=== PATIENT | female | born 1955 | race Caucasian/White ===

== ENCOUNTER 2017-01-10 11:09 | Observation (INO) | payer OTHER ==
[2017-01-10 11:31] VITALS: BMI 33.3
--- NOTE | 2017-01-10 11:41 | PDOC ---
*Physical Exam - Vital Signs Last Vital Signs Temp Pulse Resp BP Pulse Ox 99.5 F 99 H 20 102/66 95 01/10/17 11:10 01/10/17 11:10 01/10/17 11:10 01/10/17 11:10 01/10/17 11:10 Heart Score/ECG Review #1 ECG reviewed & interpreted by me at: 11:41 General ECG Interpretation: Sinus Rhythm, Normal Rate, Normal Intervals, No acute ischemic changes ED Treatment Course - LABORATORY CBC & Chemistry Diagram: 01/11/17 05:35 01/11/17 05:35 Medical Decision Making - Medical Decision Making 01/12/17 13:36 61 yo F presented to the ER with a complaint of chest pain Labs nml EKG nml Pt placed on observation Agree with plan of car by CESARIO Lundberg *DC/Admit/Observation/Transfer Diagnosis at time of Disposition: Chest pain in adult - Discharge Dispostion Disposition: HOME Condition at time of disposition: Fair
--- NOTE | 2017-01-10 11:50 | PDOC ---
History of Present Illness - General Chief Complaint: Chest Pain Stated Complaint: CHEST PAIN Time Seen by Provider: 01/10/17 11:23 History Source: Patient Exam Limitations: No Limitations - History of Present Illness Initial Comments: 01/10/17 11:43 HPI: This 61-year-old female presents to the emergency room via EMS with the complaint of chest pressure. She states she had a headache overnight and had taken 2 Advil. She then had a cigarette and then developed some chest tightness where she needed to lie down because she felt she was going to pass out. This dizziness and near syncope lasted a few seconds. She now states that she feels extremely weak and called 911 for evaluation denies nausea, vomiting, fever, recent illness. She states the chest pain and chest tightness has now subsided. She has never had a cardiac evaluation and workup. Chief Compliant: Chest tightness Pain location: Midsternal chest tightness Duration: Just prior to arrival Modifying factors: None Quality: Throbbing and tightness Radiating: Nonradiating Severity: Moderate Time: one episodic event PMH: Hyperlipidemia and reflux FH: Pt has not recently traveled outside the country in the last 30 days. Pt has not been in contact with people who have traveled out of the country, in contact with people who have been ill with fever, n, v, d. SH: smoking use: Current one pack a day smoker illicit drug use: NONE alcohol use: NONE employment/educational status: sexual history: PSH: Appendectomy childhood Home med use noted on JAN Allergies: NKA PCP: Dr. Sawyer Past History - Past Medical History Allergies/Adverse Reactions: Allergies Allergy/AdvReac Type Severity Reaction Status Date / Time No Known Allergies Allergy Verified 01/10/17 11:31 Home Medications: Ambulatory Orders Esomeprazole Mag Trihydrate [Nexium] 40 mg PO PRN 01/13/12 Simvastatin [Zocor] 40 mg PO HS 01/13/12 GI Disorders: Yes (REFLUX) Hypercholesterolemia: Yes - Surgical History Appendectomy: Yes - Immunization History Td Vaccination: Yes Immunization Up to Date: Yes - Psycho/Social/Smoking Cessation Hx Anxiety: Yes Suicidal Ideation: No Smoking Status: No Smoking History: Current every day smoker Years of Tobacco Use: 40 Have you smoked in the past 12 months: Yes Number of Cigarettes Smoked Daily: 20 Information on smoking cessation initiated: No Hx Alcohol Use: No Drug/Substance Use Hx: No Substance Use Type: None Cardiac Specific PMH - Complaint Specific PMHX GERD: Yes (Dr Tellez did EDG and colonoscopy 2 years ago) Review of Systems - Review of Systems Able to Perform ROS?: Yes Comments:: 01/10/17 11:50 General statement: Developing chest tightness and pressure early this morning Hematology: neg history of bleeding/blood thinners Skin: Neg for lesions, rash, bruising. HEENT: Neg symptoms Respiratory: Neg SOB or difficulty in breathing Cardiac: +chest pain GI: Neg pain, n/v : Neg problems on voiding MS: Neg for joint pain/stiffness, no edema Neuro: Neg for LOC, weakness, Endocrine: Neg for excess thirst/hunger, cold/heat intolerance, excess sweating Allergies: Neg for allergies *Physical Exam - Vital Signs Last Vital Signs Temp Pulse Resp BP Pulse Ox 100.0 F H 99 H 20 102/66 97 01/10/17 13:20 01/10/17 11:10 01/10/17 11:10 01/10/17 11:10 01/10/17 12:00 - Physical Exam Comments: 01/10/17 11:50 General Appearance: This well appearing 61-year-old female V/S: hemodynamically stable, afebrile Skin: WNL of pt's skin color, no signs of pallor, mottling, cyanosis Head:symmetrical Eyes: EOM's intact, PERRLA Ears: denies pain Nose: patent Throat: lips, teeth, gums, tongue, buccal mucos pink and moist Lungs: Chest symmetry equal. Cap refill <3 seconds. Lung sounds clear Cardiac: PMI at R 4MCL space, pos S1 and S2, regular rate. No pain on palpation. No reproducible tenderness Abdomen: Soft, round, nontender : Not observed Muscularskeletal: Gait steady, no edema +PMS Neuro: AAOx3, cognitively intact, speech clear and appropriate. Heart Score/ECG Review - History History: Highly suspicious - Electrocardiogram EKG: Normal - Age Age: 45-65 - Risk Factors Risk Factors Heart Score: Yes Hx Hypercholesterolemia, Yes Smoking History Based on the list above the patient has:: 1-2 risk factors #1 ECG reviewed & interpreted by me at: 11:30 General ECG Interpretation: Sinus Rhythm, Normal Rate, Normal Intervals, No acute ischemic changes Eligibility Checklist For AMI - INCLUSION CRITERIA Prolonged (>30 minutes)ischemic pain: No 12 Lead ECG indicates AMI: No ST elevation >1 mm in at least 2 limb leads: No ST elevation>2 mm in at least 2 contiguous precordial leads: No LBBB with clinical symptoms consistent with an AMI: No ED Treatment Course - LABORATORY CBC & Chemistry Diagram: 01/10/17 12:02 01/10/17 12:02 - ADDITIONAL ORDERS Additional order review: Laboratory Results 01/10/17 01/10/17 01/10/17 12:27 12:27 12:02 INR Sodium 140 Potassium 4.3 Chloride 105 Carbon Dioxide 25 Anion Gap 10 BUN 13 D Creatinine 0.9 Creat Clearance w eGFR > 60 Random Glucose 118 H Lactic Acid 1.531 Calcium 8.9 Magnesium 2.2 Total Bilirubin 0.5 D AST 16 D ALT 26 Alkaline Phosphatase 69 Creatine Kinase 63 Troponin I < 0.02 Total Protein 6.9 Albumin 3.6 Urine Color Yellow Urine Appearance Clear Urine pH 6.0 Ur Specific [place] 1.014 Urine Protein Negative Urine Glucose (UA) Negative Urine Ketones Negative Urine Blood 3+ H Urine Nitrite Negative Urine Bilirubin Negative Urine Urobilinogen Negative Ur Leukocyte Esterase Negative 01/10/17 12:02 INR 1.12 Sodium Potassium Chloride Carbon Dioxide Anion Gap BUN Creatinine Creat Clearance w eGFR Random Glucose Lactic Acid Calcium Magnesium Total Bilirubin AST ALT Alkaline Phosphatase Creatine Kinase Troponin I Total Protein Albumin Urine Color Urine Appearance Urine pH Ur Specific [place] Urine Protein Urine Glucose (UA) Urine Ketones Urine Blood Urine Nitrite Urine Bilirubin Urine Urobilinogen Ur Leukocyte Esterase 01/10/17 12:02 RBC 4.74 MCV 89.5 MCHC 33.0 RDW 13.5 MPV 7.0 L Neutrophils % 93.1 H Lymphocytes % 2.9 L D Monocytes % 3.3 L Eosinophils % 0.4 Basophils % 0.3 - RADIOLOGY Radiology Studies Ordered: Category Date Time Status CHEST X-RAY PORTABLE* [RAD] Stat Radiology 01/10/17 11:54 Completed - Medications Given in the ED: ED Medications Discontinued Medications Generic Name Dose Route Start Last Admin Trade Name Freq PRN Reason Stop Dose Admin Aspirin 162 mg 01/10/17 11:54 01/10/17 12:08 Asa - PO 01/10/17 11:55 162 mg ONCE ONE Administration Medical Decision Making - Critical Care Time Total Critical Care Time (minutes): 30 Critical Care Statement: The care of this patient involved high complexity decision making to prevent further life threatening deterioration of the patient 's condition and/or to evalute & treat vital organ system(s) failure or risk of failure. - Medical Decision Making 01/10/17 11:53 A/P: 61-year-old female with complaints of chest tightness prior to arrival 1. EKG: Normal sinus rhythm no ST or T-wave abnormalities. 2 chest x-ray ordered. 3. Aspirin 162 given 4. Labs and troponins pending 5. Patient without chest pain here in the emergency room and evaluated on a monitor. 01/10/17 13:05 Pt labs noted to have a WBC with 18.0. oral temp 99.5, rectal ordered, blood culture obtained and ua ordered. 01/10/17 15:13 UA neg with + 3 blood but she is under the care of metal moulder for this and unknown findings. Pt remains CP free. CXR normal and no infiltrate Pt case d/w Dr. Andrea regarding findings and admission. She requested consult placement for Dr. Cruz. Pt in for telemetry bed. *DC/Admit/Observation/Transfer Diagnosis at time of Disposition: Chest pain in adult - Discharge Dispostion Condition at time of disposition: Stable Admit: Yes
[2017-01-10] MEDS ORDERED: ASPIRIN 81 MG CHEWABLE TABLETS PO ONE (11:54)
[2017-01-10] MEDS ORDERED: ASPIRIN 81 MG CHEWABLE TABLETS ONE (12:04)
[2017-01-10 12:20] LABS: BASOPHIL 0.3 % (0-2.0); EOSINOPHIL 0.4 % (0-4.5); MCH 29.5 pg (25.7-33.7); MEAN CELL VOLUME 89.5 fl (80-96); NEUTROPHILS 93.1 % (42.8-82.8); PLATELET COUNT 216 K/MM3 (134-434); RDW 13.5 % (11.6-15.6)
[2017-01-10 12:33] LABS: INR 1.12 (0.82-1.09); PROTHROMBIN TIME (PATIENT) 12.4 SEC (9.98-11.88)
[2017-01-10 12:45] LABS: ALBUMIN 3.6 g/dl (3.4-5.0); ANION GAP 10 (8-16); BILIRUBIN,TOTAL 0.5 mg/dL (0.2-1.0); CALCIUM 8.9 mg/dL (8.5-10.1); CO2 25 mmol/L (21-32); CREATININE 0.9 mg/dL (0.55-1.02); GLUCOSE,RANDOM 118 mg/dL (74-106); MAGNESIUM 2.2 mg/dL (1.8-2.4); SGOT/AST 16 U/L (15-37); SGPT/ALT 26 U/L (12-78); TOT PROT 6.9 g/dl (6.4-8.2)
[2017-01-10 12:48] LABS: ALK PHOS 69 U/L (45-117)
[2017-01-10] MEDS ORDERED: ONDANSETRON 4 MG/2 ML VIAL ONE (13:14)
--- NOTE | 2017-01-10 13:48 | EKG ---
Test Reason : Blood Pressure : / mmHG Vent. Rate : 099 BPM Atrial Rate : 099 BPM P-R Int : 160 ms QRS Dur : 078 ms QT Int : 352 ms P-R-T Axes : 027 000 046 degrees QTc Int : 451 ms NORMAL SINUS RHYTHM NORMAL ECG WHEN COMPARED WITH ECG OF 14-SEP-2013 16:56, NO SIGNIFICANT CHANGE WAS FOUND Confirmed by ANAYELI CHRISTINE MD ([id number]) on 01/10/2017 1:48:03 PM Referred By: Confirmed By:ANAYELI CHRISTINE MD
[2017-01-10 14:12] LABS: URINE APPEARANCE CLEAR; URINE BILIRUBIN NEGATIVE (NEGATIVE); URINE COLOR YELLOW; URINE GLUCOSE (UA) NEGATIVE (NEGATIVE); URINE KETONE NEGATIVE (NEGATIVE); URINE LEUK ESTERASE NEGATIVE (NEGATIVE); URINE NITRITE NEGATIVE (NEGATIVE); URINE PROTEIN NEGATIVE (NEGATIVE); URINE UROBILINOGEN NEGATIVE E.U./dl (0.2-1.0)
[2017-01-10 14:23] LABS: URINE BLOOD 3+ (NEGATIVE)
[2017-01-10 14:45] LABS: TROPONIN I < 0.02 ng/ml (0.00-0.05)
[2017-01-10 15:10] LABS: URINE BACTERIA RARE /hpf (NONE SEEN); URINE MUCUS RARE; URINE RBC 19 /hpf (0-3); URINE WBC 2 /hpf (3-5)
[2017-01-10] MEDS ORDERED: ONDANSETRON 4 MG/2 ML VIAL IVPUSH ONE (15:58)
[2017-01-10] MEDS ORDERED: ACETAMINOPHEN 325 MG TABLET (FP) PO ONE (16:08)
[2017-01-10] MEDS ORDERED: ACETAMINOPHEN 325 MG TABLET (FP) ONE (16:10)
--- NOTE | 2017-01-10 20:14 | HP ---
Admitting History and Physical - Primary Care Physician PCP: Miller Sawyer - Admission Chief Complaint: chest pain, dizzyness History of Present Illness: Had chills last night, developed dizziness, lightheadedness at home this am with restrosternal pressure so she called 911 and came in. By the time she was in er she was pain free. Has had normal stress echo in 2015, no work up since. In er temp 100 with low BP and leukocytosis. History Source: Patient Limitations to Obtaining History: No Limitations - Past Medical History Renal/: Yes: Hematuria (chronic, microscopic) - Past Surgical History Past Surgical History: Yes: Appendectomy - Smoking History Smoking history: Current every day smoker Have you smoked in the past 12 months: Yes Aproximately how many cigarettes per day: 20 - Alcohol/Substance Use Hx Alcohol Use: No - Social History Usual Living Arrangement: Yes: Alone ADL: Independent History of Recent Travel: No Home Medications - Allergies Allergies/Adverse Reactions: Allergies Allergy/AdvReac Type Severity Reaction Status Date / Time No Known Allergies Allergy Verified 01/10/17 11:31 - Home Medications Home Medications: Ambulatory Orders Esomeprazole Mag Trihydrate [Nexium] 40 mg PO PRN 01/13/12 Simvastatin [Zocor] 40 mg PO HS 01/13/12 Review of Systems - Review of Systems Constitutional: reports: Chills, Loss of Appetite, Weakness HENT: reports: Nasal Congestion Cardiovascular: reports: Chest Pain. denies: Palpitations, Shortness of Breath Respiratory: denies: Cough, Exercise Intolerance, SOB on Exertion Gastrointestinal: denies: Abdominal Pain Genitourinary: denies: Burning, Discharge, Dysuria Neurological: reports: Weakness Physical Examination Vital Signs: Vital Signs Temperature 97.5 F L 01/10/17 18:29 Pulse Rate 75 01/10/17 18:29 Respiratory Rate 16 01/10/17 18:29 Blood Pressure 105/75 01/10/17 18:29 O2 Sat by Pulse Oximetry (%) 96 01/10/17 15:00 Constitutional: Yes: Well Nourished, Calm Eyes: Yes: Conjunctiva Clear, EOM Intact HENT: Yes: Atraumatic, Normocephalic, Nasal Congestion. No: Thrush Neck: Yes: Supple, Trachea Midline Cardiovascular: Yes: Regular Rate and Rhythm Respiratory: Yes: CTA Bilaterally Gastrointestinal: Yes: Normal Bowel Sounds, Soft Musculoskeletal: Yes: WNL Edema: No Peripheral Pulses WNL: Yes Integumentary: Yes: WNL Neurological: Yes: WNL ...Motor Strength: WNL Psychiatric: Yes: WNL Labs: Laboratory Results - last 24 hr 01/10/17 01/10/17 01/10/17 12:02 12:02 12:02 WBC 18.0 H RBC 4.74 Hgb 14.0 Hct 42.4 MCV 89.5 MCHC 33.0 RDW 13.5 Plt Count 216 MPV 7.0 L Neutrophils % 93.1 H Lymphocytes % 2.9 L D Monocytes % 3.3 L Eosinophils % 0.4 Basophils % 0.3 INR 1.12 Sodium 140 Potassium 4.3 Chloride 105 Carbon Dioxide 25 Anion Gap 10 BUN 13 D Creatinine 0.9 Creat Clearance w eGFR > 60 Random Glucose 118 H Lactic Acid Calcium 8.9 Magnesium 2.2 Total Bilirubin 0.5 D AST 16 D ALT 26 Alkaline Phosphatase 69 Creatine Kinase 63 Troponin I < 0.02 Total Protein 6.9 Albumin 3.6 Urine Color Urine Appearance Urine pH Ur Specific [place] Urine Protein Urine Glucose (UA) Urine Ketones Urine Blood Urine Nitrite Urine Bilirubin Urine Urobilinogen Ur Leukocyte Esterase Urine RBC Urine WBC Ur Epithelial Cells Urine Bacteria Urine Mucus 01/10/17 01/10/17 12:27 12:27 WBC RBC Hgb Hct MCV MCHC RDW Plt Count MPV Neutrophils % Lymphocytes % Monocytes % Eosinophils % Basophils % INR Sodium Potassium Chloride Carbon Dioxide Anion Gap BUN Creatinine Creat Clearance w eGFR Random Glucose Lactic Acid 1.531 Calcium Magnesium Total Bilirubin AST ALT Alkaline Phosphatase Creatine Kinase Troponin I Total Protein Albumin Urine Color Yellow Urine Appearance Clear Urine pH 6.0 Ur Specific [place] 1.014 Urine Protein Negative Urine Glucose (UA) Negative Urine Ketones Negative Urine Blood 3+ H Urine Nitrite Negative Urine Bilirubin Negative Urine Urobilinogen Negative Ur Leukocyte Esterase Negative Urine RBC 19 Urine WBC 2 Ur Epithelial Cells Few Urine Bacteria Rare Urine Mucus Rare Imaging - Results Chest X-ray: Report Reviewed EKG: Report Reviewed Problem List - Problems (1) Chest pain in adult Code(s): R07.9 - CHEST PAIN, UNSPECIFIED (2) Fever Code(s): R50.9 - FEVER, UNSPECIFIED Qualifiers: Fever type: unspecified Qualified Code(s): R50.9 - Fever, unspecified Assessment/Plan ?URI with weakness and dizzyness Chest pain likely related to above and not cardiac Gentle hydration Flu swab Card f/up in am Echo cardiac enzymes blood and urine cultures were drawn
[2017-01-10 21:43] LABS: TROPONIN I < 0.02 ng/ml (0.00-0.05)
[2017-01-10] MEDS ORDERED: ATORVASTATIN CA 20 MG TABLET (FP) PO SCH (22:00)
[2017-01-10] MEDS: POTASSIUM CHLORIDE 10 MEQ in SODIUM CHLORIDE 0.45% 1,000 ML IVPB SCH (22:19)
[2017-01-11 07:17] LABS: BASOPHIL 0.3 % (0-2.0); EOSINOPHIL 4.2 % (0-4.5); MCH 30.2 pg (25.7-33.7); MCHC 33.7 g/dl (32.0-36.0); MEAN CELL VOLUME 89.6 fl (80-96); MEAN PLT VOLUME 6.9 fl (7.5-11.1); PLATELET COUNT 198 K/MM3 (134-434); RDW 13.6 % (11.6-15.6); WHITE BLOOD COUNT 7.6 K/mm3 (4.0-10.0)
[2017-01-11 07:52] LABS: ANION GAP 8 (8-16); CALCIUM 8.4 mg/dL (8.5-10.1); CO2 25 mmol/L (21-32); GLUCOSE,RANDOM 98 mg/dL (74-106)
[2017-01-11 08:07] LABS: ALK PHOS 65 U/L (45-117); BILIRUBIN,TOTAL 0.4 mg/dL (0.2-1.0); CREATININE 0.8 mg/dL (0.55-1.02); SGOT/AST 21 U/L (15-37); SGPT/ALT 32 U/L (12-78); TOT PROT 5.8 g/dl (6.4-8.2)
[2017-01-11] MEDS ORDERED: PT OWN MED DRAWER 7, Y5N ONE (08:39)
--- NOTE | 2017-01-11 09:07 | PN ---
Progress Note (short form) - Note Progress Note: Cardiology Consult Dicated IMP: Probable viral syndrome with pleurisy Unlikely cardiac etiology of chest pain REC: Agree with echo to assess EF and rule out pericardial effusion Outpatient ETT when recovers from acute illness for further CV risk strat ( smoker with HL) Thanks.
[2017-01-11] MEDS ORDERED: PANTOPRAZOLE 40 MG TABLET (FP) PO SCH (10:00)
--- NOTE | 2017-01-11 10:35 | PN ---
Progress Note (short form) - Note Progress Note: Feels well today, no complaints. CBC, BMP 01/11/17 05:35 01/11/17 05:35 Vital Signs Period Temp Pulse Resp BP Sys/Lowe Pulse Ox Last 24 Hr 97.2 F-100.0 F 63-99 16-20 90-119/48-75 95-97 S1S2 RRR Lungs cta Abd soft NT no edema Imp BP on lower side, but pt is asymptomatic if echo wnl would dc home with outpt f/up likely viral syndr. cont iv fluids while inpt Problem List - Problems (1) Chest pain in adult Code(s): R07.9 - CHEST PAIN, UNSPECIFIED (2) Fever Code(s): R50.9 - FEVER, UNSPECIFIED Qualifiers: Fever type: unspecified Qualified Code(s): R50.9 - Fever, unspecified
[2017-01-11 11:00] LABS: TROPONIN I < 0.02 ng/ml (0.00-0.05)
--- NOTE | 2017-01-11 11:16 | CONS ---
DATE OF CONSULTATION: 01/11/2017 CONSULTATION REQUESTED BY: Bhavna Andrea MD CHIEF COMPLAINT: Chest pain. HISTORY OF PRESENT ILLNESS: A 61-year-old female with past medical history of GERD, hyperlipidemia, and long time smoker, admitted with dry cough, fevers, chills, diffuse body aches, and an episode of substernal chest pain which occurred yesterday at the time that her cough surfaced. She denies shortness of breath beyond her usual baseline with exertion, which she attributes to chronic smoking. No palpitations, PND, orthopnea. No syncope. No heart failure symptoms. The patient describes 1-2 days of feeling fatigued with body aches, subjective chills. Here, she was found to be febrile with an elevated white blood cell count of 18 upon admission. She was also initially mildly hypotensive and has been receiving IV fluids overnight. Influenza swab is currently negative. Blood cultures and urine cultures are pending. PAST MEDICAL HISTORY: Significant for GERD and hyperlipidemia. ALLERGIES: She has no known drug allergies. HOME MEDICATIONS: Include Zocor 40 mg at bedtime and Nexium 40 mg p.r.n. PAST SURGICAL HISTORY: She denies any prior surgeries. FAMILY HISTORY: No early CAD or sudden cardiac . SOCIAL HISTORY: Smokes 1/2 pack to a pack per day for many years. 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 PHYSICAL EXAMINATION: Vital Signs: Initial temperature of 100.0, now 97.4. Pulse 65 and regular. Blood pressure ranging between 100 and 105 systolic over 60. O2 saturation 96 on room air. HEENT: Anicteric. Neck: No bruits. Heart: S1, S2 regular. No murmurs. Chest: Clear, with decreased breath sounds bilaterally consistent with previous smoking history. Abdomen: Soft, nontender. Extremities: No edema. EKG normal sinus at 99 beats per minute. No acute ST changes. Chest x-ray showed no acute findings. LABORATORY: White count is now down to 7.6. Hematocrit is 37, platelets 198, INR 1.12. Sodium 142, potassium 4.2, creatinine normal. LFTs normal. CK and troponin are negative x3 sets. Urinalysis showed 3+ blood with 2 white cells, otherwise negative. Patient states she has a long history of hematuria with a recent negative secondary workup. ASSESSMENT: A 61-year-old female admitted with 1-2 days of viral symptoms including subjective fevers, chills, dry cough with an episode of chest pain in that setting, with no acute EKG changes and 3 negative cardiac enzymes. This likely represents a viral syndrome with possible pleurisy. Doubt cardiac etiology of chest pain. PLAN: 1. Echocardiogram to rule out pericardial disease and assess LV function. 2. Treatment of underlying illness as per PMD. 3. When she recovers from the acute illness, recommend outpatient treadmill stress test for further cardiovascular risk stratification in light of her risk factors of hyperlipidemia and long-term smoking. Thank you for this consultation. SYD PERRY M.D. [id number]
[2017-01-11] MEDS: POTASSIUM CHLORIDE 10 MEQ in SODIUM CHLORIDE 0.45% 1,000 ML IVPB SCH (12:33)
--- NOTE | 2017-01-11 13:58 | DS ---
Physical Examination Vital Signs: Vital Signs Temperature 97.9 F 01/11/17 10:00 Pulse Rate 79 01/11/17 10:06 Respiratory Rate 18 01/11/17 10:06 Blood Pressure 98/66 01/11/17 10:06 O2 Sat by Pulse Oximetry (%) 97 01/11/17 10:00 Constitutional: Yes: No Distress, Calm Eyes: Yes: Conjunctiva Clear, EOM Intact HENT: Yes: Normocephalic Neck: Yes: Trachea Midline Cardiovascular: Yes: Regular Rate and Rhythm Respiratory: Yes: CTA Bilaterally Gastrointestinal: Yes: Normal Bowel Sounds, Soft Edema: No Integumentary: Yes: WNL Neurological: Yes: WNL Psychiatric: Yes: WNL Labs: CBC, BMP 01/11/17 05:35 01/11/17 05:35 Discharge Summary Reason For Visit: CHEST PAIN Current Active Problems Chest pain in adult (Acute) Hospital Course: admitted for observation overnight for chest pain, low grade fever and leukocytosis. Hydrated in hospital, feels better, no further chest pain, serial cardiac enzymes blood, urine cultures and flu swab negative, echo unremarkable. medically stable to dc home with oupt f/up Condition: Fair - Instructions Diet, Activity, Other Instructions: rest, plenty fluids in 1 week in 2-3 weeks Referrals: Miller Sawyer MD [Primary Care Provider] - Disposition: HOME - Home Medications Comprehensive Discharge Medication List: Ambulatory Orders Esomeprazole Mag Trihydrate [Nexium] 40 mg PO PRN 01/13/12 Simvastatin [Zocor] 40 mg PO HS 01/13/12
[2017-01-11 14:48] VITALS: BP 134/67; PULSE 70; TEMP 97.5
== END 2017-01-11 15:10 | disposition home or self-care (01) ==
LOC: JER 11:09 → JERBED 15:21 → UNDOADMOB 15:21 → INTOOBSV 15:21 → JERBED 15:55 → J4W 17:43
PROVIDERS: ADMIT Internal Medicine; ATTEND Internal Medicine
DX: J06.9 Acute upper respiratory infection, unspecified (principal); R07.9 Chest pain, unspecified; K21.9 Gastro-esophageal reflux disease without esophagitis; E78.00 Pure hypercholesterolemia, unspecified; F17.210 Nicotine dependence, cigarettes, uncomplicated; R31.9 Hematuria, unspecified; R50.9 Fever, unspecified
CPT/HCPCS: 36415; 71010-TC; 80053; 81003; 81015; 82550; 83605; 83735; 84484; 85025; 85610; 87040; 87086; 87254; 87804; 93005; 93010; 93306-TC; 99285-25; G0378

== ENCOUNTER → 2017-07-13 | Day surgery (SDC) | payer OTHER ==
--- NOTE | 2017-07-17 10:44 | PATH ---
Surgical Pathology Report Patient Name: EMILY FRIEND [facility]. Rec. #: [id number] /Age/Gender: 1955 (Age: 62) / F Account: [id number] Location: Taken: 07/13/2017 Received: 07/13/2017 Reported: 07/17/2017 Physicians: Paul Reynoso M.D. Specimen(s) Received RIGHT BREAST BIOPSY 3 O'CLOCK, 4CM FN Clinical History Ultrasound findings: Probably benign 0.4 cm hypoechoic mass Final Diagnosis BREAST, RIGHT, 3:00, 4 CM FN, CORE BIOPSY: BENIGN BREAST TISSUE SHOWING STROMAL FIBROSIS. Electronically Signed Gretchen Case M.D. Gross Description Received in formalin, labeled "right breast biopsy 3:00, 4 cmfn," are 6 hickman-yellow, cylindrical portions of fibroadipose tissue ranging from 0.4-1.4 cm. in length and averaging 0.2 cm. in diameter. The specimen is submitted in toto in one cassette. Time to formalin fixation: 2 minutes Total formalin fixation time: Approximately 7 hours. /07/13/201707/13/2017
== END | disposition home or self-care (01) ==
LOC: FRADUS-SUR 08:58
PROVIDERS: ATTEND Specialist
PROC: 0HBT3ZX Excision of Right Breast, Percutaneous Approach, Diagnostic (ICD-10-PCS; principal; 2017-07-13)
DX: N60.31 Fibrosclerosis of right breast (principal); N63 Unspecified lump in breast
CPT/HCPCS: 19083; 87899; 88305-TC; A4648; G0206-TC

== ENCOUNTER 2019-01-02 14:42 | Inpatient (IN) | payer OTHER ==
--- NOTE | 2019-01-02 16:05 | HP ---
Admitting History and Physical - Primary Care Physician PCP: Miller Sawyer - Admission Chief Complaint: nausea History of Present Illness: developed nausea for 7-10 days with poor appetite, known h/o gallstones, saw and was scheduled for gallbladder sugery. preop labs show biliary obstruction, hence [t was sent to er for further w/up and treatment. 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 ) Renal/: Yes: Hematuria (chronic, microscopic) Psych: Yes: Anxiety Musculoskeletal: Yes: Chronic low back pain - Past Surgical History Past Surgical History: Yes: Appendectomy Additional Past Surgical History: carpal tunnel surgery - Smoking History Smoking history: Unknown if ever smoked Have you smoked in the past 12 months: Yes Aproximately how many cigarettes per day: 6 - Alcohol/Substance Use Hx Alcohol Use: No - Social History ADL: Independent History of Recent Travel: No Home Medications - Allergies Allergies/Adverse Reactions: Allergies Allergy/AdvReac Type Severity Reaction Status Date / Time No Known Allergies Allergy Verified 01/02/19 14:43 - Home Medications Home Medications: Ambulatory Orders Esomeprazole Magnesium [Nexium 24Hr] 20 mg PO DAILY 01/02/19 Metoprolol Tartrate 12.5 mg PO DAILY 01/02/19 Simvastatin [Zocor -] 20 mg PO HS 01/02/19 Family Disease History - Family Disease History Family History: Unremarkable Review of Systems - Review of Systems Constitutional: reports: Loss of Appetite. denies: Chills, Fever, Malaise Eyes: reports: No Symptoms HENT: reports: No Symptoms Neck: reports: No Symptoms Cardiovascular: reports: No Symptoms Respiratory: reports: No Symptoms Gastrointestinal: reports: Nausea. denies: Abdominal Pain, Diarrhea, Vomiting Genitourinary: reports: No Symptoms Breasts: reports: No Symptoms Reported Musculoskeletal: reports: Back Pain Neurological: reports: No Symptoms Hematology/Lymphatic: reports: No Symptoms Psychiatric: reports: No Symptoms Physical Examination Vital Signs: Vital Signs Temperature 97.9 F 01/02/19 14:42 Pulse Rate 113 H 01/02/19 14:42 Respiratory Rate 20 01/02/19 14:42 Blood Pressure 114/68 01/02/19 14:42 O2 Sat by Pulse Oximetry (%) 96 01/02/19 14:42 Constitutional: Yes: Calm, Obese Eyes: Yes: Sclera Icterus HENT: Yes: Normocephalic Neck: Yes: Trachea Midline Cardiovascular: Yes: Regular Rate and Rhythm Respiratory: Yes: CTA Bilaterally Gastrointestinal: Yes: Normal Bowel Sounds, Soft, Abdomen, Obese. No: Distention, Tenderness, Rebound, Vomiting Renal/: Yes: WNL Musculoskeletal: Yes: WNL Extremities: Yes: WNL Edema: No Peripheral Pulses WNL: Yes Neurological: Yes: WNL Psychiatric: Yes: WNL Problem List - Problems (1) Abnormal liver enzymes Code(s): R74.8 - ABNORMAL LEVELS OF OTHER SERUM ENZYMES (2) Calculus of gallbladder Code(s): K80.20 - CALCULUS OF GALLBLADDER W/O CHOLECYSTITIS W/O OBSTRUCTION Qualifiers: Cholecystitis presence: without cholecystitis Biliary obstruction: with biliary obstruction Qualified Code(s): K80.21 - Calculus of gallbladder without cholecystitis with obstruction (3) Jaundice Code(s): R17 - UNSPECIFIED JAUNDICE Assessment/Plan MRCP GI eval, may need ercp NPO for now iv fluids consults appreciated
--- NOTE | 2019-01-02 16:11 | CON.CARD ---
Consult Consult Specialty:: Cardiology Referred by:: Dr. Khan Reason for Consultation:: Preoperative Cardiac Consult - History of Present Illness Chief Complaint: Abdominal pain and nausea History of Present Illness: 63 F with: Nonobstx CAD Mild carotid plaque Mild to mod AR Mild stable ascending aortic aneurysm 4.1 (was 4.0cm in 2013). Cholelithiasis Presents to ER now with nausea, RUQ pain and abnormal labs (elevated bili) and concern for choledocholithiasis. Denies chest pain, SOB, palpitations, edema, PND, orthopnea. Denies syncope. No PND, no orthopnea. - History Source History Provided By: Patient, Medical Record Limitations to Obtaining History: No Limitations - Past Medical History Cardio/Vascular: Yes: Aneurysm, Aortic Insufficiency, HTN, Hyperlipdemia Pulmonary: No: Asthma, Bronchitis, Cancer, COPD, O2 Dependent, Pneumonia, Previously Intubated, Pulmonary Embolus, Pulmonary Fibrosis, Sleep Apnea, Other Hepatobiliary: Yes: Cholelithiasis Renal/: Yes: Hematuria (chronic, microscopic) Heme/Onc: No: Anemia, B12 Deficiency, Bleeding Disorder, Cancer, Current Chemotherapy, Current Radiation Therapy, Hemochromatosis, Hypercoaguable State, Myeloproliferative Synd, Sickle Cell Disease, Sickle Cell Trait, Thrombocytopenia, Other Infectious Disease: No: AIDS, C-Diff, Herpes Zoster, HIV, MRSA, STD's, Tuberculosis, VREF, Other Psych: No: Addictions, Anxiety, Bipolar, Depression, Panic, Psychosis, Schizophrenia, Other Musculoskeletal: No: Bursitis, Chronic low back pain, Hemiparesis, Hemiplegia, Osteoarthritis, Paraplegia, Other Rheumatology: No: Fibromyalgia, Gout, Lupus, Rheumatoid Arthritis, Sarcoidosis, Vasculitis, Other ENT: No: Allergic Rhinitis, Sinusitis, Other Endocrine: No: Jacoby's Disease, Darleen's Disease, Diabetes Insipidus, Diabetes Mellitus, Hyperparathyroidism, Hyperthyroidism, Hypothyroidism, Osteopenia, SIADH, Other Dermatology: No: Basal Cell, Cellulitis, Eczema, Melanoma, Psoriasis, Squamous Cell, Other - Past Surgical History Past Surgical History: Yes: Appendectomy - Alcohol/Substance Use Hx Alcohol Use: No - Smoking History Smoking history: Unknown if ever smoked Have you smoked in the past 12 months: Yes Aproximately how many cigarettes per day: 6 - Social History ADL: Independent History of Recent Travel: No Home Medications - Allergies Allergies/Adverse Reactions: Allergies Allergy/AdvReac Type Severity Reaction Status Date / Time No Known Allergies Allergy Verified 01/02/19 14:43 - Home Medications Home Medications: Ambulatory Orders Esomeprazole Magnesium [Nexium 24Hr] 20 mg PO DAILY 01/02/19 Metoprolol Tartrate 12.5 mg PO DAILY 01/02/19 Simvastatin [Zocor -] 20 mg PO HS 01/02/19 Family Disease History - Family Disease History Family History: Unremarkable (no early CAD or SCD) Review of Systems Findings/Remarks: see HPI - Review of Systems Constitutional: reports: Loss of Appetite Eyes: denies: No Symptoms, Blind Spots, Blurred Vision, Double Vision, Eye Pain , Floaters, Photophobia, Recent Change in Vision, Other HENT: denies: No Symptoms, Difficult Swallowing, Ear Discharge, Ear Pain, Epistaxis, Gingival Bleeding, Hearing Loss, Mouth Swelling, Nasal Congestion, Ocular Prosthesis, Throat Pain, Toothache, Ringing in Ears, Other Neck: denies: No Symptoms, Decreased ROM, Lumps, Pain on Movement, Stiffness, Swollen Glands, Tenderness, Other Cardiovascular: denies: No Symptoms, Chest Pain, Edema, Palpitations, Shortness of Breath, Other Respiratory: denies: No Symptoms, Cough, Exercise Intolerance, Hemoptysis, Orthopnea, PND, Snoring, SOB, SOB on Exertion, Wheezing, Other Gastrointestinal: reports: Abdominal Pain, Nausea, Vomiting Genitourinary: denies: No Symptoms, Burning, Discharge, Dysuria, Flank Pain, Frequency, Hematuria, Incontinence, Lesions, Menses, Pain, Testicular Mass, Testicular Pain, Testicular Swelling, Urgency, Vaginal Bleeding, Other Breasts: denies: No Symptoms Reported, See HPI, Breast Implants, Discharge from Nipple, Lumps, Pain, Skin Changes, Other Musculoskeletal: denies: No Symptoms, Back Pain, Crepitus, Decreased ROM, Extremity Pain, Joint Pain, Joint Swelling, Muscle Pain, Muscle Cramps, Muscle Weakness, Other Integumentary: denies: No Symptoms, Blister, Bruising, Change in Color, Eczema, Erythema, Incision, Lesions, Lump, Pallor, Pruritis, Rash, Wound, Other Neurological: denies: No Symptoms, Change in LOC, Change in Speech, Confusion, Dizziness, Headache, Incoordination, Numbness, Parasthesia, Pre-Existing Deficit , Seizure, Syncope, Tremors, Unsteady Gait, Weakness, Other Endocrine: denies: No Symptoms, Excessive Sweating, Flushing, Increased Hunger, Increased Thirst, Intolerance to Cold, Intolerance to Heat, Unexplained Weight Gain, Unexplained Weight Loss, Other Hematology/Lymphatic: denies: No Symptoms, Easily Bruised, Excessive Bleeding, Swollen Glands, Other Psychiatric: denies: No Symptoms, Altered Sleep Pattern, Anxiety, Depression, Hallucinations, Panic, Paranoia, Suicidal, Other - Risk Factors Known Risk Factors: Yes: Hypercholesterolemia Vital Signs: Vital Signs Temperature 97.9 F 01/02/19 14:42 Pulse Rate 113 H 01/02/19 14:42 Respiratory Rate 20 01/02/19 14:42 Blood Pressure 114/68 01/02/19 14:42 O2 Sat by Pulse Oximetry (%) 96 01/02/19 14:42 Constitutional: Yes: No Distress, Calm Eyes: Yes: Sclera Icterus HENT: Yes: WNL Neck: Yes: WNL Respiratory: Yes: CTA Bilaterally (clear without wheezing or rales.) Gastrointestinal: Yes: Soft (Mild RUQ tenderness to palpation. No rebound or guarding.) Renal/: No: WNL, Anuria, Bladder Distention, CVA Tenderness - Left, CVA Tenderness - Right, Ha Present, Hematuria, Incontinence, Menses Present, Oliguria, Polyuria, , Scrotal Edema, Urethral Discharge, Vaginal Bleeding, Vaginal Discharge, Other Cardiovascular: Yes: Regular Rate and Rhythm JVD: No Carotid Bruit: No PMI: Non-Displaced Heart Sounds: Yes: S1, S2 (RRR, no M/R/G.) Musculoskeletal: No: WNL, Back Pain, Joint Stiffness, Joint Swelling, Muscle Pain, Muscle Weakness, Other Extremities: No: WNL, Amputation, Calf Tenderness, Cold, Cool, Cyanosis, Deformity, Delayed Capillary Refill, Erythema, External Rotation, Internal Rotation, Pallor, Shortened, Other Edema: No Peripheral Pulses WNL: Yes Neurological: Yes: Alert, Oriented ...Motor Strength: WNL Psychiatric: Yes: WNL - Other Data Pending. Echo: Report Reviewed Prior Cardiac Procedures: Cardiac Catheterization (within last two years: non- obstructive disease.) Ejection Fraction %: LVEF > or = 40 % Imaging - Results EKG: Pending Problem List - Problems (1) Abnormal liver enzymes Code(s): R74.8 - ABNORMAL LEVELS OF OTHER SERUM ENZYMES (2) Calculus of gallbladder Code(s): K80.20 - CALCULUS OF GALLBLADDER W/O CHOLECYSTITIS W/O OBSTRUCTION Qualifiers: Cholecystitis presence: without cholecystitis Biliary obstruction: with biliary obstruction Qualified Code(s): K80.21 - Calculus of gallbladder without cholecystitis with obstruction (3) Jaundice Code(s): R17 - UNSPECIFIED JAUNDICE (4) Ascending aortic aneurysm Code(s): I71.2 - THORACIC AORTIC ANEURYSM, WITHOUT RUPTURE (5) Aortic regurgitation Code(s): I35.1 - NONRHEUMATIC AORTIC (VALVE) INSUFFICIENCY Qualifiers: Cardiac valve disease etiology: nonrheumatic Qualified Code(s): I35.1 - Nonrheumatic aortic (valve) insufficiency (6) Nonobstructive atherosclerosis of coronary artery Code(s): I25.10 - ATHSCL HEART DISEASE OF THE [place] CORONARY ARTERY W/O ANG PCTRS Assessment/Plan IMP: Cholelithiasis, choledocholithiasis Nonobstx CAD Mild carotid plaque Mild to mod AR Mild stable ascending aortic aneurysm 4.1 (stable since 2012) REC: 1. Baseline ECG 2. No cardiac contraindications to ERCP or cholecystectomy. 3. Continue low dose Metoprolol to reduce aortic shear stress. 4. Further w/u of cholelithiasis, jaundice as per PMD and surgery. Thank you, will follow.
--- NOTE | 2019-01-02 16:20 | CONSULT ---
Consult Consult Specialty:: Surgery. Referred by:: Angela - History of Present Illness Chief Complaint: Yellow urine, for the past one week. - History Source History Provided By: Patient Limitations to Obtaining History: No Limitations - Past Medical History Renal/: Yes: Hematuria (chronic, microscopic) - Past Surgical History Past Surgical History: Yes: Appendectomy - Alcohol/Substance Use Hx Alcohol Use: No - Smoking History Smoking history: Unknown if ever smoked Have you smoked in the past 12 months: Yes Aproximately how many cigarettes per day: 6 - Social History ADL: Independent History of Recent Travel: No Home Medications - Allergies Allergies/Adverse Reactions: Allergies Allergy/AdvReac Type Severity Reaction Status Date / Time No Known Allergies Allergy Verified 01/02/19 14:43 - Home Medications Home Medications: Ambulatory Orders Esomeprazole Magnesium [Nexium 24Hr] 20 mg PO DAILY 01/02/19 Metoprolol Tartrate 12.5 mg PO DAILY 01/02/19 Simvastatin [Zocor -] 20 mg PO HS 01/02/19 Review of Systems - Review of Systems Gastrointestinal: reports: Other (Known to have gallstones, and found toe ve passing yellow urine, ? painless.) Physical Exam Vital Signs: Vital Signs Temperature 97.9 F 01/02/19 14:42 Pulse Rate 113 H 01/02/19 14:42 Respiratory Rate 20 01/02/19 14:42 Blood Pressure 114/68 01/02/19 14:42 O2 Sat by Pulse Oximetry (%) 96 01/02/19 14:42 Problem List - Problems (1) Calculus of gallbladder Code(s): K80.20 - CALCULUS OF GALLBLADDER W/O CHOLECYSTITIS W/O OBSTRUCTION Qualifiers: Cholecystitis presence: without cholecystitis Biliary obstruction: with biliary obstruction Qualified Code(s): K80.21 - Calculus of gallbladder without cholecystitis with obstruction (2) Jaundice Code(s): R17 - UNSPECIFIED JAUNDICE (3) Abnormal liver enzymes Code(s): R74.8 - ABNORMAL LEVELS OF OTHER SERUM ENZYMES Assessment/Plan : Work up for jaundice , in a patient with gallstones, Biliary obstruction, secondary to a)common bile duct calculus, and gallstones. b)R/O neoplasm / Plan : Abdominal ultrasound, HIDA scan, MRCP , patient says she cannot be in the machine, G.I. consult, possible ERCP, Dr. Gallardo. Will follow.
[2019-01-02 16:42] LABS: BASO % 0.6 % (0-2.0); EOS % 1.6 % (0-4.5); HEMATOCRIT 41.8 % (32.4-45.2); HEMOGLOBIN 14.4 GM/dL (10.7-15.3); LYMPH % 25.1 % (8-40); MCH 31.8 pg (25.7-33.7); MCHC 34.5 g/dl (32.0-36.0); MEAN CELL VOLUME 92.2 fl (80-96); MEAN PLT VOLUME 7.6 fl (7.5-11.1); MONO % 6.5 % (3.8-10.2); NEUT % 66.2 % (42.8-82.8); PLATELET COUNT 227 K/MM3 (134-434); RBC 4.54 M/mm3 (3.60-5.2); RDW 13.7 % (11.6-15.6); WHITE BLOOD COUNT 8.3 K/mm3 (4.0-10.0)
--- NOTE | 2019-01-02 16:53 | PDOC ---
Attending Attestation - Resident Resident Name: Low Ozuna - ED Attending Attestation I have performed the following: I have examined & evaluated the patient, The case was reviewed & discussed with the resident, I agree w/resident's findings & plan, Exceptions are as noted - HPI HPI: 01/02/19 17:47 The patient is a 63 year old female, with a significant PMH of HLD, DM, and HTN , who presents to the emergency department, sent by PCP and surgeon for elevated liver enzymes. The patient was seen by their PCP a week ago for RUQ tenderness, nausea and vomiting, where it was decided for the patient to get a cholecystectomy. Upon reading pre-op labs, the providers became concerned of elevated liver enzymes and a retained stone prompting them to send her in for admission. The patient denies chest pain, shortness of breath, headache and dizziness. Denies fever, chills, nausea, vomit, diarrhea and constipation. Denies dysuria, frequency, urgency and hematuria. Allergies: NKA Past surgical history: Appendectomy Social history: None reported PCP: Dr. Silverio Hollingsworth: Dr. Will - Physicial Exam PE: 01/02/19 17:48 agree with resident exam - Medical Decision Making 01/02/19 17:48 63yo F presents to the ED for admission for retained stone and elevated liver enzymes. Bili and alk phos elevated as well consistent with obstruction, will cover with zosyn in case of early ascending cholangitis although pt with no fevers, systemic signs of infection or white count. Management as per PMD/ surgeon. <Rashad Huntley - Last Filed: 01/02/19 17:55> Attestations - Attestations 01/02/19 17:25 Documentation prepared by Joy Zhao, acting as chief medical technologist for Rsahad Huntley MD. <Joy Zhao - Last Filed: 01/02/19 17:25>
[2019-01-02 17:05] LABS: INR 0.96 (0.83-1.09); PROTHROMBIN TIME (PATIENT) 11.3 SEC (9.7-13.0)
[2019-01-02 17:08] LABS: ACTIVATED PTT 32.4 SECONDS (25.2-36.5)
[2019-01-02 17:15] LABS: ALBUMIN 4.1 g/dl (3.4-5.0); ALK PHOS 356 U/L (45-117); ANION GAP 6 MMOL/L (8-16); BILIRUBIN,TOTAL 3.9 mg/dL (0.2-1); BLOOD UREA NITROGEN 16 mg/dL (7-18); CALCIUM 9.4 mg/dL (8.5-10.1); CHLORIDE 106 mmol/L (98-107); CO2 26 mmol/L (21-32); CREATININE 0.9 mg/dL (0.55-1.3); GLUCOSE,RANDOM 100 mg/dL (74-106); LIPASE 318 U/L (73-393); POTASSIUM 3.8 mmol/L (3.5-5.1); SGOT/AST 142 U/L (15-37); SGPT/ALT 305 U/L (13-61); SODIUM 138 mmol/L (136-145); TOT PROT 7.5 g/dl (6.4-8.2)
[2019-01-02] MEDS ORDERED: PIPERACILLIN/TAZOB 4.5 GM 4.5 GM in DEXTROSE 5%-WATER 100 ML IVPB ONE (17:28)
[2019-01-02] MEDS ORDERED: SODIUM CHLORIDE 1,000 ML IV STA (17:29)
[2019-01-02] MEDS ORDERED: ONDANSETRON 4 MG/2 ML VIAL ONE (17:41)
[2019-01-02] MEDS ORDERED: PIPERACILLIN/TAZOB 4.5 GM 4.5 GM/100 ML BAG IVPB ONE (17:41)
[2019-01-02] MEDS: ONDANSETRON 4 MG/2 ML VIAL IVPUSH PRN (17:43)
--- NOTE | 2019-01-02 17:46 | PDOC ---
History of Present Illness - General Chief Complaint: Pain, Acute Stated Complaint: SEND BY PCP Time Seen by Provider: 01/02/19 14:52 History Source: Patient Exam Limitations: No Limitations - History of Present Illness Initial Comments: 01/02/19 17:40 63 yo female pmh of known asymptomatic gall stone, HTN and HLD presents to the ED for 1 week of right upper quadrant abdominal pain and nausea. Pt states she saw her PCP last Sun, noted to be jaundice and referred to Dr. Will who found elevated LFTs, alk phos and total bili. Pt sent to ED for further workup and admission for MRCP. Pt admits to dark colored urine and loose stools. Denies F/C , confusion, ESPINAL, back pain, CP or SOB Past History - Past Medical History Allergies/Adverse Reactions: Allergies Allergy/AdvReac Type Severity Reaction Status Date / Time No Known Allergies Allergy Verified 01/02/19 14:43 Home Medications: Ambulatory Orders Esomeprazole Magnesium [Nexium 24Hr] 20 mg PO DAILY 01/02/19 Metoprolol Tartrate 12.5 mg PO DAILY 01/02/19 Simvastatin [Zocor -] 20 mg PO HS 01/02/19 Anemia: No Asthma: No Cancer: No Cardiac Disorders: Yes ("aneursym") CVA: No COPD: No CHF: No Dementia: No Diabetes: No GI Disorders: Yes (REFLUX) Disorders: No HTN: No Hypercholesterolemia: Yes Liver Disease: No Seizures: No Thyroid Disease: No - Surgical History Appendectomy: Yes - Immunization History Td Vaccination: Yes Immunization Up to Date: Yes - Suicide/Smoking/Psychosocial Hx Smoking Status: No Smoking History: Unknown if ever smoked Years of Tobacco Use: 40 Have you smoked in the past 12 months: Yes Number of Cigarettes Smoked Daily: 6 'Breaking Loose' booklet given: 01/03/19 Hx Alcohol Use: No Drug/Substance Use Hx: No Substance Use Type: None Hx Substance Use Treatment: No Review of Systems - Review of Systems Constitutional: No: Chills, Fever Respiratory: No: Shortness of Breath Cardiac (ROS): No: Chest Pain ABD/GI: Yes: Nausea, Other (RUQ abdominal pain). No: Constipated, Diarrhea, Vomiting : No: Burning, Dysuria, Frequency, Flank Pain Musculoskeletal: No: Back Pain Integumentary: Yes: Other (denies yellowing of skin) *Physical Exam - Vital Signs Last Vital Signs Temp Pulse Resp BP Pulse Ox 97.9 F 113 H 20 114/68 96 01/02/19 14:42 01/02/19 14:42 01/02/19 14:42 01/02/19 14:42 01/02/19 14:42 - Physical Exam General Appearance: Yes: Nourished, Appropriately Dressed. No: Apparent Distress HEENT: positive: EOMI, Other (no jaundice noted) Neck: positive: Supple Respiratory/Chest: positive: Lungs Clear. negative: Crackles, Rales, Stridor, Wheezing Cardiovascular: positive: Regular Rhythm, S1, S2, Tachycardia. negative: Edema , JVD, Murmur Vascular Pulses: Dorsalis-Pedis (R): 4+, Doralis-Pedis (L): 4+ Gastrointestinal/Abdominal: positive: Normal Bowel Sounds, Flat, Soft, Tenderness (RUQ). negative: Pulsatile Mass, Distended, Guarding, Rebound Extremity: positive: Normal Capillary Refill Integumentary: positive: Normal Color, Dry, Warm. negative: Jaundice Neurologic: positive: Fully Oriented, Alert, Normal Mood/Affect Moderate Sedation - Procedure Monitoring Vital Signs: Procedure Monitoring Vital Signs Temperature 97.9 F 01/02/19 14:42 Pulse Rate 113 H 01/02/19 14:42 Respiratory Rate 20 01/02/19 14:42 Blood Pressure 114/68 01/02/19 14:42 O2 Sat by Pulse Oximetry (%) 96 01/02/19 14:42 ED Treatment Course - LABORATORY CBC & Chemistry Diagram: 01/02/19 16:00 01/02/19 15:12 - ADDITIONAL ORDERS Additional order review: Laboratory Results 01/02/19 01/02/19 16:00 15:12 PT with INR 11.30 INR 0.96 PTT (Actin FS) 32.4 Sodium 138 Potassium 3.8 Chloride 106 Carbon Dioxide 26 Anion Gap 6 L BUN 16 Creatinine 0.9 Creat Clearance w eGFR > 60 Random Glucose 100 Calcium 9.4 Total Bilirubin 3.9 H AST 142 H ALT 305 H Alkaline Phosphatase 356 H Total Protein 7.5 Albumin 4.1 Lipase 318 01/02/19 16:00 RBC 4.54 MCV 92.2 MCHC 34.5 RDW 13.7 MPV 7.6 D Neutrophils % 66.2 Lymphocytes % 25.1 Monocytes % 6.5 Eosinophils % 1.6 Basophils % 0.6 - RADIOLOGY Radiology Studies Ordered: Category Date Time Status ABDOMEN MRI WITH CONTRAST/MRCP [MRI] Stat MRI 01/02/19 17:37 Ordered CHEST PA & LAT [RAD] Stat Radiology 01/02/19 15:12 Ordered ABDOMEN US -LIMITED [US] Stat Ultrasound 01/02/19 15:38 Ordered Medical Decision Making - Medical Decision Making Pt refused MRI as per Dr. Will due to claustrophobia. 01/02/19 17:[address] Tellez who agrees to have MRCP and ERCP in the AM. Pt agrees to have MRI if sedative used Blood work from 12/31/2018 vs 01/02/2019:: WBC 8 8.3 Alk Phos 277 356 ALT 226--------305 AST 137--------142 BIli 3----3.9 Lipase WNL today Starting Flagyl and Zosyn incase of ascending infection Admitting pt under Dr. Sawyer with GI consult and likely ERCP in the AM *DC/Admit/Observation/Transfer - Referrals - Patient Instructions - Post Discharge Activity
[2019-01-02] MEDS ORDERED: LORazepam 2 MG/ML SDV VIAL ONE ×2 (17:56→18:26)
--- NOTE | 2019-01-02 20:21 | CON.GI ---
Consult Consult Specialty:: Gastroenterology Referred by:: Dr Andrea Reason for Consultation:: Abdominal pain, Abnormal LFTs - History of Present Illness Chief Complaint: Biliary colic History of Present Illness: 63F has been having RUQ biliary colic since 12/25/18. Her LFTs on 12/31/18 revealed AST/ALT 226/137 with TB 3. Today's TB is 3.9. The pain remains colicky but without radiation, N/V. She has noted tea colored urine and hickman colored stools. She is s/p appendectomy. Sonogram, CT and MRCP are in the works. She has been seen by my former partner Dr. Horner who last did a colonoscopy on 01/17/16 when he removed ascending and descending colon adenomas. Diverticulosis was noted. EGD on 12/24/15 revealed a hiatal hernia. - History Source History Provided By: Patient, Caregiver - Past Medical History Cardio/Vascular: Yes: Other (4.1cm descending thoracic aortic aeurysm-stable as of ) Gastrointestinal: Yes: Diverticulosis, Hiatal Hernia, Other (colon adenomas) Hepatobiliary: Yes: Cholelithiasis Renal/: Yes: Hematuria (chronic, microscopic), Renal Calculi, Other (renal cyst) Reproductive: Yes: Other (ovarian cyst) Psych: Yes: Anxiety Musculoskeletal: Yes: Chronic low back pain - Past Surgical History Past Surgical History: Yes: Appendectomy, Breast Biopsy (benign), Colonoscopy, Upper Endoscopy - Alcohol/Substance Use Hx Alcohol Use: No History of Substance Use: reports: None - Smoking History Smoking history: Current every day smoker Have you smoked in the past 12 months: Yes Aproximately how many cigarettes per day: 6 - Social History Usual Living Arrangement: Alone ADL: Independent 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 Place of : [facility] History of Recent Travel: No Home Medications - Allergies Allergies/Adverse Reactions: Allergies Allergy/AdvReac Type Severity Reaction Status Date / Time No Known Allergies Allergy Verified 01/02/19 14:43 - Home Medications Home Medications: Ambulatory Orders Esomeprazole Magnesium [Nexium 24Hr] 20 mg PO DAILY 01/02/19 Metoprolol Tartrate 12.5 mg PO DAILY 01/02/19 Simvastatin [Zocor -] 20 mg PO HS 01/02/19 Family Disease History - Family Disease History Family Disease History: Diabetes: Mother ( 82 [place]), Other: Father ( after prostate surgery age 76), Mother, Brother (IVDA, of ruptured spleen) Review of Systems - Review of Systems Constitutional: reports: Chills Eyes: reports: No Symptoms HENT: reports: No Symptoms Neck: reports: No Symptoms Cardiovascular: reports: No Symptoms Respiratory: reports: No Symptoms Gastrointestinal: reports: Abdominal Pain Genitourinary: reports: No Symptoms Musculoskeletal: reports: No Symptoms Physical Exam-GI Vital Signs: Vital Signs Temperature 98.4 F 01/02/19 19:45 Pulse Rate 92 H 01/02/19 19:45 Respiratory Rate 17 01/02/19 19:45 Blood Pressure 108/77 01/02/19 19:45 O2 Sat by Pulse Oximetry (%) 97 01/02/19 19:45 CBC,CMP WBC 8.3 K/mm3 (4.0-10.0) 01/02/19 16:00 RBC 4.54 M/mm3 (3.60-5.2) 01/02/19 16:00 Hgb 14.4 GM/dL (10.7-15.3) 01/02/19 16:00 Hct 41.8 % (32.4-45.2) 01/02/19 16:00 MCV 92.2 fl (80-96) 01/02/19 16:00 MCH 31.8 pg (25.7-33.7) 01/02/19 16:00 MCHC 34.5 g/dl (32.0-36.0) 01/02/19 16:00 RDW 13.7 % (11.6-15.6) 01/02/19 16:00 Plt Count 227 K/MM3 (134-434) 01/02/19 16:00 MPV 7.6 fl (7.5-11.1) D 01/02/19 16:00 Absolute Neuts (auto) 5.5 K/mm3 (1.5-8.0) 01/02/19 16:00 Neutrophils % 66.2 % (42.8-82.8) 01/02/19 16:00 Lymphocytes % 25.1 % (8-40) 01/02/19 16:00 Monocytes % 6.5 % (3.8-10.2) 01/02/19 16:00 Eosinophils % 1.6 % (0-4.5) 01/02/19 16:00 Basophils % 0.6 % (0-2.0) 01/02/19 16:00 Nucleated RBC % 0 % (0-0) 01/02/19 16:00 Sodium 138 mmol/L (136-145) 01/02/19 15:12 Potassium 3.8 mmol/L (3.5-5.1) 01/02/19 15:12 Chloride 106 mmol/L (98-107) 01/02/19 15:12 Carbon Dioxide 26 mmol/L (21-32) 01/02/19 15:12 Anion Gap 6 MMOL/L (8-16) L 01/02/19 15:12 BUN 16 mg/dL (7-18) 01/02/19 15:12 Creatinine 0.9 mg/dL (0.55-1.3) 01/02/19 15:12 Creat Clearance w eGFR > 60 (>60) 01/02/19 15:12 Random Glucose 100 mg/dL (74-106) 01/02/19 15:12 Calcium 9.4 mg/dL (8.5-10.1) 01/02/19 15:12 Total Bilirubin 3.9 mg/dL (0.2-1) H 01/02/19 15:12 AST 142 U/L (15-37) H 01/02/19 15:12 ALT 305 U/L (13-61) H 01/02/19 15:12 Alkaline Phosphatase 356 U/L (45-117) H 01/02/19 15:12 Total Protein 7.5 g/dl (6.4-8.2) 01/02/19 15:12 Albumin 4.1 g/dl (3.4-5.0) 01/02/19 15:12 Lipase 318 U/L (73-393) 01/02/19 15:12 Current Medications Generic Name Dose Route Start Last Admin Trade Name Freq PRN Reason Stop Dose Admin Metronidazole 500 mg in 100 mls @ 100 mls/hr 01/03/19 02:00 Flagyl 500mg Premixed Ivpb - IVPB Q8H-IV MANI Piperacillin Sod/Tazobactam 100 mls @ 200 mls/hr 01/03/19 02:00 Sod 4.5 gm/ Dextrose IVPB Q8H-IV MANI Protocol Piperacillin Sod/Tazobactam 100 mls @ 200 mls/hr 01/03/19 02:00 Sod 4.5 gm/ Dextrose IVPB 01/03/19 18:29 Q8H-IV MANI Protocol Ondansetron HCl 4 mg 01/02/19 17:32 01/02/19 17:43 Zofran Injection IVPUSH 4 mg Q6H PRN Administration NAUSEA Constitutional: Yes: Anxious Eyes: Yes: Sclera Icterus HENT: Yes: Atraumatic Neck: Yes: Supple Cardiovascular: Yes: Regular Rate and Rhythm Respiratory: Yes: CTA Bilaterally Gastrointestinal Inspection: Yes: Scars (healed RLQ incision) ...Auscultate: Yes: Normoactive Bowel Sounds ...Palpate: Yes: Tenderness (RUQ) ...Rectal Exam: Yes: Deferred Labs: CBC, BMP 01/02/19 16:00 01/02/19 15:12 INR, PTT INR 0.96 (0.83-1.09) 01/02/19 16:00 Imaging - Results MRI: Image Reviewed (GB stone, no obvious CBD stones) Problem List - Problems (1) Biliary colic Assessment/Plan: Natalie's pain with changes in stool an during color are classic for gallstones passing into the common bile duct. I explained that margaret splaces her at risk fo cholangitis with sepsis, biliary pancreatitis and obstructive liver failure. Despite lack of MRCP findings ( await official reading) I have advised her to undergo an ERCP as the suspicionb for CBD stones or stones remains high. I have informed her and her sister of the potential for such complications as perforation, hemorrhage and ERCP induced pancreatitis leading to pulmonary and renal failure. She has signed an informed consent. I will make a decision in the morning based on symptoms, LFTs and a reading by Dr Hudson. Continue antibiotics Code(s): K80.50 - CALCULUS OF BILE DUCT W/O CHOLANGITIS OR CHOLECYST W/O OBST (2) Calculus of gallbladder Code(s): K80.20 - CALCULUS OF GALLBLADDER W/O CHOLECYSTITIS W/O OBSTRUCTION Qualifiers: Cholecystitis presence: without cholecystitis Biliary obstruction: with biliary obstruction Qualified Code(s): K80.21 - Calculus of gallbladder without cholecystitis with obstruction (3) Abnormal liver enzymes Code(s): R74.8 - ABNORMAL LEVELS OF OTHER SERUM ENZYMES (4) History of adenomatous polyp of colon Code(s): Z86.010 - PERSONAL HISTORY OF COLONIC POLYPS (5) Diverticulosis Code(s): K57.90 - DVRTCLOS OF INTEST, PART UNSP, W/O PERF OR ABSCESS W/O BLEED (6) Hiatal hernia Code(s): K44.9 - DIAPHRAGMATIC HERNIA WITHOUT OBSTRUCTION OR GANGRENE (7) Ascending aortic aneurysm Code(s): I71.2 - THORACIC AORTIC ANEURYSM, WITHOUT RUPTURE (8) Jaundice Code(s): R17 - UNSPECIFIED JAUNDICE Assessment/Plan Impression: Biliary colic with stone passage into the CBD Personal h/o colon adenomas and diverticulosis Plan: Antibiotics Get ERCP reading Calista Will make ERCP decision in the morning. Informed consent obtained
[2019-01-03 01:04] VITALS: BMI 33.5
[2019-01-03] MEDS ORDERED: PIPERACILLIN/TAZOBACTAM 4.5 GM VIAL IVPB ONE ×2 (01:24→10:05)
[2019-01-03] MEDS ORDERED: DEXTROSE 5%-WATER 100 ML IVPB ONE ×2 (01:24→10:05)
[2019-01-03] MEDS: PIPERACILLIN/TAZOB 4.5 GM 4.5 GM in DEXTROSE 5%-WATER 100 ML IVPB SCH ×3 (01:58→12:18)
[2019-01-03] MEDS: ONDANSETRON 4 MG/2 ML VIAL IVPUSH PRN (02:05)
[2019-01-03] MEDS ORDERED: DEXTROSE 5%-0.45% SALINE 1,000 ML IV SCH (07:00)
[2019-01-03 07:28] LABS: BASO % 1.1 % (0-2.0); EOS % 3.4 % (0-4.5); HEMATOCRIT 35.7 % (32.4-45.2); HEMOGLOBIN 12.2 GM/dL (10.7-15.3); LYMPH % 31.2 % (8-40); MCHC 34.1 g/dl (32.0-36.0); MEAN PLT VOLUME 7.4 fl (7.5-11.1); MONO % 8.7 % (3.8-10.2); NEUT % 55.6 % (42.8-82.8); PLATELET COUNT 186 K/MM3 (134-434); RBC 3.93 M/mm3 (3.60-5.2); RDW 13.9 % (11.6-15.6); WHITE BLOOD COUNT 5.2 K/mm3 (4.0-10.0)
[2019-01-03 08:10] LABS: ALK PHOS 286 U/L (45-117); AMYLASE 35 U/L (25-115); ANION GAP 7 MMOL/L (8-16); BILIRUBIN,DIRECT 3.1 mg/dL (0.0-0.2); BILIRUBIN,TOTAL 3.8 mg/dL (0.2-1); BLOOD UREA NITROGEN 16 mg/dL (7-18); CHLORIDE 111 mmol/L (98-107); CO2 22 mmol/L (21-32); CREATININE 0.9 mg/dL (0.55-1.3); GLUCOSE,RANDOM 128 mg/dL (74-106); LIPASE 335 U/L (73-393); POTASSIUM 3.8 mmol/L (3.5-5.1); SGOT/AST 127 U/L (15-37); SGPT/ALT 252 U/L (13-61); SODIUM 140 mmol/L (136-145); TOT PROT 5.9 g/dl (6.4-8.2)
--- NOTE | 2019-01-03 08:32 | PN ---
Progress Note (short form) - Note Progress Note: no new complaints CBC, BMP 01/03/19 06:00 01/03/19 06:00 Abnormal Lab Results 01/02/19 01/03/19 01/03/19 15:12 06:00 06:00 MPV 7.4 L Chloride 111 H Anion Gap 6 L 7 L Random Glucose 128 H Calcium 8.0 L Total Bilirubin 3.9 H 3.8 H Direct Bilirubin 3.1 H AST 142 H 127 H ALT 305 H 252 H Alkaline Phosphatase 356 H 286 H Total Protein 5.9 L Albumin 3.0 L Vital Signs Period Temp Pulse Resp BP Sys/Lowe Pulse Ox Last 24 Hr 9 F-98.4 F 74-113 17-20 101-128/59-77 96-97 s1s2 rrr lungs cta abd soft, +BS no edema biliary obstruction no sign of acute cholecystitis CT did not confirm CBD stone MRCP pending tentative ERCP depending on reading keep NPO iv fluids iv abx consults appreciated Problem List - Problems (1) Abnormal liver enzymes Code(s): R74.8 - ABNORMAL LEVELS OF OTHER SERUM ENZYMES (2) Calculus of gallbladder Code(s): K80.20 - CALCULUS OF GALLBLADDER W/O CHOLECYSTITIS W/O OBSTRUCTION Qualifiers: Cholecystitis presence: without cholecystitis Biliary obstruction: with biliary obstruction Qualified Code(s): K80.21 - Calculus of gallbladder without cholecystitis with obstruction (3) Jaundice Code(s): R17 - UNSPECIFIED JAUNDICE
--- NOTE | 2019-01-03 09:16 | PN ---
Progress Note, Physician Chief Complaint: Patient has no abdominal pain. Work up reviewed, has dilated CBD, suggestive of eother passage of gallstones or CBD stone. Agree with Dr. Tellez, ERCP to rule out any residual CBD stones, followed by laparoscopic cholecystectomy. Remains jaundiced with elevated liver functions. - Current Medication List Current Medications: Active Medications Metronidazole (Flagyl 500mg Premixed Ivpb -) 500 mg in 100 mls @ 100 mls/hr IVPB Q8H-IV MANI Last Admin: 01/03/19 02:57 Dose: 100 mls/hr Piperacillin Sod/Tazobactam (Sod 4.5 gm/ Dextrose) 100 mls @ 200 mls/hr IVPB Q8H-IV MANI; Protocol Piperacillin Sod/Tazobactam (Sod 4.5 gm/ Dextrose) 100 mls @ 200 mls/hr IVPB Q8H-IV MANI; Protocol Stop: 01/03/19 18:29 Last Admin: 01/03/19 01:58 Dose: 200 mls/hr Dextrose/Sodium Chloride (D5-1/2ns -) 1,000 mls @ 100 mls/hr IV ASDIR MANI Ondansetron HCl (Zofran Injection) 4 mg IVPUSH Q6H PRN PRN Reason: NAUSEA Last Admin: 01/03/19 02:05 Dose: 4 mg - Objective Vital Signs: Vital Signs Temperature 9 F L 01/03/19 07:06 Pulse Rate 74 01/03/19 07:04 Respiratory Rate 20 01/03/19 07:04 Blood Pressure 101/59 L 01/03/19 07:04 O2 Sat by Pulse Oximetry (%) 97 01/02/19 19:45 Labs: CBC, BMP 01/03/19 06:00 01/03/19 06:00 INR, PTT INR 0.96 (0.83-1.09) 01/02/19 16:00 Problem List - Problems (1) Calculus of gallbladder Code(s): K80.20 - CALCULUS OF GALLBLADDER W/O CHOLECYSTITIS W/O OBSTRUCTION Qualifiers: Cholecystitis presence: without cholecystitis Biliary obstruction: with biliary obstruction Qualified Code(s): K80.21 - Calculus of gallbladder without cholecystitis with obstruction (2) Jaundice Code(s): R17 - UNSPECIFIED JAUNDICE (3) Abnormal liver enzymes Code(s): R74.8 - ABNORMAL LEVELS OF OTHER SERUM ENZYMES (4) Common bile duct dilatation Code(s): K83.8 - OTHER SPECIFIED DISEASES OF BILIARY TRACT (5) Abnormal findings on imaging of biliary tract Code(s): R93.2 - ABNORMAL FINDINGS ON DX IMAGING OF LIVER AND BILIARY TRACT Assessment/Plan Agree with ERCP followed by laparoscopic cholecystectomy.
[2019-01-03] MEDS ORDERED: INDOMETHACIN 50 MG RECTAL SUPPOSITORY PR ONE (10:19)
--- NOTE | 2019-01-03 10:20 | PN ---
Progress Note (short form) - Note Progress Note: GI NOte: MRCP not yet read. TB still 3.8 so must proceed with ERCP, Indocin ordered. Problem List - Problems (1) Biliary colic Code(s): K80.50 - CALCULUS OF BILE DUCT W/O CHOLANGITIS OR CHOLECYST W/O OBST (2) Calculus of gallbladder Code(s): K80.20 - CALCULUS OF GALLBLADDER W/O CHOLECYSTITIS W/O OBSTRUCTION Qualifiers: Cholecystitis presence: without cholecystitis Biliary obstruction: with biliary obstruction Qualified Code(s): K80.21 - Calculus of gallbladder without cholecystitis with obstruction (3) Abnormal liver enzymes Code(s): R74.8 - ABNORMAL LEVELS OF OTHER SERUM ENZYMES (4) History of adenomatous polyp of colon Code(s): Z86.010 - PERSONAL HISTORY OF COLONIC POLYPS (5) Diverticulosis Code(s): K57.90 - DVRTCLOS OF INTEST, PART UNSP, W/O PERF OR ABSCESS W/O BLEED (6) Hiatal hernia Code(s): K44.9 - DIAPHRAGMATIC HERNIA WITHOUT OBSTRUCTION OR GANGRENE (7) Ascending aortic aneurysm Code(s): I71.2 - THORACIC AORTIC ANEURYSM, WITHOUT RUPTURE (8) Jaundice Code(s): R17 - UNSPECIFIED JAUNDICE
[2019-01-03] MEDS ORDERED: PT OWN MED DRAWER 7, Y5N ONE (11:00)
--- NOTE | 2019-01-03 11:34 | EKG ---
Test Reason : Blood Pressure : / mmHG Vent. Rate : 078 BPM Atrial Rate : 078 BPM P-R Int : 196 ms QRS Dur : 086 ms QT Int : 398 ms P-R-T Axes : 048 010 039 degrees QTc Int : 453 ms NORMAL SINUS RHYTHM WHEN COMPARED WITH ECG OF 10-JAN-2017 11:30, NO SIGNIFICANT CHANGE WAS FOUND Confirmed by SYD PERRY MD ([id number]) on 01/03/2019 11:33:48 AM Referred By: Confirmed By:SYD PERRY MD
--- NOTE | 2019-01-03 12:40 | CONS ---
DATE OF CONSULTATION: DATE OF DICTATION: 01/03/2019 HISTORY OF PRESENT ILLNESS: The patient is a 63-year-old female with history of abdominal aortic aneurysm who was evaluated for acute cholecystitis. The patient reports developing right upper quadrant abdominal pain approximately 1 week prior to admission associated with nausea and anorexia. She had seen her primary care physician and had blood work done as well as a sonogram. She was found to have elevated liver enzymes and sonographic evidence of cholelithiasis. She was scheduled to have an elective cholecystectomy. Patient states that she became alarmed when the color of her stool lightened and the color of her urine darkened. She was admitted to the hospital where a CT scan of the abdomen and pelvis was performed and showed gallbladder distension with no evidence of acute cholecystitis; however, biliary tract dilatation, as well as a gallstone at the gallbladder neck. The patient underwent an MRCP, the official report of which is pending. She is scheduled for an ERCP. At the present time, she has no complaints of abdominal pain. She is comfortable. She has no nausea. She denies vomiting. She has had no fever or chills. PAST MEDICAL HISTORY: Positive for cholelithiasis and aortic aneurysm. PAST SURGICAL HISTORY: Status post appendectomy. ALLERGIES: No known allergies. MEDICATIONS: Nexium, Zocor, metoprolol. SOCIAL HISTORY: She resides at home in the community. No recent hospitalizations. SYSTEMS REVIEW: Neurologic: No loss of consciousness, seizure activity, or focal weakness. Cardiac: Negative for chest pain or palpitations. Respiratory: Negative for cough or sputum production. Gastrointestinal: As per HPI. Genitourinary: Negative for urinary tract infection. LABORATORY DATA: White count 5.2, hematocrit 35.7, platelet count 186. Creatinine 0.9, total bilirubin 3.8, alkaline phosphatase 286, AST 127, ALT 252. Blood cultures have been ordered. PHYSICAL EXAMINATION: General: She is awake and alert. She is in no acute distress. Vital signs: Temperature 97.3, blood pressure 101/59, pulse 75 and regular, respirations 18 per minute. HEENT: Sclerae mildly icteric. Oropharynx negative. Neck: Supple. No palpable nodes. Heart: Heart sounds S1, S2. Lungs: Clear. Abdomen: Soft. There is mild tenderness to deep palpation right upper quadrant. No mass, rebound, or rigidity. Extremities: Negative for edema. IMPRESSION: 1. Cholelithiasis, rule out acute cholecystitis. 2. Rule out biliary sepsis. At the present time, patient appears comfortable and is not toxic- or septic-appearing. Will obtain blood cultures, empirically treat for biliary tract pathogens with Zosyn 3.375 g IV piggyback every 8 hours, Flagyl 500 mg IV piggyback every 8 hours, IV fluid hydration, analgesics. Will follow. Thank you for the kind referral. SYD PADGETT M.D. [id number]
[2019-01-03] MEDS ORDERED: MIDAZOLAM HCL 2 MG/2 ML SINGLE DOSE VIAL ONE (14:04)
[2019-01-03] MEDS ORDERED: ROCURONIUM BROMIDE 50 MG/5 ML VIAL ONE (14:05)
--- NOTE | 2019-01-03 14:08 | PN ---
Progress Note, Physician Chief Complaint: CT and MRCP reviewed Gallstone in GB neck Denies CP or SOB - Current Medication List Current Medications: Active Medications Metronidazole (Flagyl 500mg Premixed Ivpb -) 500 mg in 100 mls @ 100 mls/hr IVPB Q8H-IV MANI Last Admin: 01/03/19 10:08 Dose: 100 mls/hr Dextrose/Sodium Chloride (D5-1/2ns -) 1,000 mls @ 100 mls/hr IV ASDIR MANI Last Admin: 01/03/19 10:07 Dose: 100 mls/hr Piperacillin Sod/Tazobactam (Sod 3.375 gm/ Dextrose) 50 mls @ 100 mls/hr IVPB Q8H-IV MANI; Protocol Ondansetron HCl (Zofran Injection) 4 mg IVPUSH Q6H PRN PRN Reason: NAUSEA Last Admin: 01/03/19 02:05 Dose: 4 mg - Objective Vital Signs: Vital Signs Temperature 9 F L 01/03/19 07:06 Pulse Rate 74 01/03/19 07:04 Respiratory Rate 20 01/03/19 07:04 Blood Pressure 101/59 L 01/03/19 07:04 O2 Sat by Pulse Oximetry (%) 97 01/03/19 09:00 Constitutional: Yes: No Distress, Calm Cardiovascular: Yes: Regular Rate and Rhythm Respiratory: Yes: CTA Bilaterally Gastrointestinal: Yes: Soft (no rebounb or guarding) Edema: No Neurological: Yes: Alert, Oriented Labs: CBC, BMP 01/03/19 06:00 01/03/19 06:00 INR, PTT INR 0.96 (0.83-1.09) 01/02/19 16:00 Microbiology Laboratory Tests 01/02/19 01/03/19 01/03/19 16:00 06:00 06:00 WBC 5.2 Hgb 12.2 Plt Count 186 PT with INR 11.30 INR 0.96 PTT (Actin FS) 32.4 Sodium 140 Potassium 3.8 Total Bilirubin 3.8 H Direct Bilirubin 3.1 H AST 127 H ALT 252 H Alkaline Phosphatase 286 H Problem List - Problems (1) Abnormal liver enzymes Code(s): R74.8 - ABNORMAL LEVELS OF OTHER SERUM ENZYMES (2) Calculus of gallbladder Code(s): K80.20 - CALCULUS OF GALLBLADDER W/O CHOLECYSTITIS W/O OBSTRUCTION Qualifiers: Cholecystitis presence: without cholecystitis Biliary obstruction: with biliary obstruction Qualified Code(s): K80.21 - Calculus of gallbladder without cholecystitis with obstruction (3) Jaundice Code(s): R17 - UNSPECIFIED JAUNDICE (4) Ascending aortic aneurysm Code(s): I71.2 - THORACIC AORTIC ANEURYSM, WITHOUT RUPTURE (5) Aortic regurgitation Code(s): I35.1 - NONRHEUMATIC AORTIC (VALVE) INSUFFICIENCY Qualifiers: Cardiac valve disease etiology: nonrheumatic Qualified Code(s): I35.1 - Nonrheumatic aortic (valve) insufficiency (6) Nonobstructive atherosclerosis of coronary artery Code(s): I25.10 - ATHSCL HEART DISEASE OF [place] CORONARY ARTERY W/O ANG PCTRS Assessment/Plan IMP: Cholelithiasis, choledocholithiasis Nonobstx CAD Mild carotid plaque Mild to mod AR Mild stable ascending aortic aneurysm 4.1 (stable since 2012) REC: 1. No cardiac contraindications to ERCP or cholecystectomy. 2. Continue low dose Metoprolol to reduce aortic shear stress. 3. Abx as per PMD, GI. Will follow
[2019-01-03] MEDS ORDERED: GLUCAGON 1 MG KIT IVPUSH ONE ×2 (14:24→15:24)
[2019-01-03] MEDS ORDERED: GLUCAGON 1 MG KIT ONE (15:30)
--- NOTE | 2019-01-03 16:30 | PN ---
Progress Note (short form) - Note Progress Note: GI Procedure NOte: ERCP not successful despite precut sphincterotomy. Arranged transfer to Dr Lino Mas at [facility] but Natalie developed chest pain. Discussed with Dr. Cruz and Dr. Andrea. EKG ordered. Will transfer to telemetry. Chest pain has subsided partially after belching. Problem List - Problems (1) Biliary colic Code(s): K80.50 - CALCULUS OF BILE DUCT W/O CHOLANGITIS OR CHOLECYST W/O OBST (2) Calculus of gallbladder Code(s): K80.20 - CALCULUS OF GALLBLADDER W/O CHOLECYSTITIS W/O OBSTRUCTION Qualifiers: Cholecystitis presence: without cholecystitis Biliary obstruction: with biliary obstruction Qualified Code(s): K80.21 - Calculus of gallbladder without cholecystitis with obstruction (3) Abnormal liver enzymes Code(s): R74.8 - ABNORMAL LEVELS OF OTHER SERUM ENZYMES (4) History of adenomatous polyp of colon Code(s): Z86.010 - PERSONAL HISTORY OF COLONIC POLYPS (5) Diverticulosis Code(s): K57.90 - DVRTCLOS OF INTEST, PART UNSP, W/O PERF OR ABSCESS W/O BLEED (6) Hiatal hernia Code(s): K44.9 - DIAPHRAGMATIC HERNIA WITHOUT OBSTRUCTION OR GANGRENE (7) Ascending aortic aneurysm Code(s): I71.2 - THORACIC AORTIC ANEURYSM, WITHOUT RUPTURE (8) Jaundice Code(s): R17 - UNSPECIFIED JAUNDICE
[2019-01-03] MEDS ORDERED: LACTATED RINGERS SOLUTION 1,000 ML/1,000 ML INFUS.BAG IV SCH ×2 (17:00→23:00)
[2019-01-03] MEDS ORDERED: ONDANSETRON 4 MG/2 ML VIAL ONE (17:27)
--- NOTE | 2019-01-03 19:09 | PN ---
Progress Note (short form) - Note Progress Note: Vital Signs Period Temp Pulse Resp BP Sys/Lowe Pulse Ox Last 24 Hr 9 F-982 F 66-99 15-20 101-129/44-77 97-100 seen in endo suite after ERCP ERCP was unsuccessful, could not pass canula past sphincter developed transient chest pain/pressure after procedure vitals stable repeat EKG is normal jaundiced s1s2 rrr lungs cta ant abd mild epigastric tenderness, +bs no edema biliary obstruction post procedureal chest pain-likely gas pain will monitor in telemetry repeat cardiac enzymes await transfer to [facility] for definitive ercp Problem List - Problems (1) Abnormal liver enzymes Code(s): R74.8 - ABNORMAL LEVELS OF OTHER SERUM ENZYMES (2) Calculus of gallbladder Code(s): K80.20 - CALCULUS OF GALLBLADDER W/O CHOLECYSTITIS W/O OBSTRUCTION Qualifiers: Cholecystitis presence: without cholecystitis Biliary obstruction: with biliary obstruction Qualified Code(s): K80.21 - Calculus of gallbladder without cholecystitis with obstruction (3) Jaundice Code(s): R17 - UNSPECIFIED JAUNDICE
[2019-01-03] MEDS ORDERED: PIPERACILLIN/TAZOBACTAM 3.375 GM VIAL IVPB ONE (20:32)
[2019-01-03] MEDS ORDERED: DEXTROSE 5%-WATER - 50 ML IVPB ONE (20:32)
[2019-01-03] MEDS: PIPERACILLIN/TAZOB 3.375 GM 3.375 GM in DEXTROSE 5%-WATER - 50 ML IVPB SCH (20:43)
[2019-01-04] MEDS ORDERED: DEXTROSE 5%-WATER - 50 ML IVPB ONE (02:19)
[2019-01-04] MEDS ORDERED: PIPERACILLIN/TAZOBACTAM 3.375 GM VIAL IVPB ONE (02:19)
[2019-01-04] MEDS: PIPERACILLIN/TAZOB 3.375 GM 3.375 GM in DEXTROSE 5%-WATER - 50 ML IVPB SCH (02:29)
[2019-01-04] MEDS ORDERED: LACTATED RINGERS SOLUTION 1,000 ML/1,000 ML INFUS.BAG IV SCH ×2 (05:00→11:00)
[2019-01-04 07:03] LABS: BASO % 0.3 % (0-2.0); EOS % 0.3 % (0-4.5); HEMATOCRIT 33.7 % (32.4-45.2); HEMOGLOBIN 11.6 GM/dL (10.7-15.3); LYMPH % 17.1 % (8-40); MCH 31.6 pg (25.7-33.7); MCHC 34.5 g/dl (32.0-36.0); MEAN CELL VOLUME 91.6 fl (80-96); MEAN PLT VOLUME 7.6 fl (7.5-11.1); MONO % 6.4 % (3.8-10.2); NEUT % 75.9 % (42.8-82.8); PLATELET COUNT 189 K/MM3 (134-434); RBC 3.68 M/mm3 (3.60-5.2); WHITE BLOOD COUNT 6.8 K/mm3 (4.0-10.0)
[2019-01-04 07:21] LABS: ALK PHOS 246 U/L (45-117); AMYLASE 25 U/L (25-115); ANION GAP 5 MMOL/L (8-16); BILIRUBIN,DIRECT 1.8 mg/dL (0.0-0.2); BILIRUBIN,TOTAL 2.4 mg/dL (0.2-1); BLOOD UREA NITROGEN 12 mg/dL (7-18); CALCIUM 8.6 mg/dL (8.5-10.1); CHLORIDE 110 mmol/L (98-107); CO2 25 mmol/L (21-32); CREATININE 0.7 mg/dL (0.55-1.3); GLUCOSE,RANDOM 102 mg/dL (74-106); LIPASE 127 U/L (73-393); POTASSIUM 4.4 mmol/L (3.5-5.1); SGOT/AST 96 U/L (15-37); SGPT/ALT 233 U/L (13-61); SODIUM 140 mmol/L (136-145); TOT PROT 5.8 g/dl (6.4-8.2)
[2019-01-04] MEDS ORDERED: METOPROLOL TARTRATE 25 MG TABLET (FP) PO SCH (10:00)
[2019-01-04 12:41] VITALS: BP 113/42; PULSE 57; TEMP 97.5
[2019-01-04] MEDS ORDERED: ATORVASTATIN CA 20 MG TABLET (FP) PO SCH (22:00)
--- NOTE | 2019-01-04 22:05 | EKG ---
Test Reason : Blood Pressure : / mmHG Vent. Rate : 069 BPM Atrial Rate : 069 BPM P-R Int : 200 ms QRS Dur : 094 ms QT Int : 396 ms P-R-T Axes : 054 008 038 degrees QTc Int : 424 ms NORMAL SINUS RHYTHM NORMAL ECG WHEN COMPARED WITH ECG OF 02-JAN-2019 20:59, NO SIGNIFICANT CHANGE WAS FOUND Confirmed by SHABANA ZARAGOZA MD ([id number]) on 01/04/2019 10:05:02 PM Referred By: Confirmed By:SHABANA ZARAGOZA MD
== END 2019-01-04 09:32 | disposition short-term general hospital (02) ==
LOC: SUPCPDRO 14:42 → JER 14:42 → JERBED 17:55 → J5S 21:42 → J4W 01-03 18:21
PROVIDERS: ADMIT Internal Medicine; ATTEND Internal Medicine
PROC: BF10YZZ Fluoroscopy of Bile Ducts using Other Contrast (ICD-10-PCS; 2019-01-03)
PROC: 0FC98ZZ Extirpation of Matter from Common Bile Duct, Via Natural or Artificial Opening Endoscopic (ICD-10-PCS; principal; 2019-01-03 12:45)
DX: K80.71 Calculus of gallbladder and bile duct without cholecystitis with obstruction (principal); R74.8 Abnormal levels of other serum enzymes; R17 Unspecified jaundice; K44.9 Diaphragmatic hernia without obstruction or gangrene; I71.2 Thoracic aortic aneurysm, without rupture; E66.9 Obesity, unspecified; Z68.33 Body mass index [BMI] 33.0-33.9, adult; I35.1 Nonrheumatic aortic (valve) insufficiency; I25.10 Atherosclerotic heart disease of native coronary artery without angina pectoris; I65.29 Occlusion and stenosis of unspecified carotid artery
CPT/HCPCS: 36415; 71045-TC-FY; 74177-TC; 74182-TC; 76705-TC; 80048; 80053; 80076; 82150; 82248; 82550; 83690; 84484; 85025; 85610; 85730; 86140; 86850; 86900; 86901; 87040; 93005; 93010; 94760; 99282-25; J7030

== ENCOUNTER 2019-01-17 09:46 | Day surgery (SDC) | payer OTHER ==
[2019-01-02 09:57] VITALS: BMI 32.9
--- NOTE | 2019-01-17 09:27 | HP ---
History & Physical Update - History History: No Change - Physical Physical: No Change - Assessment Assessment: No Change - Plan Plan: No Change Currently as noted:: Laparoscopic cholecystectomy, possible open. Patient had ERCP , with stent.
[~2019-01-17 09:46] MED LIST: BUPIVACAINE HCL/PF (5 MG/ML) 30 ML VIAL IJ ONE
[2019-01-17] MEDS ORDERED: fentaNYL CITRATE 250 MCG/5 ML VIAL ONE (12:20)
[2019-01-17] MEDS ORDERED: PROPOFOL 20 ML ONE (12:21)
[2019-01-17] MEDS ORDERED: ceFAZolin SODIUM 1 GM VIAL IVPB ONE (12:25)
[2019-01-17] MEDS ORDERED: BUPIVACAINE HCL/PF 0.5% (5MG/ML) 10 ML VIAL ONE (12:39)
[2019-01-17] MEDS ORDERED: BUPIVACAINE HCL/PF (5 MG/ML) 30 ML VIAL IJ ONE (13:50)
[2019-01-17] MEDS ORDERED: NEOSTIGMINE METHYLSULFATE 0.5 MG/ML - 10 ML MDV ONE (13:54)
--- NOTE | 2019-01-17 14:04 | OP ---
Operative Note - Note: Operative Date: 01/17/19 Pre-Operative Diagnosis: Cholelithiaisis with cholecystitis, s/p ERCP and CBD stone extraction. Operation: Laparoscopic cholecystectomy , lysis of omental adhesions. Findings: Thick gallbladder, covered withn omental adhesions. Post-Operative Diagnosis: Same as Pre-op Surgeon: Brenda Will Production Helper: Maximilian King Anesthesia: General Specimens Removed: Gallbladder with calculus. Estimated Blood Loss (mls): 10 Operative Report Dictated: Yes
[2019-01-17] MEDS ORDERED: ONDANSETRON 4 MG/2 ML VIAL ONE (14:07)
[2019-01-17] MEDS ORDERED: oxyCODONE HCL 5 MG TABLET PO PRN (14:11)
[2019-01-17] MEDS ORDERED: ONDANSETRON 4 MG/2 ML VIAL IVPUSH PRN (14:11)
[2019-01-17] MEDS ORDERED: LACTATED RINGERS SOLUTION 1,000 ML IV SCH (14:15)
--- NOTE | 2019-01-17 14:31 | SURG ---
Surgery Inspector Optical Instrument Note Inspector Optical Instrument: Maximilian King PA-C Date of Service: 01/17/19 Diagnosis: Cholelithiasis with h/o cholecystitis Procedure: Laproscopic cholecystectomy I was present for the entirety of the operative procedure. For further detail, please refer to operative report.
[2019-01-17] MEDS ORDERED: traMADol HCL 50 MG TABLET PO ONE (15:02)
[2019-01-17] MEDS ORDERED: METOCLOPRAMIDE HCL INJECTION 10 MG/2 ML VIAL ONE (17:30)
[2019-01-17] MEDS ORDERED: METOCLOPRAMIDE HCL INJECTION 10 MG/2 ML VIAL IVPUSH ONE ×2 (17:37→18:00)
[2019-01-18 07:07] VITALS: TEMP 97.9
[2019-01-18 11:00] VITALS: BP 103/61; PULSE 80
--- NOTE | 2019-01-20 08:59 | OP ---
DATE OF OPERATION: 01/17/2019 PREOPERATIVE DIAGNOSES: Cholelithiasis with chronic cholecystitis status post endoscopic retrograde cholangiopancreatography and common bile duct stone extraction for obstructive jaundice and common bile duct stone. POSTOPERATIVE DIAGNOSES: Cholelithiasis with chronic cholecystitis and omental adhesions. OPERATIVE PROCEDURE: Laparoscopic cholecystectomy and lysis of omental adhesions. SURGEON: Hector Will MD MILIEU TECHNICIAN: KEITH Card ANESTHESIA: General anesthesia. OPERATIVE DESCRIPTION: This 63-year-old woman is known to have cholelithiasis. She recently had abdominal pain and was found to have obstructive jaundice. She had an ERCP and stenting and extraction of stone done at [facility] [place] [address] Lino Mas. After a failed ERCP at [facility], patient was brought in for cholecystectomy. Consent was obtained, and risks, benefits, and complications were discussed with the patient. Patient had previous appendectomy. Patient was brought to the operating room. General anesthesia was administered. The abdomen painted and draped. Timeout was called. Patient was given antibiotics. Supraumbilical incision was made in the superior crease of the umbilicus which was deepened through the skin, subcutaneous tissue, and the linea alba in midline. The peritoneum was incised, and a 10-12 mm laparoscopic trocar of the Hasan type was introduced into the abdominal cavity. The abdomen was inflated with carbon dioxide at 6 L per minute with maximum intraabdominal pressure at 15 mmHg. A 5-mm camera was introduced into the abdominal cavity. This was switched as needed to a 10-mm as well as a 30-degree camera. Under direct vision, two 5-mm trocars were inserted in the right upper quadrant of the abdomen, one along midclavicular line and another along the anterior axillary line. These were noted entering the abdominal cavity under direct vision with the camera. A third trocar 5-mm was introduced in the subxiphoid area in the midline. This was noted entering the abdominal cavity through the right of the falciform ligament. The gallbladder was barely visualized at the fundus. This was grasped with a 5-mm grasper through the lateral 5-mm port site and retracted cephalad and laterally. The gallbladder was covered with dense adhesions to the omentum. This was carefully from the gallbladder with gentle traction as well as electrocautery and the endoscissors all the way down to the infundibulum of the gallbladder. Infundibulum of the gallbladder was exposed. This was grasped with help of grasper through the medial 5-mm port and retracted laterally and inferiorly. There were a lot of fibrous adhesions around the cystic duct and cystic artery. This was carefully with blunt and sharp dissection. The cystic duct was isolated circumferentially, and so was the cystic artery. These were then divided between clips. The cystic duct was short and quite large. The peritoneal reflection on either side of the gallbladder was then incised and the gallbladder dissected out of the gallbladder bed all the way to the fundus of the gallbladder. The cystic duct clips and cystic artery were secure and intact throughout the procedure. The cholecystectomy was thus accomplished. EndoCatch was then introduced through the umbilical port. The camera being switched to the subxiphoid port. The gallbladder was placed into the EndoCatch and retrieved out of the abdominal cavity. A 4 x 4 was also placed within the abdominal cavity as there was no Endo Peanut. This was also removed out of the abdominal cavity through the EndoCatch. The gallbladder fossa was then thoroughly irrigated with normal saline. All fluid return was clear. There was no bleeding. All the clips were secure and intact. Estimated blood loss was less than 10 mL. Sponge count and instrument count were correct. The instruments were then withdrawn under direct vision. The linea alba in the midline was then approximated with interrupted and [id number] 2-0 Vicryl sutures. Marcaine 0.5% was injected into the wound. The skin was approximated with buried, interrupted 4-0 Biosyn sutures. Dermabond was applied across the skin edges. Patient tolerated the procedure well, was extubated, and returned to the recovery room in satisfactory and stable condition. Paul [id number] MTDD
--- NOTE | 2019-01-21 16:49 | PATH ---
Surgical Pathology Report Patient Name: EMILY FRIEND [facility]. Rec. #: [id number] /Age/Gender: 1955 (Age: 63) / F Account: [id number] Location: U SURGICAL Taken: 01/17/2019 Received: 01/20/2019 Reported: 01/21/2019 Physicians: Flower Will M.D. Specimen(s) Received GALLBLADDER Clinical History Calculus of gallbladder Final Diagnosis GALLBLADDER, CHOLECYSTECTOMY: ACUTE AND CHRONIC CHOLECYSTITIS. CHOLELITHIASIS. Electronically Signed Julianna Arora M.D. Gross Description Received in formalin, labeled "gallbladder," is a 7.6 x 2.7 x 1.7 cm. gallbladder with a 0.2 cm. in length portion of cystic duct attached. The outer surface is hickman fernandez and varies from smooth to shaggy. The lumen contains hickman, tenacious bile as well as a single 1.5 cm in greatest dimension black, ovoid cholelith. The mucosa is hickman with focal erosions. The wall of the gallbladder averages 0.2 cm. in thickness. Log Hooker sections are submitted in one cassette. /01/20/2019 saudi01/20/2019
== END 2019-01-18 12:55 | disposition home or self-care (01) ==
LOC: JASU-SURG 09:46 → J8W 01-18 00:21 → JASU-SURG 01-18 12:55
PROVIDERS: ATTEND Specialist
PROC: 0FT44ZZ Resection of Gallbladder, Percutaneous Endoscopic Approach (ICD-10-PCS; principal; 2019-01-17 11:30)
DX: K80.10 Calculus of gallbladder with chronic cholecystitis without obstruction (principal); K66.0 Peritoneal adhesions (postprocedural) (postinfection)
CPT/HCPCS: 88304-TC; 94760

== ENCOUNTER 2019-01-25 09:26 | Inpatient (IN) | payer OTHER ==
[2019-01-25] MEDS ORDERED: SODIUM CHLORIDE 1,000 ML IV STA (10:22)
[2019-01-25] MEDS ORDERED: morphine CARPU-JECT 4 MG/1 ML DISP.SYRIN IVPUSH ONE (10:22)
--- NOTE | 2019-01-25 10:27 | PDOC ---
History of Present Illness - General Chief Complaint: Wound Stated Complaint: PAIN Time Seen by Provider: 01/25/19 10:00 History Source: Patient - History of Present Illness Timing/Duration: reports: constant Past History - Past Medical History Allergies/Adverse Reactions: Allergies Allergy/AdvReac Type Severity Reaction Status Date / Time No Known Drug Allergies Allergy Verified 01/25/19 09:35 DUST Allergy Uncoded 01/25/19 09:35 Home Medications: Ambulatory Orders Esomeprazole Magnesium [Nexium 24Hr] 40 mg PO DAILY 01/02/19 Metoprolol Tartrate 12.5 mg PO DAILY 01/02/19 Simvastatin [Zocor -] 40 mg PO HS 01/02/19 Docusate Sodium [Colace] 100 mg PO DAILY #10 capsule MDD 1 01/17/19 Ibuprofen [Motrin -] 400 mg PO TID #21 tablet 01/17/19 Oxycodone HCl/Acetaminophen [Percocet 5-325 mg Tablet] 1 tab PO Q6H #20 tablet MDD 3 01/17/19 Anemia: No Asthma: No Cancer: No Cardiac Disorders: Yes ("aneursym") CVA: No COPD: No CHF: No Dementia: No Diabetes: No GI Disorders: Yes (REFLUX) Disorders: No HTN: No Hypercholesterolemia: Yes Liver Disease: No Seizures: No Thyroid Disease: No - Surgical History Appendectomy: Yes Cholecystectomy: Yes (01/17/2019) - Immunization History Td Vaccination: Yes Immunization Up to Date: Yes - Suicide/Smoking/Psychosocial Hx Smoking Status: No Smoking History: Current some day smoker Years of Tobacco Use: 40 Have you smoked in the past 12 months: Yes Number of Cigarettes Smoked Daily: 2 Information on smoking cessation initiated: Yes 'Breaking Loose' booklet given: 01/03/19 Hx Alcohol Use: No Drug/Substance Use Hx: No Substance Use Type: None Hx Substance Use Treatment: No Abd/GI Specific PMHX - Complaint Specific PMHX GERD: Yes (Dr Tellez did EDG and colonoscopy 2 years ago) Review of Systems - Review of Systems Constitutional: No: Chills, Fever ABD/GI: No: Constipated, Diarrhea, Nausea, Vomiting : No: Dysuria *Physical Exam - Vital Signs Last Vital Signs Temp Pulse Resp BP Pulse Ox 98.9 F 96 H 18 99/47 L 96 01/25/19 09:26 01/25/19 09:26 01/25/19 09:26 01/25/19 09:26 01/25/19 09:26 - Physical Exam General Appearance: Yes: Appropriately Dressed, Mild Distress HEENT: positive: Normal Voice Neck: positive: Supple Respiratory/Chest: negative: Respiratory Distress Gastrointestinal/Abdominal: positive: Tender (umbilicus w/ copious amount of foul smelling purulent discharge w/ surrounding erythema extending toward suprapubic area, induration limited to site), Soft Integumentary: positive: Dry, Warm Neurologic: positive: Fully Oriented, Normal Mood/Affect Moderate Sedation - Procedure Monitoring Vital Signs: Procedure Monitoring Vital Signs Temperature 98.9 F 01/25/19 09:26 Pulse Rate 96 H 01/25/19 09:26 Respiratory Rate 18 01/25/19 09:26 Blood Pressure 99/47 L 01/25/19 09:26 O2 Sat by Pulse Oximetry (%) 96 01/25/19 09:26 ED Treatment Course - LABORATORY CBC & Chemistry Diagram: 01/25/19 10:32 01/25/19 10:32 - RADIOLOGY Radiology Studies Ordered: Category Date Time Status ABDOMEN & PELVIS CT WITH CONTR [CT] Stat CT Scan 01/25/19 10:08 Ordered Medical Decision Making - Medical Decision Making 01/25/19 10:22 63 yo F, s/p lap camille last week by Dr Will and now coming in w/ foul smelling purulent discharge to umbilicus since this am. Also reports low grade fever last night. Continues to have discomfort to umbilicus w/ no change since surgery. No change in BM, n/v. See exam R/o intra-ab abscess s/p recent lap camille last week, also has stent placed in biliary duct 12/31 at [facility] Hypotensive but afebrile w/ copious amount of foul smelling discharge to umbilicus -pain control -IVF -labs -CT -surg c/s -admit 01/25/19 11:37 Case d/w with patient's PMD, Dr. Andrea who is requesting ID c/s w/ Dr Reyes. aware that patient is pending CT and that we are waiting to discuss case with Dr. Will of surgery. 01/25/19 15:21 Dr Will paged multiple times w/ no call back at this time 01/25/19 15:51 Possible 2cm abscess to GB fossa and 2nd collection seen to anterior abd pain suspicious for abscess. Pt transferred upstairs at time of this report *DC/Admit/Observation/Transfer Diagnosis at time of Disposition: Cellulitis, abdominal wall - Discharge Dispostion Condition at time of disposition: Fair Decision to Admit order: Yes - Referrals - Patient Instructions - Post Discharge Activity
[2019-01-25 10:55] LABS: BASO % 0.7 % (0-2.0); EOS % 1.1 % (0-4.5); LYMPH % 9.4 % (8-40); MCH 31.5 pg (25.7-33.7); MEAN CELL VOLUME 89.9 fl (80-96); MEAN PLT VOLUME 6.8 fl (7.5-11.1); MONO % 7.3 % (3.8-10.2); NEUT % 81.5 % (42.8-82.8); PLATELET COUNT 418 K/MM3 (134-434); RBC 4.12 M/mm3 (3.60-5.2); RDW 13.5 % (11.6-15.6); WHITE BLOOD COUNT 14.7 K/mm3 (4.0-10.0)
[2019-01-25] MEDS ORDERED: morphine SULFATE 4 MG/ML VIAL ONE (11:04)
--- NOTE | 2019-01-25 11:25 | PDOC ---
*Physical Exam - Vital Signs Last Vital Signs Temp Pulse Resp BP Pulse Ox 98.9 F 96 H 18 99/47 L 96 01/25/19 09:26 01/25/19 09:26 01/25/19 09:26 01/25/19 09:26 01/25/19 09:26 ED Treatment Course - LABORATORY CBC & Chemistry Diagram: 01/26/19 07:30 01/26/19 07:30 - ADDITIONAL ORDERS Additional order review: 01/25/19 10:32 RBC 4.12 MCV 89.9 MCHC 35.0 RDW 13.5 MPV 6.8 L D Neutrophils % 81.5 Lymphocytes % 9.4 D Monocytes % 7.3 Eosinophils % 1.1 D Basophils % 0.7 - Medications Given in the ED: ED Medications Discontinued Medications Generic Name Dose Route Start Last Admin Trade Name Freq PRN Reason Stop Dose Admin Sodium Chloride 1,000 mls @ 1,000 mls/hr 01/25/19 10:22 01/25/19 11:00 Normal Saline - IV 01/25/19 11:21 1,000 mls/hr ASDIR STA Administration Morphine Sulfate 4 mg 01/25/19 10:22 01/25/19 11:18 Morphine Injection - IVPUSH 01/25/19 10:23 Not Given ONCE ONE Medical Decision Making - Medical Decision Making 01/25/19 11:25 The patient was seen and evaluated in conjunction with KEITH Loyd under my direct supervision, ancillary studies were reviewed. I independently interviewed and evaluated the patient and I agree with the plan as outlined by KEITH Loyd . 63y F history of recent laparoscopic cholecystecomty by Dr. Will, has been recuperating well, had an outpatient follow-up visit on wo incident, patient awoke today noting purulent drainage to her periumbilical wound. Patient noted some low-grade fever at home with MAXIMUM TEMPERATURE of 100. Denies any nausea, vomiting, abdominal pain. exam noted for mild redness/warmth/ttp to mid epgiastric laparoscopy wound with foul smelling purulent dicharge. no rebound/guarding. no fever/tachcyardia noted. no signs of periotnitis. suspect localized infection/abscess. plan for labs/ct/abx will dw surgery *DC/Admit/Observation/Transfer Diagnosis at time of Disposition: Cellulitis, abdominal wall - Discharge Dispostion Condition at time of disposition: Fair - Referrals - Patient Instructions - Post Discharge Activity
[2019-01-25 11:26] LABS: URINE APPEARANCE SLCLOUDY; URINE BILIRUBIN NEGATIVE (<2.0 mg/dL); URINE COLOR YELLOW; URINE GLUCOSE (UA) NEGATIVE (NEGATIVE); URINE KETONE NEGATIVE (NEGATIVE); URINE LEUK ESTERASE NEGATIVE (NEGATIVE); URINE NITRITE NEGATIVE (NEGATIVE); URINE PROTEIN NEGATIVE (NEGATIVE); URINE UROBILINOGEN NEGATIVE mg/dL (0.2-1.0)
[2019-01-25 11:33] LABS: ALBUMIN 3.2 g/dl (3.4-5.0); ALK PHOS 316 U/L (45-117); ANION GAP 8 MMOL/L (8-16); BILIRUBIN,TOTAL 0.7 mg/dL (0.2-1); BLOOD UREA NITROGEN 13 mg/dL (7-18); CHLORIDE 103 mmol/L (98-107); CO2 25 mmol/L (21-32); CREATININE 0.8 mg/dL (0.55-1.3); GLUCOSE,RANDOM 112 mg/dL (74-106); POTASSIUM 4.9 mmol/L (3.5-5.1); SGOT/AST 40 U/L (15-37); SGPT/ALT 52 U/L (13-61); SODIUM 135 mmol/L (136-145); TOT PROT 7.8 g/dl (6.4-8.2)
[2019-01-25] MEDS ORDERED: PIPERACILLIN/TAZOB 3.375 GM 3.375 GM in DEXTROSE 5%-WATER - 50 ML IVPB ONE (11:36)
[2019-01-25] MEDS ORDERED: ONDANSETRON 4 MG/2 ML VIAL IVPUSH ONE (11:38)
[2019-01-25 11:50] LABS: EPI CELLS FEW /HPF (FEW); URINE MUCUS RARE
[2019-01-25] MEDS ORDERED: PIPERACILLIN/TAZOB 3.375 GM 3.375 GM/50 ML BAG IVPB ONE (12:24)
--- NOTE | 2019-01-25 16:14 | CONSULT ---
Consult Consult Specialty:: Surgery Reason for Consultation:: Purulent drainage from abdominal wound. - History of Present Illness Chief Complaint: S/P laparoscopic cholecystectomy about 8 days ago, came to the ER today with pain at the umbilical port site with purulent drainage. - History Source History Provided By: Patient Limitations to Obtaining History: No Limitations - Past Medical History Cardio/Vascular: Yes: Other Gastrointestinal: Yes: Diverticulosis, Hiatal Hernia, Other Hepatobiliary: Yes: Cholelithiasis, Other (s/p Placement of common bile duct, biliary stent.) Renal/: Yes: Hematuria, Renal Calculi, Other Psych: Yes: Anxiety Musculoskeletal: Yes: Chronic low back pain - Past Surgical History Past Surgical History: Yes: Appendectomy, Breast Biopsy, Colonoscopy, Upper Endoscopy - Alcohol/Substance Use Hx Alcohol Use: No History of Substance Use: reports: None - Smoking History Smoking history: Current some day smoker Have you smoked in the past 12 months: Yes Aproximately how many cigarettes per day: 2 - Social History Usual Living Arrangement: Alone ADL: Independent 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 History of Recent Travel: No Home Medications - Allergies Allergies/Adverse Reactions: Allergies Allergy/AdvReac Type Severity Reaction Status Date / Time No Known Drug Allergies Allergy Verified 01/25/19 09:35 DUST Allergy Uncoded 01/25/19 09:35 - Home Medications Home Medications: Ambulatory Orders Esomeprazole Magnesium [Nexium 24Hr] 40 mg PO DAILY 01/02/19 Metoprolol Tartrate 12.5 mg PO DAILY 01/02/19 Simvastatin [Zocor -] 40 mg PO HS 01/02/19 Docusate Sodium [Colace] 100 mg PO DAILY #10 capsule MDD 1 01/17/19 Ibuprofen [Motrin -] 400 mg PO TID #21 tablet 01/17/19 Oxycodone HCl/Acetaminophen [Percocet 5-325 mg Tablet] 1 tab PO Q6H #20 tablet MDD 3 01/17/19 Family Disease History - Family Disease History Family Disease History: Diabetes: Mother, Other: Father, Mother, Brother Physical Exam Vital Signs: Vital Signs Temperature 98.1 F 01/25/19 14:10 Pulse Rate 78 01/25/19 15:38 Respiratory Rate 18 01/25/19 15:38 Blood Pressure 100/55 L 01/25/19 15:38 O2 Sat by Pulse Oximetry (%) 97 01/25/19 15:38 Gastrointestinal: Yes: Soft, Other (Abdominal wound and skin around the umbilicus , is red and tender. There is purulent drainage from the incision site.) Labs: CBC, BMP 01/25/19 10:32 01/25/19 10:32 Imaging - Results Cat Scan: Image Reviewed (Noted . ? abscess at the umbilical port site, with darinage.) Problem List - Problems (1) Wound infection after surgery Code(s): T81.49XA - INFECTION FOLLOWING A PROCEDURE, OTHER SURGICAL SITE, INIT (2) Obesity Code(s): E66.9 - OBESITY, UNSPECIFIED (3) Leukocytosis Code(s): D72.829 - ELEVATED WHITE BLOOD CELL COUNT, UNSPECIFIED Assessment/Plan s/p Lapraoscopic cholecystectomy , following ERCP stenting of the bile duct , for obstructive jaundice. Returns with abdominal wound infection. Procedure : Wound opened , pus evacuated , swab sent for culture and antibiotic sensitivity. Wound irrigated and packed. Continue antibiotics. May shower. patient is explained .
--- NOTE | 2019-01-25 16:41 | HP ---
Admitting History and Physical - Primary Care Physician PCP: Miller Sawyer - Admission Chief Complaint: wound discharge and smell History of Present Illness: admitted for biliary obstruction on 01.02.19,. transferred to [facility] for difficult ERCP, where she received two biliary stents-they are supposed to be removed on 02.06.19 she underwent lap.cholecystectomy on 01.17.19. she felt well until two days ago, when she started feeling febrile and this am started draining purulent material from bellybutton. - Past Medical History Cardiovascular: Yes: Other Gastrointestinal: Yes: Diverticulosis, Hiatal Hernia, Other Hepatobiliary: Yes: Cholelithiasis, Other (s/p Placement of common bile duct, biliary stent.) Renal/: Yes: Hematuria, Renal Calculi, Other Psych: Yes: Anxiety Musculoskeletal: Yes: Chronic low back pain - Past Surgical History Past Surgical History: Yes: Appendectomy, Breast Biopsy, Cholecystectomy, Colonoscopy, Upper Endoscopy Additional Past Surgical History: biliary stent after ERCP on ~01.04.19 - Smoking History Smoking history: Current some day smoker Have you smoked in the past 12 months: Yes Aproximately how many cigarettes per day: 5 - Alcohol/Substance Use Hx Alcohol Use: No History of Substance Use: reports: None - Social History ADL: Independent 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 History of Recent Travel: No Home Medications - Allergies Allergies/Adverse Reactions: Allergies Allergy/AdvReac Type Severity Reaction Status Date / Time No Known Drug Allergies Allergy Verified 01/25/19 09:35 DUST Allergy Uncoded 01/25/19 09:35 - Home Medications Home Medications: Ambulatory Orders Esomeprazole Magnesium [Nexium 24Hr] 40 mg PO DAILY 01/02/19 Metoprolol Tartrate 12.5 mg PO DAILY 01/02/19 Simvastatin [Zocor -] 40 mg PO HS 01/02/19 Docusate Sodium [Colace] 100 mg PO DAILY #10 capsule MDD 1 01/17/19 Ibuprofen [Motrin -] 400 mg PO TID #21 tablet 01/17/19 Oxycodone HCl/Acetaminophen [Percocet 5-325 mg Tablet] 1 tab PO Q6H #20 tablet MDD 3 01/17/19 Family Disease History - Family Disease History Family Disease History: Diabetes: Mother, Other: Father, Mother, Brother Review of Systems - Review of Systems Constitutional: reports: Fever. denies: Lethargy, Loss of Appetite HENT: reports: No Symptoms Neck: reports: No Symptoms Cardiovascular: reports: No Symptoms Respiratory: reports: No Symptoms Gastrointestinal: denies: Abdominal Pain, Constipation, Diarrhea, Dysphagia, Nausea, Vomiting Blood Genitourinary: reports: No Symptoms Integumentary: reports: Other (wound discharge) Neurological: reports: No Symptoms Endocrine: reports: No Symptoms Hematology/Lymphatic: reports: No Symptoms Psychiatric: reports: No Symptoms Physical Examination Vital Signs: Vital Signs Temperature 98.1 F 01/25/19 14:10 Pulse Rate 78 01/25/19 15:38 Respiratory Rate 18 01/25/19 15:38 Blood Pressure 100/55 L 01/25/19 15:38 O2 Sat by Pulse Oximetry (%) 97 01/25/19 15:38 Constitutional: Yes: Well Nourished, No Distress, Calm Eyes: Yes: Conjunctiva Clear, EOM Intact HENT: Yes: Atraumatic, Normocephalic Neck: Yes: Supple Cardiovascular: Yes: Regular Rate and Rhythm Respiratory: Yes: Regular, CTA Bilaterally Gastrointestinal: Yes: Normal Bowel Sounds, Soft, Abdomen, Obese Musculoskeletal: Yes: WNL Extremities: Yes: WNL Edema: No Wound/Incision: Yes: Draining, Reddened, Other (umbilicus draining with copious amount of foul smelling hickman purulent fluid, with surrounding erythema and redness.) Labs: CBC, BMP 01/25/19 10:32 01/25/19 10:32 Imaging - Results Cat Scan: Report Reviewed Problem List - Problems (1) Cellulitis, abdominal wall Code(s): L03.311 - CELLULITIS OF ABDOMINAL WALL (2) Obesity Code(s): E66.9 - OBESITY, UNSPECIFIED Qualifiers: Obesity classification: adult class 1 (BMI 30 - 34.9) (3) Wound infection after surgery Code(s): T81.49XA - INFECTION FOLLOWING A PROCEDURE, OTHER SURGICAL SITE, INIT Assessment/Plan blood cultures, wound cultures were drawn cont iv zosyn consults greatly appreciated
--- NOTE | 2019-01-25 16:48 | PN ---
Progress Note (short form) - Note Progress Note: ID consult dictated imp/reccd wound infection, abscess GB fossa s/p lap choly 01/17 history choledocholithiasis, 2 biliary stents placed in December wound culture pending received zosyn in ED wound opened by surgeon had spontaneously started draining this am foul smelling continue zosyn- f/u cultures Problem List - Problems (1) Wound infection after surgery Code(s): T81.49XA - INFECTION FOLLOWING A PROCEDURE, OTHER SURGICAL SITE, INIT (2) S/P laparoscopic cholecystectomy Code(s): Z90.49 - ACQUIRED ABSENCE OF OTHER SPECIFIED PARTS OF DIGESTIVE TRACT (3) History of biliary stent insertion Code(s): Z98.890 - OTHER SPECIFIED POSTPROCEDURAL STATES
[2019-01-25] MEDS ORDERED: DEXTROSE 5%-WATER 100 ML IVPB ONE (17:37)
[2019-01-25] MEDS ORDERED: PIPERACILLIN/TAZOBACTAM 4.5 GM VIAL IVPB ONE (17:37)
[2019-01-25] MEDS: PIPERACILLIN/TAZOB 4.5 GM 4.5 GM in DEXTROSE 5%-WATER 100 ML IVPB SCH (18:18)
[2019-01-25 19:25] VITALS: BMI 32.3
[2019-01-25] MEDS: VANCOMYCIN HCL 1,250 MG in DEXTROSE 5%-WATER - 250 ML IVPB SCH (20:24)
[2019-01-25] MEDS: ATORVASTATIN CA 20 MG TABLET (FP) PO SCH (21:20)
[2019-01-26] MEDS ORDERED: DEXTROSE 5%-WATER 100 ML IVPB ONE ×3 (00:28→16:43)
[2019-01-26] MEDS ORDERED: PIPERACILLIN/TAZOBACTAM 4.5 GM VIAL IVPB ONE ×3 (00:28→16:43)
[2019-01-26] MEDS ORDERED: PT OWN MED DRAWER 7, Y5N ONE (00:28)
[2019-01-26] MEDS: PIPERACILLIN/TAZOB 4.5 GM 4.5 GM in DEXTROSE 5%-WATER 100 ML IVPB SCH ×3 (02:21→17:12)
[2019-01-26 08:25] LABS: BASO % 0.5 % (0-2.0); EOS % 3.3 % (0-4.5); HEMATOCRIT 32.3 % (32.4-45.2); HEMOGLOBIN 11.6 GM/dL (10.7-15.3); LYMPH % 18.6 % (8-40); MCH 31.8 pg (25.7-33.7); MEAN CELL VOLUME 88.5 fl (80-96); MEAN PLT VOLUME 6.8 fl (7.5-11.1); MONO % 8.3 % (3.8-10.2); NEUT % 69.3 % (42.8-82.8); PLATELET COUNT 378 K/MM3 (134-434); RBC 3.65 M/mm3 (3.60-5.2); RDW 13.2 % (11.6-15.6); WHITE BLOOD COUNT 9.7 K/mm3 (4.0-10.0)
[2019-01-26 08:50] LABS: ALBUMIN 2.6 g/dl (3.4-5.0); ALK PHOS 240 U/L (45-117); ANION GAP 7 MMOL/L (8-16); BILIRUBIN,TOTAL 0.5 mg/dL (0.2-1); BLOOD UREA NITROGEN 12 mg/dL (7-18); CALCIUM 8.8 mg/dL (8.5-10.1); CHLORIDE 105 mmol/L (98-107); CO2 25 mmol/L (21-32); CREATININE 0.7 mg/dL (0.55-1.3); GLUCOSE,RANDOM 101 mg/dL (74-106); POTASSIUM 4.2 mmol/L (3.5-5.1); SGOT/AST 18 U/L (15-37); SGPT/ALT 43 U/L (13-61); SODIUM 137 mmol/L (136-145); TOT PROT 6.3 g/dl (6.4-8.2)
--- NOTE | 2019-01-26 09:32 | PN ---
Progress Note (short form) - Note Progress Note: much less drainage in 12 hours-2x2 soaked but nothing beyond that mild erythema around site better wound culture lactose and non lactose fermenting gram neg. bacilli blood cultures are negative so far CBC, BMP 01/26/19 07:30 01/26/19 07:30 Vital Signs Period Temp Pulse Resp BP Sys/Lowe Pulse Ox Last 24 Hr 98.0 F-98.2 F 73-88 18-20 100-137/55-73 97-100 S1S2 rrr lungs cta abd soft non tender wound as above no edema wound infection/abscess #9 days postop lap.cholecystectomy gall bladder fossa with small collection?abscess cont iv abx until sens. comes back repeat CT later this week? Problem List - Problems (1) Cellulitis, abdominal wall Code(s): L03.311 - CELLULITIS OF ABDOMINAL WALL (2) Obesity Code(s): E66.9 - OBESITY, UNSPECIFIED Qualifiers: Obesity classification: adult class 1 (BMI 30 - 34.9) (3) Wound infection after surgery Code(s): T81.49XA - INFECTION FOLLOWING A PROCEDURE, OTHER SURGICAL SITE, INIT
[2019-01-26] MEDS: METOPROLOL TARTRATE 25 MG TABLET (FP) PO SCH (09:49)
[2019-01-26] MEDS ORDERED: METOPROLOL TARTRATE 25 MG TABLET (FP) PO SCH (10:00)
[2019-01-26] MEDS: VANCOMYCIN HCL 1,250 MG in DEXTROSE 5%-WATER - 250 ML IVPB SCH (18:30)
[2019-01-26] MEDS: ACETAMINOPHEN 325 MG TABLET (FP) PO PRN (18:39)
[2019-01-26] MEDS: ATORVASTATIN CA 20 MG TABLET (FP) PO SCH (21:09)
[2019-01-27] MEDS ORDERED: PIPERACILLIN/TAZOBACTAM 4.5 GM VIAL IVPB ONE ×4 (00:08→17:39)
[2019-01-27] MEDS ORDERED: DEXTROSE 5%-WATER 100 ML IVPB ONE ×4 (00:09→17:40)
[2019-01-27] MEDS: PIPERACILLIN/TAZOB 4.5 GM 4.5 GM in DEXTROSE 5%-WATER 100 ML IVPB SCH ×3 (01:26→17:57)
--- NOTE | 2019-01-27 09:15 | PN ---
Progress Note (short form) - Note Progress Note: same amount of drainage in 12 hours-2x2 soaked but nothing beyond that wound culture lactose and non lactose fermenting gram neg. bacilli blood cultures are negative so far CBC, BMP 01/26/19 07:30 01/26/19 07:30 Vital Signs Period Temp Pulse Resp BP Sys/Lowe Pulse Ox Last 24 Hr 97.8 F-98.1 F 67-82 17-20 100-133/57-74 95 S1S2 rrr lungs cta abd soft non tender wound erythema lessened, still with hickman purulent discharge expressible from wound no edema wound infection/abscess #10 days postop lap.cholecystectomy gall bladder fossa with small collection?abscess cont iv abx until sens. comes back repeat CT later this week? continue metoprolol, statin Problem List - Problems (1) Cellulitis, abdominal wall Code(s): L03.311 - CELLULITIS OF ABDOMINAL WALL (2) Obesity Code(s): E66.9 - OBESITY, UNSPECIFIED Qualifiers: Obesity classification: adult class 1 (BMI 30 - 34.9) (3) Wound infection after surgery Code(s): T81.49XA - INFECTION FOLLOWING A PROCEDURE, OTHER SURGICAL SITE, INIT
--- NOTE | 2019-01-27 09:59 | CONS ---
DATE OF CONSULTATION: 01/25/2019 CONSULTATION REQUESTED BY: Bhavna Andrea MD HISTORY OF PRESENT ILLNESS: The patient is a 63-year-old woman who originally presented on January 02, 2018 to [facility]. At that time, she had had right upper quadrant pain for one week. She was found to have choledocholithiasis. She underwent an MRCP and was ultimately transferred to [facility], where she had two biliary stents placed. She then returned this month and had a laparoscopic cholecystectomy on January 17. She was discharged home on January 18. Two days ago, on , she felt like she had a low-grade fever and some chills at home. This morning, she woke up and noted that she had some erythema and purulent material draining from her umbilical area incision. She came to the emergency room, where she was noted to have the drainage. She had no fever this morning. Blood and urine cultures were sent. She had a CT scan of her abdomen and pelvis that showed a possible 2-cm abscess in the gallbladder fossa and a second collection around the belly button. She was given a dose of Zosyn in the emergency room after her cultures were done. She was transferred upstairs by Dr. Will, who opened the belly button area and drained this collection further. PAST MEDICAL HISTORY: Notable for a descending thoracic aortic aneurysm, hematuria, anxiety, chronic low back pain. PAST SURGICAL HISTORY: She is status post appendectomy and carpal tunnel surgery. SOCIAL HISTORY: She smokes several cigarettes daily. There is no history of alcohol use. She is currently not working. ALLERGIES: No known drug allergies. HOME MEDICATIONS: Zocor, Percocet, metoprolol, Motrin, Nexium and Colace. REVIEW OF SYSTEMS: She denies nausea, vomiting, diarrhea, dysuria. She has been eating regularly and has no complaints other than the wound discharge. PHYSICAL EXAMINATION: General: She is awake and alert. Vital Signs: She has had no fever. Temperature is 98.1, blood pressure 100/55, respiratory rate 18, pulse 87, saturation 97% on room air. HEENT: Normocephalic. Her eyes are anicteric. Neck: Supple. Lungs: Clear to auscultation. Heart: Regular rate and rhythm. Abdomen: Soft. In the belly button area, she has an incision from which a foul-smelling fluid collection is draining. Extremities: Without edema. LABORATORY DATA: Notable for a white count of 14.7, hemoglobin is 13, platelets 418. Her BUN and creatinine are 13 and 0.8. AST is 40, alkaline phosphatase is 316. A urinalysis is notable for 3 white cells. Only a wound culture was sent. CT findings are as previously stated. In summary, this is a 63-year-old woman with a wound infection, possible abscess in the gallbladder fossa, status post laparoscopic cholecystectomy, history of choledocholithiasis with two biliary stents placed in December. A wound culture is pending. Unfortunately, she was already started on Zosyn so at this point, I do not think cultures would make a difference as she has no fever. The wound was opened by the surgeon this morning and started spontaneously draining foul-smelling fluid. We will continue Zosyn for a mixed infection including gram-negatives as well as anaerobes and follow up cultures. We added a gram stain as the fluid just came back and had many gram-positive cocci in clusters, so we will add vancomycin pending further culture results. The case was discussed with Dr. Andrea. Paul [id number]
[2019-01-27] MEDS: METOPROLOL TARTRATE 25 MG TABLET (FP) PO SCH (10:26)
--- NOTE | 2019-01-27 15:51 | PN ---
Progress Note, Physician History of Present Illness: S/P Abscess of abdominal wall, wound infection , umbilical pot site. Patient has no pain. - Current Medication List Current Medications: Active Medications Acetaminophen (Tylenol -) 650 mg PO Q4H PRN PRN Reason: PAIN OR FEVER Last Admin: 01/26/19 18:39 Dose: 650 mg Atorvastatin Calcium (Lipitor -) 20 mg PO HS MANI Last Admin: 01/26/19 21:09 Dose: 20 mg Piperacillin Sod/Tazobactam (Sod 4.5 gm/ Dextrose) 100 mls @ 200 mls/hr IVPB Q8H-IV MANI; Protocol Last Admin: 01/27/19 10:26 Dose: 200 mls/hr Metoprolol Tartrate (Lopressor -) 12.5 mg PO DAILY MANI Last Admin: 01/27/19 10:26 Dose: Not Given - Objective Vital Signs: Vital Signs Temperature 97.9 F 01/27/19 13:24 Pulse Rate 85 01/27/19 13:24 Respiratory Rate 18 01/27/19 13:24 Blood Pressure 130/68 01/27/19 13:24 O2 Sat by Pulse Oximetry (%) 95 01/27/19 09:00 Labs: CBC, BMP 01/26/19 07:30 01/26/19 07:30 Problem List - Problems (1) Wound infection after surgery Code(s): T81.49XA - INFECTION FOLLOWING A PROCEDURE, OTHER SURGICAL SITE, INIT (2) Obesity Code(s): E66.9 - OBESITY, UNSPECIFIED Qualifiers: Obesity classification: adult class 1 (BMI 30 - 34.9) (3) Leukocytosis Code(s): D72.829 - ELEVATED WHITE BLOOD CELL COUNT, UNSPECIFIED Assessment/Plan Umbilical wound: , open , minimal purulent drainage, Less erythema and edema of the skin edges and surrounding. Dressing changed . Some purulent fluid expressed. Cultures : positive for enterococcus, Group D Streptococcus, Enterobacter Cloacae. Patient is on Piperacillin Tazobactam, Zosyn.. can be discharged home tomorrow. Stent removal scheduled for next week. WBC is normal. Afebrile.
[2019-01-27] MEDS: ATORVASTATIN CA 20 MG TABLET (FP) PO SCH (21:04)
[2019-01-28] MEDS ORDERED: PIPERACILLIN/TAZOBACTAM 4.5 GM VIAL IVPB ONE ×3 (00:04→18:49)
[2019-01-28] MEDS ORDERED: DEXTROSE 5%-WATER 100 ML IVPB ONE ×3 (00:04→18:49)
[2019-01-28] MEDS: PIPERACILLIN/TAZOB 4.5 GM 4.5 GM in DEXTROSE 5%-WATER 100 ML IVPB SCH ×3 (01:18→19:00)
--- NOTE | 2019-01-28 09:32 | PN ---
Progress Note (short form) - Note Progress Note: Vital Signs Period Temp Pulse Resp BP Sys/Lowe Pulse Ox Last 24 Hr 97.8 F-97.9 F 82-87 18-18 98-130/55-68 95 Microbiology 01/25/19 10:32 Abscess Gram Stain - Final 01/25/19 10:32 Abscess Wound Culture - Preliminary Raoultella (K) Ornithinolytica Enterobacter Cloacae Group D Strep Or Entero Coccus Pending Organism Pending Organism#2 01/25/19 22:30 Abdomen Gram Stain - Final 01/25/19 22:30 Abdomen Body Fluid Culture - Preliminary Lactose Fermenting Neg Bacilli Lactose Fermenting Neg Bacilli#2 Alpha Hemolytic Streptococcus S1S2 rrr lungs cta abd soft non tender wound erythema almost gone, much decreased hickman purulent discharge expressible from wound no edema wound infection/abscess #11 days postop lap.cholecystectomy gall bladder fossa with small collection?abscess cont iv abx will d/w id continue metoprolol, statin Problem List - Problems (1) Cellulitis, abdominal wall Code(s): L03.311 - CELLULITIS OF ABDOMINAL WALL (2) Obesity Code(s): E66.9 - OBESITY, UNSPECIFIED Qualifiers: Obesity classification: adult class 1 (BMI 30 - 34.9) (3) Wound infection after surgery Code(s): T81.49XA - INFECTION FOLLOWING A PROCEDURE, OTHER SURGICAL SITE, INIT
[2019-01-28] MEDS: METOPROLOL TARTRATE 25 MG TABLET (FP) PO SCH (10:05)
--- NOTE | 2019-01-28 10:38 | PN ---
Progress Note, Physician - Current Medication List Current Medications: Active Medications Acetaminophen (Tylenol -) 650 mg PO Q4H PRN PRN Reason: PAIN OR FEVER Last Admin: 01/26/19 18:39 Dose: 650 mg Atorvastatin Calcium (Lipitor -) 20 mg PO HS MANI Last Admin: 01/27/19 21:04 Dose: 20 mg Piperacillin Sod/Tazobactam (Sod 4.5 gm/ Dextrose) 100 mls @ 200 mls/hr IVPB Q8H-IV MANI; Protocol Last Admin: 01/28/19 10:03 Dose: 200 mls/hr Metoprolol Tartrate (Lopressor -) 12.5 mg PO DAILY MANI Last Admin: 01/28/19 10:05 Dose: 12.5 mg - Objective Vital Signs: Vital Signs Temperature 97.8 F 01/28/19 09:04 Pulse Rate 87 01/28/19 09:04 Respiratory Rate 18 01/28/19 09:04 Blood Pressure 117/57 L 01/28/19 09:04 O2 Sat by Pulse Oximetry (%) 95 01/27/19 21:00 Labs: CBC, BMP 01/26/19 07:30 01/26/19 07:30 Problem List - Problems (1) Wound infection after surgery Code(s): T81.49XA - INFECTION FOLLOWING A PROCEDURE, OTHER SURGICAL SITE, INIT (2) Obesity Code(s): E66.9 - OBESITY, UNSPECIFIED Qualifiers: Obesity classification: adult class 1 (BMI 30 - 34.9) (3) Leukocytosis Code(s): D72.829 - ELEVATED WHITE BLOOD CELL COUNT, UNSPECIFIED Assessment/Plan Dressing changed , very minimal drainage. Wound less red . responding well to antibiotics. Planning on discharge tomorrow. will follow in the office on Sunday , upon discharge.
--- NOTE | 2019-01-28 18:20 | PN ---
Progress Note (short form) - Note Progress Note: no complaints wants to go home Vital Signs Period Temp Pulse Resp BP Sys/Lowe Pulse Ox Last 24 Hr 97.8 F-97.9 F 79-87 18-20 98-121/55-68 95-95 cor-rrr lungs clear abd minimal drainage, no erythema ext no edema CBC, BMP 01/26/19 07:30 01/26/19 07:30 Microbiology 01/25/19 22:30 Abdomen Gram Stain - Final 01/25/19 22:30 Abdomen Body Fluid Culture - Preliminary Escherichia Coli Enterobacter Cloacae Streptococcus Constellatus Pending Organism 01/25/19 22:30 Abdomen Anaerobic Culture - Final NO ANAEROBES WERE ISOLATED 01/25/19 10:32 Abscess Gram Stain - Final 01/25/19 10:32 Abscess Wound Culture - Preliminary Raoultella (K) Ornithinolytica Enterobacter Cloacae Enterococcus Faecium Beta Hemolytic Strep Not A/B Pending Organism#2 imp/reccd wound infection s/p lap choly 01/17 history choledocholithiasis, 2 biliary stents placed in December #3 zosyn d/w PMD for switch to po levaquin and flagyl in am for another one week f/u with surgeon Problem List - Problems (1) Wound infection after surgery Code(s): T81.49XA - INFECTION FOLLOWING A PROCEDURE, OTHER SURGICAL SITE, INIT (2) S/P laparoscopic cholecystectomy Code(s): Z90.49 - ACQUIRED ABSENCE OF OTHER SPECIFIED PARTS OF DIGESTIVE TRACT (3) History of biliary stent insertion Code(s): Z98.890 - OTHER SPECIFIED POSTPROCEDURAL STATES
[2019-01-28] MEDS: ATORVASTATIN CA 20 MG TABLET (FP) PO SCH (21:25)
[2019-01-28] MEDS: ACETAMINOPHEN 325 MG TABLET (FP) PO PRN (21:26)
[2019-01-29] MEDS ORDERED: PIPERACILLIN/TAZOBACTAM 4.5 GM VIAL IVPB ONE ×2 (00:03→09:17)
[2019-01-29] MEDS ORDERED: DEXTROSE 5%-WATER 100 ML IVPB ONE ×2 (00:03→09:18)
[2019-01-29] MEDS: PIPERACILLIN/TAZOB 4.5 GM 4.5 GM in DEXTROSE 5%-WATER 100 ML IVPB SCH ×2 (02:53→09:20)
[2019-01-29 07:05] LABS: BASO % 0.4 % (0-2.0); EOS % 2.4 % (0-4.5); HEMATOCRIT 34.6 % (32.4-45.2); HEMOGLOBIN 11.8 GM/dL (10.7-15.3); LYMPH % 15.5 % (8-40); MCH 30.2 pg (25.7-33.7); MCHC 34.2 g/dl (32.0-36.0); MEAN CELL VOLUME 88.4 fl (80-96); MEAN PLT VOLUME 6.5 fl (7.5-11.1); MONO % 7.6 % (3.8-10.2); NEUT % 74.1 % (42.8-82.8); PLATELET COUNT 411 K/MM3 (134-434); RBC 3.92 M/mm3 (3.60-5.2); RDW 12.9 % (11.6-15.6); WHITE BLOOD COUNT 11.4 K/mm3 (4.0-10.0)
[2019-01-29 07:49] LABS: ALBUMIN 2.9 g/dl (3.4-5.0); ALK PHOS 207 U/L (45-117); ANION GAP 7 MMOL/L (8-16); BILIRUBIN,TOTAL 0.4 mg/dL (0.2-1); BLOOD UREA NITROGEN 13 mg/dL (7-18); CALCIUM 8.9 mg/dL (8.5-10.1); CHLORIDE 106 mmol/L (98-107); CO2 24 mmol/L (21-32); CREATININE 0.8 mg/dL (0.55-1.3); GLUCOSE,RANDOM 101 mg/dL (74-106); POTASSIUM 4.3 mmol/L (3.5-5.1); SGOT/AST 14 U/L (15-37); SGPT/ALT 32 U/L (13-61); SODIUM 137 mmol/L (136-145); TOT PROT 6.9 g/dl (6.4-8.2)
[2019-01-29] MEDS: METOPROLOL TARTRATE 25 MG TABLET (FP) PO SCH (09:20)
--- NOTE | 2019-01-29 12:15 | DS ---
Physical Examination Vital Signs: Vital Signs Temperature 97.8 F 01/29/19 06:44 Pulse Rate 72 01/29/19 06:44 Respiratory Rate 20 01/29/19 06:44 Blood Pressure 111/59 L 01/29/19 06:44 O2 Sat by Pulse Oximetry (%) 97 01/28/19 21:00 Labs: CBC, BMP 01/29/19 06:10 01/29/19 06:10 Discharge Summary Reason For Visit: CELLULITIS OF ABD PAIN Current Active Problems Cellulitis, abdominal wall (Acute) History of biliary stent insertion (Acute) Leukocytosis (Acute) Obesity (Acute) S/P laparoscopic cholecystectomy (Acute) Wound infection after surgery (Acute) Hospital Course: ADMITTED from 01.25.19 to 01.29.19 for postop wound infection/abscess following lap.cholecystectomy gall bladder fossa with small collection?abscess Microbiology 01/25/19 22:30 Abdomen Gram Stain - Final 01/25/19 22:30 Abdomen Body Fluid Culture - Preliminary Escherichia Coli Enterobacter Cloacae Streptococcus Constellatus Beta Hemolytic Strep Not A/B 01/25/19 22:30 Abdomen Anaerobic Culture - Final NO ANAEROBES WERE ISOLATED 01/25/19 10:32 Abscess Gram Stain - Final 01/25/19 10:32 Abscess Wound Culture - Final Raoultella (K) Ornithinolytica Enterobacter Cloacae Enterococcus Faecium Beta Hemolytic Strep Not A/B Prevotella Buccae much improved on iv zosyn, blood cultures remained negative was dcd home on levquib and flagyl x 7 days, however after dc was noted to have aortic aneurysmal dilation so pt was contacted and switched to augmentin and bactrim for 7 days. she will f/up in the office in 2 days-time Condition: Fair - Instructions Diet, Activity, Other Instructions: Follow up in 's office on Sunday02/03/2019. 3. am Disposition: HOME - Home Medications Comprehensive Discharge Medication List: Ambulatory Orders Esomeprazole Magnesium [Nexium 24Hr] 40 mg PO DAILY 01/02/19 Metoprolol Tartrate 12.5 mg PO DAILY 01/02/19 Simvastatin [Zocor -] 40 mg PO HS 01/02/19 Docusate Sodium [Colace] 100 mg PO DAILY #10 capsule MDD 1 01/17/19 Levofloxacin [Levaquin] 500 mg PO DAILY #7 tablet 01/29/19 Metronidazole 500 mg PO TID #21 tablet 01/29/19
[2019-01-29 12:41] VITALS: BP 118/90; PULSE 87; TEMP 98.3
== END 2019-01-29 13:06 | disposition home or self-care (01) | DRG 721 ==
LOC: JER 09:26 → JERBED 11:35 → J5S 15:43
PROVIDERS: ADMIT Internal Medicine; ATTEND Internal Medicine
DX: T81.49XA Infection following a procedure, other surgical site, initial encounter (principal); L03.311 Cellulitis of abdominal wall; D72.829 Elevated white blood cell count, unspecified; E66.9 Obesity, unspecified; Z68.32 Body mass index [BMI] 32.0-32.9, adult; K46.9 Unspecified abdominal hernia without obstruction or gangrene; K57.90 Diverticulosis of intestine, part unspecified, without perforation or abscess without bleeding; F41.9 Anxiety disorder, unspecified; M54.5 Low back pain; F17.210 Nicotine dependence, cigarettes, uncomplicated; B95.2 Enterococcus as the cause of diseases classified elsewhere; B96.89 Other specified bacterial agents as the cause of diseases classified elsewhere; Y83.8 Other surgical procedures as the cause of abnormal reaction of the patient, or of later complication, without mention of misadventure at the time of the procedure; Z90.49 Acquired absence of other specified parts of digestive tract; Z87.442 Personal history of urinary calculi
CPT/HCPCS: 36415; 74177-TC; 80053; 81003; 81015; 85025; 87070; 87075; 87077; 87186; 87205; 99282-25; J7030

== ENCOUNTER 2019-02-23 22:30 | Inpatient (IN) | payer OTHER ==
--- NOTE | 2019-02-23 23:14 | PDOC ---
History of Present Illness <Herminia Alcantara - Last Filed: 02/24/19 04:51> - General History Source: Patient Exam Limitations: No Limitations - History of Present Illness Initial Comments: 02/23/19 23:09 Di is a 64 year old female with h/o cholecystectomy, acid reflux c/o feeling weak x 3 days. Took temp 7:30PM took temp was 100, which she repeated was 101 and then at 8:00 pm was 101.6. She took Tylenol but since she has a surgery on postoperative period, she decided to come in for evaluation. She denies cough, dysuria, abdominal pain, chest pain. PMD: Dr. De La Fuente PMHX: as above PSOCHX: (+) cig 6/day, neg etoh, neg drug ALL: NKDA GENERAL/CONSTITUTIONAL: No fever or chills. No weakness. No weight change. HEAD, EYES, EARS, NOSE AND THROAT: No change in vision. No ear pain or discharge. No sore throat. CARDIOVASCULAR: No chest pain or shortness of breath. RESPIRATORY: No cough, wheezing, or hemoptysis. GASTROINTESTINAL: No nausea, vomiting, diarrhea or constipation. No rectal bleeding. GENITOURINARY: No dysuria, frequency, or change in urination. MUSCULOSKELETAL: No joint or muscle swelling or pain. No neck or back pain. SKIN AND BREASTS: No rash or easy bruising. NEUROLOGIC: No headache, vertigo, loss of consciousness, or loss of sensation. PSYCHIATRIC: No depression or anxiety. ENDOCRINE: No increased thirst. No abnormal weight change. HEMATOLOGIC/LYMPHATIC: No anemia, easy bleeding, or history of blood clots. ALLERGIC/IMMUNOLOGIC: No hives or skin allergy. No latex allergy. GENERAL: The patient is awake, alert, and fully oriented, in no acute distress. HEAD: Normal with no signs of trauma. EYES: Pupils equal, round and reactive to light, extraocular movements intact, sclera icteric, conjunctiva clear. ENT: Ears normal, nares patent, oropharynx clear without exudates. Moist mucous membranes. NECK: Normal range of motion, supple without lymphadenopathy, JVD, or masses. LUNGS: Breath sounds equal, clear to auscultation bilaterally. No wheezes, and no crackles. HEART: Regular rate and rhythm, normal S1 and S2 without murmur, rub. ABDOMEN: Soft, nontender, normoactive bowel sounds. No guarding, no rebound. No masses. EXTREMITIES: Normal range of motion, no edema. No clubbing or cyanosis. No cords, erythema, or tenderness. NEUROLOGICAL: Cranial nerves II through XII grossly intact. Normal speech, normal gait. PSYCH: Normal mood, normal affect. SKIN: Warm, Dry, normal turgor, no rashes or lesions noted. <Williams Gonzalez - Last Filed: 02/24/19 05:43> - General Chief Complaint: Cold Symptoms Stated Complaint: FEVER Past History <Herminia Alcantara - Last Filed: 02/24/19 04:51> - Past Medical History Anemia: No Asthma: No Cancer: No Cardiac Disorders: Yes ("aneursym") CVA: No COPD: No CHF: No Dementia: No Diabetes: No GI Disorders: Yes (REFLUX) Disorders: No HTN: No Hypercholesterolemia: Yes Liver Disease: No Seizures: No Thyroid Disease: No - Surgical History Appendectomy: Yes Cholecystectomy: Yes (01/17/2019) - Immunization History Td Vaccination: Yes Immunization Up to Date: Yes - Suicide/Smoking/Psychosocial Hx Smoking Status: No Smoking History: Unknown if ever smoked Years of Tobacco Use: 40 Have you smoked in the past 12 months: No Number of Cigarettes Smoked Daily: 5 Information on smoking cessation initiated: No 'Breaking Loose' booklet given: 01/25/19 Hx Alcohol Use: No Drug/Substance Use Hx: No Substance Use Type: None Hx Substance Use Treatment: No <Williams Gonzalez - Last Filed: 02/24/19 05:43> - Past Medical History Allergies/Adverse Reactions: Allergies Allergy/AdvReac Type Severity Reaction Status Date / Time No Known Drug Allergies Allergy Verified 02/23/19 22:36 DUST Allergy Uncoded 02/23/19 22:36 Home Medications: Ambulatory Orders Metoprolol Tartrate 12.5 mg PO DAILY 01/02/19 Simvastatin [Zocor -] 40 mg PO HS 01/02/19 *Physical Exam - Vital Signs Last Vital Signs Temp Pulse Resp BP Pulse Ox 98.4 F 79 16 83/52 L 98 02/24/19 03:35 02/24/19 03:35 02/23/19 22:34 02/24/19 03:35 02/24/19 03:35 <Herminia Alcantara - Last Filed: 02/24/19 04:51> - Vital Signs Last Vital Signs Temp Pulse Resp BP Pulse Ox 99.2 F 87 16 103/57 L 100 02/23/19 22:34 02/23/19 22:34 02/23/19 22:34 02/23/19 22:34 02/23/19 22:34 <Williams Gonzalez - Last Filed: 02/24/19 05:43> ED Treatment Course - LABORATORY CBC & Chemistry Diagram: 02/24/19 00:58 02/24/19 00:58 - ADDITIONAL ORDERS Additional order review: Laboratory Results 02/24/19 02/24/19 02/23/19 00:58 00:54 23:00 Sodium 135 L Potassium 3.9 Chloride 105 Carbon Dioxide 22 Anion Gap 8 BUN 14 Creatinine 0.6 Creat Clearance w eGFR 101.30 Random Glucose 153 H Lactic Acid 1.6 Calcium 9.4 Total Bilirubin 1.6 H AST 259 H ALT 509 H Alkaline Phosphatase 973 H Total Protein 7.7 Albumin 3.5 Total Amylase 220 H Lipase 3862 H Urine Color Dk yellow Urine Appearance Cloudy Urine pH 5.5 Ur Specific [place] 1.017 Urine Protein Trace Urine Glucose (UA) Negative Urine Ketones Negative Urine Blood 3+ H Urine Nitrite Positive H Urine Bilirubin 2+ H Urine Urobilinogen 1.0 Ur Leukocyte Esterase 2+ H Urine WBC (Auto) 53 Urine RBC (Auto) 75.1 Urine Casts (Auto) 21 U Epithel Cells (Auto) 1.1 Urine Bacteria (Auto) 1738.6 02/24/19 00:58 RBC 3.98 MCV 89.3 MCHC 34.3 RDW 14.9 D MPV 7.4 L D Neutrophils % 78.3 Lymphocytes % 11.0 D Monocytes % 9.1 Eosinophils % 1.0 Basophils % 0.6 - RADIOLOGY Radiology Studies Ordered: Category Date Time Status ABDOMEN US [US] Stat Ultrasound 02/24/19 02:42 Ordered - Medications Given in the ED: ED Medications Discontinued Medications Generic Name Dose Route Start Last Admin Trade Name Freq PRN Reason Stop Dose Admin Sodium Chloride 1,000 ml 02/24/19 03:41 02/24/19 03:43 Normal Saline - IV 02/24/19 03:42 1,000 ml ONCE ONE Administration <Herminia Alcantara - Last Filed: 02/24/19 04:51> - LABORATORY CBC & Chemistry Diagram: 02/24/19 00:58 02/24/19 00:58 <Williams Gonzalez - Last Filed: 02/24/19 05:43> Medical Decision Making - Medical Decision Making 02/24/19 04:07 Pt is well appearing. She has no abd pain, no rebound and no guarding. She states that she ate shrimp and rice at a friend's home. She felt dyspepsia and then felt hot and came to the ER to get checked out. States that 2 weeks ago she had a stent removed from her CBD. She states that all the trapped stones came out. Pt also had a cholecystectomy On January 14. Pt has had no complications. Pt will be admitted for GI eval, as she has worsening LFTs and lipase and she has UA. 02/24/19 04:46 Patient Name: EMILY FRIEND THIS IS A PRELIMINARY REPORT FROM [facility] DATE OF SERVICE: 2019-02-24 03:26:00 IMAGES: [id number] EXAM: ABDOMEN \\T\\ PELVIS CT WITH CONTR HISTORY: Fever and elevated liver and pancreatic enzymes COMPARISON: None. FINDINGS: Lung bases are clear other than minimal linear atelectasis. The visualized cardiac chambers are normal size and configuration. Status post cholecystectomy with mild to moderate biliary duct dilation. No CBD stones identified. There is minimal peripancreatic inflammation suggesting mild pancreatitis. No obvious secondary complications of pancreatitis. There is a tiny left adrenal nodule. Normal spleen, right adrenal gland and kidneys. The stomach and abdominal small and large bowel are normal. There is no aortic aneurysm. There is no significant retroperitoneal lymphadenopathy. The pelvic small and large bowel are notable only for mild sigmoid diverticulosis. There is no evidence of appendicitis, although the appendix is not clearly visualized. The uterus and adnexal structures are notable only for a 2.8 cm left ovarian cyst. Urinary bladder is unremarkable. There is no pelvic free fluid. No discrete pelvic lymphadenopathy is identified. IMPRESSION: Very mild pancreatitis without secondary complications. Tiny left adrenal nodule is small to characterize. <Herminia Alcantara - Last Filed: 02/24/19 04:51> - Medical Decision Making 02/23/19 23:09 Di is a 64 year old female with h/o cholecystectomy, acid reflux c/o feeling weak x 3 days. Took temp 7:30PM took temp was 100, which she repeated was 101 and then at 8:00 pm was 101.6. She took Tylenol but since she has a surgery on postoperative period, she decided to come in for evaluation. She denies cough, dysuria, abdominal pain, chest pain. will do sepsis work up labs reassess labs reviewed noted to have elevated liver enzymes, lipase and amylase will admit for further work up UA with wbc will given antibx Discussed with CESARIO Gonzalez for admission. She is requesting imaging be done. We'll send patient for CT of the abdomen. 02/24/19 04:46 Patient Full Name: RONNA DIAZ Patient Accession No: [id number] Patient : [id number] Reason for Exam: FEVER AND ELEVATED LIVER AND PANCREAT Referring Physician: Patient Name: EMILY FRIEND THIS IS A PRELIMINARY REPORT FROM [facility] DATE OF SERVICE: 2019-02-24 03:26:00 IMAGES: [id number] EXAM: ABDOMEN \\T\\ PELVIS CT WITH CONTR HISTORY: Fever and elevated liver and pancreatic enzymes COMPARISON: None. FINDINGS: Lung bases are clear other than minimal linear atelectasis. The visualized cardiac chambers are normal size and configuration. Status post cholecystectomy with mild to moderate biliary duct dilation. No CBD stones identified. There is minimal peripancreatic inflammation suggesting mild pancreatitis. No obvious secondary complications of pancreatitis. There is a tiny left adrenal nodule. Normal spleen, right adrenal gland and kidneys. The stomach and abdominal small and large bowel are normal. There is no aortic aneurysm. There is no significant retroperitoneal lymphadenopathy. The pelvic small and large bowel are notable only for mild sigmoid diverticulosis. There is no evidence of appendicitis, although the appendix is not clearly visualized. The uterus and adnexal structures are notable only for a 2.8 cm left ovarian cyst. Urinary bladder is unremarkable. There is no pelvic free fluid. No discrete pelvic lymphadenopathy is identified. IMPRESSION: Very mild pancreatitis without secondary complications. Tiny left adrenal nodule is small to characterize. One or more of the following dose reduction techniques were used: automated exposure control, adjustment of the mA and/or kV according to patient size, use of iterative reconstructive technique. THIS DOCUMENT HAS BEEN ELECTRONICALLY SIGNED Andrea Goldman MD 02/24/2019 04:41 YARA Miller Please call Imaging [facility] [phone] ([phone]) with questions. INTERPRETING RADIOLOGIST: Henry Goldman MD Electronically Signed: Feb 24, 2019 04:43AM EDT <Williams Gonzalez - Last Filed: 02/24/19 05:43> *DC/Admit/Observation/Transfer - Discharge Dispostion Decision to Admit order: Yes <Herminia Alcantara - Last Filed: 02/24/19 04:51> <Williams Gonzalez - Last Filed: 02/24/19 05:43> Diagnosis at time of Disposition: Abnormal liver enzymes, Jaundice, Common bile duct dilatation Fever Qualifiers: Fever type: unspecified Qualified Code(s): R50.9 - Fever, unspecified UTI (urinary tract infection) Qualifiers: Urinary tract infection type: site unspecified Hematuria presence: without hematuria Qualified Code(s): N39.0 - Urinary tract infection, site not specified Pancreatitis Qualifiers: Chronicity: acute Pancreatitis type: unspecified pancreatitis type Acute pancreatitis complication: unspecified Qualified Code(s): K85.90 - Acute pancreatitis without necrosis or infection, unspecified - Discharge Dispostion Condition at time of disposition: Guarded
[2019-02-23 23:40] LABS: EPI CELLS 1.1 /HPF (0-5/HPF); PH,URINE 5.5 (5.0-8.0); URINE APPEARANCE CLOUDY; URINE BACTERIA 1738.6 /hpf (NEGATIVE); URINE BILIRUBIN 2+ (NEGATIVE); URINE COLOR DK YELLOW; URINE GLUCOSE (UA) NEGATIVE (NEGATIVE); URINE KETONE NEGATIVE (NEGATIVE); URINE LEUK ESTERASE 2+ (NEGATIVE); URINE NITRITE POSITIVE (NEGATIVE); URINE PROTEIN TRACE (NEGATIVE); URINE WBC 53 /hpf (0-5)
[2019-02-23 23:54] LABS: URINE RBC 75.1 /hpf (0-4)
[2019-02-23 23:57] LABS: URINE CASTS 21 /hpf (0-8)
[2019-02-24 01:22] LABS: BASO % 0.6 % (0-2.0); HEMATOCRIT 35.5 % (32.4-45.2); HEMOGLOBIN 12.2 GM/dL (10.7-15.3); MCH 30.6 pg (25.7-33.7); MCHC 34.3 g/dl (32.0-36.0); MEAN CELL VOLUME 89.3 fl (80-96); MEAN PLT VOLUME 7.4 fl (7.5-11.1); MONO % 9.1 % (3.8-10.2); NEUT % 78.3 % (42.8-82.8); PLATELET COUNT 304 K/MM3 (134-434); RBC 3.98 M/mm3 (3.60-5.2); RDW 14.9 % (11.6-15.6); WHITE BLOOD COUNT 10.5 K/mm3 (4.0-10.0)
[2019-02-24 02:00] LABS: ALBUMIN 3.5 g/dl (3.4-5.0); ALK PHOS 973 U/L (45-117); AMYLASE 220 U/L (25-115); ANION GAP 8 MMOL/L (8-16); BILIRUBIN,TOTAL 1.6 mg/dL (0.2-1); BLOOD UREA NITROGEN 14 mg/dL (7-18); CALCIUM 9.4 mg/dL (8.5-10.1); CHLORIDE 105 mmol/L (98-107); CO2 22 mmol/L (21-32); CREATININE 0.6 mg/dL (0.55-1.3); GLUCOSE,RANDOM 153 mg/dL (74-106); LIPASE 3862 U/L (73-393); POTASSIUM 3.9 mmol/L (3.5-5.1); SGOT/AST 259 U/L (15-37); SGPT/ALT 509 U/L (13-61); SODIUM 135 mmol/L (136-145); TOT PROT 7.7 g/dl (6.4-8.2)
[2019-02-24] MEDS ORDERED: SODIUM CHLORIDE 0.9% 500 ML INFUS.BAG IV ONE (03:41)
[2019-02-24] MEDS ORDERED: PIPERACILLIN/TAZOB 3.375 GM 3.375 GM in DEXTROSE 5%-WATER - 50 ML IVPB ONE (03:42)
[2019-02-24] MEDS ORDERED: PIPERACILLIN/TAZOB 3.375 GM 3.375 GM/50 ML BAG IVPB ONE (04:01)
--- NOTE | 2019-02-24 05:51 | HP ---
Admitting History and Physical - Primary Care Physician PCP: Miller Sawyer - Admission Chief Complaint: Fever, Weakness History of Present Illness: This is a 64 y/o woman with a PMHx of: s/p Cholecystectomy (01/17/19), HLD, GERD, Cardiac- Thoracic Aortic Aneurysm (stable, 08/31/18).Diverticulosis, Hiatal Hernia, Hematuria, Renal Calculi, Renal Cyst, Ovarian Cyst, Anxiety, Chronic Lumbar Pain. Who presents to the ED with subjective fever and generalized weakness x 3 days. Patient reports taking Tylenol for fever at home 100.6. Patient denies chills, cough, SOB, CP, palpitations, AP, N/V/D, constipation. History Source: Patient Limitations to Obtaining History: No Limitations - Past Medical History Cardiovascular: Yes: HTN, Hyperlipdemia, Other (Thoracic Aortic Aneurysm) Gastrointestinal: Yes: Diverticulosis, Hiatal Hernia, Other Hepatobiliary: Yes: Cholelithiasis, Other (s/p Placement of common bile duct, biliary stent.) Renal/: Yes: Hematuria, Renal Calculi, Other Psych: Yes: Anxiety Musculoskeletal: Yes: Chronic low back pain - Past Surgical History Past Surgical History: Yes: Appendectomy, Breast Biopsy, Cholecystectomy, Colonoscopy, Upper Endoscopy - Smoking History Smoking history: Unknown if ever smoked Have you smoked in the past 12 months: No Aproximately how many cigarettes per day: 5 - Alcohol/Substance Use Hx Alcohol Use: No History of Substance Use: reports: None - Social History ADL: Independent 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 History of Recent Travel: No Home Medications - Allergies Allergies/Adverse Reactions: Allergies Allergy/AdvReac Type Severity Reaction Status Date / Time No Known Drug Allergies Allergy Verified 02/23/19 22:36 DUST Allergy Uncoded 02/23/19 22:36 - Home Medications Home Medications: Ambulatory Orders Metoprolol Tartrate 12.5 mg PO DAILY 01/02/19 Simvastatin [Zocor -] 40 mg PO HS 01/02/19 Family Disease History - Family Disease History Family Disease History: Diabetes: Mother, Other: Father, Mother, Brother Review of Systems - Review of Systems Constitutional: reports: Fever, Weakness Eyes: reports: Other (jaundice) HENT: reports: No Symptoms Neck: reports: No Symptoms Cardiovascular: reports: No Symptoms Respiratory: reports: No Symptoms Gastrointestinal: reports: Vomiting Genitourinary: reports: No Symptoms Breasts: reports: No Symptoms Reported Integumentary: reports: Change in Color Neurological: reports: No Symptoms Endocrine: reports: No Symptoms Hematology/Lymphatic: reports: No Symptoms Psychiatric: reports: No Symptoms Physical Examination Vital Signs: Vital Signs Temperature 98.4 F 02/24/19 03:35 Pulse Rate 80 02/24/19 04:19 Respiratory Rate 16 02/24/19 04:19 Blood Pressure 106/58 L 02/24/19 04:19 O2 Sat by Pulse Oximetry (%) 99 02/24/19 04:19 Constitutional: Yes: Anxious, Mild Distress, Obese Eyes: Yes: Conjunctiva Clear, EOM Intact, PERRL, Sclera Icterus HENT: Yes: WNL, Atraumatic, Normocephalic Neck: Yes: WNL, Supple, Trachea Midline Cardiovascular: Yes: Regular Rate and Rhythm, S1, S2 Respiratory: Yes: WNL, Regular, CTA Bilaterally Gastrointestinal: Yes: Normal Bowel Sounds, Soft, Abdomen, Obese, Vomiting. No : Hematemesis, Tenderness, Tenderness, Epigastrium Breast(s): Yes: WNL Musculoskeletal: Yes: WNL Extremities: Yes: WNL Edema: No Peripheral Pulses WNL: Yes Integumentary: Yes: WNL Neurological: Yes: WNL, Alert, Oriented, Cran Nerves II-XII Intact ...Motor Strength: WNL Psychiatric: Yes: WNL, Alert, Oriented Labs: CBC, BMP 02/24/19 00:58 02/24/19 00:58 Laboratory Results - last 24 hr 02/23/19 02/24/19 02/24/19 23:00 00:54 00:58 WBC 10.5 H RBC 3.98 Hgb 12.2 Hct 35.5 MCV 89.3 MCH 30.6 MCHC 34.3 RDW 14.9 D Plt Count 304 D MPV 7.4 L D Absolute Neuts (auto) 8.2 H Neutrophils % 78.3 Lymphocytes % 11.0 D Monocytes % 9.1 Eosinophils % 1.0 Basophils % 0.6 Nucleated RBC % 0 Sodium Potassium Chloride Carbon Dioxide Anion Gap BUN Creatinine Creat Clearance w eGFR Random Glucose Lactic Acid 1.6 Calcium Total Bilirubin AST ALT Alkaline Phosphatase Total Protein Albumin Total Amylase Lipase Urine Color Dk yellow Urine Appearance Cloudy Urine pH 5.5 Ur Specific [place] 1.017 Urine Protein Trace Urine Glucose (UA) Negative Urine Ketones Negative Urine Blood 3+ H Urine Nitrite Positive H Urine Bilirubin 2+ H Urine Urobilinogen 1.0 Ur Leukocyte Esterase 2+ H Urine WBC (Auto) 53 Urine RBC (Auto) 75.1 Urine Casts (Auto) 21 U Epithel Cells (Auto) 1.1 Urine Bacteria (Auto) 1738.6 02/24/19 00:58 WBC RBC Hgb Hct MCV MCH MCHC RDW Plt Count MPV Absolute Neuts (auto) Neutrophils % Lymphocytes % Monocytes % Eosinophils % Basophils % Nucleated RBC % Sodium 135 L Potassium 3.9 Chloride 105 Carbon Dioxide 22 Anion Gap 8 BUN 14 Creatinine 0.6 Creat Clearance w eGFR 101.30 Random Glucose 153 H Lactic Acid Calcium 9.4 Total Bilirubin 1.6 H AST 259 H ALT 509 H Alkaline Phosphatase 973 H Total Protein 7.7 Albumin 3.5 Total Amylase 220 H Lipase 3862 H Urine Color Urine Appearance Urine pH Ur Specific [place] Urine Protein Urine Glucose (UA) Urine Ketones Urine Blood Urine Nitrite Urine Bilirubin Urine Urobilinogen Ur Leukocyte Esterase Urine WBC (Auto) Urine RBC (Auto) Urine Casts (Auto) U Epithel Cells (Auto) Urine Bacteria (Auto) Intake & Output 02/21/19 02/22/19 02/23/19 02/24/19 23:59 23:59 23:59 23:59 Weight 78.471 kg Imaging - Results Cat Scan: Report Reviewed, Image Reviewed Problem List - Problems (1) Pancreatitis Assessment/Plan: CTAP- mild pancreatitis, mild to moderate biliary duct dilitation Lipase 3862 Amylase 220 WBC 10.5 Appreciate GI consult Continue IVF Monitor CBC, BMP Monitor vitals NPO Will need ERCP Code(s): K85.90 - ACUTE PANCREATITIS WITHOUT NECROSIS OR INFECTION, UNSP Qualifiers: Chronicity: acute Pancreatitis type: unspecified pancreatitis type Acute pancreatitis complication: unspecified Qualified Code(s): K85.90 - Acute pancreatitis without necrosis or infection, unspecified (2) Abnormal findings on imaging of biliary tract Assessment/Plan: See above Code(s): R93.2 - ABNORMAL FINDINGS ON DX IMAGING OF LIVER AND BILIARY TRACT (3) Abnormal liver enzymes Assessment/Plan: Will trend Hold Statin, Tylenol Code(s): R74.8 - ABNORMAL LEVELS OF OTHER SERUM ENZYMES (4) Jaundice Code(s): R17 - UNSPECIFIED JAUNDICE (5) UTI (urinary tract infection) Assessment/Plan: Urine culture-pending Zosyn given in ED, will continue Monitor CBC Monitor vitals Code(s): N39.0 - URINARY TRACT INFECTION, SITE NOT SPECIFIED Qualifiers: Urinary tract infection type: site unspecified Hematuria presence: without hematuria Qualified Code(s): N39.0 - Urinary tract infection, site not specified (6) HLD (hyperlipidemia) Assessment/Plan: Hold Stain secondary to transaminitis Code(s): E78.5 - HYPERLIPIDEMIA, UNSPECIFIED (7) Hiatal hernia Code(s): K44.9 - DIAPHRAGMATIC HERNIA WITHOUT OBSTRUCTION OR GANGRENE (8) History of adenomatous polyp of colon Code(s): Z86.010 - PERSONAL HISTORY OF COLONIC POLYPS (9) History of biliary stent insertion Code(s): Z98.890 - OTHER SPECIFIED POSTPROCEDURAL STATES (10) S/P laparoscopic cholecystectomy Code(s): Z90.49 - ACQUIRED ABSENCE OF OTHER SPECIFIED PARTS OF DIGESTIVE TRACT (11) Wound infection after surgery Code(s): T81.49XA - INFECTION FOLLOWING A PROCEDURE, OTHER SURGICAL SITE, INIT Assessment/Plan This is a 64 y/o woman admitted for Pancreatitis, Transaminitis, Jaundice, UTI for further evaluation of their emergent condition. Plan: See Problem List FEN LR@100ml/hr Replete lytes prn NPO DVT ppx OOB SCDs Heparin SQ Dispo: Requires Inpatient Care Visit type - Emergency Visit Emergency Visit: Yes ED Registration Date: 02/23/19 Care time: The patient presented to the Emergency Department on the above date and was hospitalized for further evaluation of their emergent condition. - New Patient This patient is new to me today: Yes Date on this admission: 02/24/19 - Critical Care Critical Care patient: No
[2019-02-24] MEDS ORDERED: LACTATED RINGERS SOLUTION 1,000 ML/1,000 ML INFUS.BAG IV SCH ×4 (06:00→19:15)
[2019-02-24] MEDS ORDERED: ONDANSETRON 4 MG/2 ML VIAL IVPUSH PRN (06:26)
[2019-02-24] MEDS ORDERED: FAMOTIDINE 20 MG/50 ML IVPB 20 MG/50 ML MG IVPB ONE (06:45)
--- NOTE | 2019-02-24 08:39 | CON.GI ---
Consult Consult Specialty:: Gastroenterology Referred by:: Dr Andrea Reason for Consultation:: Abnormal LFTs and dilated bile ducts - History of Present Illness Chief Complaint: Nausea History of Present Illness: 64F presents with nausea and have labs suggesting biliary pancreatitis. She also had fever to 101 yesterday. She is known to me from an attempted ERCP in for Jaundice. After I was unable to cannulate her CBD she was transferred to Dr Lino Mas at [facility] who placed a stent and recently extracted the stent ( 02/07)and her stones. She also had a recent lap choly. She had a colonoscopy on 01/17/[address] Horner when ascending and descending colon adenomas were removed. - History Source History Provided By: Patient Limitations to Obtaining History: No Limitations - Past Medical History Cardio/Vascular: Yes: Aneurysm (thoracic aaneurysm), HTN, Hyperlipdemia, Other ( Thoracic Aortic Aneurysm) Gastrointestinal: Yes: Diverticulosis, Hiatal Hernia, Other (ascending and descending colon adenomas removed by Dr Horner) Hepatobiliary: Yes: Cholelithiasis, Choledocholithiasis (s/p ERCP with sphincterotomy, stenting , stone and stent removal at [facility]), Other (s/p Placement of common bile duct, biliary stent.) Renal/: Yes: Hematuria, Renal Calculi, Other Psych: Yes: Anxiety Musculoskeletal: Yes: Chronic low back pain - Past Surgical History Past Surgical History: Yes: Appendectomy, Breast Biopsy, Cholecystectomy, Colonoscopy, Upper Endoscopy - Alcohol/Substance Use Hx Alcohol Use: No History of Substance Use: reports: None - Smoking History Smoking history: Current every day smoker Have you smoked in the past 12 months: No Aproximately how many cigarettes per day: 5 - Social History Usual Living Arrangement: Alone ADL: Independent 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 Place of : [facility] History of Recent Travel: No Home Medications - Allergies Allergies/Adverse Reactions: Allergies Allergy/AdvReac Type Severity Reaction Status Date / Time No Known Drug Allergies Allergy Verified 02/23/19 22:36 DUST Allergy Uncoded 02/23/19 22:36 - Home Medications Home Medications: Ambulatory Orders Metoprolol Tartrate 12.5 mg PO DAILY 01/02/19 Simvastatin [Zocor -] 40 mg PO HS 01/02/19 Family Disease History - Family Disease History Family Disease History: Diabetes: Mother, Other: Father, Mother, Brother Review of Systems - Review of Systems Constitutional: reports: Chills Gastrointestinal: reports: Nausea Physical Exam-GI Vital Signs: Vital Signs Temperature 99.5 F 02/24/19 06:11 Pulse Rate 86 02/24/19 06:11 Respiratory Rate 18 02/24/19 06:11 Blood Pressure 128/76 02/24/19 06:11 O2 Sat by Pulse Oximetry (%) 100 02/24/19 06:11 CBC,CMP WBC 10.5 K/mm3 (4.0-10.0) H 02/24/19 00:58 RBC 3.98 M/mm3 (3.60-5.2) 02/24/19 00:58 Hgb 12.2 GM/dL (10.7-15.3) 02/24/19 00:58 Hct 35.5 % (32.4-45.2) 02/24/19 00:58 MCV 89.3 fl (80-96) 02/24/19 00:58 MCH 30.6 pg (25.7-33.7) 02/24/19 00:58 MCHC 34.3 g/dl (32.0-36.0) 02/24/19 00:58 RDW 14.9 % (11.6-15.6) D 02/24/19 00:58 Plt Count 304 K/MM3 (134-434) D 02/24/19 00:58 MPV 7.4 fl (7.5-11.1) L D 02/24/19 00:58 Absolute Neuts (auto) 8.2 K/mm3 (1.5-8.0) H 02/24/19 00:58 Neutrophils % 78.3 % (42.8-82.8) 02/24/19 00:58 Lymphocytes % 11.0 % (8-40) D 02/24/19 00:58 Monocytes % 9.1 % (3.8-10.2) 02/24/19 00:58 Eosinophils % 1.0 % (0-4.5) 02/24/19 00:58 Basophils % 0.6 % (0-2.0) 02/24/19 00:58 Nucleated RBC % 0 % (0-0) 02/24/19 00:58 Sodium 135 mmol/L (136-145) L 02/24/19 00:58 Potassium 3.9 mmol/L (3.5-5.1) 02/24/19 00:58 Chloride 105 mmol/L (98-107) 02/24/19 00:58 Carbon Dioxide 22 mmol/L (21-32) 02/24/19 00:58 Anion Gap 8 MMOL/L (8-16) 02/24/19 00:58 BUN 14 mg/dL (7-18) 02/24/19 00:58 Creatinine 0.6 mg/dL (0.55-1.3) 02/24/19 00:58 Creat Clearance w eGFR 101.30 (>60) 02/24/19 00:58 Random Glucose 153 mg/dL (74-106) H 02/24/19 00:58 Lactic Acid 1.1 mmol/L (0.4-2.0) 02/24/19 07:33 Calcium 9.4 mg/dL (8.5-10.1) 02/24/19 00:58 Total Bilirubin 1.6 mg/dL (0.2-1) H 02/24/19 00:58 AST 259 U/L (15-37) H 02/24/19 00:58 ALT 509 U/L (13-61) H 02/24/19 00:58 Alkaline Phosphatase 973 U/L (45-117) H 02/24/19 00:58 Total Protein 7.7 g/dl (6.4-8.2) 02/24/19 00:58 Albumin 3.5 g/dl (3.4-5.0) 02/24/19 00:58 Total Amylase 220 U/L (25-115) H 02/24/19 00:58 Lipase 3862 U/L (73-393) H 02/24/19 00:58 Current Medications Generic Name Dose Route Start Last Admin Trade Name Freq PRN Reason Stop Dose Admin Lactated Ringer's 1,000 ml in 1,000 mls @ 150 mls/hr 02/24/19 06:33 02/24/19 06:38 Lactated Ringers Solution IV 150 mls/hr ASDIR MANI Administration Piperacillin Sod/Tazobactam 50 mls @ 100 mls/hr 02/24/19 12:00 Sod 3.375 gm/ Dextrose IVPB Q8H-IV MANI Protocol Piperacillin Sod/Tazobactam 50 mls @ 100 mls/hr 02/24/19 10:00 Sod 3.375 gm/ Dextrose IVPB 02/25/19 02:29 Q8H-IV MANI Protocol Ondansetron HCl 4 mg 02/24/19 06:26 02/24/19 06:39 Zofran Injection IVPUSH 4 mg Q6H PRN Administration NAUSEA AND/OR VOMITING Constitutional: Yes: Anxious Eyes: Yes: Conjunctiva Clear HENT: Yes: Normocephalic Neck: Yes: Trachea Midline Cardiovascular: Yes: Regular Rate and Rhythm Respiratory: Yes: CTA Bilaterally Gastrointestinal Inspection: Yes: Scars (healed lap choly incisions) ...Auscultate: Yes: Hypoactive Bowel Sounds ...Palpate: Yes: Soft, Other (nontender) ...Rectal Exam: Yes: Deferred Labs: CBC, BMP 02/24/19 00:58 02/24/19 00:58 Imaging - Results Cat Scan: Report Reviewed (Sherri Iyer Name: NATALIE FRIEND DEPARTMENT OF RADIOLOGY Phys: Williams Gonzalez : 1955 Age: 64 Sex: F [facility] Acct: [id number] Loc: [address] Exam Date: 02/24/19 Status: [place] [address] Unit Number: [id number] EXAM#: TYPE/EXAM: RESULT: [id number] CT/ABDOMEN PELVIS CT WITH CONTR HISTORY PROVIDED: Fever. Sequential axial images were obtained from the domes of the diaphragms through the symphysis pubis following the administration of intravenous contrast material. The lung bases are clear. The gallbladder is been removed. There is dilatation of the intra and extrahepatic blue tree without obvious obstruction. The CBD measures 1.6 cm. The main pancreatic duct is also slightly dilated and MRCP follow-up may be warranted. The pancreas is normal in size and texture with no pancreatic masses identified. There are minimal inflammatory changes seen about the body and tail of the pancreas. This suggests a mild degree of acute pancreatitis. No peripancreatic fluid collections are identified. The liver, spleen, right adrenal gland and kidneys demonstrate no significant abnormalities. There is slight prominence of left adrenal suggesting benign hyperplasia/adenoma. There is no evidence of intra-abdominal or retroperitoneal lymphadenopathy or fluid collections. There is no evidence of pneumoperitoneum, bowel obstruction or intra-abdominal abscess. There is no CT evidence of acute appendicitis with there is diverticulosis of the sigmoid colon with no evidence of acute diverticulitis. Examination of the pelvis demonstrates no evidence of pelvic masses, fluid collections or lymphadenopathy. The uterus is retroverted. There is a 3.1 cm left ovarian cyst. There is no evidence of acute bony pathology. IMPRESSION: 1. S/P cholecystectomy with dilatation of the intrahepatic biliary tree, as well as the main pancreatic duct. No obvious obstruction is identified an MRCP follow-up is now recommended. 2. Mild inflammatory changes about the body and tail of the pancreas. Acute, uncomplicated pancreatitis suggested. Clinical correlation and follow-up recommended. Please see above discussion. Reported By: Kel Angeles MD 02/24/19900 Technologist: Og Mason Transcribed Date/Time: 02/24/19900 Excellence Consultant : Kel Angeles Printed Date/Time: By: Signed by: Kel Angeles Signed on: 24-Feb-2019 09:03) Problem List - Problems (1) Abnormal findings on imaging of biliary tract Code(s): R93.2 - ABNORMAL FINDINGS ON DX IMAGING OF LIVER AND BILIARY TRACT (2) Abnormal liver enzymes Code(s): R74.8 - ABNORMAL LEVELS OF OTHER SERUM ENZYMES (3) Common bile duct dilatation Code(s): K83.8 - OTHER SPECIFIED DISEASES OF BILIARY TRACT (4) Fever Code(s): R50.9 - FEVER, UNSPECIFIED Qualifiers: Fever type: unspecified Qualified Code(s): R50.9 - Fever, unspecified (5) Ascending aortic aneurysm Code(s): I71.2 - THORACIC AORTIC ANEURYSM, WITHOUT RUPTURE (6) Choledocholithiasis Code(s): K80.50 - CALCULUS OF BILE DUCT W/O CHOLANGITIS OR CHOLECYST W/O OBST (7) History of adenomatous polyp of colon Code(s): Z86.010 - PERSONAL HISTORY OF COLONIC POLYPS (8) History of biliary stent insertion Code(s): Z98.890 - OTHER SPECIFIED POSTPROCEDURAL STATES (9) S/P laparoscopic cholecystectomy Code(s): Z90.49 - ACQUIRED ABSENCE OF OTHER SPECIFIED PARTS OF DIGESTIVE TRACT Assessment/Plan Impression: Given the fever, dilated ducts and marked LFT abnormalities a repeated CBD passage with cholangitis is suspected S/P ERCP x 3 to remove stones S/P lap choly Personal h/p colon adenomas Plan: ERCP was discussed in detail including again informing Natalie of the potential for such risks as perforation, hemorrhage and ERCP induced pancreatitis that can lead to multiorgan failure including renal failure and ARDs. She has granted an informed consent. The procedure will be done ANNAMARIE Already on antibiotics. Followup in office to arrange colonoscopy Case discussed with Dr Bhavna Andrea
--- NOTE | 2019-02-24 09:31 | PN ---
Progress Note (short form) - Note Progress Note: nausea, vomiting 3 days ago, again had shrimp and rice yesterday, vomited developed fever, so she came back to er now mildly nauseated, no emesis since yesterday no abdominal pain, no diarrhea CBC, BMP 02/24/19 00:58 02/24/19 00:58 Abnormal Lab Results 02/23/19 02/24/19 02/24/19 23:00 00:58 00:58 WBC 10.5 H MPV 7.4 L D Absolute Neuts (auto) 8.2 H Sodium 135 L Random Glucose 153 H Total Bilirubin 1.6 H AST 259 H ALT 509 H Alkaline Phosphatase 973 H Total Amylase 220 H Lipase 3862 H Urine Blood 3+ H Urine Nitrite Positive H Urine Bilirubin 2+ H Ur Leukocyte Esterase 2+ H Vital Signs Period Temp Pulse Resp BP Sys/Lowe Pulse Ox Last 24 Hr 98.4 F-99.5 F 79-87 16-18 83-128/52-76 98-100 S1S2 RRR Lungs cta abd soft NT +BS abdominal wounds well healed imp acute pancreatitis UTI transaminitis recent ERCPx3 (2 stents were placed, then removed) lap. cholecystectomy postop wound infection NPO iv abx iv hydration no medical contraindication to ERCP if needed
[2019-02-24] MEDS ORDERED: HEPARIN NA (PORCINE) 5,000 UNITS/ML 1ML VIAL SQ SCH (10:00)
[2019-02-24] MEDS ORDERED: PIPERACILLIN/TAZOB 3.375 GM 3.375 GM in DEXTROSE 5%-WATER - 50 ML IVPB SCH ×2 (10:00→12:00)
--- NOTE | 2019-02-24 10:25 | EKG ---
Test Reason : Blood Pressure : / mmHG Vent. Rate : 081 BPM Atrial Rate : 081 BPM P-R Int : 176 ms QRS Dur : 078 ms QT Int : 374 ms P-R-T Axes : 055 028 044 degrees QTc Int : 434 ms NORMAL SINUS RHYTHM NORMAL ECG WHEN COMPARED WITH ECG OF 03-JAN-2019 16:59, NO SIGNIFICANT CHANGE WAS FOUND Confirmed by KAYLEE NAVAS MD ([id number]) on 02/24/2019 10:25:14 AM Referred By: Confirmed By:KAYLEE NAVAS MD
[2019-02-24] MEDS ORDERED: INDOMETHACIN 50 MG RECTAL SUPPOSITORY PR ONE ×2 (11:57→12:12)
[2019-02-24] MEDS ORDERED: IOHEXOL 300 MG/ML INFUS..BTL IV ONE (12:30)
--- NOTE | 2019-02-24 13:01 | PN ---
Progress Note (short form) - Note Progress Note: GI Procedure Note: Please see ERCP report. S stone fragment was stuck at the sphincterotomy which may be partially strictured. The fragment was removed but a stent was placed after the CBD failed to drain adequately. Will need repeat ERCP in 3 months. Await blood cultures. The fluid drained did appear murky suggesting cholangitis Problem List - Problems (1) Abnormal findings on imaging of biliary tract Code(s): R93.2 - ABNORMAL FINDINGS ON DX IMAGING OF LIVER AND BILIARY TRACT (2) Abnormal liver enzymes Code(s): R74.8 - ABNORMAL LEVELS OF OTHER SERUM ENZYMES (3) Common bile duct dilatation Code(s): K83.8 - OTHER SPECIFIED DISEASES OF BILIARY TRACT (4) Fever Code(s): R50.9 - FEVER, UNSPECIFIED Qualifiers: Fever type: unspecified Qualified Code(s): R50.9 - Fever, unspecified (5) Ascending aortic aneurysm Code(s): I71.2 - THORACIC AORTIC ANEURYSM, WITHOUT RUPTURE (6) Choledocholithiasis Code(s): K80.50 - CALCULUS OF BILE DUCT W/O CHOLANGITIS OR CHOLECYST W/O OBST (7) History of adenomatous polyp of colon Code(s): Z86.010 - PERSONAL HISTORY OF COLONIC POLYPS (8) History of biliary stent insertion Code(s): Z98.890 - OTHER SPECIFIED POSTPROCEDURAL STATES (9) S/P laparoscopic cholecystectomy Code(s): Z90.49 - ACQUIRED ABSENCE OF OTHER SPECIFIED PARTS OF DIGESTIVE TRACT
--- NOTE | 2019-02-24 14:16 | PN ---
Progress Note (short form) - Note Progress Note: ID CONSULT DICTATED S/P ERCP/ STONE EXTRACTION R/O CHOLANGITIS/ BILIARY SEPSIS R/O GALLSTONE PANCREATITIS AWAIT C/S EMPIRIC ZOSYN
--- NOTE | 2019-02-24 16:44 | CON.CARD ---
Consult Consult Specialty:: Cardiology Referred by:: Medicine Reason for Consultation:: chest pain - History of Present Illness Chief Complaint: chest pain History of Present Illness: 64F h/o cholecystectomy 01/2019, HLD, GERD, thoracic aorta aneurysm, hiatal hernia p/w nausea, vomiting. Went for ERCP today for evaluation for cholangitis , while in endoscopy suite complained of chest pain. Sees Dr. Cruz for cardio, has had stress test and echo in the last year which were unremarkable per patient. No prior episodes of chest pain except at last ERCP, was anxious and had chest pain. Lasted a few minutes, now chest pain free. no dyspnea, edema, orthopnea. - Past Medical History Cardio/Vascular: Yes: Aneurysm (thoracic aaneurysm), HTN, Hyperlipdemia, Other ( Thoracic Aortic Aneurysm) Gastrointestinal: Yes: Diverticulosis, Hiatal Hernia, Other (ascending and descending colon adenomas removed by Dr Horner) Hepatobiliary: Yes: Cholelithiasis, Choledocholithiasis (s/p ERCP with sphincterotomy, stenting , stone and stent removal at [facility]), Other (s/p Placement of common bile duct, biliary stent.) Renal/: Yes: Hematuria, Renal Calculi, Other Psych: Yes: Anxiety Musculoskeletal: Yes: Chronic low back pain - Past Surgical History Past Surgical History: Yes: Appendectomy, Breast Biopsy, Cholecystectomy, Colonoscopy, Upper Endoscopy - Alcohol/Substance Use Hx Alcohol Use: No History of Substance Use: reports: None - Smoking History Smoking history: Current every day smoker Have you smoked in the past 12 months: No Aproximately how many cigarettes per day: 5 - Social History Usual Living Arrangement: Alone ADL: Independent 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 History of Recent Travel: No Home Medications - Allergies Allergies/Adverse Reactions: Allergies Allergy/AdvReac Type Severity Reaction Status Date / Time No Known Drug Allergies Allergy Verified 02/23/19 22:36 DUST Allergy Uncoded 02/23/19 22:36 - Home Medications Home Medications: Ambulatory Orders Metoprolol Tartrate 12.5 mg PO DAILY 01/02/19 Simvastatin [Zocor -] 40 mg PO HS 01/02/19 Family Disease History - Family Disease History Family Disease History: Diabetes: Mother, Other: Father, Mother, Brother Review of Systems - Review of Systems Constitutional: reports: No Symptoms Eyes: reports: No Symptoms HENT: reports: No Symptoms Neck: reports: No Symptoms Cardiovascular: reports: No Symptoms Respiratory: reports: No Symptoms Gastrointestinal: reports: Abdominal Pain, Nausea Genitourinary: reports: No Symptoms Musculoskeletal: reports: No Symptoms Integumentary: reports: No Symptoms Neurological: reports: No Symptoms Endocrine: reports: No Symptoms Hematology/Lymphatic: reports: No Symptoms Psychiatric: reports: No Symptoms Vital Signs: Vital Signs Temperature 100.2 F H 02/24/19 12:57 Pulse Rate 67 02/24/19 15:55 Respiratory Rate 18 02/24/19 15:55 Blood Pressure 120/63 02/24/19 15:55 O2 Sat by Pulse Oximetry (%) 99 02/24/19 15:55 Constitutional: Yes: Well Nourished, No Distress, Calm Eyes: Yes: Conjunctiva Clear, EOM Intact HENT: Yes: Atraumatic, Normocephalic Neck: Yes: Supple, Trachea Midline Respiratory: Yes: Regular, CTA Bilaterally Gastrointestinal: Yes: Normal Bowel Sounds, Soft Cardiovascular: Yes: Regular Rate and Rhythm JVD: No Carotid Bruit: No PMI: Non-Displaced Heart Sounds: Yes: S1, S2 Musculoskeletal: No: Back Pain Extremities: No: Cold Edema: No Peripheral Pulses WNL: Yes Peripheral Pulses: 2+ Left Doralis Pedis, 2+ Right Dorsalis Pedis Integumentary: Yes: Jaundice Neurological: Yes: Alert, Oriented Psychiatric: No: Agitated - Other Data Labs, Other Data: CBC, BMP 02/24/19 00:58 02/24/19 00:58 Assessment/Plan EKG: sinus, nl intervals, no ischemic changes. stable today Chest pain - reportedly negative stress test in the last year - had similar presentation in endoscopy suite at last ERCP, likely 2/2 anxiety - history less consistent with ACS - stable EKG - trop ordered abd pain, cholangitis - s/p ERCP - manage per GI, ID HLD - holding statin 2/2 transaminitis thoracic aorta aneurysm - reportedly stable 08/2018 - cont metoprolol - outpatient follow up
--- NOTE | 2019-02-24 17:26 | CONS ---
DATE OF CONSULTATION: DATE OF DICTATION: 02/24/2019 INFECTIOUS DISEASE CONSULTATION The patient is a 64-year-old female who was evaluated for possible biliary sepsis. She has a complicated GI history. The patient was hospitalized in December of this year with cholecystitis. An ERCP and stent placement was attempted, however, unsuccessful. She was transferred to [facility] where an ERCP, stone extraction, and stent placement was performed. She ultimately underwent a laparoscopic cholecystectomy. Her postoperative course was complicated by wound infection for which she was re-hospitalized. She was treated with IV antibiotics and discharged on p.o. Augmentin. Patient is now readmitted with possible biliary sepsis. She reports feeling well until approximately 24 hours prior to admission she began to develop subjective fever, chills, profound weakness, and nausea. She presented to the emergency room where CAT scan of the abdomen and pelvis showed a dilated intrahepatic tree, inflammation of the body and tail of the pancreas. An ERCP was performed today. A stone fragment was discovered at the sphincterotomy site. The fragment was removed, and a stent was placed. She was empirically treated with Zosyn. Blood cultures are pending. At the present time, she is awake and alert. She denies any abdominal pain. No recurrent nausea. She has a low-grade fever of 100.2 and a white cell count of 10.5. PAST MEDICAL HISTORY: Positive as above. Also for hypertension, hyperlipidemia, diverticulosis, hiatal hernia. PAST SURGICAL HISTORY: Status post appendectomy, cholecystectomy. ALLERGIES: No known allergies. MEDICATIONS: Include ibuprofen, Pepcid, Zosyn. SOCIAL HISTORY: She resides in the community. Positive history of tobacco use. SYSTEM REVIEW: Neurologic: No loss of consciousness, seizure activity, focal weakness. Cardiac: Negative chest pain or palpitations. Respiratory: Negative cough or sputum production. Gastrointestinal: As per HPI. Genitourinary: Negative for urinary tract infection. LABORATORY DATA: White count 10.5, hematocrit 35.5, platelet count 304. Urinalysis 53 white cells. Blood and urine cultures are pending. Lipase 3862. Amylase 220. BUN 14, creatinine 0.6. Total bilirubin 1.6, alkaline phosphatase 973, AST 253, ALT 509. PHYSICAL EXAMINATION: General: She is awake and alert. She is in no acute distress. Vital Signs: T-max 100.2, blood pressure 128/76, pulse 86 regular, respirations 18 per minute. Eyes: Sclerae anicteric. Heart: Sounds S1, S2. Lungs: Clear. Abdomen: Soft. No tenderness elicited. No mass, rebound, or rigidity. Healed surgical wounds. Extremities: Negative for edema. IMPRESSION: 1. Status post endoscopic retrograde cholangiopancreatography extraction of bile duct stone. 2. Rule out cholangitis. 3. Possible gallstone pancreatitis. 4. Possible sepsis secondary to biliary tract source. PLAN: Await culture results. Empiric antibiotic coverage with Zosyn 3.375 g IV piggyback every 8 hours. Will follow. Thank you for the kind referral. SYD PADGETT M.D. CEZAR/[id number]
[2019-02-24] MEDS ORDERED: PIPERACILLIN/TAZOBACTAM 3.375 GM VIAL IVPB ONE (17:57)
[2019-02-24] MEDS ORDERED: DEXTROSE 5%-WATER - 50 ML IVPB ONE (17:57)
[2019-02-24] MEDS: PIPERACILLIN/TAZOB 3.375 GM 3.375 GM in DEXTROSE 5%-WATER - 50 ML IVPB SCH (18:05)
[2019-02-25] MEDS ORDERED: DEXTROSE 5%-WATER - 50 ML IVPB ONE ×3 (00:51→17:44)
[2019-02-25] MEDS ORDERED: PIPERACILLIN/TAZOBACTAM 3.375 GM VIAL IVPB ONE ×3 (00:51→17:44)
[2019-02-25] MEDS ORDERED: LACTATED RINGERS SOLUTION 1,000 ML/1,000 ML INFUS.BAG IV SCH ×2 (01:15→08:15)
[2019-02-25] MEDS: PIPERACILLIN/TAZOB 3.375 GM 3.375 GM in DEXTROSE 5%-WATER - 50 ML IVPB SCH ×3 (02:18→17:42)
[2019-02-25 07:17] LABS: BASO % 0.4 % (0-2.0); EOS % 0.5 % (0-4.5); HEMATOCRIT 32.3 % (32.4-45.2); HEMOGLOBIN 10.9 GM/dL (10.7-15.3); LYMPH % 16.5 % (8-40); MCH 29.9 pg (25.7-33.7); MCHC 33.7 g/dl (32.0-36.0); MEAN CELL VOLUME 88.8 fl (80-96); MEAN PLT VOLUME 7.1 fl (7.5-11.1); MONO % 9.8 % (3.8-10.2); NEUT % 72.8 % (42.8-82.8); PLATELET COUNT 266 K/MM3 (134-434); RBC 3.63 M/mm3 (3.60-5.2); RDW 14.9 % (11.6-15.6); WHITE BLOOD COUNT 9.4 K/mm3 (4.0-10.0)
[2019-02-25 07:50] LABS: ALBUMIN 2.7 g/dl (3.4-5.0); ALK PHOS 737 U/L (45-117); ANION GAP 7 MMOL/L (8-16); BILIRUBIN,TOTAL 0.7 mg/dL (0.2-1); BLOOD UREA NITROGEN 8 mg/dL (7-18); CALCIUM 8.4 mg/dL (8.5-10.1); CHLORIDE 104 mmol/L (98-107); CO2 27 mmol/L (21-32); CREATININE 0.8 mg/dL (0.55-1.3); GLUCOSE,RANDOM 106 mg/dL (74-106); POTASSIUM 4.1 mmol/L (3.5-5.1); SGOT/AST 79 U/L (15-37); SGPT/ALT 251 U/L (13-61); SODIUM 138 mmol/L (136-145)
[2019-02-25 07:51] LABS: BILIRUBIN,DIRECT 0.4 mg/dL (0.0-0.2)
[2019-02-25] MEDS ORDERED: ACETAMINOPHEN 325 MG TABLET (FP) PO ONE (08:15)
--- NOTE | 2019-02-25 08:38 | PN ---
Progress Note (short form) - Note Progress Note: CBC, BMP 02/25/19 06:00 02/25/19 06:00 Abnormal Lab Results 02/25/19 02/25/19 02/25/19 06:00 06:00 06:00 Hct 32.3 L MPV 7.1 L Anion Gap 7 L Calcium 8.4 L Direct Bilirubin 0.4 H AST 79 H ALT 251 H Alkaline Phosphatase 737 H C-Reactive Protein 7.7 H Total Protein 6.0 L Albumin 2.7 L Total Amylase 170 H Lipase 2545 H Vital Signs Period Temp Pulse Resp BP Sys/Lowe Pulse Ox Last 24 Hr 97.7 F-100.2 F 64-81 16-20 102-122/54-67 95-100 S1S2 RRR Lungs cta abd soft NT +BS abdominal wounds well healed imp acute pancreatitis biliary obstruction UTI transaminitis gram negative bacteremia s/p ERCP 4.15. stone fragment removed and stent placed, will remain in place for ~2-3 months postop chest pain/gas-ekg, serial enzymes normal recent ERCPx3 (2 stents were placed, then removed) lap. cholecystectomy 3 postop wound infection cont iv zosyn f/up blood culture diet as per surgery consults appreciated
--- NOTE | 2019-02-25 11:02 | EKG ---
Test Reason : Blood Pressure : / mmHG Vent. Rate : 065 BPM Atrial Rate : 065 BPM P-R Int : 190 ms QRS Dur : 084 ms QT Int : 420 ms P-R-T Axes : 044 016 044 degrees QTc Int : 436 ms NORMAL SINUS RHYTHM NORMAL ECG WHEN COMPARED WITH ECG OF 24-FEB-2019 08:35, NO SIGNIFICANT CHANGE WAS FOUND Confirmed by MD Fernandez Edward ([id number]) on 02/25/2019 11:02:31 AM Referred By: Confirmed By:Jerod eFrnandez MD
--- NOTE | 2019-02-25 12:27 | PN ---
Progress Note (short form) - Note Progress Note: s: no chest pain, palps, dyspnea, abd pain Current Medications Acetaminophen (Tylenol -) 650 mg PO Q4H PRN PRN Reason: FEVER Lactated Ringer's (Lactated Ringers Solution) 1,000 ml in 1,000 mls @ 125 mls/ hr IV ASDIR MANI Last Admin: 02/25/19 12:19 Dose: 125 mls/hr Piperacillin Sod/Tazobactam (Sod 3.375 gm/ Dextrose) 50 mls @ 100 mls/hr IVPB Q8H-IV MANI; Protocol Last Admin: 02/25/19 09:10 Dose: 100 mls/hr Ondansetron HCl (Zofran Injection) 4 mg IVPUSH Q6H PRN PRN Reason: NAUSEA AND/OR VOMITING Last Admin: 02/24/19 06:39 Dose: 4 mg Vital Signs Period Temp Pulse Resp BP Sys/Lowe Pulse Ox Last 24 Hr 97.7 F-101.8 F 64-81 16-20 102-122/51-67 95-100 Constitutional: Yes: Well Nourished, No Distress, Calm Eyes: Yes: Conjunctiva Clear, EOM Intact HENT: Yes: Atraumatic, Normocephalic Neck: Yes: Supple, Trachea Midline Respiratory: Yes: Regular, CTA Bilaterally Gastrointestinal: Yes: Normal Bowel Sounds, Soft Cardiovascular: Yes: Regular Rate and Rhythm JVD: No Carotid Bruit: No PMI: Non-Displaced Heart Sounds: Yes: S1, S2 Musculoskeletal: No: Back Pain Extremities: No: Cold Edema: No Peripheral Pulses WNL: Yes Peripheral Pulses: 2+ Left Doralis Pedis, 2+ Right Dorsalis Pedis Integumentary: Yes: Jaundice Neurological: Yes: Alert, Oriented Psychiatric: No: Agitated Assessment/Plan EKG: sinus, nl intervals, no ischemic changes Chest pain - reportedly negative stress test in the last year - had similar presentation in endoscopy suite at last ERCP, likely 2/2 anxiety - history less consistent with ACS - stable EKG, trop neg x 2 - no further cardiac workup at this point abd pain, cholangitis - s/p ERCP - manage per GI, ID HLD - holding statin 2/2 transaminitis thoracic aorta aneurysm - reportedly stable 08/2018 - cont metoprolol - outpatient follow up
--- NOTE | 2019-02-25 16:09 | PN.GI ---
GI Progress Note Subjective: GI NOte: Had fever to 101 but denies pain. Natalie is hungry. BC has same bug as urine - Objective Vital Signs: Vital Signs Temperature 98.0 F 02/25/19 14:44 Pulse Rate 62 02/25/19 14:44 Respiratory Rate 20 02/25/19 14:44 Blood Pressure 107/54 L 02/25/19 14:44 O2 Sat by Pulse Oximetry (%) 93 L 02/25/19 10:00 Microbiology 02/24/19 00:56 Blood - Peripheral Venous Blood Culture - Preliminary Non Lactose Fermenting Gnb 02/24/19 00:56 Blood - Peripheral Venous Blood Culture - Preliminary NO GROWTH OBTAINED AFTER 24 HOURS, INCUBATION TO CONTINUE FOR 4 DAYS. 02/23/19 23:00 Urine - Urine Clean Catch Urine Culture - Preliminary Non Lactose Fermenting Gnb Laboratory Tests 02/24/19 02/25/19 02/25/19 00:58 06:00 06:00 Total Bilirubin 1.6 H 0.7 Direct Bilirubin 0.4 H AST 259 H 79 H ALT 509 H 251 H Alkaline Phosphatase 973 H 737 H C-Reactive Protein 7.7 H Total Amylase 220 H 170 H Lipase 3862 H 2545 H Constitutional: No Distress Cardiovascular: Yes: Regular Rate and Rhythm Respiratory: Yes: Regular, CTA Bilaterally ...Auscultate: Yes: Normoactive Bowel Sounds ...Palpate: Yes: Soft, Other (nontender) Labs: CBC, BMP 02/25/19 06:00 02/25/19 06:00 Assessment/Plan Impression: Cholangitis due to CBD stones now s/p day 1 ERCP,stone extraction and stent insertion S/P ERCP x 4 S/P lap choly Personal h/p colon adenomas Plan: The need for a repeat ERCP was discussed in detail with Natalie. Given th possibility that she has a distal CBD short stricture we mutually agree that she should have the next ERCP with DR Lino Mas who can place an expandable metallic stent if necessary Continue antibiotics. Advance to full liquids Followup in office to arrange colonoscopy Problem List - Problems (1) Abnormal findings on imaging of biliary tract Code(s): R93.2 - ABNORMAL FINDINGS ON DX IMAGING OF LIVER AND BILIARY TRACT (2) Abnormal liver enzymes Code(s): R74.8 - ABNORMAL LEVELS OF OTHER SERUM ENZYMES (3) Common bile duct dilatation Code(s): K83.8 - OTHER SPECIFIED DISEASES OF BILIARY TRACT (4) Fever Code(s): R50.9 - FEVER, UNSPECIFIED Qualifiers: Fever type: unspecified Qualified Code(s): R50.9 - Fever, unspecified (5) Ascending aortic aneurysm Code(s): I71.2 - THORACIC AORTIC ANEURYSM, WITHOUT RUPTURE (6) Choledocholithiasis Code(s): K80.50 - CALCULUS OF BILE DUCT W/O CHOLANGITIS OR CHOLECYST W/O OBST (7) History of adenomatous polyp of colon Code(s): Z86.010 - PERSONAL HISTORY OF COLONIC POLYPS (8) History of biliary stent insertion Code(s): Z98.890 - OTHER SPECIFIED POSTPROCEDURAL STATES (9) S/P laparoscopic cholecystectomy Code(s): Z90.49 - ACQUIRED ABSENCE OF OTHER SPECIFIED PARTS OF DIGESTIVE TRACT
--- NOTE | 2019-02-25 17:29 | PN ---
Progress Note, Physician History of Present Illness: FEBRILE THIS AM NO C/O ABDOMINAL PAIN BC , URINE C/S GNR WBC IMPROVED - Current Medication List Current Medications: Active Medications Acetaminophen (Tylenol -) 650 mg PO Q4H PRN PRN Reason: FEVER Piperacillin Sod/Tazobactam (Sod 3.375 gm/ Dextrose) 50 mls @ 100 mls/hr IVPB Q8H-IV MANI; Protocol Last Admin: 02/25/19 09:10 Dose: 100 mls/hr Lactated Ringer's (Lactated Ringers Solution) 1,000 ml in 1,000 mls @ 100 mls/ hr IV ASDIR MANI Ondansetron HCl (Zofran Injection) 4 mg IVPUSH Q6H PRN PRN Reason: NAUSEA AND/OR VOMITING Last Admin: 02/24/19 06:39 Dose: 4 mg - Objective Vital Signs: Vital Signs Temperature 98.0 F 02/25/19 14:44 Pulse Rate 62 02/25/19 14:44 Respiratory Rate 20 02/25/19 14:44 Blood Pressure 107/54 L 02/25/19 14:44 O2 Sat by Pulse Oximetry (%) 93 L 02/25/19 10:00 Constitutional: Yes: No Distress Cardiovascular: Yes: Regular Rate and Rhythm, S1, S2 Respiratory: Yes: CTA Bilaterally Gastrointestinal: Yes: Normal Bowel Sounds, Soft. No: Tenderness Edema: No Labs: CBC, BMP 02/25/19 06:00 02/25/19 06:00 Assessment/Plan GRAM NEGATIVE SEPSIS, LIKELY BILIARY SOURCE R/O CHOLANGITIS S/P ERCP/ STONE EXTRACTION AWAIT C/S CONTINUE ZOSYN
[2019-02-25] MEDS: ACETAMINOPHEN 325 MG TABLET (FP) PO PRN (17:41)
[2019-02-25] MEDS: LACTATED RINGERS SOLUTION 1,000 ML/1,000 ML INFUS.BAG IV SCH ×2 (17:43→21:16)
[2019-02-26] MEDS ORDERED: PIPERACILLIN/TAZOBACTAM 3.375 GM VIAL IVPB ONE ×2 (01:19→10:10)
[2019-02-26] MEDS ORDERED: DEXTROSE 5%-WATER - 50 ML IVPB ONE ×2 (01:19→10:10)
[2019-02-26] MEDS: PIPERACILLIN/TAZOB 3.375 GM 3.375 GM in DEXTROSE 5%-WATER - 50 ML IVPB SCH ×2 (01:51→10:15)
[2019-02-26] MEDS: ACETAMINOPHEN 325 MG TABLET (FP) PO PRN (05:15)
[2019-02-26 06:50] LABS: BASO % 0.4 % (0-2.0); EOS % 1.7 % (0-4.5); HEMATOCRIT 29.8 % (32.4-45.2); HEMOGLOBIN 10.1 GM/dL (10.7-15.3); LYMPH % 17.2 % (8-40); MCH 29.9 pg (25.7-33.7); MEAN PLT VOLUME 7.1 fl (7.5-11.1); MONO % 9.7 % (3.8-10.2); PLATELET COUNT 234 K/MM3 (134-434); RBC 3.39 M/mm3 (3.60-5.2); RDW 14.7 % (11.6-15.6); WHITE BLOOD COUNT 7.6 K/mm3 (4.0-10.0)
[2019-02-26 07:32] LABS: ALBUMIN 2.4 g/dl (3.4-5.0); ALK PHOS 545 U/L (45-117); ANION GAP 6 MMOL/L (8-16); BILIRUBIN,DIRECT 0.3 mg/dL (0.0-0.2); BILIRUBIN,TOTAL 0.6 mg/dL (0.2-1); BLOOD UREA NITROGEN 8 mg/dL (7-18); CALCIUM 8.7 mg/dL (8.5-10.1); CHLORIDE 107 mmol/L (98-107); CO2 26 mmol/L (21-32); CREATININE 0.6 mg/dL (0.55-1.3); GLUCOSE,RANDOM 108 mg/dL (74-106); POTASSIUM 3.8 mmol/L (3.5-5.1); SGOT/AST 35 U/L (15-37); SGPT/ALT 163 U/L (13-61); SODIUM 138 mmol/L (136-145); TOT PROT 5.8 g/dl (6.4-8.2)
[2019-02-26 16:08] VITALS: BMI 31.4
--- NOTE | 2019-02-26 16:17 | PN ---
Progress Note, Physician History of Present Illness: TEMPS DOWN AFEBRILE TOLERATED SOLID DIET NO N/V NO C/O ABDOMINAL PAIN BC , URINE C/S E COLI WBC, LFTS IMPROVED - Current Medication List Current Medications: Active Medications Acetaminophen (Tylenol -) 650 mg PO Q4H PRN PRN Reason: FEVER Last Admin: 02/26/19 05:15 Dose: 650 mg Piperacillin Sod/Tazobactam (Sod 3.375 gm/ Dextrose) 50 mls @ 100 mls/hr IVPB Q8H-IV MANI; Protocol Last Admin: 02/26/19 10:15 Dose: 100 mls/hr Lactated Ringer's (Lactated Ringers Solution) 1,000 ml in 1,000 mls @ 100 mls/ hr IV ASDIR MANI Last Admin: 02/25/19 21:16 Dose: 100 mls/hr Ondansetron HCl (Zofran Injection) 4 mg IVPUSH Q6H PRN PRN Reason: NAUSEA AND/OR VOMITING Last Admin: 02/24/19 06:39 Dose: 4 mg - Objective Vital Signs: Vital Signs Temperature 97.8 F 02/26/19 14:34 Pulse Rate 59 L 02/26/19 14:34 Respiratory Rate 18 02/26/19 14:34 Blood Pressure 121/71 02/26/19 14:34 O2 Sat by Pulse Oximetry (%) 93 L 02/25/19 10:00 Constitutional: Yes: No Distress Eyes: Yes: Conjunctiva Clear Cardiovascular: Yes: Regular Rate and Rhythm, S1, S2 Respiratory: Yes: CTA Bilaterally Gastrointestinal: Yes: Normal Bowel Sounds, Soft. No: Tenderness Edema: No Labs: CBC, BMP 02/26/19 06:00 02/26/19 06:00 Assessment/Plan GRAM NEGATIVE SEPSIS, LIKELY BILIARY SOURCE R/O CHOLANGITIS S/P ERCP/ STONE EXTRACTION SUBSTITUTE CEFAZOLIN
--- NOTE | 2019-02-26 17:01 | PN ---
Progress Note (short form) - Note Progress Note: Abnormal Lab Results 02/26/19 02/26/19 02/26/19 06:00 06:00 06:00 RBC 3.39 L Hgb 10.1 L Hct 29.8 L MPV 7.1 L Anion Gap 6 L Random Glucose 108 H Direct Bilirubin 0.3 H ALT 163 H Alkaline Phosphatase 545 H C-Reactive Protein 11.2 H Total Protein 5.8 L Albumin 2.4 L Total Amylase 196 H Lipase 3080 H Microbiology 02/24/19 00:56 Blood Culture - Final Blood - Peripheral Venous Escherichia Coli 02/23/19 23:00 Urine Culture - Final Urine - Urine Clean Catch Escherichia Coli 02/24/19 00:56 Blood Culture - Preliminary Blood - Peripheral Venous NO GROWTH OBTAINED AFTER 48 HOURS, INCUBATION TO CONTINUE FOR 3 DAYS. Vital Signs Period Temp Pulse Resp BP Sys/Lowe Pulse Ox Last 24 Hr 97.8 F-98.4 F 56-65 18-20 106-134/47-71 S1S2 RRR Lungs cta abd soft NT +BS abdominal wounds well healed imp acute pancreatitis biliary obstruction UTI gram negative bacteremia s/p ERCP 02.24.19 stone fragment removed and stent placed, will remain in place for ~2-3 months postop chest pain/gas-ekg, serial enzymes normal recent ERCPx3 (2 stents were placed, then removed) lap. cholecystectomy postop wound infection iv cefazolin id f/up regarding abx managements consults appreciated
[2019-02-26] MEDS: LACTATED RINGERS SOLUTION 1,000 ML/1,000 ML INFUS.BAG IV SCH ×2 (17:20→21:35)
[2019-02-26] MEDS: CEFAZOLIN 1 GM/D5W 1 GM/50 ML BAG IVPB SCH (17:20)
[2019-02-26] MEDS: RANITIDINE HCL 150 MG TABLET (FP) PO SCH (21:35)
[2019-02-27] MEDS: CEFAZOLIN 1 GM/D5W 1 GM/50 ML BAG IVPB SCH ×3 (01:15→17:29)
[2019-02-27 06:45] LABS: BASO % 0.7 % (0-2.0); EOS % 3.7 % (0-4.5); HEMATOCRIT 29.4 % (32.4-45.2); LYMPH % 29.9 % (8-40); MCH 29.9 pg (25.7-33.7); MEAN CELL VOLUME 88.1 fl (80-96); MEAN PLT VOLUME 7.4 fl (7.5-11.1); MONO % 9.3 % (3.8-10.2); NEUT % 56.4 % (42.8-82.8); PLATELET COUNT 236 K/MM3 (134-434); RBC 3.34 M/mm3 (3.60-5.2); RDW 14.6 % (11.6-15.6); WHITE BLOOD COUNT 6.2 K/mm3 (4.0-10.0)
[2019-02-27 07:30] LABS: ALBUMIN 2.5 g/dl (3.4-5.0); ALK PHOS 488 U/L (45-117); AMYLASE 205 U/L (25-115); ANION GAP 6 MMOL/L (8-16); BILIRUBIN,DIRECT 0.2 mg/dL (0.0-0.2); BILIRUBIN,TOTAL 0.3 mg/dL (0.2-1); BLOOD UREA NITROGEN 9 mg/dL (7-18); CALCIUM 8.6 mg/dL (8.5-10.1); CHLORIDE 109 mmol/L (98-107); CO2 27 mmol/L (21-32); CREATININE 0.6 mg/dL (0.55-1.3); GLUCOSE,RANDOM 110 mg/dL (74-106); LIPASE 4163 U/L (73-393); POTASSIUM 4.1 mmol/L (3.5-5.1); SGOT/AST 26 U/L (15-37); SGPT/ALT 118 U/L (13-61); SODIUM 142 mmol/L (136-145); TOT PROT 5.8 g/dl (6.4-8.2)
--- NOTE | 2019-02-27 08:15 | PN ---
Progress Note (short form) - Note Progress Note: CBC, BMP 02/27/19 06:00 02/27/19 06:00 Abnormal Lab Results 02/27/19 02/27/19 06:00 06:00 RBC 3.34 L Hgb 10.0 L Hct 29.4 L MPV 7.4 L Chloride 109 H Anion Gap 6 L Random Glucose 110 H ALT 118 H Alkaline Phosphatase 488 H C-Reactive Protein 5.7 H Total Protein 5.8 L Albumin 2.5 L Total Amylase 205 H Lipase 4163 H S1S2 RRR Lungs cta abd soft NT +BS abdominal wounds well healed imp acute pancreatitis lipase still increasing, amylase better biliary obstruction UTI gram negative bacteremia s/p ERCP 4 stone fragment removed and stent placed, will remain in place for ~2-3 months postop chest pain/gas-ekg, serial enzymes normal iv cefazolin id f/up regarding abx managements consults appreciated
[2019-02-27] MEDS: LACTATED RINGERS SOLUTION 1,000 ML/1,000 ML INFUS.BAG IV SCH ×3 (09:28→20:25)
[2019-02-27] MEDS: RANITIDINE HCL 150 MG TABLET (FP) PO SCH ×2 (09:28→22:12)
--- NOTE | 2019-02-27 16:36 | PN ---
Progress Note (short form) - Note Progress Note: s: no chest pain, palps, dyspnea, abd pain Current Medications Acetaminophen (Tylenol -) 650 mg PO Q4H PRN PRN Reason: FEVER Last Admin: 02/26/19 05:15 Dose: 650 mg Lactated Ringer's (Lactated Ringers Solution) 1,000 ml in 1,000 mls @ 100 mls/ hr IV ASDIR MANI Last Admin: 02/27/19 09:28 Dose: 100 mls/hr Cefazolin Sodium (Ancef 1 Gm Premixed Ivpb -) 1 gm in 50 mls @ 100 mls/hr IVPB Q8H-IV MANI Last Admin: 02/27/19 09:29 Dose: 100 mls/hr Ondansetron HCl (Zofran Injection) 4 mg IVPUSH Q6H PRN PRN Reason: NAUSEA AND/OR VOMITING Last Admin: 02/24/19 06:39 Dose: 4 mg Ranitidine HCl (Zantac -) 150 mg PO BID MANI Last Admin: 02/27/19 09:28 Dose: 150 mg Vital Signs Period Temp Pulse Resp BP Sys/Lowe Pulse Ox Last 24 Hr 97.7 F-98.1 F 64-67 17-18 124-140/60-77 Constitutional: Yes: Well Nourished, No Distress, Calm Eyes: Yes: Conjunctiva Clear, EOM Intact HENT: Yes: Atraumatic, Normocephalic Neck: Yes: Supple, Trachea Midline Respiratory: Yes: Regular, CTA Bilaterally Gastrointestinal: Yes: Normal Bowel Sounds, Soft Cardiovascular: Yes: Regular Rate and Rhythm JVD: No Carotid Bruit: No PMI: Non-Displaced Heart Sounds: Yes: S1, S2 Musculoskeletal: No: Back Pain Extremities: No: Cold Edema: No Peripheral Pulses WNL: Yes Peripheral Pulses: 2+ Left Doralis Pedis, 2+ Right Dorsalis Pedis Integumentary: Yes: Jaundice Neurological: Yes: Alert, Oriented Psychiatric: No: Agitated Assessment/Plan EKG: sinus, nl intervals, no ischemic changes Chest pain - reportedly negative stress test in the last year - had similar presentation in endoscopy suite at last ERCP, likely 2/2 anxiety - history less consistent with ACS - stable EKG, trop neg x 2 - no further cardiac workup at this point abd pain, cholangitis - s/p ERCP - manage per GI, ID HLD - holding statin 2/2 transaminitis thoracic aorta aneurysm - reportedly stable 08/2018 - cont metoprolol - outpatient follow up
--- NOTE | 2019-02-27 19:12 | PN ---
Progress Note, Physician History of Present Illness: TEMPS DOWN AFEBRILE TOLERATED DIET NO N/V NO C/O ABDOMINAL PAIN BC , URINE C/S E COLI WBC, LFTS IMPROVED - Current Medication List Current Medications: Active Medications Acetaminophen (Tylenol -) 650 mg PO Q4H PRN PRN Reason: FEVER Last Admin: 02/26/19 05:15 Dose: 650 mg Lactated Ringer's (Lactated Ringers Solution) 1,000 ml in 1,000 mls @ 100 mls/ hr IV ASDIR MANI Last Admin: 02/27/19 17:24 Dose: Not Given Cefazolin Sodium (Ancef 1 Gm Premixed Ivpb -) 1 gm in 50 mls @ 100 mls/hr IVPB Q8H-IV MANI Last Admin: 02/27/19 17:29 Dose: 100 mls/hr Ondansetron HCl (Zofran Injection) 4 mg IVPUSH Q6H PRN PRN Reason: NAUSEA AND/OR VOMITING Last Admin: 02/24/19 06:39 Dose: 4 mg Ranitidine HCl (Zantac -) 150 mg PO BID MANI Last Admin: 02/27/19 09:28 Dose: 150 mg - Objective Vital Signs: Vital Signs Temperature 98.0 F 02/27/19 18:16 Pulse Rate 60 02/27/19 18:16 Respiratory Rate 18 02/27/19 18:16 Blood Pressure 114/64 02/27/19 18:16 O2 Sat by Pulse Oximetry (%) 96 02/27/19 10:00 Constitutional: Yes: No Distress Cardiovascular: Yes: Regular Rate and Rhythm, S1, S2 Respiratory: Yes: CTA Bilaterally Gastrointestinal: Yes: Normal Bowel Sounds, Soft. No: Tenderness Labs: CBC, BMP 02/27/19 06:00 02/27/19 06:00 Assessment/Plan E COLI SEPSIS, LIKELY BILIARY SOURCE R/O CHOLANGITIS S/P ERCP/ STONE EXTRACTION CONTINUE CEFAZOLIN
[2019-02-28] MEDS: CEFAZOLIN 1 GM/D5W 1 GM/50 ML BAG IVPB SCH ×3 (01:36→18:02)
[2019-02-28 07:10] LABS: BASO % 0.8 % (0-2.0); EOS % 3.9 % (0-4.5); HEMATOCRIT 29.6 % (32.4-45.2); LYMPH % 26.6 % (8-40); MCH 30.1 pg (25.7-33.7); MCHC 33.9 g/dl (32.0-36.0); MEAN CELL VOLUME 88.7 fl (80-96); MEAN PLT VOLUME 7.8 fl (7.5-11.1); MONO % 8.6 % (3.8-10.2); NEUT % 60.1 % (42.8-82.8); PLATELET COUNT 262 K/MM3 (134-434); RBC 3.33 M/mm3 (3.60-5.2); RDW 14.2 % (11.6-15.6); WHITE BLOOD COUNT 6.9 K/mm3 (4.0-10.0)
[2019-02-28 08:15] LABS: ALBUMIN 2.5 g/dl (3.4-5.0); ALK PHOS 416 U/L (45-117); AMYLASE 196 U/L (25-115); ANION GAP 6 MMOL/L (8-16); BILIRUBIN,DIRECT 0.2 mg/dL (0.0-0.2); BILIRUBIN,TOTAL 0.5 mg/dL (0.2-1); BLOOD UREA NITROGEN 9 mg/dL (7-18); CALCIUM 8.9 mg/dL (8.5-10.1); CHLORIDE 108 mmol/L (98-107); CO2 24 mmol/L (21-32); CREATININE 0.5 mg/dL (0.55-1.3); GLUCOSE,RANDOM 110 mg/dL (74-106); LIPASE 3980 U/L (73-393); POTASSIUM 4.4 mmol/L (3.5-5.1); SGOT/AST 25 U/L (15-37); SGPT/ALT 88 U/L (13-61); SODIUM 138 mmol/L (136-145); TOT PROT 5.9 g/dl (6.4-8.2)
--- NOTE | 2019-02-28 08:28 | PN ---
Progress Note (short form) - Note Progress Note: CBC, BMP 02/28/19 06:00 02/28/19 06:00 Abnormal Lab Results 02/28/19 02/28/19 06:00 06:00 RBC 3.33 L Hgb 10.0 L Hct 29.6 L Chloride 108 H Anion Gap 6 L Creatinine 0.5 L Random Glucose 110 H ALT 88 H Alkaline Phosphatase 416 H Total Protein 5.9 L Albumin 2.5 L Total Amylase 196 H Lipase 3980 H Vital Signs Period Temp Pulse Resp BP Sys/Lowe Pulse Ox Last 24 Hr 97.5 F-98.1 F 60-67 17-18 114-137/60-68 96-96 S1S2 RRR Lungs cta abd soft NT +BS no complaints imp acute pancreatitis lipase still increasing, amylase better biliary obstruction UTI gram negative bacteremia s/p ERCP 4.15.19 stone fragment removed and stent placed, will remain in place for ~2-3 months postop chest pain/gas-ekg, serial enzymes normal iv cefazolin dc iv fluids will discuss dc planning with and
[2019-02-28] MEDS: RANITIDINE HCL 150 MG TABLET (FP) PO SCH ×2 (10:03→21:22)
--- NOTE | 2019-02-28 13:59 | PN ---
Progress Note (short form) - Note Progress Note: s: no chest pain, palps, dyspnea, abd pain Current Medications Generic Name Dose Route Start Last Admin Trade Name Julián PRN Reason Stop Dose Admin Acetaminophen 650 mg 02/25/19 09:04 02/26/19 05:15 Tylenol - PO 650 mg Q4H PRN Administration FEVER Cefazolin Sodium 1 gm in 50 mls @ 100 mls/hr 02/26/19 18:00 02/28/19 09:56 Ancef 1 Gm Premixed Ivpb - IVPB 100 mls/hr Q8H-IV MANI Administration Ondansetron HCl 4 mg 02/24/19 06:26 02/24/19 06:39 Zofran Injection IVPUSH 4 mg Q6H PRN Administration NAUSEA AND/OR VOMITING Ranitidine HCl 150 mg 02/26/19 22:00 02/28/19 10:03 Zantac - PO 150 mg BID MANI Administration Vital Signs Period Temp Pulse Resp BP Sys/Lowe Pulse Ox Last 24 Hr 97.5 F-98.0 F 60-71 - 114-137/63-80 96-96 Constitutional: Yes: Well Nourished, No Distress, Calm Eyes: Yes: Conjunctiva Clear, Neck: Yes: Supple, Trachea Midline Respiratory: Yes: Regular, CTA Bilaterally Gastrointestinal: Yes: Normal Bowel Sounds, Soft Cardiovascular: Yes: Regular Rate and Rhythm JVD: No Heart Sounds: Yes: S1, S2 Extremities: No: Cold Edema: No Peripheral Pulses: 2+ Left Doralis Pedis, 2+ Right Dorsalis Pedis Integumentary: Yes: Jaundice Neurological: Yes: Alert, Oriented Psychiatric: No: Agitated CBC, BMP 02/28/19 06:00 02/28/19 06:00 Assessment/Plan EKG: sinus, nl intervals, no ischemic changes Chest pain - reportedly negative stress test in the last year - had similar presentation in endoscopy suite at last ERCP, likely 2/2 anxiety - history less consistent with ACS - stable EKG, trop neg x 2, cp resolved - no further cardiac workup at this point abd pain, cholangitis - s/p ERCP - manage per GI, ID HLD - holding statin 2/2 transaminitis thoracic aorta aneurysm - reportedly stable 08/2018 - cont metoprolol - outpatient follow up
--- NOTE | 2019-02-28 18:00 | PN.GI ---
GI Progress Note Subjective: GI NOte: Lipase is finally coming down. Natalie denies any pain or vomiting. She is afebrile. - Objective Vital Signs: Vital Signs Temperature 97.6 F 02/28/19 10:00 Pulse Rate 64 02/28/19 13:49 Respiratory Rate 17 02/28/19 13:49 Blood Pressure 123/72 02/28/19 13:49 O2 Sat by Pulse Oximetry (%) 96 02/28/19 09:00 Laboratory Tests 02/24/19 02/25/19 02/26/19 00:58 06:00 06:00 WBC 10.5 H Direct Bilirubin 0.3 H AST 35 ALT 163 H Alkaline Phosphatase 545 H Total Amylase 170 H Lipase 2545 H 02/27/19 02/28/19 02/28/19 06:00 06:00 06:00 WBC 6.9 Direct Bilirubin 0.2 AST 25 ALT 88 H Alkaline Phosphatase 416 H Total Amylase 196 H Lipase 4163 H 3980 H Constitutional: Anxious ...Auscultate: Yes: Normoactive Bowel Sounds ...Palpate: Yes: Soft, Other (nontender) Labs: CBC, BMP 02/28/19 06:00 02/28/19 06:00 Assessment/Plan Impression: Cholangitis due to CBD stones now resolved after stone extractionand stent insertion Elevated lipase may reflect a pseudocyst developing S/P ERCP x 4 S/P lap choly Personal h/o colon adenomas Plan: Pancreatic sonogram The need for a repeat ERCP was discussed in detail with Natalie. Given the possibility that she has a distal CBD short stricture we mutually agree that she should have the next ERCP with DR Lino Mas who can place an expandable metallic stent if necessary Continue oral antibiotics for another 5 days After her ERCP and stent removal Natalie will followup in office to arrange colonoscopy Problem List - Problems (1) Choledocholithiasis Assessment/Plan: Natalie will followup with Dr Almodovar to remove the stent and to deal with any stricure that may exist. I gave he his number. I have eprescribed Actigal to her pharmacy to take until the ERCP is done. Code(s): K80.50 - CALCULUS OF BILE DUCT W/O CHOLANGITIS OR CHOLECYST W/O OBST (2) Elevated lipase Assessment/Plan: NO clinical residual pancreatitis but may be developing a pseudocyst. Will get sonogram. If tolerating diet and remains afebrile however, Natalie can be discharged after having the sonogram tomorrow. Code(s): R74.8 - ABNORMAL LEVELS OF OTHER SERUM ENZYMES (3) Abnormal findings on imaging of biliary tract Code(s): R93.2 - ABNORMAL FINDINGS ON DX IMAGING OF LIVER AND BILIARY TRACT (4) Abnormal liver enzymes Code(s): R74.8 - ABNORMAL LEVELS OF OTHER SERUM ENZYMES (5) Common bile duct dilatation Code(s): K83.8 - OTHER SPECIFIED DISEASES OF BILIARY TRACT (6) Fever Code(s): R50.9 - FEVER, UNSPECIFIED Qualifiers: Fever type: unspecified Qualified Code(s): R50.9 - Fever, unspecified (7) Ascending aortic aneurysm Code(s): I71.2 - THORACIC AORTIC ANEURYSM, WITHOUT RUPTURE (8) History of adenomatous polyp of colon Code(s): Z86.010 - PERSONAL HISTORY OF COLONIC POLYPS (9) History of biliary stent insertion Code(s): Z98.890 - OTHER SPECIFIED POSTPROCEDURAL STATES (10) S/P laparoscopic cholecystectomy Code(s): Z90.49 - ACQUIRED ABSENCE OF OTHER SPECIFIED PARTS OF DIGESTIVE TRACT
[2019-03-01] MEDS: CEFAZOLIN 1 GM/D5W 1 GM/50 ML BAG IVPB SCH ×2 (01:22→09:47)
[2019-03-01 07:17] LABS: BASO % 0.6 % (0-2.0); HEMATOCRIT 32.4 % (32.4-45.2); HEMOGLOBIN 10.9 GM/dL (10.7-15.3); LYMPH % 22.1 % (8-40); MCH 29.7 pg (25.7-33.7); MCHC 33.6 g/dl (32.0-36.0); MEAN CELL VOLUME 88.2 fl (80-96); MEAN PLT VOLUME 7.3 fl (7.5-11.1); MONO % 7.1 % (3.8-10.2); NEUT % 66.2 % (42.8-82.8); PLATELET COUNT 306 K/MM3 (134-434); RBC 3.68 M/mm3 (3.60-5.2); RDW 14.2 % (11.6-15.6); WHITE BLOOD COUNT 8.2 K/mm3 (4.0-10.0)
[2019-03-01 08:07] LABS: ALBUMIN 2.7 g/dl (3.4-5.0); ALK PHOS 416 U/L (45-117); AMYLASE 203 U/L (25-115); ANION GAP 7 MMOL/L (8-16); BILIRUBIN,TOTAL 0.3 mg/dL (0.2-1); BLOOD UREA NITROGEN 10 mg/dL (7-18); CALCIUM 9.3 mg/dL (8.5-10.1); CHLORIDE 108 mmol/L (98-107); CO2 25 mmol/L (21-32); CREATININE 0.6 mg/dL (0.55-1.3); GLUCOSE,RANDOM 108 mg/dL (74-106); LIPASE 3705 U/L (73-393); POTASSIUM 4.4 mmol/L (3.5-5.1); SGOT/AST 22 U/L (15-37); SGPT/ALT 72 U/L (13-61); SODIUM 140 mmol/L (136-145); TOT PROT 6.3 g/dl (6.4-8.2)
[2019-03-01 09:39] VITALS: BP 123/81; PULSE 75; TEMP 98.2
[2019-03-01] MEDS: RANITIDINE HCL 150 MG TABLET (FP) PO SCH (09:47)
--- NOTE | 2019-03-01 11:18 | PN.GI ---
GI Progress Note Subjective: GI NOte: Pain free. CBD decompressed on sonogram. NO pseudocyst but her pancreatic duct is dilated at 7mm s I have advised an EUS to exclude an IMPN. Discussed case with Dr Fuentes who has no objections to discharge on Kefzol for a week. - Objective Vital Signs: Vital Signs Temperature 98.2 F 03/01/19 09:39 Pulse Rate 75 03/01/19 09:39 Respiratory Rate 18 03/01/19 09:39 Blood Pressure 123/81 03/01/19 09:39 O2 Sat by Pulse Oximetry (%) 96 03/01/19 09:44 Laboratory Tests 02/26/19 02/27/19 03/01/19 06:00 06:00 06:30 Total Bilirubin 0.3 AST 26 22 ALT 118 H 72 H Alkaline Phosphatase 545 H 416 H Total Amylase 203 H Lipase 4163 H 3705 H Constitutional: No Distress ...Auscultate: Yes: Normoactive Bowel Sounds ...Palpate: Yes: Soft, Other (nontender) Labs: CBC, BMP 03/01/19 06:30 03/01/19 06:30 Assessment/Plan IMpression Resolved cholangitis and biliary pancreatitis due to recurrent stone and possible stricturing of the distal CBD now resolved with a stent Dilated pancreatic duct. Probably due to repeated CBD stone obstructions Personal h/o colon adenomas Plan Discharge on Kefzol 500mg q6h x 1 week Actigall 300mg BID already ordered Natalie will arrange followup wth Dr Lino Mas to remove her stent and do an EUS to exclude an IPMN Problem List - Problems (1) Dilated pancreatic duct Assessment/Plan: I suspect that this reflects the obstruction caused by her stone. Code(s): K86.89 - OTHER SPECIFIED DISEASES OF PANCREAS (2) Choledocholithiasis Code(s): K80.50 - CALCULUS OF BILE DUCT W/O CHOLANGITIS OR CHOLECYST W/O OBST (3) Elevated lipase Code(s): R74.8 - ABNORMAL LEVELS OF OTHER SERUM ENZYMES (4) Abnormal findings on imaging of biliary tract Code(s): R93.2 - ABNORMAL FINDINGS ON DX IMAGING OF LIVER AND BILIARY TRACT (5) Abnormal liver enzymes Code(s): R74.8 - ABNORMAL LEVELS OF OTHER SERUM ENZYMES (6) Common bile duct dilatation Code(s): K83.8 - OTHER SPECIFIED DISEASES OF BILIARY TRACT (7) Fever Code(s): R50.9 - FEVER, UNSPECIFIED Qualifiers: Fever type: unspecified Qualified Code(s): R50.9 - Fever, unspecified (8) Ascending aortic aneurysm Code(s): I71.2 - THORACIC AORTIC ANEURYSM, WITHOUT RUPTURE (9) History of adenomatous polyp of colon Code(s): Z86.010 - PERSONAL HISTORY OF COLONIC POLYPS (10) History of biliary stent insertion Code(s): Z98.890 - OTHER SPECIFIED POSTPROCEDURAL STATES (11) S/P laparoscopic cholecystectomy Code(s): Z90.49 - ACQUIRED ABSENCE OF OTHER SPECIFIED PARTS OF DIGESTIVE TRACT
--- NOTE | 2019-03-01 11:33 | PN ---
Progress Note, Physician History of Present Illness: TEMPS DOWN AFEBRILE TOLERATING DIET NO N/V NO C/O ABDOMINAL PAIN BC , URINE C/S E COLI - Current Medication List Current Medications: Active Medications Acetaminophen (Tylenol -) 650 mg PO Q4H PRN PRN Reason: FEVER Last Admin: 02/26/19 05:15 Dose: 650 mg Cefazolin Sodium (Ancef 1 Gm Premixed Ivpb -) 1 gm in 50 mls @ 100 mls/hr IVPB Q8H-IV MANI Last Admin: 03/01/19 09:47 Dose: 100 mls/hr Ondansetron HCl (Zofran Injection) 4 mg IVPUSH Q6H PRN PRN Reason: NAUSEA AND/OR VOMITING Last Admin: 02/24/19 06:39 Dose: 4 mg Ranitidine HCl (Zantac -) 150 mg PO BID MANI Last Admin: 03/01/19 09:47 Dose: 150 mg - Objective Vital Signs: Vital Signs Temperature 98.2 F 03/01/19 09:39 Pulse Rate 75 03/01/19 09:39 Respiratory Rate 18 03/01/19 09:39 Blood Pressure 123/81 03/01/19 09:39 O2 Sat by Pulse Oximetry (%) 96 03/01/19 09:44 Constitutional: Yes: No Distress Eyes: Yes: Conjunctiva Clear Cardiovascular: Yes: Regular Rate and Rhythm, S1, S2 Respiratory: Yes: CTA Bilaterally Gastrointestinal: Yes: Normal Bowel Sounds, Soft, Abdomen, Obese. No: Tenderness Edema: No Labs: CBC, BMP 03/01/19 06:30 03/01/19 06:30 Assessment/Plan E COLI SEPSIS, LIKELY BILIARY SOURCE S/P ERCP/ STONE EXTRACTION DISCONTINUE CEFAZOLIN KEFLEX 500MG PO Q6H X 7D
[2019-03-01] MEDS ORDERED: CEPHALEXIN MONOHYDRATE 500 MG CAPSULE (UD) PO SCH (12:00)
--- NOTE | 2019-03-03 06:56 | DS ---
Physical Examination Vital Signs: Vital Signs Temperature 98.2 F 03/01/19 09:39 Pulse Rate 75 03/01/19 09:39 Respiratory Rate 18 03/01/19 09:39 Blood Pressure 123/81 03/01/19 09:39 O2 Sat by Pulse Oximetry (%) 96 03/01/19 09:44 Labs: CBC, BMP 03/01/19 06:30 03/01/19 06:30 Discharge Summary Reason For Visit: URINARY TRACT INFECTION,DIVERTICULOSIS OF Hospital Course: Acute pancreatitis,biliary obstruction with cholangitis, UTI, e.coli bacteremia s/p ERCP 02.24.19 stone fragment removed and stent placed, will remain in place for ~2-3 months postop chest pain/gas-ekg, serial enzymes normal condition improved after ERCP and iv abx Discharge on Kefzol 500mg q6h x 1 week Actigall 300mg BID follow up wt Dr Lino Mas to remove her stent and do an EUS to exclude an IPMN Condition: Fair - Instructions Diet, Activity, Other Instructions: f/up with dr. ruff next week, dr. Chace Smithariel Disposition: HOME - Home Medications Comprehensive Discharge Medication List: Ambulatory Orders Metoprolol Tartrate 12.5 mg PO DAILY 01/02/19 Ursodiol [Actigall] 300 mg PO BID #180 capsule 02/28/19 Cephalexin [Keflex] 500 mg PO QID #28 capsule 03/01/19 Ranitidine [Zantac -] 150 mg PO BID tablet 03/01/19
== END 2019-03-01 12:14 | disposition home or self-care (01) | DRG 282 ==
LOC: JER 22:30 → JERBED 02-24 04:52 → OBSVTOIN 02-24 14:07 → J5S 02-24 16:17
PROVIDERS: ADMIT Internal Medicine; ATTEND Internal Medicine
PROC: 0F798DZ Dilation of Common Bile Duct with Intraluminal Device, Via Natural or Artificial Opening Endoscopic (ICD-10-PCS; 2019-02-24)
PROC: 0FC98ZZ Extirpation of Matter from Common Bile Duct, Via Natural or Artificial Opening Endoscopic (ICD-10-PCS; principal; 2019-02-24 10:00)
DX: K85.90 Acute pancreatitis without necrosis or infection, unspecified (principal); N39.0 Urinary tract infection, site not specified; K57.90 Diverticulosis of intestine, part unspecified, without perforation or abscess without bleeding; R17 Unspecified jaundice; E66.9 Obesity, unspecified; K44.9 Diaphragmatic hernia without obstruction or gangrene; R93.2 Abnormal findings on diagnostic imaging of liver and biliary tract; K83.09 Other cholangitis; K83.1 Obstruction of bile duct; R78.81 Bacteremia; R07.9 Chest pain, unspecified; E78.5 Hyperlipidemia, unspecified; K21.9 Gastro-esophageal reflux disease without esophagitis; F17.210 Nicotine dependence, cigarettes, uncomplicated; Z68.31 Body mass index [BMI] 31.0-31.9, adult
CPT/HCPCS: 36415; 71045-TC-FY; 74177-TC; 76705-TC; 80048; 80053; 80076; 81003; 82150; 82248; 82550; 83605; 83690; 84484; 85025; 86140; 87040; 87086; 87186; 93005; 93010; 99283-25; G0378

== ENCOUNTER 2019-05-15 12:45 | Emergency (ER) | payer OTHER ==
[2019-05-15 12:52] VITALS: BMI 27.8
--- NOTE | 2019-05-15 13:18 | PDOC ---
History of Present Illness - General Chief Complaint: Abnormal Lab Results (Outside) Stated Complaint: ABNORMAL BLOOD WORK Time Seen by Provider: 05/15/19 13:17 - History of Present Illness Initial Comments: 05/15/19 14:11 Natalie Lawton is a 64yF with hx of hyperthyroidism, acute pancreatitis, recurrent biliary obstruction with cholangitis, UTI, e.coli bacteremia s/p ERCP 02/24/19 with stent placed presenting with abnormal lab values. Yesterday after starting methimazole, she complained of nausea and RUQ abdominal discomfort. She went to the doctor to get labwork, which showed elevated AST, ALT, and ALK. Currently complaining of RUQ discomfort worse with movement, better with rest.Pain /10, denied pain meds. Denied fever, nausea, vomiting, chest pain, SOB, urinary or bowel changes. She was instructed by Dr Andrea to go to the ED to get an abdomen US and labwork and call [facility] if the labs are worsening. Past History - Past Medical History Allergies/Adverse Reactions: Allergies Allergy/AdvReac Type Severity Reaction Status Date / Time No Known Drug Allergies Allergy Verified 05/15/19 12:47 DUST Allergy Uncoded 05/15/19 12:47 Home Medications: Ambulatory Orders Metoprolol Tartrate 12.5 mg PO DAILY 01/02/19 Methimazole [Tapazole -] 10 mg PO Q12H 05/15/19 Anemia: No Asthma: No Cancer: No Cardiac Disorders: Yes ("aneursym") CVA: No COPD: No CHF: No Dementia: No Diabetes: No GI Disorders: Yes (REFLUX) Disorders: No HTN: No Hypercholesterolemia: Yes Liver Disease: No Seizures: No Thyroid Disease: No - Surgical History Abdominal Surgery: No Appendectomy: Yes Cardiac Surgery: No Cholecystectomy: Yes (01/17/2019, stent to CBD) Lung Surgery: No Neurologic Surgery: No Orthopedic Surgery: No - Immunization History Td Vaccination: Yes Immunization Up to Date: Yes - Suicide/Smoking/Psychosocial Hx Smoking Status: No Smoking History: Current every day smoker Years of Tobacco Use: 40 Have you smoked in the past 12 months: No Number of Cigarettes Smoked Daily: 5 Information on smoking cessation initiated: Yes 'Breaking Loose' booklet given: 01/25/19 Hx Alcohol Use: No Drug/Substance Use Hx: No Substance Use Type: None Hx Substance Use Treatment: No Review of Systems - Review of Systems Constitutional: No: Chills, Fever, Malaise HEENTM: No: Eye Pain, Nose Pain, Throat Pain Respiratory: No: Cough, Shortness of Breath, Wheezing Cardiac (ROS): No: Chest Pain, Edema, Palpitations ABD/GI: No: Abdominal Distended, Constipated, Diarrhea, Nausea, Vomiting : No: Burning, Dysuria, Discharge, Hematuria Musculoskeletal: No: Back Pain, Joint Pain, Joint Swelling, Joint Stiffness Integumentary: No: Bruising, Dryness, Erythema, Flushing Neurological: No: Headache, Numbness, Paresthesia, Tremors, Weakness Endocrine: No: Flushing, Intolerance to Cold, Intolerance to Heat, Increased Hunger, Increased Urine *Physical Exam - Vital Signs Last Vital Signs Temp Pulse Resp BP Pulse Ox 98.3 F 103 H 18 124/66 99 05/15/19 12:47 05/15/19 12:47 05/15/19 12:47 05/15/19 12:47 05/15/19 12:47 - Physical Exam General Appearance: Yes: Nourished. No: Apparent Distress HEENT: positive: HALEY, Normal Voice. negative: Scleral Icterus (R), Scleral Icterus (L) Respiratory/Chest: positive: Lungs Clear, Normal Breath Sounds. negative: Respiratory Distress Cardiovascular: positive: Regular Rhythm, Regular Rate, S1, S2. negative: Edema , Murmur Gastrointestinal/Abdominal: positive: Normal Bowel Sounds, Flat, Soft. negative : Tender, Organomegaly, Distended, Guarding, Rebound Neurologic: positive: Fully Oriented, Alert, Responsive. negative: Confused, Disoriented, Depressed Affect ED Treatment Course - LABORATORY CBC & Chemistry Diagram: 05/15/19 14:11 05/15/19 14:15 Medical Decision Making - Medical Decision Making 05/15/19 14:26 Ordered RUQ US, CBC, chem, lipase, lactate UA w cx per MD orders Denied pain meds for mild discomfort AST 130, ALT 370, ALK 530, lipase 450, 2+ urine blood Ultrasound did not appreciate any change with biliary and pancreatic duct dilation with biliary stent in place. Natalie Lawton is a 64yF with hx of hyperthyroidism, acute pancreatitis, recurrent biliary obstruction with cholangitis, UTI, e.coli bacteremia s/p ERCP 02/24/19 with stent placed presenting with abnormal lab values. Labs showed elevated AST, ALT, ALK, lipase, 2+ urine blood. Ultrasound did not appreciate any change with biliary and pancreatic duct dilation with biliary stent in place. Called Dr Sawyer, who advised to discharge home and follow up with her outpatient tomorrow morning. *DC/Admit/Observation/Transfer Diagnosis at time of Disposition: Abnormal liver enzymes - Discharge Dispostion Disposition: HOME Condition at time of disposition: Stable Decision to Admit order: No - Referrals Referrals: Miller Sawyer MD [Primary Care Provider] - - Patient Instructions Additional Instructions: You were seen in the hospital to recheck your lab enzymes and imaging of your abdomen. Please see Dr. Sawyer tomorrow morning to follow up for your ED visit Please come back to the hospital if you have worsening abdominal pain, vomiting , or fever. - Post Discharge Activity
[2019-05-15 14:25] LABS: BASO % 0.6 % (0-2.0); HEMATOCRIT 37.2 % (32.4-45.2); HEMOGLOBIN 12.6 GM/dL (10.7-15.3); LYMPH % 28.3 % (8-40); MCH 29.3 pg (25.7-33.7); MEAN PLT VOLUME 7.6 fl (7.5-11.1); MONO % 8.4 % (3.8-10.2); NEUT % 60.7 % (42.8-82.8); RBC 4.32 M/mm3 (3.60-5.2); RDW 13.6 % (11.6-15.6); WHITE BLOOD COUNT 5.9 K/mm3 (4.0-10.0)
[2019-05-15 14:38] LABS: PH,URINE 5.5 (5.0-8.0); URINE APPEARANCE CLEAR; URINE BILIRUBIN NEGATIVE (NEGATIVE); URINE COLOR YELLOW; URINE GLUCOSE (UA) NEGATIVE (NEGATIVE); URINE KETONE NEGATIVE (NEGATIVE); URINE LEUK ESTERASE NEGATIVE (NEGATIVE); URINE NITRITE NEGATIVE (NEGATIVE); URINE PROTEIN NEGATIVE (NEGATIVE); URINE UROBILINOGEN 0.2 mg/dL (0.2-1.0)
[2019-05-15 14:45] LABS: PLATELET COUNT 223 K/MM3 (134-434)
--- NOTE | 2019-05-15 14:47 | PDOC ---
Documentation entered by Juliet Koo SCRIBE, acting as scribe for Shari Bullard MD. Shari Bullard MD: This documentation has been prepared by the lindaibe, Juliet Koo SCRIBE, under my direction and personally reviewed by me in its entirety. I confirm that the documentation accurately reflects all work, treatment, procedures, and medical decision making performed by me. Attending Attestation - Resident Resident Name: Shan Bagley - ED Attending Attestation I have performed the following: I have examined & evaluated the patient, The case was reviewed & discussed with the resident, I agree w/resident's findings & plan, Exceptions are as noted - HPI HPI: 05/15/19 14:57 The patient is a 64 year old female with a significant past medical history of acid reflux, cholecystectomy, hypercholesterolemia,recurrent biliary obstruction with cholangitis, UTI, e.coli bacteremia s/p ERCP 02/24/19 with stent placed ,acute pancreatitis and hypothyroidism who presents to the emergency department with abnormal labs since yesterday. The patient states that she was at home yesterday after starting her new prescription of methimazole when she subsequently began to experience some nausea and upper right quadrant discomfort. The patient reports that she went to see her doctor secondary to concern for bilirubin abnormality. The patient states that she was called about her result this morning. The patient is noted to have elevated AST , ALT, and ALK. She states that her right upper quadrant discomfort is worsened with movement and better with rest. She denies any fever, chills, nausea, vomiting, diarrhea, constipation or urinary symptoms. She denies any chest pain , shortness of breath, headache or dizziness. The patient denies any other complaints. - Physicial Exam PE: GENERAL: Awake, alert, and fully oriented, in no acute distress HEAD: No signs of trauma EYES: PERRLA, EOMI, sclera anicteric, conjunctiva clear ENT: Auricles normal inspection, hearing grossly normal, nares patent, oropharynx clear without exudates. Moist mucosa NECK: Normal ROM, supple, no lymphadenopathy, JVD, or masses LUNGS: Breath sounds equal, clear to auscultation bilaterally. No wheezes, and no crackles HEART: Regular rate and rhythm, normal S1 and S2, no murmurs, rubs or gallops ABDOMEN: Soft, nontender, normoactive bowel sounds. No guarding, no rebound. No masses EXTREMITIES: Normal range of motion, no edema. No clubbing or cyanosis. No cords, erythema, or tenderness NEUROLOGICAL: Cranial nerves II through XII grossly intact. Normal speech, normal gait. Motor and sensation intact SKIN: Warm, dry, normal turgor, no rashes or lesions noted. - Medical Decision Making Pt with elevated LFTs, but ultrasound shows biliary stent in place, no significant change from prior imaging. Case d/w Dr. Sawyer, stable for [facility].
[2019-05-15] MEDS ORDERED: SODIUM CHLORIDE 0.9% 500 ML INFUS.BAG IV ONE (14:49)
[2019-05-15 14:52] LABS: ALBUMIN 3.4 g/dl (3.4-5.0); BILIRUBIN,TOTAL 0.6 mg/dL (0.2-1); BLOOD UREA NITROGEN 13.2 mg/dL (7-18); CALCIUM 9.6 mg/dL (8.5-10.1); CREATININE 0.6 mg/dL (0.55-1.3); POTASSIUM 3.7 mmol/L (3.5-5.1); TOT PROT 6.8 g/dl (6.4-8.2)
[2019-05-15 15:56] LABS: HYALINE CASTS 4.12 /lpf (0-8); URINE BACTERIA 2.4 /hpf (NEGATIVE); URINE RBC 4.5 /hpf (0-4); URINE WBC 0.9 /hpf (0-5)
[2019-05-15 16:21] VITALS: BP 120/81; PULSE 84; TEMP 97.6
== END 2019-05-15 16:15 | disposition home or self-care (01) ==
LOC: JER 12:45
PROC: 3E0337Z Introduction of Electrolytic and Water Balance Substance into Peripheral Vein, Percutaneous Approach (ICD-10-PCS; principal; 2019-05-15)
DX: R94.5 Abnormal results of liver function studies (principal)
CPT/HCPCS: 36415; 76705-TC; 80053; 81003; 83605; 83690; 84436; 84443; 85025; 87077; 87086; 99283-25

== ENCOUNTER 2019-05-17 22:00 | Inpatient (IN) | payer OTHER ==
[2019-05-17 22:10] VITALS: BMI 26.5
[2019-05-17] MEDS ORDERED: ACETAMINOPHEN 1000 MG/100 ML VIAL (NON FORMULARY) IVPB ONE (23:07)
[2019-05-17] MEDS ORDERED: ONDANSETRON 4 MG/2 ML VIAL IVPUSH ONE (23:15)
--- NOTE | 2019-05-17 23:25 | PDOC ---
History of Present Illness - General Chief Complaint: Nausea/Vomiting Stated Complaint: VOMITTTING/FEVER/CHEST DISCOMFORT Time Seen by Provider: 05/17/19 22:21 History Source: Patient, Family - History of Present Illness Initial Comments: 05/17/19 23:21 64y/o F with hx of hyperthyroidism, billiary obstruction, cholecystectomy (2018), E.coli bacteremia s/p ERCP with stent placement 02/24/2019 presents to the ED with complaints of fever and RUQ pain. Pain is 7/10 radiating form RUQ to right flank.Was in the ED on 05/15 at the behest of her PCP for elevated LFT' s. She was discharged home after negative ultrasound. Has returned due to fever at home, nausea and vomiting. Has had 1 episode of non-bloody emesis today. Denies any dysuria,bloody stools,diarrhea or headaches. 05/18/19 00:43 Past History - Past Medical History Allergies/Adverse Reactions: Allergies Allergy/AdvReac Type Severity Reaction Status Date / Time No Known Drug Allergies Allergy Verified 05/17/19 22:11 DUST Allergy Uncoded 05/17/19 22:11 Home Medications: Ambulatory Orders Metoprolol Tartrate 12.5 mg PO DAILY 01/02/19 Methimazole [Tapazole -] 20 mg PO Q12H 05/15/19 Anemia: No Asthma: No Cancer: No Cardiac Disorders: Yes ("aneursym") CVA: No COPD: No CHF: No Dementia: No Diabetes: No GI Disorders: Yes (REFLUX) Disorders: No HTN: No Hypercholesterolemia: Yes Liver Disease: No Seizures: No Thyroid Disease: No - Surgical History Abdominal Surgery: No Appendectomy: Yes Cardiac Surgery: No Cholecystectomy: Yes (01/17/2019, stent to CBD) Lung Surgery: No Neurologic Surgery: No Orthopedic Surgery: No - Immunization History Td Vaccination: Yes Immunization Up to Date: Yes - Suicide/Smoking/Psychosocial Hx Smoking Status: No Smoking History: Never smoked Years of Tobacco Use: 40 Have you smoked in the past 12 months: No Number of Cigarettes Smoked Daily: 5 'Breaking Loose' booklet given: 01/25/19 Hx Alcohol Use: No Drug/Substance Use Hx: No Substance Use Type: None Hx Substance Use Treatment: No Abd/GI Specific PMHX - Complaint Specific PMHX GERD: Yes (Dr Tellez did EDG and colonoscopy 2 years ago) Review of Systems - Review of Systems All Other Systems: Reviewed and Negative *Physical Exam - Vital Signs Last Vital Signs Temp Pulse Resp BP Pulse Ox 98.3 F 101 H 18 104/57 L 97 05/17/19 22:08 05/17/19 22:08 05/17/19 22:08 05/17/19 22:08 05/17/19 22:08 - Physical Exam General Appearance: Yes: Appropriately Dressed, Mild Distress HEENT: positive: EOMI, Normal Voice Respiratory/Chest: positive: Lungs Clear, Normal Breath Sounds. negative: Respiratory Distress, Accessory Muscle Use, Labored Respiration, Rales, Wheezing Cardiovascular: positive: Regular Rhythm, Regular Rate, S1, S2, JVD, Systolic Murmur Gastrointestinal/Abdominal: positive: Normal Bowel Sounds, Tender (guarding and tenderness in RUQ and RLQ( pt has had and appendectomy)no cva tenderness) Musculoskeletal: negative: CVA Tenderness, CVA Tenderness (R) ED Treatment Course - LABORATORY CBC & Chemistry Diagram: 05/18/19 01:24 05/18/19 01:24 Medical Decision Making - Medical Decision Making 64 y/o F wih hx of cholecystectomy, ERCP, cholangitis and E.coli septicemia s/p ERCP presenting with RUQ abdominal pain . Previous u/s on 05/[address]. Ordering labs and imaging to compare to 05/15 values. Labs/Imaging CBC CMP,Lipase,TSH, UA RUQ u/s Meds: Aceaminophen for pain. Zofran for nausea Signed out to Dr. Arian Carcamo at 12:00 a.m 05/18/19 01:04 *DC/Admit/Observation/Transfer Diagnosis at time of Disposition: Acute cholangitis, Biliary obstruction - Discharge Dispostion Condition at time of disposition: Stable - Referrals - Patient Instructions - Post Discharge Activity
[2019-05-17] MEDS ORDERED: ACETAMINOPHEN INJECTION 100 ML IVPB ONE (23:54)
[2019-05-17] MEDS ORDERED: ONDANSETRON 4 MG/2 ML VIAL ONE (23:56)
[2019-05-17] MEDS ORDERED: SODIUM CHLORIDE 500 ML IV STA (23:58)
--- NOTE | 2019-05-18 00:19 | PDOC ---
*Physical Exam - Vital Signs Last Vital Signs Temp Pulse Resp BP Pulse Ox 98.3 F 101 H 18 104/57 L 97 05/17/19 22:08 05/17/19 22:08 05/17/19 22:08 05/17/19 22:08 05/17/19 22:08 - Physical Exam General Appearance: Yes: Nourished, Appropriately Dressed. No: Apparent Distress HEENT: positive: Normal Voice, Symmetrical, Pharynx Normal Neck: positive: Normal Thyroid, Supple Respiratory/Chest: positive: Lungs Clear, Normal Breath Sounds. negative: Chest Tender, Respiratory Distress Cardiovascular: positive: Regular Rhythm, Regular Rate. negative: Murmur, Gallop/S3, Gallop/S4 Gastrointestinal/Abdominal: positive: Normal Bowel Sounds, Flat, Soft. negative : Organomegaly ED Treatment Course - LABORATORY CBC & Chemistry Diagram: 05/18/19 01:24 05/18/19 01:24 Medical Decision Making - Medical Decision Making 05/18/19 00:[address] Hinkle. 64y/o F with hx of hyperthyroidism, billiary obstruction, cholecystectomy (2018), E.coli bacteremia s/p ERCP with stent placement 02/24/2019 presents to the ED with complaints of fever and RUQ pain. Here 05/15/19 for increased LFTs, d/c home. Back for abd pain, nausea, and fever. Pending: CMP, CBC, thyroid, lipase, Abd US. Will re-assess. 05/18/19 03:00 Abd US shows mild to moderate intrahepatic biliary duct dilation, CBD 15mm, stent without obstruction, and pancreatic duct dilation to 10mm. Concern for further obstruction of biliary tree. Patient subjective fever with pain and nausea, as well as elevated bilirubin in urine, concerning for acute cholangitis, although does not meet full criteria of [place] at this time. Will consult with Dr. Tellez for admission for repeat ERCP for obstruction and possibly IV Abx vs. transfer to OSH for further evaluation. 05/18/19 04:50 Dr. Tellez recommended admission to inpatient service, will consult in the AM. Spoke with Drs. Barr and Agustín on the hospitalist service regarding admission to Dr. Boyce *DC/Admit/Observation/Transfer Diagnosis at time of Disposition: Acute cholangitis, Biliary obstruction - Discharge Dispostion Condition at time of disposition: Fair Decision to Admit order: Yes - Referrals Referrals: Miller Sawyer MD [Primary Care Provider] - - Patient Instructions - Post Discharge Activity
[2019-05-18 00:47] LABS: INR 0.97 (0.83-1.09); PROTHROMBIN TIME (PATIENT) 11.4 SEC (9.7-13.0)
[2019-05-18 00:50] LABS: ACTIVATED PTT 33.6 SECONDS (25.2-36.5)
[2019-05-18 01:02] LABS: EPI CELLS 3.9 /HPF (0-5/HPF); HYALINE CASTS 18 /lpf (0-8); URINE APPEARANCE CLEAR; URINE BACTERIA 13.5 /hpf (NEGATIVE); URINE BILIRUBIN 2+ (NEGATIVE); URINE COLOR DK YELLOW; URINE GLUCOSE (UA) NEGATIVE (NEGATIVE); URINE KETONE 3+ (NEGATIVE); URINE LEUK ESTERASE TRACE (NEGATIVE); URINE NITRITE NEGATIVE (NEGATIVE); URINE PROTEIN NEGATIVE (NEGATIVE); URINE RBC 6 /hpf (0-4); URINE WBC 2 /hpf (0-5)
[2019-05-18] MEDS ORDERED: PIPERACILLIN/TAZOB 4.5 GM 4.5 GM/100 ML BAG IVPB ONE ×2 (01:19→01:45)
--- NOTE | 2019-05-18 01:19 | PDOC ---
Attending Attestation - Resident Resident Name: Lissette Hinkle - ED Attending Attestation I have performed the following: I have examined & evaluated the patient, The case was reviewed & discussed with the resident, I agree w/resident's findings & plan, Exceptions are as noted - HPI HPI: 05/18/19 01:16 64 F with h/o hyperthyroid, cholecystectomy (01/2019), biliary obstruction s/p biliary stent 02/24/19, presenting to ED with fevers and RUQ abdominal pain. Pt was seen here 2 days ago and found to have elevated LFTs. Pt had US that was unremarkable and pt was DC'ed home. However, pt states pain has worsened, and she now has nausea and vomiting, as well as a fever at home. - Physicial Exam PE: 05/18/19 01:18 "GENERAL: Awake, alert, and fully oriented, in no acute distress. HEAD: No signs of trauma EYES: PERRLA, EOMI, sclera anicteric, conjunctiva clear ENT: Auricles normal inspection, hearing grossly normal, nares patent, oropharynx clear without exudates. Moist mucosa NECK: Nontender, no stepoffs, Normal ROM, supple, no lymphadenopathy, JVD, or masses LUNGS: Breath sounds equal, clear to auscultation bilaterally. No wheezes, and no crackles HEART: Regular rate and rhythm, normal S1 and S2, no murmurs, rubs or gallops ABDOMEN: + RUQ TTP, normoactive bowel sounds. No guarding, no rebound. No masses EXTREMITIES: Normal range of motion, no edema. No clubbing or cyanosis. No cords, erythema, or tenderness NEUROLOGICAL: Cranial nerves II through XII intact. 5/5 strength and sensation in all extremities, Normal speech, normal gait, normal cerebellar function SKIN: Warm, Dry, normal turgor, no rashes or lesions noted. - Critical Care Time Total Critical Care Time: 120 Critical Care Statement: The care of this patient involved high complexity decision making to prevent further life threatening deterioration of the patient 's condition and/or to evaluate & treat vital organ system(s) failure or risk of failure. - Medical Decision Making 05/18/19 01:18 64 F with h/o biliary obstruction s/p stent placement 3 months ago, now with fevers, abdominal pain, and vomiting. Pt had elevated LFTs 2 days ago. Concerning for acute cholangitis. - Labs - Repeat RUQ US - Abx - GI consult - Admit 05/18/19 04:07 Labs with elevated LFTs, bili RUQ sono shows CBD dilated to 15mm Will start abx for tx of cholangitis Dr. Tellez consulted, will evaluate her in morning for possible ERCP Discussed with inpt team regarding whether or not to admit to ICU. Given pt's well appearance and stable vitals, pt deemed appropriate for med/surg.
[2019-05-18 01:38] LABS: MCH 28.6 pg (25.7-33.7); MEAN CELL VOLUME 86.6 fl (80-96); RDW 13.8 % (11.6-15.6)
[2019-05-18 01:46] LABS: URINE CRYSTALS 4 CA OXALATE /hpf
[2019-05-18 01:47] LABS: BASO % 0.3 % (0-2.0); EOS % 1.5 % (0-4.5); HEMATOCRIT 33.9 % (32.4-45.2); HEMOGLOBIN 11.2 GM/dL (10.7-15.3); LYMPH % 19.9 % (8-40); MONO % 10.2 % (3.8-10.2); NEUT % 68.1 % (42.8-82.8); PLATELET COUNT 190 K/MM3 (134-434); RBC 3.91 M/mm3 (3.60-5.2); WHITE BLOOD COUNT 6.5 K/mm3 (4.0-10.0)
[2019-05-18 02:17] LABS: ALBUMIN 2.9 g/dl (3.4-5.0); BILIRUBIN,TOTAL 3.4 mg/dL (0.2-1); BLOOD UREA NITROGEN 9.6 mg/dL (7-18); CALCIUM 8.9 mg/dL (8.5-10.1); CREATININE 0.5 mg/dL (0.55-1.3); POTASSIUM 3.5 mmol/L (3.5-5.1); TOT PROT 5.7 g/dl (6.4-8.2)
[2019-05-18] MEDS ORDERED: SODIUM CHLORIDE 1,000 ML IV SCH (06:15)
[2019-05-18] MEDS ORDERED: KETOROLAC TROMETHAMINE 30 MG/1 ML VIAL IM PRN (06:22)
--- NOTE | 2019-05-18 06:22 | PN ---
Teaching Attending Note Name of Resident: Karyna Barr ATTENDING PHYSICIAN STATEMENT I saw and evaluated the patient. Chart, imaging reviewed. I reviewed the resident's note and discussed the case with the resident. I agree with the resident's findings and plan as documented. SUBJECTIVE: 64 F with h/o hyperthyroid, cholecystectomy (01/2019), biliary obstruction s/p biliary stent 02/24/19, presenting to ED with fevers and RUQ abdominal pain, NBNB vomiting. Pt was seen here 05/15 and found to have elevated LFTs. Pt had U/S that was unremarkable and pt was DC'ed home. However, pt states pain has worsened, and she now has nausea and vomiting, as well as a fever at home - 100F. Received pip/tazo in ER. OBJECTIVE: Last Vital Signs Temp Pulse Resp BP Pulse Ox 98.3 F 83 20 117/83 98 05/17/19 22:08 05/18/19 05:50 05/18/19 05:50 05/18/19 05:50 05/18/19 05:50 general -nad, aaox3 heent -moist mucous membranes, nonicteric sclera neck supple abdomen -ruq tenderness, no rebound tenderness, +monzon sign ext - no pedal edema Abnormal Lab Results 05/18/19 05/18/19 00:35 01:24 Creatinine 0.5 L Random Glucose 136 H Total Bilirubin 3.4 H D AST 172 H ALT 288 H Alkaline Phosphatase 605 H Total Protein 5.7 L Albumin 2.9 L TSH 0.01 L Urine Ketones 3+ H Urine Blood 3+ H Urine Bilirubin 2+ H Urine Urobilinogen 2.0 H imaging reviewed ASSESSMENT AND PLAN: #CBD, pancreatic ductal dilation, intrahepatic duct dilation, suggestive of biliary obstruction probably by stone. Cholestatic pattern of liver injury appreciated. Measured fever at home however here afebrile, might be early sign of cholangitis. +Monzon sign on abd exam. -admit to med/surg -toradol IV prn for pain control -npo -IV fluid hydration -gi consult -Dr. Cornell -tonyfrshelby prn for nausea -c/w pip/tazo preemptively #Hyperthyroidism -tsh, 0.01, follows w/ Dr. Artis -on methimazole 20mg po bid -sent t4 total, free, t3 -thyroid u/s #dvt ppx -scds
--- NOTE | 2019-05-18 07:02 | HP ---
CHIEF COMPLAINT: Right abdominal pain and fevers PCP: Dr. Bhavna Bass HISTORY OF PRESENT ILLNESS: Pt is a 64 yo F with PMH of cholecystecomy (01/2019), Biliary obstruction s/p stents ( 12/31, 02/28), pancreatitis (02/28) , hyperthyroidism (newly diagnosed ) , and infrarenal aneurysm. Pt presents to ED with subjective fevers and right abdominal pain. pt also states she felt nauseous and vomiting. Pt states these symptoms began on Sunday. Pt came to [facility] ED on 05/15 with similar symptoms but was discharged with instructions to follow up outpatient. Pt states symptoms worsened throughout the week. ER course was notable for: (1)Abdominal u/s - biliary tract dilation (2)Initiated Zosyn Recent Travel: PAST MEDICAL HISTORY: denies PAST SURGICAL HISTORY: Social History: Smoking: Alcohol: Drugs: Family History: Allergies No Known Drug Allergies Allergy (Verified 05/17/19 22:11) DUST Allergy (Uncoded 05/17/19 22:11) HOME MEDICATIONS: Home Medications Medication Instructions Recorded Metoprolol Tartrate 12.5 mg PO DAILY 01/02/19 Methimazole [Tapazole -] 20 mg PO Q12H 05/15/19 REVIEW OF SYSTEMS CONSTITUTIONAL: Present: Fever, unintentional 35 lb weight loss since 12/31 Absent: chills, diaphoresis, generalized weakness, malaise, loss of appetite CARDIOVASCULAR: Absent: chest pain, syncope, palpitations, irregular heart rate, lightheadedness , peripheral edema RESPIRATORY: Absent: cough, shortness of breath, dyspnea with exertion, orthopnea, wheezing, stridor, hemoptysis GASTROINTESTINAL: Positive: nausea, vomiting Absent: abdominal pain, abdominal distension, diarrhea, constipation, melena, hematochezia MUSCULOSKELETAL: Absent: myalgia, arthralgia, joint swelling, back pain, neck pain SKIN: Absent: rash, itching, pallor ENDOCRINE: Present: 35 lb weight loss NEUROLOGIC: Absent: headache, dizziness, mental status changes, PHYSICAL EXAMINATION Vital Signs - 24 hr 05/17/19 05/18/19 22:08 05:50 Temperature 98.3 F Pulse Rate 101 H Pulse Rate [ 83 Apical] Respiratory 18 20 Rate Blood Pressure 104/57 L Blood Pressure 117/83 [Left Arm] O2 Sat by Pulse 97 98 Oximetry (%) GENERAL: Awake, alert, and fully oriented, in no acute distress. HEAD: Normal with no signs of trauma. EYES: Pupils equal, round and reactive to light, extraocular movements intact, sclera anicteric, conjunctiva clear. No lid lag. LUNGS: Breath sounds equal, clear to auscultation bilaterally. No wheezes, and no crackles. No accessory muscle use. HEART: Regular rate and rhythm, normal S1 and S2 without murmur, rub or gallop. ABDOMEN: Soft, tender in RUQ, + [place] sign, not distended, normoactive bowel sounds, MUSCULOSKELETAL: Normal range of motion at all joints. No bony deformities or tenderness. EXTREMITIES: 2+ pulses, warm, well-perfused. no edema NEUROLOGICAL: Cranial nerves II-XII intact. Normal speech. PSYCHIATRIC: Cooperative. Good eye contact. Appropriate mood and affect. SKIN: Warm, dry, normal turgor, no rashes or lesions noted, normal capillary refill. Laboratory Last Values WBC 6.5 K/mm3 (4.0-10.0) 05/18/19 01:24 RBC 3.91 M/mm3 (3.60-5.2) 05/18/19 01:24 Hgb 11.2 GM/dL (10.7-15.3) 05/18/19 01:24 Hct 33.9 % (32.4-45.2) 05/18/19 01:24 MCV 86.6 fl (80-96) 05/18/19 01:24 MCH 28.6 pg (25.7-33.7) 05/18/19 01:24 MCHC 33.0 g/dl (32.0-36.0) 05/18/19 01:24 RDW 13.8 % (11.6-15.6) 05/18/19 01:24 Plt Count 190 K/MM3 (134-434) 05/18/19 01:24 MPV 8.0 fl (7.5-11.1) 05/18/19 01:24 Absolute Neuts (auto) 4.4 K/mm3 (1.5-8.0) 05/18/19 01:24 Neutrophils % 68.1 % (42.8-82.8) 05/18/19 01:24 Lymphocytes % 19.9 % (8-40) D 05/18/19 01:24 Monocytes % 10.2 % (3.8-10.2) 05/18/19 01:24 Eosinophils % 1.5 % (0-4.5) 05/18/19 01:24 Basophils % 0.3 % (0-2.0) 05/18/19 01:24 Nucleated RBC % 0 % (0-0) 05/18/19 01:24 PT with INR 11.40 SEC (9.7-13.0) 05/18/19 00:15 INR 0.97 (0.83-1.09) 05/18/19 00:15 PTT (Actin FS) 33.6 SECONDS (25.2-36.5) 05/18/19 00:15 Sodium 138 mmol/L (136-145) 05/18/19 01:24 Potassium 3.5 mmol/L (3.5-5.1) 05/18/19 01:24 Chloride 105 mmol/L (98-107) 05/18/19 01:24 Carbon Dioxide 23 mmol/L (21-32) 05/18/19 01:24 Anion Gap 9 MMOL/L (8-16) 05/18/19 01:24 BUN 9.6 mg/dL (7-18) 05/18/19 01:24 Creatinine 0.5 mg/dL (0.55-1.3) L 05/18/19 01:24 Est GFR (CKD-EPI)AfAm 120.22 05/18/19 01:24 Est GFR (CKD-EPI)NonAf 103.73 05/18/19 01:24 Random Glucose 136 mg/dL (74-106) H 05/18/19 01:24 Calcium 8.9 mg/dL (8.5-10.1) 05/18/19 01:24 Total Bilirubin 3.4 mg/dL (0.2-1) H D 05/18/19 01:24 AST 172 U/L (15-37) H 05/18/19 01:24 ALT 288 U/L (13-61) H 05/18/19 01:24 Alkaline Phosphatase 605 U/L (45-117) H 05/18/19 01:24 Total Protein 5.7 g/dl (6.4-8.2) L 05/18/19 01:24 Albumin 2.9 g/dl (3.4-5.0) L 05/18/19 01:24 Lipase 256 U/L (73-393) 05/18/19 01:24 TSH 0.01 uIU/ml (0.358-3.74) L 05/18/19 01:24 Urine Color Dk yellow 05/18/19 00:35 Urine Appearance Clear 05/18/19 00:35 Urine pH 6.0 (5.0-8.0) 05/18/19 00:35 Ur Specific [place] 1.015 (1.010-1.035) 05/18/19 00:35 Urine Protein Negative (NEGATIVE) 05/18/19 00:35 Urine Glucose (UA) Negative (NEGATIVE) 05/18/19 00:35 Urine Ketones 3+ (NEGATIVE) H 05/18/19 00:35 Urine Blood 3+ (NEGATIVE) H 05/18/19 00:35 Urine Nitrite Negative (NEGATIVE) 05/18/19 00:35 Urine Bilirubin 2+ (NEGATIVE) H 05/18/19 00:35 Urine Urobilinogen 2.0 mg/dL (0.2-1.0) H 05/18/19 00:35 Ur Leukocyte Esterase Trace (NEGATIVE) 05/18/19 00:35 Urine WBC (Auto) 2 /hpf (0-5) 05/18/19 00:35 Urine RBC (Auto) 6 /hpf (0-4) 05/18/19 00:35 Urine Casts (Auto) 18 /lpf (0-8) 05/18/19 00:35 U Pathogenic Cast Auto None seen /lpf (NEGATIVE) 05/18/19 00:35 U Epithel Cells (Auto) 3.9 /HPF (0-5/HPF) 05/18/19 00:35 Urine Crystals (Auto) 4 ca oxalate /hpf 05/18/19 00:35 Urine Bacteria (Auto) 13.5 /hpf (NEGATIVE) 05/18/19 00:35 Blood Type A NEGATIVE 05/18/19 01:24 Antibody Screen Negative 05/18/19 01:24 ASSESSMENT/PLAN: pt 64 yo F with PMH of cholecystecomy (01/2019), Biliary obstruction s/p stents ( 12/31, 02/28), pancreatitis (02/28) , hyperthyroidism (newly diagnosed ) , and infrarenal aneurysm. Pt presents to ED with subjective fevers and right abdominal pain. pt also states she felt nauseous and vomiting. Acute cholecystitis -pt afebrile, no leukocytosis -GI consulted Dr. Cornell -NPO/ IVF -rpt LFTs -c/w Zosyn -Toradol for pain -Blood Cx Hyperthyroidism -pt recently diagnosed and recently prescribed Methimazole 20 mg BID -pending T3, free T4, total T4 -consider thyroid u/s -follows w/ Dr. Artis for Endo as outpt DVT ppx SCDs Visit type - Emergency Visit Emergency Visit: No - New Patient This patient is new to me today: No - Critical Care Critical Care patient: No
[2019-05-18 08:49] LABS: BILIRUBIN,TOTAL 4.1 mg/dL (0.2-1)
[2019-05-18] MEDS ORDERED: PIPERACILLIN/TAZOBACTAM 3.375 GM VIAL IVPB ONE (09:09)
[2019-05-18] MEDS ORDERED: DEXTROSE 5%-WATER - 50 ML IVPB ONE (09:09)
[2019-05-18] MEDS ORDERED: PT OWN MED DRAWER 7, Y5N ONE ×2 (09:09→18:29)
[2019-05-18] MEDS: PIPERACILLIN/TAZOB 3.375 GM 3.375 GM in DEXTROSE 5%-WATER - 50 ML IVPB SCH ×2 (09:15→17:29)
[2019-05-18] MEDS ORDERED: metoPROLOL SUCCINATE 25 MG TAB.SR.24H (FP) PO SCH ×2 (10:00→22:00)
--- NOTE | 2019-05-18 10:52 | CON.GI ---
Consult Consult Specialty:: Gastroenterology Referred by:: Dr. Andrea Reason for Consultation:: Jaundice and pain - History of Present Illness Chief Complaint: Vomiting an fever of 100 History of Present Illness: 64F with h/o choledocholithiasis and a CBD stricture was found to have elevated transaminases earlier this week. Yesterday she developed fever of 100 , dark urine, RUQ pain and began to vomit. She denies chills. A sonogram on 05/15 revealed no interval change since 02/28 when a 7mm pancreatic duct was noted and when I had to place a stent for ascending cholangitis and biliary pancreatitis and a suspected distal CBD stricture and papillary stenosis. Yesterday's sonogram reveals significant bile duct dilation. I first met Natalie in 12/31 when she presented with jaundice and attempted an ERCP. I referred her to Dr Lino Mas at [facility] who removed CBD stones and inserted a stent which he subsequently removed. She presented here again in 02/28 with fever of 101 with the biliary pancreatitis and ascending cholangitis. I again referred her to Dr Mas for an EUS of her pancreas to exclude an IPMN and also for possible insertion of a metallic stent. She is scheduled for these on 05/30/19. Since 02/28 she lost about 35 lbs due to hyperthyroidism which is being treated by Methimazole by Dr Graham. Plans for a surveillance colonoscopy to exclude recurrent adenomas was deferred until her thyroid function normalizes. She has experienced hyperdefecation and emotional lability due to this condition. Her T4 is 2.89 - History Source History Provided By: Patient Limitations to Obtaining History: No Limitations - Past Medical History Cardio/Vascular: Yes: Aneurysm (thoracic aneurysm), HTN, Hyperlipdemia, Other ( Thoracic Aortic Aneurysm) Gastrointestinal: Yes: Diverticulosis, Hiatal Hernia, Pancreatitis (biliary pancreatitis and ascending cholangitis 02/28 requiring CBD stent), Other ( ascending and descending colon adenomas removed by Dr Horner 2015) Hepatobiliary: Yes: Cholelithiasis (s/p lap choly), Choledocholithiasis (s/p ERCP with sphincterotomy, stenting, stone and stent removal at [facility], restenting by me 02/28 for cholangitis), Other (s/p Placement of common bile duct, biliary stent. 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 Place of : [employer] History of Recent Travel: No Home Medications - Allergies Allergies/Adverse Reactions: Allergies Allergy/AdvReac Type Severity Reaction Status Date / Time No Known Drug Allergies Allergy Verified 05/17/19 22:11 DUST Allergy Uncoded 05/17/19 22:11 - Home Medications Home Medications: Ambulatory Orders Metoprolol Tartrate 12.5 mg PO DAILY 01/02/19 Methimazole [Tapazole -] 20 mg PO Q12H 05/15/19 Family Disease History - Family Disease History Family Disease History: Diabetes: Mother, Other: Father, Mother, Brother ( ruptured spleen) Physical Exam-GI Vital Signs: Vital Signs Temperature 98 F 05/18/19 09:56 Pulse Rate 86 05/18/19 09:56 Respiratory Rate 18 05/18/19 09:56 Blood Pressure 128/68 05/18/19 09:56 O2 Sat by Pulse Oximetry (%) 98 05/18/19 06:38 CBC,CMP WBC 6.5 K/mm3 (4.0-10.0) 05/18/19 01:24 RBC 3.91 M/mm3 (3.60-5.2) 05/18/19 01:24 Hgb 11.2 GM/dL (10.7-15.3) 05/18/19 01:24 Hct 33.9 % (32.4-45.2) 05/18/19 01:24 MCV 86.6 fl (80-96) 05/18/19 01:24 MCH 28.6 pg (25.7-33.7) 05/18/19 01:24 MCHC 33.0 g/dl (32.0-36.0) 05/18/19 01:24 RDW 13.8 % (11.6-15.6) 05/18/19 01:24 Plt Count 190 K/MM3 (134-434) 05/18/19 01:24 MPV 8.0 fl (7.5-11.1) 05/18/19 01:24 Absolute Neuts (auto) 4.4 K/mm3 (1.5-8.0) 05/18/19 01:24 Neutrophils % 68.1 % (42.8-82.8) 05/18/19 01:24 Lymphocytes % 19.9 % (8-40) D 05/18/19 01:24 Monocytes % 10.2 % (3.8-10.2) 05/18/19 01:24 Eosinophils % 1.5 % (0-4.5) 05/18/19 01:24 Basophils % 0.3 % (0-2.0) 05/18/19 01:24 Nucleated RBC % 0 % (0-0) 05/18/19 01:24 Sodium 138 mmol/L (136-145) 05/18/19 01:24 Potassium 3.5 mmol/L (3.5-5.1) 05/18/19 01:24 Chloride 105 mmol/L (98-107) 05/18/19 01:24 Carbon Dioxide 23 mmol/L (21-32) 05/18/19 01:24 Anion Gap 9 MMOL/L (8-16) 05/18/19 01:24 BUN 9.6 mg/dL (7-18) 05/18/19 01:24 Creatinine 0.5 mg/dL (0.55-1.3) L 05/18/19 01:24 Est GFR (CKD-EPI)AfAm 120.22 05/18/19 01:24 Est GFR (CKD-EPI)NonAf 103.73 05/18/19 01:24 Random Glucose 136 mg/dL (74-106) H 05/18/19 01:24 Calcium 8.9 mg/dL (8.5-10.1) 05/18/19 01:24 Total Bilirubin 4.1 mg/dL (0.2-1) H 05/18/19 08:05 AST 156 U/L (15-37) H 05/18/19 08:05 ALT 282 U/L (13-61) H 05/18/19 08:05 Alkaline Phosphatase 613 U/L (45-117) H 05/18/19 08:05 Total Protein 5.7 g/dl (6.4-8.2) L 05/18/19 01:24 Albumin 2.9 g/dl (3.4-5.0) L 05/18/19 01:24 Lipase 256 U/L (73-393) 05/18/19 01:24 TSH 0.01 uIU/ml (0.358-3.74) L 05/18/19 01:24 Free T4 2.89 ng/dl (0.76-1.46) H 05/18/19 08:05 Current Medications Generic Name Dose Route Start Last Admin Trade Name Freq PRN Reason Stop Dose Admin Sodium Chloride 1,000 mls @ 75 mls/hr 05/18/19 06:15 05/18/19 06:53 Normal Saline - IV 75 mls/hr ASDIR MANI Administration Piperacillin Sod/Tazobactam 50 mls @ 100 mls/hr 05/19/19 10:00 Sod 3.375 gm/ Dextrose IVPB Q8H-IV MANI Protocol Piperacillin Sod/Tazobactam 50 mls @ 100 mls/hr 05/18/19 10:00 05/18/19 09:15 Sod 3.375 gm/ Dextrose IVPB 05/19/19 02:29 100 mls/hr Q8H-IV MANI Administration Ketorolac Tromethamine 30 mg 05/18/19 06:22 Toradol Injection - IM 05/23/19 06:21 ONCE PRN PAIN LEVEL 7 - 10 Methimazole 20 mg 05/18/19 10:00 Tapazole - PO BID MANI Metoprolol Succinate 25 mg 05/18/19 10:00 05/18/19 09:12 Toprol Xl - PO 25 mg DAILY MANI Administration Constitutional: Yes: Anxious Eyes: Yes: Sclera Icterus HENT: Yes: Atraumatic Neck: Yes: Supple Cardiovascular: Yes: Regular Rate and Rhythm Respiratory: Yes: CTA Bilaterally Gastrointestinal Inspection: Yes: Scars (healed vertical right suprpubic and laparoscopic inicisions) ...Auscultate: Yes: Normoactive Bowel Sounds ...Palpate: Yes: Soft, Tenderness (RUQ, no peritoneal signs) ...Rectal Exam: Yes: Deferred Edema: No Peripheral Pulses WNL: Yes Neurological: Yes: Alert, Oriented Labs: CBC, BMP 05/18/19 01:24 05/18/19 01:24 INR, PTT INR 0.97 (0.83-1.09) 05/18/19 00:15 Laboratory Tests 01/11/17 01/02/19 01/29/19 05:35 15:12 06:10 Total Bilirubin AST ALT Alkaline Phosphatase 65 356 H 207 H 02/25/19 03/01/19 05/15/19 06:00 06:30 14:15 Total Bilirubin 0.6 AST 22 145 H ALT 72 H 374 H Alkaline Phosphatase 737 H 416 H 533 H 05/18/19 05/18/19 01:24 08:05 Total Bilirubin 3.4 H D 4.1 H AST 172 H 156 H ALT 288 H 282 H Alkaline Phosphatase 605 H 613 H Imaging - Results Ultrasound: Report Reviewed ( Final Report US ABDOMEN US Show Printer- Friendly Version Patient Name: Natalie Lawton : 1955 ID: [id number] Study Date: 17-May-2019 23:27 [facility] Name: NATAL[facility] DEPARTMENT OF RADIOLOGY Phys: Reji Acosta RESIDENT : 1954 Age: 64 Sex: F [facility] Acct: [id number] Loc: [address] Exam Date: 05/17/19 Status: [place] [address] Unit Number: [id number] EXAM#: TYPE/EXAM: RESULT: [id number] US/ABDOMEN US Right side pain. Cholangitis versus nephrolithiasis Upper abdomen ultrasound. Compared to prior upper abdomen ultrasound dated 05/15/[address] scan of the abdomen pelvis dated 02/24/2019. The liver is within normal limits in size measuring 15.3 cm in sagittal length with a slightly dense echotexture and [id number] dilatation of the central intrahepatic bile ducts. Status post cholecystectomy. Significantly dilated common bile duct measuring 1.5 cm in AP dimension with a partially visualized stent in its lumen. The right and left kidney measured 10.5 and 9.5 cm , respectively. Both kidneys appear unremarkable. The spleen measures 10 cm in sagittal length with homogeneous echotexture except for a small hypoechoic lesion measuring 9 mm.. Limited visualization of the pancreas without gross enlargement. Significant dilatation of the pancreatic duct measuring 1 cm. Visualized portion of the proximal abdominal aorta and inferior vena cava appear unremarkable. Normal flow in the main portal vein. IMPRESSION: Status post cholecystectomy. Mild fatty infiltration of the liver versus hepatocellular disease with mild to moderate dilatation of the central intrahepatic bile ducts. Significant dilatation of the common bile duct measuring 1.5 cm with partially visualized stent in its distal portion. Limited visualization of the pancreas with significant dilatation of the pancreatic duct measuring 1 cm in AP dimension. A preliminary report was forwarded by the [employer] service, IMAGING CARDIOLOGY COORDINATOR. Reported By: Rosa Aldana MD 05/18/19935 Technologist: Ana Lilia Bright Transcribed Date/Time: 05/18/19935 Acute Dialysis Nurse: Rosa Aldana Printed Date/Time: By: Signed by: Rosa Aldana Signed on: 18-May-2019 09:37) Problem List - Problems (1) Acute cholangitis Assessment/Plan: Recurrent jaundice due to CBD obstruction indicates the biliary stent is occluded and needs to be replaced. This may need a metallic stent given this propensity to occlude and given the suspicion of a biliary duct stricture. Such stents are available to Dr Mas at [facility] who I have left a message for in hopes that he will accept her n transfer. Natalie is agreeable to this. I will consult Dr Graham to determine what measures need to be undertaken given her hyperthyroid state before she undergoes anesthesia. Code(s): K83.09 - OTHER CHOLANGITIS (2) Biliary obstruction Code(s): K83.1 - OBSTRUCTION OF BILE DUCT (3) Hyperthyroidism Code(s): E05.90 - THYROTOXICOSIS, UNSP WITHOUT THYROTOXIC CRISIS OR STORM (4) Abnormal findings on imaging of biliary tract Code(s): R93.2 - ABNORMAL FINDINGS ON DX IMAGING OF LIVER AND BILIARY TRACT (5) Abnormal liver enzymes Code(s): R74.8 - ABNORMAL LEVELS OF OTHER SERUM ENZYMES (6) Biliary colic Code(s): K80.50 - CALCULUS OF BILE DUCT W/O CHOLANGITIS OR CHOLECYST W/O OBST (7) Choledocholithiasis Code(s): K80.50 - CALCULUS OF BILE DUCT W/O CHOLANGITIS OR CHOLECYST W/O OBST (8) Common bile duct dilatation Code(s): K83.8 - OTHER SPECIFIED DISEASES OF BILIARY TRACT (9) Dilated pancreatic duct Code(s): K86.89 - OTHER SPECIFIED DISEASES OF PANCREAS (10) History of adenomatous polyp of colon Code(s): Z86.010 - PERSONAL HISTORY OF COLONIC POLYPS (11) History of biliary stent insertion Code(s): Z98.890 - OTHER SPECIFIED POSTPROCEDURAL STATES (12) Jaundice Code(s): R17 - UNSPECIFIED JAUNDICE (13) S/P laparoscopic cholecystectomy Code(s): Z90.49 - ACQUIRED ABSENCE OF OTHER SPECIFIED PARTS OF DIGESTIVE TRACT Assessment/Plan Impression: - Obstructive jaundice due to stent occlusion with suspected ascending cholangitis, suspect recurrent choledocholithiasis - Hyperthyroid state, this can also contribute to some of the transaminase elevation. 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 If not possible then I may need to undertake ERCP and at least change to a new stent - Consult Dr. Graham on thyroid management given the need for a procedure under anesthesia. If the risk of general anesthesia is too high then she may need a PTC to drain the biliary tract temporarily
[2019-05-18] MEDS: METHIMAZOLE 10 MG TABLET (FP) PO SCH ×2 (11:08→21:30)
[2019-05-18] MEDS ORDERED: LACTATED RINGERS SOLUTION 1,000 ML/1,000 ML INFUS.BAG IV SCH (11:30)
--- NOTE | 2019-05-18 12:36 | PN ---
Progress Note (short form) - Note Progress Note: GI NOte: I spoke with Dr Mas at [facility] who has agreed to have Natalie transferred to his service. Arrangements are being made. I communicated this to Dr Andrea and will notify the resident Dr Karyna Barr. Problem List - Problems (1) Acute cholangitis Code(s): K83.09 - OTHER CHOLANGITIS (2) Biliary obstruction Code(s): K83.1 - OBSTRUCTION OF BILE DUCT (3) Hyperthyroidism Code(s): E05.90 - THYROTOXICOSIS, UNSP WITHOUT THYROTOXIC CRISIS OR STORM (4) Abnormal findings on imaging of biliary tract Code(s): R93.2 - ABNORMAL FINDINGS ON DX IMAGING OF LIVER AND BILIARY TRACT (5) Abnormal liver enzymes Code(s): R74.8 - ABNORMAL LEVELS OF OTHER SERUM ENZYMES (6) Biliary colic Code(s): K80.50 - CALCULUS OF BILE DUCT W/O CHOLANGITIS OR CHOLECYST W/O OBST (7) Choledocholithiasis Code(s): K80.50 - CALCULUS OF BILE DUCT W/O CHOLANGITIS OR CHOLECYST W/O OBST (8) Common bile duct dilatation Code(s): K83.8 - OTHER SPECIFIED DISEASES OF BILIARY TRACT (9) Dilated pancreatic duct Code(s): K86.89 - OTHER SPECIFIED DISEASES OF PANCREAS (10) History of adenomatous polyp of colon Code(s): Z86.010 - PERSONAL HISTORY OF COLONIC POLYPS (11) History of biliary stent insertion Code(s): Z98.890 - OTHER SPECIFIED POSTPROCEDURAL STATES (12) Jaundice Code(s): R17 - UNSPECIFIED JAUNDICE (13) S/P laparoscopic cholecystectomy Code(s): Z90.49 - ACQUIRED ABSENCE OF OTHER SPECIFIED PARTS OF DIGESTIVE TRACT
[2019-05-18] MEDS: ONDANSETRON 4 MG/2 ML VIAL IVPUSH PRN ×2 (14:42→20:08)
--- NOTE | 2019-05-18 15:23 | CONSULT ---
Consult Consult Specialty:: Endocrinology Referred by:: Dr Tellez Reason for Consultation:: HYpethyroidism - History of Present Illness Chief Complaint: Abd pain History of Present Illness: This is a 64 y/o F with h/o choledocholithiasis and a CBD stricture, hyperthyroidism was found to have elevated transaminases earlier this week. Yesterday she developed fever of 100 , dark urine, RUQ pain and began to vomit. She denies chills. A sonogram on 05/15 revealed no interval change since 02/28 when a 7mm pancreatic duct was noted and when a stent was placed for ascending cholangitis and biliary pancreatitis and a suspected distal CBD stricture and papillary stenosis. Yesterday's sonogram reveals significant bile duct dilation. She is scheduled for stent removal on 05/30/19. Pt was referred for evaluation of abnormal TFT on 05.07.19. TFT done that day showed TSH of <0.005, FT4 of 3.01, FT3 of 10.2 and TSI of 15. Pt was diagnosed with Grave's Disease and treated with Methimazole with improvement of TSH to 0.10, FT4 of 2.89. FT3 is pending. Pt now admitted with elevated LFTs including bilirubin. - History Source History Provided By: Patient, Medical Record - Past Medical History Cardio/Vascular: Yes: Aneurysm (thoracic aneurysm), HTN, Hyperlipdemia, Other ( Thoracic Aortic Aneurysm) Gastrointestinal: Yes: Diverticulosis, Hiatal Hernia, Pancreatitis (biliary pancreatitis and ascending cholangitis 02/28 requiring CBD stent), Other ( ascending and descending colon adenomas removed by Dr Horner 2015) Hepatobiliary: Yes: Cholelithiasis (s/p lap choly), Choledocholithiasis (s/p ERCP with sphincterotomy, stenting, stone and stent removal at [facility], restenting by [facility] 02/28 for cholangitis), Other (s/p Placement of common bile duct, biliary stent. 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 History of Recent Travel: No Home Medications - Allergies Allergies/Adverse Reactions: Allergies Allergy/AdvReac Type Severity Reaction Status Date / Time No Known Drug Allergies Allergy Verified 05/17/19 22:11 DUST Allergy Uncoded 05/17/19 22:11 - Home Medications Home Medications: Ambulatory Orders Metoprolol Tartrate 12.5 mg PO DAILY 01/02/19 Methimazole [Tapazole -] 20 mg PO Q12H 05/15/19 Family Disease History - Family Disease History Family Disease History: Diabetes: Mother, Other: Father, Mother, Brother ( ruptured spleen) Review of Systems - Review of Systems Constitutional: reports: Malaise Eyes: reports: No Symptoms HENT: reports: No Symptoms Neck: reports: No Symptoms Cardiovascular: reports: No Symptoms Respiratory: reports: No Symptoms Gastrointestinal: reports: Abdominal Pain Genitourinary: reports: No Symptoms Musculoskeletal: reports: No Symptoms Neurological: reports: No Symptoms Endocrine: reports: No Symptoms Hematology/Lymphatic: reports: No Symptoms Physical Exam Vital Signs: Vital Signs Temperature 98 F 05/18/19 09:56 Pulse Rate 86 05/18/19 09:56 Respiratory Rate 18 05/18/19 09:56 Blood Pressure 128/68 05/18/19 09:56 O2 Sat by Pulse Oximetry (%) 98 05/18/19 06:38 Constitutional: Yes: No Distress, Calm Eyes: Yes: Conjunctiva Clear, EOM Intact HENT: Yes: Atraumatic, Normocephalic Neck: Yes: Supple, Trachea Midline Cardiovascular: Yes: Regular Rate and Rhythm Respiratory: Yes: Regular, CTA Bilaterally Gastrointestinal: Yes: Normal Bowel Sounds, Soft Musculoskeletal: Yes: WNL Extremities: Yes: WNL Edema: No Neurological: Yes: Alert, Oriented Labs: CBC, BMP 05/18/19 01:24 05/18/19 01:24 Assessment/Plan AP: Biliary Obstruction Hyperthyroidism Case discussed with Dr Tellez, Elevated LFTs with cholestasis secondary to stent occlusion this is unlikely to be from thionamides. Pt is being transferred to [facility] for possible ERCP/PTC. Methimazole 20mg BID Increase Metoprolol 25mg BID SSKI 0.2 TID Discussed with patient risks of surgery/anesthesia while she is still hyperthyroid including hyperthyroid storm and its consequences which rarely can lead to . Pt verbalizes understanding. IV Beta blockers perioperatively as necessary to maintain blood pressure <80.
--- NOTE | 2019-05-18 19:32 | DS ---
Physical Examination Vital Signs: Vital Signs Temperature 98.2 F 05/18/19 15:01 Pulse Rate 89 05/18/19 15:01 Respiratory Rate 20 05/18/19 15:01 Blood Pressure 127/68 05/18/19 15:01 O2 Sat by Pulse Oximetry (%) 98 05/18/19 06:38 Constitutional: Yes: No Distress Neck: Yes: Supple Cardiovascular: Yes: Regular Rate and Rhythm, S1, S2 Respiratory: Yes: CTA Bilaterally Gastrointestinal: Yes: Normal Bowel Sounds, Soft, Tenderness (RUQ). No: Tenderness, Rebound Neurological: Yes: Alert, Oriented. No: Loss of Sensation ...Motor Strength: WNL Labs: CBC, BMP 05/18/19 01:24 05/18/19 01:24 Discharge Summary Reason For Visit: ACUTE CHOLANGITIS Current Active Problems Acute cholangitis (Acute) Biliary obstruction (Acute) Hyperthyroidism (Acute) Condition: Fair - Instructions Disposition: TRANSFER ACUTE CARE/OTHER HOSP - Home Medications Comprehensive Discharge Medication List: Ambulatory Orders Metoprolol Tartrate 12.5 mg PO DAILY 01/02/19 Methimazole [Tapazole -] 20 mg PO Q12H 05/15/19
[2019-05-18] MEDS ORDERED: KETOROLAC TROMETHAMINE 30 MG/1 ML VIAL IM ONE (20:15)
[2019-05-18] MEDS ORDERED: URSODIOL 300 MG CAPSULE PO SCH (22:00)
[2019-05-18] MEDS ORDERED: POTASSIUM IODIDE 1G/ML SSKI 30 ML DROPSBTL PO SCH (22:00)
--- NOTE | 2019-05-18 23:53 | PN ---
Progress Note (short form) - Note Progress Note: ID CONSULT DICTATED R/O ASC CHOLANGITIS/ BILIARY SEPSIS CONTINUE EMPIRIC ZOSYN
[2019-05-19 00:42] VITALS: BP 145/74; PULSE 62; TEMP 98.1
[2019-05-19] MEDS ORDERED: PIPERACILLIN/TAZOB 3.375 GM 3.375 GM in DEXTROSE 5%-WATER - 50 ML IVPB SCH ×2 (02:00→10:00)
--- NOTE | 2019-05-19 11:26 | EKG ---
Test Reason : Blood Pressure : / mmHG Vent. Rate : 091 BPM Atrial Rate : 091 BPM P-R Int : 160 ms QRS Dur : 082 ms QT Int : 356 ms P-R-T Axes : 065 038 050 degrees QTc Int : 437 ms NORMAL SINUS RHYTHM POSSIBLE LEFT ATRIAL ENLARGEMENT BORDERLINE ECG WHEN COMPARED WITH ECG OF 24-FEB-2019 14:50, NO SIGNIFICANT CHANGE WAS FOUND Confirmed by MG DAVIS MD ([id number]) on 05/19/2019 11:26:35 AM Referred By: Confirmed By:GM DAVIS MD
== END 2019-05-19 01:06 | disposition short-term general hospital (02) | DRG 813 ==
LOC: JER 22:00 → JERBED 05-18 05:07 → J7W 05-18 07:26
PROVIDERS: ADMIT Internal Medicine; ATTEND Internal Medicine
DX: T85.510A Breakdown (mechanical) of bile duct prosthesis, initial encounter (principal); K83.09 Other cholangitis; E05.90 Thyrotoxicosis, unspecified without thyrotoxic crisis or storm; K21.9 Gastro-esophageal reflux disease without esophagitis; E78.00 Pure hypercholesterolemia, unspecified; I10 Essential (primary) hypertension; A41.9 Sepsis, unspecified organism; E78.5 Hyperlipidemia, unspecified; K76.0 Fatty (change of) liver, not elsewhere classified; K57.90 Diverticulosis of intestine, part unspecified, without perforation or abscess without bleeding; K80.51 Calculus of bile duct without cholangitis or cholecystitis with obstruction; K44.9 Diaphragmatic hernia without obstruction or gangrene; F41.9 Anxiety disorder, unspecified; M54.5 Low back pain; R50.9 Fever, unspecified; K86.89 Other specified diseases of pancreas; K83.8 Other specified diseases of biliary tract; I71.2 Thoracic aortic aneurysm, without rupture; R74.8 Abnormal levels of other serum enzymes; R17 Unspecified jaundice; K80.50 Calculus of bile duct without cholangitis or cholecystitis without obstruction; R93.2 Abnormal findings on diagnostic imaging of liver and biliary tract; Z86.010 Personal history of colon polyps; Z98.890 Other specified postprocedural states; Z85.038 Personal history of other malignant neoplasm of large intestine
CPT/HCPCS: 36415; 76700-TC; 80053; 81003; 82247; 83690; 84075; 84436; 84439; 84443; 84450; 84460; 84481; 85025; 85610; 85730; 86850; 86900; 86901; 87077; 87086; 93005; 93010; 99283-25; J0131; J7030

== ENCOUNTER 2019-09-17 07:51 | Day surgery (SDC) | payer OTHER ==
[2019-09-16 16:25] VITALS: BMI 25.6
[2019-09-17 10:10] VITALS: TEMP 97.9
[2019-09-17 14:28] VITALS: BP 135/70; PULSE 80
== END 2019-09-17 14:25 | disposition home or self-care (01) ==
LOC: JASU-ENDO 07:51
PROVIDERS: ATTEND Internal Medicine Gastroenterology
PROC: 0DJD8ZZ Inspection of Lower Intestinal Tract, Via Natural or Artificial Opening Endoscopic (ICD-10-PCS; principal; 2019-09-17 09:00)
DX: Z12.11 Encounter for screening for malignant neoplasm of colon (principal); Z86.010 Personal history of colon polyps; K64.8 Other hemorrhoids; K57.30 Diverticulosis of large intestine without perforation or abscess without bleeding

== ENCOUNTER 2020-01-17 13:28 | Inpatient (IN) | payer OTHER ==
[2020-01-17] MEDS ORDERED: SODIUM CHLORIDE 1,524 ML IV ONE (14:02)
--- NOTE | 2020-01-17 14:33 | PDOC ---
Attending Attestation - Resident Resident Name: Blaine Gamboael - ED Attending Attestation I have performed the following: I have examined & evaluated the patient, The case was reviewed & discussed with the resident, I agree w/resident's findings & plan, Exceptions are as noted - HPI HPI: 01/17/20 14:59 64yo female with hyperthyroid and pancreatic ca s/p whipple in October at [facility] with a fever and rigors today. Pt states rhinorrhea and a small cough. Pt denies cp/sob. No n/v. States chronic diarrhea from her chemo. Last chemo was last week, scheduled for chemo sunday. No dysuria. No rash. No other complaints. 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 Kamara 01/17/20 15:11 01/17/20 15:24 cxr clear 01/17/20 16:10 flu neg wbc normal chem pending ua neg 01/17/20 18:[address] imaging will give zosyn given rigors, fever, active chemo 01/17/20 18:53 pt will be signed out to the oncoming ED physician pending ct imaging and further eval Heart Score/ECG Review - ECG Intrepretation Comment:: 01/17/20 15:21 sinus at 64, nl axis, nl interval, no acute st/t wave findings
--- NOTE | 2020-01-17 14:37 | PDOC ---
History of Present Illness - General Chief Complaint: SIRS, Suspected/Possible Stated Complaint: FEVER Time Seen by Provider: 01/17/20 13:51 - History of Present Illness Initial Comments: 01/17/20 14:54 The patient is a 64 year old female with a history of HLD, Pancreatic CA s/p whipple who presents for evaluation of fever. The patient reports that she recently had a whipple procedure performed in October of 2019 and is currently undergoing chemotherapy. She states that she had her last round of chemotherapy 2 weeks ago. She reports that she awoke this morning with a fever of 102 and associated chills and rigors. She called her surgeon Dr. Kamara who referred to the patient to the ED for further evaluation. The patient states that she took tylenol prior to arrival in the ED. She reports some associated right sided lower chest pain, but otherwise denies headache, cough, nasal congestion, SOB, nausea, vomiting, abdominal pain, or changes with urination or bowel movements. Past History - Past Medical History Allergies/Adverse Reactions: Allergies Allergy/AdvReac Type Severity Reaction Status Date / Time No Known Drug Allergies Allergy Verified 01/17/20 13:33 DUST Allergy Uncoded 01/17/20 13:33 Home Medications: Ambulatory Orders Metoprolol Tartrate 12.5 mg PO DAILY 01/02/19 Methimazole [Tapazole -] 10 mg PO DAILY 05/15/19 Anemia: No Asthma: No Cancer: Yes (Pancreatic) Cardiac Disorders: Yes ("aneursym") CVA: No COPD: No CHF: No Dementia: No Diabetes: No GI Disorders: Yes (REFLUX, colon adenomas, diverticulosis, choledocholitiasis) Disorders: Yes (Ovarian cyst, renal cyst) HTN: No Hypercholesterolemia: Yes Liver Disease: No Seizures: No Thyroid Disease: Yes (Hyper) - Surgical History Abdominal Surgery: No Appendectomy: Yes Cardiac Surgery: No Cholecystectomy: Yes (01/17/2019, stent to CBD) Lung Surgery: No Neurologic Surgery: No Orthopedic Surgery: No - Immunization History Td Vaccination: Yes Immunization Up to Date: Yes - Psycho Social/Smoking Cessation Hx Smoking Status: No Smoking History: Current every day smoker Years of Tobacco Use: 40 Have you smoked in the past 12 months: Yes Number of Cigarettes Smoked Daily: 5 Information on smoking cessation initiated: Yes 'Breaking Loose' booklet given: 01/25/19 Hx Alcohol Use: No Drug/Substance Use Hx: No Substance Use Type: Alcohol Hx Substance Use Treatment: No Review of Systems - Review of Systems Comments:: 01/17/20 14:58 Constitutional: Fever, Chills, No fatigue, malaise HEENT: No Rhinorrhea, nasal congestion, visual changes Cardiovascular: Chest pain. No syncope, palpitations, lightheadedness Respiratory: No Cough, SOB, Hemoptysis, Gastrointestinal: No Abdominal pain, Nausea, Vomiting, Constipation, Diarrhea, Melena Genitourinary: No Dysuria, Frequency, Urgency, Hesitancy, Hematuria, Flank pain Musculoskeletal: No Myalgia, arthralgia Skin: No rashes, itching, bruising, pallor Neurologic: No Headache, Dizziness, Numbness, Weakness, or Tingling Psychiatric: No Hallucinations. No SI or HI *Physical Exam - Vital Signs Last Vital Signs Temp Pulse Resp BP Pulse Ox 99 F 81 16 103/57 L 100 01/17/20 13:34 01/17/20 13:34 01/17/20 13:34 01/17/20 13:34 01/17/20 13:34 - Physical Exam 01/17/20 15:00 General Appearance: Nourished. No Apparent Distress HEENT: EOMI, HALEY. No Pharyngeal Erythema, Tonsillar Exudate, Tonsillar Erythema Neck: No Cervical Lymphadenopathy Respiratory/Chest: Lungs Clear, Normal Breath Sounds. No Crackles, Rales, Rhonchi, Wheezing Cardiovascular: Regular Rhythm, Regular Rate. No Murmur, Gallops, Rubs Gastrointestinal/Abdominal: Normal Bowel Sounds, Soft. No Guarding, Rebound, Tenderness Musculoskeletal: No CVA Tenderness Extremity: Normal Capillary Refill Integumentary: Normal Color, Dry, Warm Neurologic: Fully Oriented, Alert, Normal Mood/Affect, Normal Response, Heart Score/ECG Review #1 ECG reviewed & interpreted by me at: 15:22 01/17/20 15:22 HR 64 SC 184 QRS 84 QTc 422 Normal Sinus Rhythm No Acute ST Changes ED Treatment Course - LABORATORY CBC & Chemistry Diagram: 01/17/20 14:55 01/17/20 14:50 Medical Decision Making - Medical Decision Making 01/17/20 15:00 The patient is a 64 year old female with a history of HLD, Pancreatic CA s/p whipple who presents for evaluation of fever. Given the patient's history and physical exam, we will obtain a cbc, cmp, troponin, tsh, chest plain film, CT abdomen/pelvis, blood cultures, UA, urine culture, ekg to evaluate further. We will treat with iv fluids and continue to monitor and reassess while here in the ED. 01/17/20 19:50 CBC, cmp, troponin, tsh, UA were unremarkable. Chest plain film did not demonstrate any acute process. We have treated the patient with zosyn for emperic coverage due to her fever while on chemotherapy. The patient was signed out to Dr. Merchant pending CT abdomen/pelvis and likely admission for further monitoring. Discharge - Discharge Information Problems reviewed: Yes Clinical Impression/Diagnosis: Sepsis Qualifiers: Sepsis type: sepsis due to unspecified organism Sepsis acute organ dysfunction status: unspecified Qualified Code(s): A41.9 - Sepsis, unspecified organism Condition: Guarded - Follow up/Referral Referrals: Miller Sawyer MD [Primary Care Provider] - - Patient Discharge Instructions - Post Discharge Activity
[2020-01-17 15:34] LABS: BASO % 0.4 % (0-2.0); EOS % 0.9 % (0-4.5); HEMOGLOBIN 11.2 GM/dL (10.7-15.3); LYMPH % 6.7 % (8-40); MCH 31.8 pg (25.7-33.7); MCHC 34.1 g/dl (32.0-36.0); MEAN CELL VOLUME 93.4 fl (80-96); MEAN PLT VOLUME 6.9 fl (7.5-11.1); MONO % 8.2 % (3.8-10.2); NEUT % 83.8 % (42.8-82.8); PLATELET COUNT 211 K/MM3 (134-434); RBC 3.53 M/mm3 (3.60-5.2); RDW 18.6 % (11.6-15.6); VENOUS PC02 44.1 mmHg (38-52); VENOUS PH 7.38 (7.31-7.41); WHITE BLOOD COUNT 7.4 K/mm3 (4.0-10.0)
[2020-01-17 15:34] LABS: INR 1.04 (0.83-1.09); PROTHROMBIN TIME (PATIENT) 12.3 SEC (9.7-13.0)
[2020-01-17 15:35] LABS: VENOUS PO2 < 49 mmHg (28-48)
[2020-01-17 15:36] LABS: EPI CELLS 0.8 /HPF (0-5/HPF); HYALINE CASTS 1 /lpf (0-8); PH,URINE 5.5 (5.0-8.0); URINE APPEARANCE CLEAR; URINE BACTERIA 12.2 /hpf (NEGATIVE); URINE BILIRUBIN NEGATIVE (NEGATIVE); URINE COLOR YELLOW; URINE GLUCOSE (UA) NEGATIVE (NEGATIVE); URINE KETONE NEGATIVE (NEGATIVE); URINE LEUK ESTERASE NEGATIVE (NEGATIVE); URINE NITRITE NEGATIVE (NEGATIVE); URINE PROTEIN NEGATIVE (NEGATIVE); URINE RBC 3 /hpf (0-4); URINE UROBILINOGEN 0.2 mg/dL (0.2-1.0); URINE WBC 1 /hpf (0-5)
[2020-01-17 15:38] LABS: ACTIVATED PTT 31.6 SECONDS (25.2-36.5)
[2020-01-17 16:18] LABS: ALBUMIN 3.4 g/dl (3.4-5.0); ALK PHOS 103 U/L (45-117); ANION GAP 6 MMOL/L (8-16); BILIRUBIN,TOTAL 0.4 mg/dL (0.2-1); BLOOD UREA NITROGEN 15.3 mg/dL (7-18); CALCIUM 8.6 mg/dL (8.5-10.1); CHLORIDE 107 mmol/L (98-107); CO2 25 mmol/L (21-32); CREATININE 0.7 mg/dL (0.55-1.3); GLUCOSE,RANDOM 111 mg/dL (74-106); POTASSIUM 3.9 mmol/L (3.5-5.1); SGOT/AST 38 U/L (15-37); SGPT/ALT 39 U/L (13-61); SODIUM 138 mmol/L (136-145); TOT PROT 6.6 g/dl (6.4-8.2)
[2020-01-17] MEDS ORDERED: PIPERACILLIN/TAZOB 3.375 GM 3.375 GM in DEXTROSE 5%-WATER - 50 ML IVPB ONE (19:00)
--- NOTE | 2020-01-17 19:20 | PDOC ---
*Physical Exam - Vital Signs Last Vital Signs Temp Pulse Resp BP Pulse Ox 99 F 81 16 103/57 L 100 01/17/20 13:34 01/17/20 13:34 01/17/20 13:34 01/17/20 13:34 01/17/20 13:34 ED Treatment Course - LABORATORY CBC & Chemistry Diagram: 01/17/20 14:55 01/17/20 14:50 - ADDITIONAL ORDERS Additional order review: Laboratory Results 01/17/20 01/17/20 01/17/20 14:55 14:55 14:55 PT with INR INR PTT (Actin FS) VBG pH 7.38 POC VBG pCO2 44.1 POC VBG pO2 < 49 H VBG HCO3 25.7 VBG O2 Sat (Cresencio) 39.9 L VBG Base Excess 0.8 Sodium Potassium Chloride Carbon Dioxide Anion Gap BUN Creatinine Est GFR (CKD-EPI)AfAm Est GFR (CKD-EPI)NonAf Random Glucose Lactic Acid 1.5 Calcium Total Bilirubin AST ALT Alkaline Phosphatase Troponin I Total Protein Albumin TSH Urine Color Yellow Urine Appearance Clear Urine pH 5.5 Ur Specific [place] 1.011 Urine Protein Negative Urine Glucose (UA) Negative Urine Ketones Negative Urine Blood 2+ H Urine Nitrite Negative Urine Bilirubin Negative Urine Urobilinogen 0.2 Ur Leukocyte Esterase Negative Urine WBC (Auto) 1 Urine RBC (Auto) 3 Urine Casts (Auto) 1 U Epithel Cells (Auto) 0.8 Urine Bacteria (Auto) 12.2 01/17/20 01/17/20 14:50 14:50 PT with INR 12.30 INR 1.04 PTT (Actin FS) 31.6 VBG pH POC VBG pCO2 POC VBG pO2 VBG HCO3 VBG O2 Sat (Cresencio) VBG Base Excess Sodium 138 Potassium 3.9 Chloride 107 Carbon Dioxide 25 Anion Gap 6 L BUN 15.3 Creatinine 0.7 Est GFR (CKD-EPI)AfAm 107.62 Est GFR (CKD-EPI)NonAf 92.86 Random Glucose 111 H Lactic Acid Calcium 8.6 Total Bilirubin 0.4 AST 38 H ALT 39 Alkaline Phosphatase 103 Troponin I < 0.02 Total Protein 6.6 Albumin 3.4 TSH 1.76 Urine Color Urine Appearance Urine pH Ur Specific [place] Urine Protein Urine Glucose (UA) Urine Ketones Urine Blood Urine Nitrite Urine Bilirubin Urine Urobilinogen Ur Leukocyte Esterase Urine WBC (Auto) Urine RBC (Auto) Urine Casts (Auto) U Epithel Cells (Auto) Urine Bacteria (Auto) 01/17/20 14:55 RBC 3.53 L MCV 93.4 MCHC 34.1 RDW 18.6 H MPV 6.9 L D Neutrophils % 83.8 H D Lymphocytes % 6.7 L D Monocytes % 8.2 Eosinophils % 0.9 Basophils % 0.4 - Medications Given in the ED: ED Medications Discontinued Medications Generic Name Dose Route Start Last Admin Trade Name Freq PRN Reason Stop Dose Admin Sodium Chloride 1,524 mls @ 762 mls/hr 01/17/20 14:02 01/17/20 15:14 Normal Saline - 30 ml/kg infuse over 2 hr (1524 ml) 01/17/20 16:01 762 mls/hr IV Administration ONCE ONE Medical Decision Making - Medical Decision Making 01/17/20 19:16 Pt signed out to me by Dr. Gamboa, [facility] team. 64F with a PMH of pancreatic ca, currently undergoing treatment, who presents with a fever. CTAP negative, CXR, and urine negative. Will admit for fever for concern of bacteremia in an immunocompromised patient. 01/17/20 19:49 Pt endorsed to [facility] for admission. Discharge - Discharge Information Problems reviewed: Yes Clinical Impression/Diagnosis: Sepsis Qualifiers: Sepsis type: sepsis due to unspecified organism Sepsis acute organ dysfunction status: unspecified Qualified Code(s): A41.9 - Sepsis, unspecified organism Condition: Guarded - Admission Yes - Follow up/Referral Referrals: Miller Sawyer MD [Primary Care Provider] - - Patient Discharge Instructions - Post Discharge Activity
[2020-01-17] MEDS ORDERED: PIPERACILLIN/TAZOB 3.375 GM 3.375 GM/50 ML BAG IVPB ONE (19:44)
[2020-01-17] MEDS ORDERED: ACETAMINOPHEN 325 MG TABLET (FP) PO PRN (20:20)
--- NOTE | 2020-01-17 20:20 | HP ---
Admitting History and Physical - Primary Care Physician PCP: Miller Sawyer - Admission Chief Complaint: Fever, Chills, Chest Pain, Loose Stool, Headache History of Present Illness: This is a 64 y/o female with a PMHx of Pancreatic Ca -Active Chemo (2 weeks ago), s/p Whipple (10/2019, at [facility]), HLD, GERD, Diverticulosis, Hyperthyroid. Who presents to the ED for subjective fever 102.0, rigors, right sided chest pain, headache, loose stools. Patient reports taking Tylenol for the fever without improvement. She describes the chest pain as sharp non-radiating. Patient reports recent grocery shopping in a crowded supermarket. Patient rep orts that she is scheduled for chemo this Sunday. Patient denies dizziness, palpitations, AP, N/V, constipation, dysuria. History Source: Patient Limitations to Obtaining History: No Limitations - Past Medical History Cardiovascular: Yes: Aneurysm (thoracic aneurysm), HTN, Hyperlipdemia, Other (Thoracic Aortic Aneurysm) Gastrointestinal: Yes: Diverticulosis, Hiatal Hernia, Pancreatitis, Other Hepatobiliary: Yes: Cholelithiasis (s/p lap choly), Choledocholithiasis (s/p ERCP with sphincterotomy, stenting, stone and stent removal at [facility], restenting by nm 02/28 for cholangitis), Other (s/p Placement of common bile duct, biliary stent. Fatty liver) Renal/: Yes: Hematuria, Renal Calculi, Other Psych: Yes: Anxiety Musculoskeletal: Yes: Chronic low back pain Endocrine: Yes: Hyperthyroidism - Past Surgical History Past Surgical History: Yes: Appendectomy, Breast Biopsy, Cholecystectomy, Colonoscopy, Upper Endoscopy Additional Past Surgical History: Whipple (10/2019) - Smoking History Smoking history: Current every day smoker Have you smoked in the past 12 months: Yes Aproximately how many cigarettes per day: 5 - Alcohol/Substance Use Hx Alcohol Use: No History of Substance Use: reports: None - Social History Usual Living Arrangement: Yes: With Spouse Do you think of yourself as: Straight/Heterosexual ADL: Independent 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 History of Recent Travel: No Home Medications - Allergies Allergies/Adverse Reactions: Allergies Allergy/AdvReac Type Severity Reaction Status Date / Time No Known Drug Allergies Allergy Verified 01/17/20 13:33 DUST Allergy Uncoded 01/17/20 13:33 - Home Medications Home Medications: Ambulatory Orders Metoprolol Tartrate 12.5 mg PO DAILY 01/02/19 Methimazole [Tapazole -] 10 mg PO DAILY 05/15/19 Family Medical History Family History: Unable to Obtain Review of Systems - Review of Systems Constitutional: reports: Chills, Fever, Malaise Eyes: reports: No Symptoms HENT: reports: No Symptoms Neck: reports: No Symptoms Cardiovascular: reports: Chest Pain Respiratory: reports: Cough Gastrointestinal: reports: Diarrhea Genitourinary: reports: No Symptoms Breasts: reports: No Symptoms Reported Musculoskeletal: reports: No Symptoms Integumentary: reports: No Symptoms Neurological: reports: Headache Endocrine: reports: No Symptoms Hematology/Lymphatic: reports: No Symptoms Psychiatric: reports: No Symptoms Pain Intensity: 6 Physical Examination Vital Signs: Vital Signs Temperature 99.5 F 01/17/20 19:50 Pulse Rate 66 01/17/20 19:50 Respiratory Rate 18 01/17/20 19:50 Blood Pressure 112/52 L 01/17/20 19:50 O2 Sat by Pulse Oximetry (%) 100 01/17/20 19:50 Constitutional: Yes: Pallor, Thin Eyes: Yes: WNL, Conjunctiva Clear, EOM Intact, PERRL HENT: Yes: WNL, Atraumatic, Normocephalic Neck: Yes: WNL, Supple, Trachea Midline Cardiovascular: Yes: Regular Rate and Rhythm, S1, S2 Respiratory: Yes: WNL, Regular, CTA Bilaterally Gastrointestinal: Yes: Normal Bowel Sounds, Soft ...Rectal Exam: Yes: Deferred Renal/: Yes: WNL Breast(s): Yes: WNL Musculoskeletal: Yes: WNL Extremities: Yes: WNL Edema: No Peripheral Pulses WNL: Yes Neurological: Yes: WNL, Alert, Oriented, Cran Nerves II-XII Intact ...Motor Strength: WNL Psychiatric: Yes: WNL, Alert, Oriented Labs: CBC, BMP 01/17/20 14:55 01/17/20 14:50 Laboratory Results - last 24 hr 01/17/20 01/17/20 01/17/20 14:50 14:50 14:50 WBC RBC Hgb Hct MCV MCH MCHC RDW Plt Count MPV Absolute Neuts (auto) Neutrophils % Lymphocytes % Monocytes % Eosinophils % Basophils % Nucleated RBC % PT with INR 12.30 INR 1.04 PTT (Actin FS) 31.6 VBG pH POC VBG pCO2 POC VBG pO2 VBG HCO3 VBG O2 Sat (Cresencio) VBG Base Excess Sodium 138 Potassium 3.9 Chloride 107 Carbon Dioxide 25 Anion Gap 6 L BUN 15.3 Creatinine 0.7 Est GFR (CKD-EPI)AfAm 107.62 Est GFR (CKD-EPI)NonAf 92.86 Random Glucose 111 H Lactic Acid Calcium 8.6 Phosphorus Magnesium Total Bilirubin 0.4 AST 38 H ALT 39 Alkaline Phosphatase 103 Troponin I < 0.02 Total Protein 6.6 Albumin 3.4 Triglycerides Cholesterol Total LDL Cholesterol HDL Cholesterol TSH 1.76 Urine Color Urine Appearance Urine pH Ur Specific [place] Urine Protein Urine Glucose (UA) Urine Ketones Urine Blood Urine Nitrite Urine Bilirubin Urine Urobilinogen Ur Leukocyte Esterase Urine WBC (Auto) Urine RBC (Auto) Urine Casts (Auto) U Epithel Cells (Auto) Urine Bacteria (Auto) Influenza A (Rapid) Negative Influenza B (Rapid) Negative 01/17/20 01/17/20 01/17/20 14:55 14:55 14:55 WBC 7.4 RBC 3.53 L Hgb 11.2 Hct 33.0 MCV 93.4 MCH 31.8 D MCHC 34.1 RDW 18.6 H Plt Count 211 MPV 6.9 L D Absolute Neuts (auto) 6.2 Neutrophils % 83.8 H D Lymphocytes % 6.7 L D Monocytes % 8.2 Eosinophils % 0.9 Basophils % 0.4 Nucleated RBC % 0 PT with INR INR PTT (Actin FS) VBG pH 7.38 POC VBG pCO2 44.1 POC VBG pO2 < 49 H VBG HCO3 25.7 VBG O2 Sat (Cresencio) 39.9 L VBG Base Excess 0.8 Sodium Potassium Chloride Carbon Dioxide Anion Gap BUN Creatinine Est GFR (CKD-EPI)AfAm Est GFR (CKD-EPI)NonAf Random Glucose Lactic Acid Calcium Phosphorus Magnesium Total Bilirubin AST ALT Alkaline Phosphatase Troponin I Total Protein Albumin Triglycerides Cholesterol Total LDL Cholesterol HDL Cholesterol TSH Urine Color Yellow Urine Appearance Clear Urine pH 5.5 Ur Specific [place] 1.011 Urine Protein Negative Urine Glucose (UA) Negative Urine Ketones Negative Urine Blood 2+ H Urine Nitrite Negative Urine Bilirubin Negative Urine Urobilinogen 0.2 Ur Leukocyte Esterase Negative Urine WBC (Auto) 1 Urine RBC (Auto) 3 Urine Casts (Auto) 1 U Epithel Cells (Auto) 0.8 Urine Bacteria (Auto) 12.2 Influenza A (Rapid) Influenza B (Rapid) 01/17/20 01/17/20 14:55 23:00 WBC RBC Hgb Hct MCV MCH MCHC RDW Plt Count MPV Absolute Neuts (auto) Neutrophils % Lymphocytes % Monocytes % Eosinophils % Basophils % Nucleated RBC % PT with INR INR PTT (Actin FS) VBG pH POC VBG pCO2 POC VBG pO2 VBG HCO3 VBG O2 Sat (Cresencio) VBG Base Excess Sodium Potassium Chloride Carbon Dioxide Anion Gap BUN Creatinine Est GFR (CKD-EPI)AfAm Est GFR (CKD-EPI)NonAf Random Glucose Lactic Acid 1.5 Calcium Phosphorus Magnesium Total Bilirubin AST ALT Alkaline Phosphatase Troponin I < 0.02 Total Protein Albumin Triglycerides Cholesterol Total LDL Cholesterol HDL Cholesterol TSH Urine Color Urine Appearance Urine pH Ur Specific [place] Urine Protein Urine Glucose (UA) Urine Ketones Urine Blood Urine Nitrite Urine Bilirubin Urine Urobilinogen Ur Leukocyte Esterase Urine WBC (Auto) Urine RBC (Auto) Urine Casts (Auto) U Epithel Cells (Auto) Urine Bacteria (Auto) Influenza A (Rapid) Influenza B (Rapid) Intake & Output 01/15/20 01/16/20 01/17/20 01/19/20 23:59 23:59 23:59 00:59 Weight 53.07 kg Imaging - Results Chest X-ray: Report Reviewed, Image Reviewed Cat Scan: Report Reviewed, Image Reviewed EKG: Image Reviewed Problem List - Problems (1) Chest pain Assessment/Plan: r/o ACS HEART Score 3 Continue cardiac monitoring Serial Enzymes negx1, will trend Appreciate Cardiology consult Echo Continue Asa Code(s): R07.9 - CHEST PAIN, UNSPECIFIED (2) Sepsis Assessment/Plan: ?etiology qSOFA 1 Sepsis Criteria MET: T Max 99.5, R 20, Neutrophils 88 Rapid Flu neg A+B Blood Cultures-pending Urine Culture-pending Zosyn given in ED, will continue Consider 2nd Agent for Broader based coverage Appreciate ID consult Monitor CBC, BMP Maintain MAP> 65 Gentle IVF Code(s): A41.9 - SEPSIS, UNSPECIFIED ORGANISM Qualifiers: Sepsis type: sepsis due to unspecified organism Sepsis acute organ dysfunction status: unspecified Qualified Code(s): A41.9 - Sepsis, unspecified organism (3) Fever of unknown origin Assessment/Plan: Concerning for Bacteremia Patient is on active Chemo Agent, immunocompromised Blood Cultures-pending Urine Culture-pending Chest Xray image, report- reviewed- no infiltrate, no effusion CT Abd/Pel image, report reviewed- no abscess formation or complication. 3.7cm L- Ovarian cyst. stool filled rectum and colon Zosyn given in ED, will continue Appreciate ID consult Monitor CBC, BMP Monitor vitals Tylenol prn Gentle IVF Code(s): R50.9 - FEVER, UNSPECIFIED (4) Pancreatic cancer Assessment/Plan: s/p Chemo Therapy 2 weeks ago Appreciate Oncology consult Monitor CBC, BMP Monitor vitals Code(s): C25.9 - MALIGNANT NEOPLASM OF PANCREAS, UNSPECIFIED (5) Hyperthyroidism Assessment/Plan: stable Continue home med Code(s): E05.90 - THYROTOXICOSIS, UNSP WITHOUT THYROTOXIC CRISIS OR STORM Assessment/Plan This is a 64 y/o female with a PMHx of Pancreatic Ca -Active Chemo (2 weeks ago), s/p Whipple (10/2019, at [facility]), HLD, GERD, Diverticulosis, Hyperthyroid. Admitted to Telemetry for Chest Pain r/o ACS, Sepsis, Fever of Unk nown Origin for further evaluation of their emergent condition. Plan: See Problem List FEN PO fluids as tolerated Replete lytes prn Low Cholesterol Diet DVT ppx OOB SCDs Heparin SQ Dispo: Requires Inpatient Care Visit type - Emergency Visit Emergency Visit: Yes ED Registration Date: 01/17/20 Care time: The patient presented to the Emergency Department on the above date and was hospitalized for further evaluation of their emergent condition. - New Patient This patient is new to me today: Yes Date on this admission: 01/17/20 - Critical Care Critical Care patient: No
[2020-01-18 01:13] VITALS: BMI 21.4
[2020-01-18] MEDS ORDERED: SODIUM CHLORIDE 1,000 ML IV STA (01:20)
[2020-01-18] MEDS ORDERED: PIPERACILLIN/TAZOBACTAM 3.375 GM VIAL IVPB ONE ×3 (01:52→17:54)
[2020-01-18] MEDS ORDERED: DEXTROSE 5%-WATER - 50 ML IVPB ONE ×3 (01:52→17:54)
[2020-01-18] MEDS ORDERED: PIPERACILLIN/TAZOB 3.375 GM 3.375 GM in DEXTROSE 5%-WATER - 50 ML IVPB ONE (02:00)
[2020-01-18 07:58] LABS: BASO % 0.6 % (0-2.0); EOS % 4.9 % (0-4.5); HEMATOCRIT 28.4 % (32.4-45.2); HEMOGLOBIN 9.6 GM/dL (10.7-15.3); MCH 31.3 pg (25.7-33.7); MCHC 33.9 g/dl (32.0-36.0); MEAN CELL VOLUME 92.4 fl (80-96); MEAN PLT VOLUME 6.8 fl (7.5-11.1); MONO % 17.5 % (3.8-10.2); PLATELET COUNT 169 K/MM3 (134-434); RBC 3.07 M/mm3 (3.60-5.2); RDW 18.9 % (11.6-15.6); WHITE BLOOD COUNT 3.4 K/mm3 (4.0-10.0)
[2020-01-18 08:29] LABS: ANION GAP 7 MMOL/L (8-16); BLOOD UREA NITROGEN 9.3 mg/dL (7-18); CALCIUM 7.5 mg/dL (8.5-10.1); CHLORIDE 112 mmol/L (98-107); CHOLESTEROL 126 mg/dL (50-200); CO2 23 mmol/L (21-32); CREATININE 0.6 mg/dL (0.55-1.3); GLUCOSE,RANDOM 85 mg/dL (74-106); HDL CHOLESTEROL 42 mg/dL (40-60); LDL CHOLESTEROL (ONLY SJRH) 64 mg/dL (5-100); MAGNESIUM 2.1 mg/dL (1.8-2.4); PHOSPHOROUS 3.3 mg/dL (2.5-4.9); POTASSIUM 3.4 mmol/L (3.5-5.1); SODIUM 143 mmol/L (136-145); TRIGLYCERIDES 94 mg/dL (0-150)
[2020-01-18] MEDS: METHIMAZOLE 10 MG TABLET (FP) PO SCH (09:02)
--- NOTE | 2020-01-18 09:51 | EKG ---
Test Reason : Blood Pressure : / mmHG Vent. Rate : 064 BPM Atrial Rate : 064 BPM P-R Int : 184 ms QRS Dur : 084 ms QT Int : 410 ms P-R-T Axes : 054 050 061 degrees QTc Int : 422 ms NORMAL SINUS RHYTHM NORMAL ECG WHEN COMPARED WITH ECG OF 17-MAY-2019 21:57, NO SIGNIFICANT CHANGE WAS FOUND Confirmed by Reece Kramer MD ([id number]) on 01/18/2020 9:50:51 AM Referred By: Confirmed By:Reece Kramer MD
[2020-01-18] MEDS ORDERED: VANCOMYCIN 1 GRAM (PRE-DOCKED) 1,000 MG/250 ML BAG IVPB ONE (09:52)
[2020-01-18] MEDS ORDERED: POTASSIUM CHLORIDE TABS 20 MEQ TABLET.ER (FP) PO ONE (10:05)
[2020-01-18] MEDS: SODIUM CHLORIDE 1,000 ML IV SCH (10:47)
[2020-01-18] MEDS ORDERED: VANCOMYCIN 1,000 MG in SODIUM CHLORIDE 250 ML IVPB ONE (11:00)
--- NOTE | 2020-01-18 11:12 | PN ---
Progress Note, Physician Chief Complaint: Chest pain with fever History of Present Illness: 64 y/o female with a H/O Ca Pancrease s/p Whipple surgery on 10/30/2019 at [facility] after Neoadjuvant chemotherapy, currently on chemotherapy gemcitabine and capecitabine (1 week on, 1 week off) on 12/08/19. Was supposed to start c4 tomorrow so has been off capecitabine for about a week. Last gemcitabine about 2 weeks ago, yesterday present with 1 day H/O sharp chest pain, nausea and fever with chills 102.5 came to Ed for evaluation, CT chest -ve for PE or infiltrayes, UA normal, today feels improved on IV Zosyn , evaluated by cardiology, Oncology and ID consult, normal serial CE no acute ST t changes in EKG. - Current Medication List Current Medications: Active Medications Acetaminophen (Tylenol -) 650 mg PO Q6H PRN PRN Reason: FEVER Last Admin: 01/17/20 23:13 Dose: 650 mg Documented by: Piperacillin Sod/Tazobactam (Sod 3.375 gm/ Dextrose) 50 mls @ 100 mls/hr IVPB Q8H-IV MANI; Protocol Sodium Chloride (Normal Saline -) 1,000 mls @ 42 mls/hr IV ASDIR MANI Last Admin: 01/18/20 10:47 Dose: 42 mls/hr Documented by: Vancomycin HCl 1,000 mg/ (Sodium Chloride) 250 mls @ 166.667 mls/hr IVPB ONCE ONE; Protocol Stop: 01/18/20 12:29 Methimazole (Tapazole -) 10 mg PO DAILY MANI Last Admin: 01/18/20 09:02 Dose: 10 mg Documented by: - Objective Vital Signs: Vital Signs Temperature 98.2 F 01/18/20 07:58 Pulse Rate 70 01/18/20 07:58 Respiratory Rate 20 01/18/20 07:58 Blood Pressure 92/53 L 01/18/20 07:58 O2 Sat by Pulse Oximetry (%) 100 01/18/20 07:56 Middle aged F comfortable not in distress HEENT: Mm moist, anderson anemia, PERRLA EOMI NECK: No JVd No Bruit CHEST: Mild tenderness ant chest wall, CTA B/L CVS: sS2 R no m/g/r ABD: S/p surgery haeled scar Bs + EXT: No edema feet, no calf tenderness, Pulses + DATA CENTER CONSULTANT: AOX3 non focal Labs: CBC, BMP 01/18/20 06:55 01/18/20 06:55 INR, PTT INR 1.04 (0.83-1.09) 01/17/20 14:50 Problem List - Problems (1) Chest pain Assessment/Plan: Atypical normal CE and non dynamic EKG evaluted by cardiology F/U ECHO, tele monitor Problems reviewed: Yes Code(s): R07.9 - CHEST PAIN, UNSPECIFIED (2) Fever of unknown origin Assessment/Plan: Cont Zosyn as per ID F/U cultures Problems reviewed: Yes Code(s): R50.9 - FEVER, UNSPECIFIED (3) Pancreatic cancer Assessment/Plan: S/P resection on Chemo F/U at [facility] for chemotherapy Problems reviewed: Yes Code(s): C25.9 - MALIGNANT NEOPLASM OF PANCREAS, UNSPECIFIED (4) Hyperthyroidism Assessment/Plan: Well controlled resume home meds Problems reviewed: Yes Code(s): E05.90 - THYROTOXICOSIS, UNSP WITHOUT THYROTOXIC CRISIS OR STORM (5) Nonobstructive atherosclerosis of coronary artery Assessment/Plan: Stbale atypical shields CE are -ve Problems reviewed: Yes Code(s): I25.10 - ATHSCL HEART DISEASE OF [place] CORONARY ARTERY W/O ANG PCTRS
--- NOTE | 2020-01-18 11:59 | CON.CARD ---
Cardiology Consult (text) - Consultation Consultation Note: Chief Complaint: chest pain History of Present Illness: 64F h/o cholecystectomy 01/2019, HLD, GERD, thoracic aorta aneurysm, hiatal hernia, pancreatic cancer s/p whipple and chemotherapy p/w fever. Also had c hest pain on night prior to admission. Sees Dr. Cruz for cardio, per pt had echo in September which was unremarkable and a stress test within the last year whichwas normal. She also says she had a cath at [facility] about two years ago that was normal. No dyspnea, orthopnea, PND, dizziness. Chest pain was right sided, happened two nights ago and felt this along with fevers, chills, headache. R sided, nonradiating. - Past Medical History Cardio/Vascular: Yes: Aneurysm (thoracic aaneurysm), HTN, Hyperlipdemia, Other (Thoracic Aortic Aneurysm) Gastrointestinal: Yes: Diverticulosis, Hiatal Hernia, Other (ascending and descending colon adenomas removed by Dr Horner) Hepatobiliary: Yes: Cholelithiasis, Choledocholithiasis (s/p ERCP with sphincterotomy, stenting , stone and stent removal at [facility]), Other (s/p Placement of common bile duct, biliary stent.) Renal/: Yes: Hematuria, Renal Calculi, Other Psych: Yes: Anxiety Musculoskeletal: Yes: Chronic low back pain - Past Surgical History Past Surgical History: Yes: Appendectomy, Breast Biopsy, Cholecystectomy, Colonoscopy, Upper Endoscopy - Alcohol/Substance Use Hx Alcohol Use: No History of Substance Use: reports: None - Smoking History Smoking history: Current every day smoker Have you smoked in the past 12 months: No Aproximately how many cigarettes per day: 5 - Social History Usual Living Arrangement: Alone ADL: Independent 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 History of Recent Travel: No Home Medications - Allergies Allergies/Adverse Reactions: Allergies Allergy/AdvReac Type Severity Reaction Status Date / Time No Known Drug Allergies Allergy Verified 01/17/20 13:33 DUST Allergy Uncoded 01/17/20 13:33 - Home Medications Home Medications: Ambulatory Orders Metoprolol Tartrate 12.5 mg PO DAILY 01/02/19 Simvastatin [Zocor -] 40 mg PO HS 01/02/19 Family Disease History - Family Disease History Family Disease History: Diabetes: Mother, Other: Father, Mother, Brother Review of Systems - Review of Systems Constitutional: reports: No Symptoms Eyes: reports: No Symptoms HENT: reports: No Symptoms Neck: reports: No Symptoms Cardiovascular: reports: No Symptoms Respiratory: reports: No Symptoms Gastrointestinal: reports: Abdominal Pain, Nausea Genitourinary: reports: No Symptoms Musculoskeletal: reports: No Symptoms Integumentary: reports: No Symptoms Neurological: reports: No Symptoms Endocrine: reports: No Symptoms Hematology/Lymphatic: reports: No Symptoms Psychiatric: reports: No Symptoms Vital Signs: Vital Signs Period Temp Pulse Resp BP Sys/Lowe Pulse Ox Last 24 Hr 97.3 F-99.5 F 55-81 16-20 86-113/41-57 100-100 Constitutional: Yes: Well Nourished, No Distress, Calm Eyes: Yes: Conjunctiva Clear, EOM Intact HENT: Yes: Atraumatic, Normocephalic Neck: Yes: Supple, Trachea Midline Respiratory: Yes: Regular, CTA Bilaterally Gastrointestinal: Yes: Normal Bowel Sounds, Soft Cardiovascular: Yes: Regular Rate and Rhythm JVD: No Carotid Bruit: No PMI: Non-Displaced Heart Sounds: Yes: S1, S2 Musculoskeletal: No: Back Pain Extremities: No: Cold Edema: No Peripheral Pulses WNL: Yes Peripheral Pulses: 2+ Left Doralis Pedis, 2+ Right Dorsalis Pedis Integumentary: Yes: Jaundice Neurological: Yes: Alert, Oriented Psychiatric: No: Agitated Laboratory Last Values WBC 3.4 K/mm3 (4.0-10.0) L 01/18/20 06:55 RBC 3.07 M/mm3 (3.60-5.2) L 01/18/20 06:55 Hgb 9.6 GM/dL (10.7-15.3) L 01/18/20 06:55 Hct 28.4 % (32.4-45.2) L 01/18/20 06:55 MCV 92.4 fl (80-96) 01/18/20 06:55 MCH 31.3 pg (25.7-33.7) 01/18/20 06:55 MCHC 33.9 g/dl (32.0-36.0) 01/18/20 06:55 RDW 18.9 % (11.6-15.6) H 01/18/20 06:55 Plt Count 169 K/MM3 (134-434) 01/18/20 06:55 MPV 6.8 fl (7.5-11.1) L 01/18/20 06:55 Absolute Neuts (auto) 1.9 K/mm3 (1.5-8.0) 01/18/20 06:55 Neutrophils % 57.0 % (42.8-82.8) D 01/18/20 06:55 Lymphocytes % 20.0 % (8-40) D 01/18/20 06:55 Monocytes % 17.5 % (3.8-10.2) H D 01/18/20 06:55 Eosinophils % 4.9 % (0-4.5) H D 01/18/20 06:55 Basophils % 0.6 % (0-2.0) 01/18/20 06:55 Nucleated RBC % 0 % (0-0) 01/18/20 06:55 PT with INR 12.30 SEC (9.7-13.0) 01/17/20 14:50 INR 1.04 (0.83-1.09) 01/17/20 14:50 PTT (Actin FS) 31.6 SECONDS (25.2-36.5) 01/17/20 14:50 VBG pH 7.38 (7.31-7.41) 01/17/20 14:55 POC VBG pCO2 44.1 mmHg (38-52) 01/17/20 14:55 POC VBG pO2 < 49 mmHg (28-48) H 01/17/20 14:55 VBG HCO3 25.7 mmol/L (23-29) 01/17/20 14:55 VBG O2 Sat (Cresencio) 39.9 % (70-80) L 01/17/20 14:55 VBG Base Excess 0.8 meq/l (-2-2) 01/17/20 14:55 Sodium 143 mmol/L (136-145) 01/18/20 06:55 Potassium 3.4 mmol/L (3.5-5.1) L 01/18/20 06:55 Chloride 112 mmol/L (98-107) H 01/18/20 06:55 Carbon Dioxide 23 mmol/L (21-32) 01/18/20 06:55 Anion Gap 7 MMOL/L (8-16) L 01/18/20 06:55 BUN 9.3 mg/dL (7-18) 01/18/20 06:55 Creatinine 0.6 mg/dL (0.55-1.3) 01/18/20 06:55 Est GFR (CKD-EPI)AfAm 113.22 01/18/20 06:55 Est GFR (CKD-EPI)NonAf 97.69 01/18/20 06:55 Random Glucose 85 mg/dL (74-106) 01/18/20 06:55 Lactic Acid 1.0 mmol/L (0.4-2.0) 01/18/20 06:55 Calcium 7.5 mg/dL (8.5-10.1) L 01/18/20 06:55 Phosphorus 3.3 mg/dL (2.5-4.9) 01/18/20 06:55 Magnesium 2.1 mg/dL (1.8-2.4) 01/18/20 06:55 Total Bilirubin 0.4 mg/dL (0.2-1) 01/17/20 14:50 AST 38 U/L (15-37) H 01/17/20 14:50 ALT 39 U/L (13-61) 01/17/20 14:50 Alkaline Phosphatase 103 U/L (45-117) 01/17/20 14:50 Troponin I < 0.02 ng/ml (0.00-0.05) 01/18/20 06:55 Total Protein 6.6 g/dl (6.4-8.2) 01/17/20 14:50 Albumin 3.4 g/dl (3.4-5.0) 01/17/20 14:50 Triglycerides 94 mg/dL (0-150) 01/18/20 06:55 Cholesterol 126 mg/dL (50-200) 01/18/20 06:55 Total LDL Cholesterol 64 mg/dL (5-100) 01/18/20 06:55 HDL Cholesterol 42 mg/dL (40-60) 01/18/20 06:55 TSH 1.76 uIU/ml (0.358-3.74) 01/17/20 14:50 Urine Color Yellow 01/17/20 14:55 Urine Appearance Clear 01/17/20 14:55 Urine pH 5.5 (5.0-8.0) 01/17/20 14:55 Ur Specific [place] 1.011 (1.010-1.035) 01/17/20 14:55 Urine Protein Negative (NEGATIVE) 01/17/20 14:55 Urine Glucose (UA) Negative (NEGATIVE) 01/17/20 14:55 Urine Ketones Negative (NEGATIVE) 01/17/20 14:55 Urine Blood 2+ (NEGATIVE) H 01/17/20 14:55 Urine Nitrite Negative (NEGATIVE) 01/17/20 14:55 Urine Bilirubin Negative (NEGATIVE) 01/17/20 14:55 Urine Urobilinogen 0.2 mg/dL (0.2-1.0) 01/17/20 14:55 Ur Leukocyte Esterase Negative (NEGATIVE) 01/17/20 14:55 Urine WBC (Auto) 1 /hpf (0-5) 01/17/20 14:55 Urine RBC (Auto) 3 /hpf (0-4) 01/17/20 14:55 Urine Casts (Auto) 1 /lpf (0-8) 01/17/20 14:55 U Epithel Cells (Auto) 0.8 /HPF (0-5/HPF) 01/17/20 14:55 Urine Bacteria (Auto) 12.2 /hpf (NEGATIVE) 01/17/20 14:55 Influenza A (Rapid) Negative (Negative) 01/17/20 14:50 Influenza B (Rapid) Negative (Negative) 01/17/20 14:50 Assessment/Plan EKG: sinus, nl intervals, no ischemic changes. Chest pain - reportedly negative stress test and cardiac cath in the last 2 years - will review outside records - history less consistent with ACS - stable EKG, trop neg x 3 - echo pending fever - workup per primary pancreatic cancer - chemo recently, s/p whipple - manage per onc HTN - cont current meds thoracic aorta aneurysm - reportedly stable 08/2018 - cont metoprolol - outpatient follow up
--- NOTE | 2020-01-18 12:54 | PN ---
Progress Note (short form) - Note Progress Note: ID consult dictated 64 yo female sp/ [id number] 10/30 now on chemo- last 01/04 admitted with fever and chills- temp at home 102.5 no furhter fevers here smoker denies cough ct scan noted csray clear port site no erythema or tenderness fevers leukopenia s/p chemo pancreatic cancer got vanco/zosyn continue zosyn f/u cultures
[2020-01-18] MEDS: PIPERACILLIN/TAZOB 3.375 GM 3.375 GM in DEXTROSE 5%-WATER - 50 ML IVPB SCH ×2 (13:51→17:58)
[2020-01-18] MEDS ORDERED: POTASSIUM CHLORIDE ORAL LIQUID 20 MEQ/15 ML PO ONE (14:30)
--- NOTE | 2020-01-18 15:44 | CONS ---
INFECTIOUS DISEASE CONSULTATION. DATE OF CONSULTATION: DATE OF DICTATION: 01/18/2020 HISTORY OF PRESENT ILLNESS: This is a 64-year-old woman with a history of pancreatic cancer, status post Whipple procedure October 30, 2019. Prior to the Whipple she had chemotherapy and radiation followed by the surgery. She has resumed chemotherapy which she does every 2 weeks; the last one was 2 weeks ago. She lives alone. On she went shopping, Sunday she had some chills, yesterday again she had chills and then fever to 102.5. She called her surgeon and was advised admission to the hospital. She has no cough. She has no nausea, vomiting or diarrhea and she is actually feeling quite well. The night before she came to the hospital she apparently had some chest pain on the night of admission which has self -resolved. PAST MEDICAL HISTORY: Is notable for thoracic aortic aneurysm, hypertension, hyperlipidemia, diverticulosis, hiatal hernia, pancreatic cancer, cholelithiasis, choledocholithiasis, she has had multiple stentings, hematuria, renal calculi, anxiety, and chronic low back pain. She is status post appendectomy, cholecystectomy, and most recently the Whipple procedure in October 2019. DRUG ALLERGIES: She has no known drug allergies. SOCIAL HISTORY: She is a chronic smoker; she smokes 4 to 5 cigarettes a day. She lives alone. She has not traveled and she has not had any visitors. She is currently not working. MEDICATIONS: Include: 1. Metoprolol. 2. Methimazole. FAMILY HISTORY: Unremarkable. REVIEW OF SYSTEMS: She reports her chills and fevers have resolved. She has no cough or shortness of breath and feels well. PHYSICAL EXAMINATION: Vital Signs: She has a temperature of 98.2, T-Max was at home of 102.5, blood pressure is 92/53, pulse of 70, respiratory rate is 20, she is saturating 100% on room air. HEENT: She is normocephalic. Eyes anicteric. Neck: Supple. Her port site is without any erythema or tenderness. Lungs: Clear to auscultation. Heart: Regular rate and rhythm. Abdomen: Soft, nontender. Extremities: Without edema. Skin: She has a well-healed midline scar and a well-healed appendectomy scar. DIAGNOSTIC TESTING: Her white count is 3.4 with an ANC of 1.9, her hemoglobin is 9.6, and platelets are 169. BUN and creatinine are at 9 and 0.6. LFTs; AST is 38 and otherwise normal. Urinalysis is negative. Influenza screen was negative. She had a CAT of her abdomen and pelvis done in the ER that shows status post Whipple with no evidence of any abscess formation. She had a chest x-ray done that was normal as well. In summary, this is a 64-year-old woman with pancreatic cancer who is status post chemotherapy admitted with fever at home; she reports 102.6. She has had no high grade fevers here. Cultures have been sent. Would continue her on Zosyn at this time. She was given a dose of vancomycin as well this morning. Would hold the vancomycin at this time. Further recommendations to follow. This is a leukopenic patient, status post chemotherapy 2 weeks ago with an ANC of 1.9. Would continue Piperacilin tazobactam given the history of fevers. She has no clear source. She has on cough to suggest a respiratory illness. Will continue antibiotics. Follow up cultures and make further recommendations. MELY OVALLE M.D. [id number]
--- NOTE | 2020-01-18 16:37 | CONSULT ---
Consult Consult Specialty:: Onc Referred by:: Dr. Ya Reason for Consultation:: Pancreatic cancer - History of Present Illness Chief Complaint: Fever History of Present Illness: 64F with pancreas cancer admitted with fever. Pt is followed at [facility] by Dr. Kamara (surgery) and Dr. Tripathi (oncology). She is s/p neoadjuvant FOLFIRINOX (06/26/1808/2019), SBRT on 09/22/19, and resection on 10/30/19: (TxN1 (11/24), marginpositive at CBD.) Resumed chemotherapy with gemcitabine and capecitabine (1 week on, 1 week off) on 12/08/19. Was supposed to start c4 tomorrow so has been off capecitabine for about a week. Last gemcitabine about 2 weeks ago. [place] well until she developed chills and fever of 102.5 yesterday. No respiratory or urinary sx. Has loose stools but this is not new since starting chemo. No abdominal pain. No sick contacts. Had right sided chest pain that resolved. No PAC sx. On empiric Abx. CXR normal. CTAP with no acute pathology. 3.7 ovarian cyst was noted. - History Source History Provided By: Patient, Medical Record Limitations to Obtaining History: No Limitations - Past Medical History Cardio/Vascular: Yes: Aneurysm (thoracic aneurysm), HTN, Hyperlipdemia, Other ( Thoracic Aortic Aneurysm) Gastrointestinal: Yes: Diverticulosis, Hiatal Hernia, Pancreatitis, Other Hepatobiliary: Yes: Cholelithiasis (s/p lap choly), Choledocholithiasis (s/p ERCP with sphincterotomy, stenting, stone and stent removal at [facility], restenting by or 02/28 for cholangitis), Other (s/p Placement of common bile duct, biliary stent. 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 denies: Lethargy Cardiovascular: reports: Chest Pain (resolved) Respiratory: denies: Cough, SOB Gastrointestinal: reports: Other. denies: Abdominal Pain, Constipation (loose stool), Vomiting Physical Exam Vital Signs: Vital Signs Temperature 98.1 F 01/18/20 15:27 Pulse Rate 69 01/18/20 15:27 Respiratory Rate 20 01/18/20 15:27 Blood Pressure 98/47 L 01/18/20 15:27 O2 Sat by Pulse Oximetry (%) 100 01/18/20 07:56 Constitutional: Yes: No Distress Eyes: Yes: Conjunctiva Clear Neck: Yes: Supple. No: Lymphadenopathy Cardiovascular: Yes: Regular Rate and Rhythm Respiratory: Yes: Regular, CTA Bilaterally Gastrointestinal: Yes: Soft, Other (well healed surgical scar). No: Distention, Tenderness Edema: No Labs: CBC, BMP 01/18/20 06:55 01/18/20 06:55 Assessment/Plan 64F with pancreatic cancer s/p neoadjuvant FOLFIRINOX (06/26/1808/2019), SBRT on 09/22/19, and resecteion on 10/30/19: (TxN1 (11/24), marginpositive at CBD), on gemcitabine and capecitabine (1 week on, 1 week off) since 12/08/19 admitted with fever. No localizing sx. Bcx/Ucx NG so far. CXR normal. CTAP without acute pathology. Afebrile while in the hospital. ANC 1900. On empiric Abx while cultures pending ID following. Hold capecitabine Will follow
[2020-01-19] MEDS ORDERED: PIPERACILLIN/TAZOBACTAM 3.375 GM VIAL IVPB ONE ×2 (02:15→11:01)
[2020-01-19] MEDS ORDERED: DEXTROSE 5%-WATER - 50 ML IVPB ONE ×2 (02:15→11:02)
[2020-01-19] MEDS: PIPERACILLIN/TAZOB 3.375 GM 3.375 GM in DEXTROSE 5%-WATER - 50 ML IVPB SCH ×2 (03:00→11:09)
[2020-01-19 07:00] LABS: BASO % 0.8 % (0-2.0); EOS % 4.4 % (0-4.5); HEMATOCRIT 29.2 % (32.4-45.2); HEMOGLOBIN 9.9 GM/dL (10.7-15.3); LYMPH % 17.9 % (8-40); MCH 31.5 pg (25.7-33.7); MCHC 33.8 g/dl (32.0-36.0); MONO % 18.2 % (3.8-10.2); NEUT % 58.7 % (42.8-82.8); PLATELET COUNT 173 K/MM3 (134-434); RBC 3.14 M/mm3 (3.60-5.2); RDW 19.4 % (11.6-15.6); WHITE BLOOD COUNT 3.9 K/mm3 (4.0-10.0)
[2020-01-19 07:30] LABS: BLOOD UREA NITROGEN 9.1 mg/dL (7-18); CALCIUM 8.7 mg/dL (8.5-10.1); CREATININE 0.7 mg/dL (0.55-1.3); MAGNESIUM 2.2 mg/dL (1.8-2.4); POTASSIUM 4.6 mmol/L (3.5-5.1)
--- NOTE | 2020-01-19 08:47 | PN ---
Progress Note, Physician Chief Complaint: no CP or SOB Having diarrhea History of Present Illness: 64F h/o cholecystectomy 01/2019, HLD, GERD, thoracic aorta aneurysm, hiatal hernia, pancreatic cancer s/p whipple and chemotherapy p/w fever. Also had chest pain on night prior to admission. Sees Dr. Cruz for cardio, per pt had echo in September which was unremarkable and a stress test within the last year whichwas normal. She also says she had a cath at [facility] about two years ago that was normal. No dyspnea, orthopnea, PND, dizziness. Chest pain was right sided, happened two nights ago and felt this along with fevers, chills, headache. R sided, nonradiating. - Current Medication List Current Medications: Active Medications Acetaminophen (Tylenol -) 650 mg PO Q6H PRN PRN Reason: FEVER Last Admin: 01/17/20 23:13 Dose: 650 mg Documented by: Piperacillin Sod/Tazobactam (Sod 3.375 gm/ Dextrose) 50 mls @ 100 mls/hr IVPB Q8H-IV MANI; Protocol Last Admin: 01/19/20 03:00 Dose: 100 mls/hr Documented by: Sodium Chloride (Normal Saline -) 1,000 mls @ 42 mls/hr IV ASDIR MANI Last Admin: 01/18/20 10:47 Dose: 42 mls/hr Documented by: Methimazole (Tapazole -) 10 mg PO DAILY MANI Last Admin: 01/18/20 09:02 Dose: 10 mg Documented by: - Objective Vital Signs: Vital Signs Temperature 98.0 F 01/19/20 05:00 Pulse Rate 55 L 01/19/20 05:00 Respiratory Rate 20 01/19/20 05:00 Blood Pressure 96/53 L 01/19/20 05:00 O2 Sat by Pulse Oximetry (%) 100 01/18/20 21:00 Constitutional: Yes: No Distress, Calm Cardiovascular: Yes: Regular Rate and Rhythm Respiratory: Yes: CTA Bilaterally Gastrointestinal: Yes: Soft (NT) Edema: No Neurological: Yes: Alert, Oriented Labs: CBC, BMP 01/19/20 05:40 01/19/20 05:40 INR, PTT INR 1.04 (0.83-1.09) 01/17/20 14:50 Microbiology 01/17/20 14:55 Blood - Peripheral Venous Blood Culture - Preliminary NO GROWTH OBTAINED AFTER 24 HOURS, INCUBATION TO CONTINUE FOR 4 DAYS. 01/17/20 14:55 Blood - Peripheral Venous Blood Culture - Preliminary NO GROWTH OBTAINED AFTER 24 HOURS, INCUBATION TO CONTINUE FOR 4 DAYS. - ....Imaging EKG: Image Reviewed Assessment/Plan Chest pain: - negative stress test and cardiac cath in the last 2 years - will review outside records - history less consistent with ACS - stable EKG, trop neg x 3 - echo pending fever: - workup per primary pancreatic cancer: - chemo recently, s/p whipple - manage per onc HTN: - cont current meds thoracic aorta aneurysm: - stable imaging 08/2018 - cont metoprolol - outpatient follow up
--- NOTE | 2020-01-19 09:25 | PN ---
Progress Note (short form) - Note Progress Note: feeling well but c/o loose watery yellow stool since last night 5x CBC, BMP 01/19/20 05:40 01/19/20 05:40 Vital Signs Period Temp Pulse Resp BP Sys/Lowe Pulse Ox Last 24 Hr 97.9 F-98.2 F 53-69 20-20 96-117/47-62 100 s1s2 rrr lungs cta abd soft non tender +BS no edema cachectic but in good spirits, energetic 64 yo lady s/p whipple for pancreatic ca still on chemo became febrile over the weekend ct abd pelvis unremarkable ucx, bcx negative so far stool cx and c.diff pending influenza negative diarrhea abx related? pt is anxious to go home will discuss with id
--- NOTE | 2020-01-19 10:55 | ECHO ---
Name: RONNA EMILY Exam:Adult Echocardiogram Study Date: 01/19/2020 10:01 AM Age: 64 yrs Reason For Study: Chest pain Height: 62 in Weight: 112 lb BSA: 1.5 m2 MMode/2D Measurements & Calculations IVSd: 0.85 cm Ao root diam: 2.9 cm LVIDd: 3.7 cm LA dimension: 3.1 cm LVIDs: 2.9 cm LVPWd: 1.0 cm LVPWs: 1.1 cm EDV(Teich): 57.6 ml ESV(Teich): 32.5 ml LVOT diam: 1.6 cm LAV (MOD-bp): 52.0 ml TAPSE: 2.3 cm RV S Deep: 17.7 cm/sec Doppler Measurements & Calculations MV E max deep: 79.9 cm/sec Ao V2 max: 167.5 cm/sec MV A max deep: 57.0 cm/sec Ao max P.3 mmHg MV E/A: 1.4 AI P1/2t: 654.7 msec MV dec time: 0.19 sec AI max deep: 414.0 cm/sec MR max deep: 588.6 cm/sec AI max P.3 mmHg MR max P.6 mmHg AI dec slope: 185.2 cm/sec2 TR max deep: 236.2 cm/sec PA V2 max: 114.0 cm/sec TR max P.4 mmHg PA max P.2 mmHg Med Peak E' Deep: 8.0 cm/sec Med E/e': 10.0 Lat Peak E' Deep: 8.6 cm/sec Lat E/e': 9.3 Left Ventricle The left ventricle is normal in size. There is borderline concentric left ventricular hypertrophy. Th e left ventricular ejection fraction is normal. Ejection Fraction = 60-65%. Right Ventricle The right ventricle is normal in size and function. Atria The left atrium is mildly dilated. Right atrial size is normal. Mitral Valve There is mild mitral valve thickening. There is mild mitral regurgitation. Tricuspid Valve The tricuspid valve is not well visualized, but is grossly normal. There is mild tricuspid regurgitat ion. Right ventricular systolic pressure is normal. Aortic Valve There is mild aortic sclerosis.;. No hemodynamically significant valvular aortic stenosis. Moderate a ortic regurgitation. Pulmonic Valve The pulmonic valve is not well seen, but is grossly normal. Great Vessels The aortic root is normal size. Dilated based on BSA: 2.4 (normal max 1.7). Pericardium/Pleura There is no pericardial effusion. Interpretation Summary LV: Normal size and systolic function, EF 60-65% RV: Normal LA: Mildly dilated MV: Mild regurgitation TV: Normal regurgitation with normal RVSP AV: Mildly thickened, moderate regurgitation Aorta: Dilated ascending aorta based on BSA: 2.4-2.5 cm/m2 (upper normal is 1.7 cm/m2). Robert Fuchs 01/19/2020 10:54 AM
[2020-01-19] MEDS: METHIMAZOLE 10 MG TABLET (FP) PO SCH (11:09)
[2020-01-19] MEDS: SODIUM CHLORIDE 1,000 ML IV SCH (11:09)
--- NOTE | 2020-01-19 11:30 | PN ---
Progress Note (short form) - Note Progress Note: remains afebrile now with multiple episodes of watery diarrhea overnight-5 episodes no cramps no blood is concerned the zosyn is causing the loose stools otherwise feels well Vital Signs Period Temp Pulse Resp BP Sys/Lowe Pulse Ox Last 24 Hr 97.9 F-98.2 F 53-69 20-20 96-117/47-62 100 cor-rrr lungs clear abd soft,nt no distention ext no edema CBC, BMP 01/19/20 05:40 01/19/20 05:40 anc 2300 Microbiology 01/17/20 14:55 Blood - Peripheral Venous Blood Culture - Preliminary NO GROWTH OBTAINED AFTER 24 HOURS, INCUBATION TO CONTINUE FOR 4 DAYS. 01/17/20 14:55 Blood - Peripheral Venous Blood Culture - Preliminary NO GROWTH OBTAINED AFTER 24 HOURS, INCUBATION TO CONTINUE FOR 4 DAYS. 01/17/20 14:55 Urine - Urine Clean Catch Urine Culture - Final NO GROWTH OBTAINED ct scan noted cxray clear port site no erythema or tenderness a/p fevers at home leukopenia s/p chemo pancreatic cancer now with diarrhea stool studies sent she is afebrile no objection to watching her off zosyn at this time -she is concerned that the antibiotics are giving her diarrhea would suggest observing her off zosyn and f/u of her stool studies and frequency will d/w PMD
--- NOTE | 2020-01-19 12:39 | PN ---
Physical Exam: Heme-onc Resident note SUBJECTIVE: Patient seen and examined at bedside. Unhappy, as she was up late with multiple episodes of diarrhea, which she believes are d/t her abx. Otherwise in good spirits and asking to go home. OBJECTIVE: Vital Signs Period Temp Pulse Resp BP Sys/Lowe Pulse Ox Last 24 Hr 97.9 F-98.2 F 53-69 20-20 96-117/47-62 100-100 general: resting in bed, sitting up. in NAD HEENT: NCAT neck: supple, no lymphadenopathy noted cardio: S1, S2 RRR. no r/m/g pulm: CTA b/l abdomen: nontender, nondistended. 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 Laboratory Results - last 24 hr 01/19/20 01/19/20 01/19/20 02:40 05:40 05:40 WBC 3.9 L RBC 3.14 L Hgb 9.9 L Hct 29.2 L MCV 93.0 MCH 31.5 MCHC 33.8 RDW 19.4 H Plt Count 173 MPV 7.0 L Absolute Neuts (auto) 2.3 Neutrophils % 58.7 Lymphocytes % 17.9 Monocytes % 18.2 H Eosinophils % 4.4 Basophils % 0.8 Nucleated RBC % 0 Sodium 142 Potassium 4.6 Chloride 111 H Carbon Dioxide 26 Anion Gap 6 L BUN 9.1 Creatinine 0.7 Est GFR (CKD-EPI)AfAm 107.62 Est GFR (CKD-EPI)NonAf 92.86 POC Glucometer Random Glucose 107 H Calcium 8.7 Magnesium 2.2 Stool Occult Blood Negative 01/19/20 12:18 WBC RBC Hgb Hct MCV MCH MCHC RDW Plt Count MPV Absolute Neuts (auto) Neutrophils % Lymphocytes % Monocytes % Eosinophils % Basophils % Nucleated RBC % Sodium Potassium Chloride Carbon Dioxide Anion Gap BUN Creatinine Est GFR (CKD-EPI)AfAm Est GFR (CKD-EPI)NonAf POC Glucometer 115 Random Glucose Calcium Magnesium Stool Occult Blood Active Medications Generic Name Dose Route Start Last Admin Trade Name Freq PRN Reason Stop Dose Admin Acetaminophen 650 mg 01/17/20 20:20 01/17/20 23:13 Tylenol - PO 650 mg Q6H PRN Administration FEVER Sodium Chloride 1,000 mls @ 42 mls/hr 01/18/20 09:45 01/19/20 11:09 Normal Saline - IV 42 mls/hr ASDIR MANI Administration Methimazole 10 mg 01/18/20 10:00 01/19/20 11:09 Tapazole - PO 10 mg DAILY MANI Administration ASSESSMENT/PLAN: 64 y/o F with pancreatic cancer s/p whipple's, on neoadjuvant FOLFIRINOX (06/26/18, 08/2019), SBRT on 09/22/19, and resection on 10/30/19 (TxN1 11/24, margin positive at CBD) on gemcitabine and capecitabine (1 week on, 1 week off) since 12/08/19, admitted with fever. #pancreatic cancer s/p whipple, on neoadjuvant tx #diarrhea #hyperthyroidism #nonobstructive atherosclerosis -ANC 2300 -still w/ diarrhea, will be monitored off IV abx. per ID, primary -would continue to hold capecitabine at this time. currently grade 2 NCI CTCAE concerning adverse effects once with stage 1 symptoms (<4 BM/day) may restart capecitabine -c/t follow ID, primary recs -will follow Case discussed with Dr. Michelle Horvath MD PGY-3 Heme-onc team Visit type - Emergency Visit Emergency Visit: No - New Patient This patient is new to me today: Yes Date on this admission: 01/19/20 - Critical Care Critical Care patient: No - Discharge Referral Referred to [facility] Med P.C.: No
[2020-01-19 15:34] VITALS: BP 103/61; PULSE 59; TEMP 98
--- NOTE | 2020-01-19 15:56 | DS ---
Physical Examination Vital Signs: Vital Signs Temperature 98.0 F 01/19/20 14:31 Pulse Rate 59 L 01/19/20 14:31 Respiratory Rate 18 01/19/20 14:31 Blood Pressure 103/61 01/19/20 14:31 O2 Sat by Pulse Oximetry (%) 100 01/19/20 09:00 Constitutional: Yes: No Distress, Calm, Cachectic Eyes: Yes: EOM Intact HENT: Yes: Normocephalic Neck: Yes: Trachea Midline Cardiovascular: Yes: Regular Rate and Rhythm Respiratory: Yes: CTA Bilaterally Gastrointestinal: Yes: Normal Bowel Sounds, Soft Edema: No Peripheral Pulses WNL: Yes Integumentary: Yes: WNL Neurological: Yes: WNL ...Motor Strength: WNL Psychiatric: Yes: WNL Labs: CBC, BMP 01/19/20 05:40 01/19/20 05:40 Discharge Summary Problems reviewed: Yes Reason For Visit: FEVER Current Active Problems Chest pain (Acute) Fever of unknown origin (Acute) Pancreatic cancer (Acute) Sepsis (Acute) Hospital Course: [facility], currently undergoing chemotherapy for pancreatic ca. blood, urine cultures are negative to date, flu swab also negative cxr, abdominal ct no acute disease afebrile for over 24 hours reports diarrhea, but has been off of her creon and on abx stool c.diff is negative stable to dc home off of abx, will f/up in the office Condition: Fair - Instructions Referrals: Miller Sawyer MD [Primary Care Provider] - Disposition: HOME - Home Medications Comprehensive Discharge Medication List: Ambulatory Orders Metoprolol Tartrate 12.5 mg PO DAILY 01/02/19 Methimazole [Tapazole -] 10 mg PO DAILY 05/15/19
[2020-01-19] MEDS ORDERED: LOPERAMIDE HCL 2 MG CAPSULE PO PRN (16:18)
== END 2020-01-19 17:01 | disposition home or self-care (01) | DRG 722 ==
LOC: JER 13:28 → JERBED 19:24 → J4W 21:52
PROVIDERS: ADMIT Internal Medicine; ATTEND Internal Medicine
DX: R50.9 Fever, unspecified (principal); F17.210 Nicotine dependence, cigarettes, uncomplicated; E78.5 Hyperlipidemia, unspecified; K21.9 Gastro-esophageal reflux disease without esophagitis; R07.9 Chest pain, unspecified; I71.2 Thoracic aortic aneurysm, without rupture; R64 Cachexia; C25.9 Malignant neoplasm of pancreas, unspecified; I10 Essential (primary) hypertension; D72.819 Decreased white blood cell count, unspecified; R19.7 Diarrhea, unspecified; I25.10 Atherosclerotic heart disease of native coronary artery without angina pectoris; E05.90 Thyrotoxicosis, unspecified without thyrotoxic crisis or storm
CPT/HCPCS: 36415; 71045-TC-FY; 74177-TC; 80048; 80053; 80061; 81003; 82272; 82803; 82962; 83605; 83721; 83735; 84100; 84443; 84484; 85025; 85610; 85730; 87040; 87045; 87046; 87086; 87324; 87449; 87804; 93005; 93010; 93306-TC; 99285-25; J7030; Q9967

== ENCOUNTER 2020-05-22 19:29 | Inpatient (IN) | payer OTHER ==
--- NOTE | 2020-05-22 19:39 | PDOC ---
History of Present Illness - History of Present Illness Initial Comments: 05/22/20 19:37 HPI: 65 y/o F with hx of Panc CA diagnosed 10/2019 s/p Whipple surgery and remission, recently diagnosed with spine mets last week BIBEMS for stroke like symtpoms. Patient went to take a nap at 3pm and woke up with slurred speech and right arm weakness; was the noted to have a right facial droop after looking in the mirror. Right arm weakness and droop resolved by EMS arrival but complaining of continued dysarthria. Denies fever, chills, ESPINAL, abd pain, chest pain, SOB, dysuria. Reports pain in left back at site of spine mets PMHx: as noted above ROS: as noted SHx: + tobacco use; no alcohol use; no rec drugs Allergies: NKDA ROS: GENERAL/CONSTITUTIONAL: No fever or chills. No weakness. HEAD, EYES, EARS, NOSE AND THROAT: No change in vision. No ear pain or discharge. No sore throat. CARDIOVASCULAR: No chest pain or shortness of breath RESPIRATORY: No cough, wheezing, or hemoptysis. GASTROINTESTINAL: No nausea, vomiting, diarrhea or constipation. GENITOURINARY: No dysuria, frequency, or change in urination. MUSCULOSKELETAL: No joint or muscle swelling or pain. No neck or back pain. SKIN: No rash NEUROLOGIC: No headache, vertigo, loss of consciousness, or change in strength/sensation. ENDOCRINE: No increased thirst. No abnormal weight change HEMATOLOGIC/LYMPHATIC: No anemia, easy bleeding, or history of blood clots. ALLERGIC/IMMUNOLOGIC: No hives or skin allergy. PE: GENERAL: Awake, alert, and fully oriented, no acute distress HEAD: No signs of trauma, normocephalic, atraumatic; left occipital head with 1- 2cm skull outward deformity EYES: EOMI, sclera anicteric, conjunctiva clear ENT: Auricles normal inspection, hearing grossly normal, nares patent, oropharynx clear without exudates. Moist mucosa NECK: Normal ROM, no lymphadenopathy, no midline ttp LUNGS: No increased work of breathing, symmetrical chest rise HEART: Regular rate, regular rhythm ABDOMEN: Soft, nondistended, nontender. No guarding, no rebound. No masses. No CVAT MUSCULOSKELETAL: limited ROM due to back pain, extremities with FROM NEUROLOGICAL: Cranial nerves II through XII grossly intact. mild dysarthria, str 5/5 throughout with exception of mild weakness of right hand floor finisher helper str 4+/5 SKIN: Warm, Dry, normal turgor, no rashes or lesions noted <Inder Colon - Last Filed: 05/22/20 22:02> <Andres Izquierdo - Last Filed: 05/22/20 23:27> - General Stated Complaint: WEAKNESS ON RIGHT SIDE OF FACE Time Seen by Provider: 05/22/20 19:35 NIH Stroke Scale - Last Known Well Date/Time & Onset Date Last Known Well: 05/22/20 Time Last Known Well: 15:00 - Initial Evaluation Level of consciousness: Alert Ask patient the month and their age: Answers both correctly Ask patient to open & close eyes; make fist and let go: Obeys both correctly Best gaze (horizontal eye movement): Normal Visual field testing: No visual field loss Facial paresis (Show teeth/raise eyebrows/close eyes tight): Normal symmetrical movement Motor Function: Left Arm: Normal Motor Function: Right Arm: Normal (extends arm 90 (or 45) degrees for 10 seconds without drift Motor Function: Left Leg: Normal (extends leg 30 degrees for 5 seconds without drift) Motor Function: Right Leg: Normal (extends leg 30 degrees for 5 seconds without drift) Limb Ataxia: No ataxia Sensory(Use pinprick test arms,legs,trunk,face/side to side): Normal Best language (Describe picture, name items, read sentences): No Aphasia Dysarthria (read several words): Mild to moderate slurring of words Extinction and Inattention: No abnormality - Total Score NIH Stroke Scale Score: 1 <Inder Colon - Last Filed: 05/22/20 22:02> tPA Exclusion checklist 3-4.5h - Time Elapsed Date last known well: 05/22/20 Time last known well: 15:00 Elaspsed time: Day(s) and 7 Hour(s) and 2 Minutes - Thrombolytic Therapy Candidate Is patient eligible for thrombolytic therapy: Yes - Relative Exclusion Criteria 3-4.5 hr Stroke severity too mild (non-disabling): Yes - Add'l Relative Exclusion 3-4.5 hr Severe Stroke (NIHSS >25): No - Ineligibility reason(s) Reasons No tPA given: Outside of window - delayed arrival <Inder Colon - Last Filed: 05/22/20 22:02> - Thrombolytic Therapy Candidate Is patient eligible for thrombolytic therapy: No - Exclusion Criteria 3-4.5 hr SBP greater than 185 or DBP greater than 110mmHg despite tx: No Recent IC/spinal surgery,head trauma or stroke<3mos.: No Hx IC hemorrhage, IC neoplasm, AV malformation or aneurysm: Yes Active internal bleeding: No Blding diathesis(low plt ct, inc PTT,INR>1.7 or use of NOAC): No Symptoms suggest subarachnoid hemorrhage: No CT demonstrates multilobar infarct(>1/3 cerebral hemiphere): No Arterial puncture at noncompressible site in previous 7 days: No Blood glucose concentration less than 50mg/dL (2.7mmol/L): No <Andres Izquierdo - Last Filed: 05/22/20 23:27> Past History - Medical History Anemia: No Asthma: No Cancer: Yes (Pancreatic) Cardiac Disorders: Yes ("aneursym") CVA: No COPD: No CHF: No Dementia: No Diabetes: No GI Disorders: Yes (REFLUX, colon adenomas, diverticulosis, choledocholitiasis) Disorders: Yes (Ovarian cyst, renal cyst) HTN: No Hypercholesterolemia: Yes Liver Disease: No Seizures: No Thyroid Disease: Yes (Hyper) - Surgical History Abdominal Surgery: No Appendectomy: Yes Cardiac Surgery: No Cholecystectomy: Yes (01/17/2019, stent to CBD) Lung Surgery: No Neurologic Surgery: No Orthopedic Surgery: No - Immunization History Td Vaccination: Yes Immunization Up to Date: Yes - Psycho-Social/Smoking History Smoking Status: No Smoking History: Current every day smoker Years of Tobacco Use: 40 Have you smoked in the past 12 months: Yes Number of Cigarettes Smoked Daily: 5 'Breaking Loose' booklet given: 01/17/20 <Inder Colon - Last Filed: 05/22/20 22:02> <Andres Izquierdo - Last Filed: 05/22/20 23:27> - Medical History Allergies/Adverse Reactions: Allergies Allergy/AdvReac Type Severity Reaction Status Date / Time No Known Drug Allergies Allergy Verified 05/22/20 19:52 DUST Allergy Uncoded 05/22/20 19:52 *Physical Exam - Vital Signs Last Vital Signs Temp Pulse Resp BP Pulse Ox 97.9 F 81 18 132/71 96 05/22/20 20:14 05/22/20 19:49 05/22/20 19:49 05/22/20 19:49 05/22/20 20:06 <Andres Izquierdo - Last Filed: 05/22/20 23:27> ED Treatment Course - LABORATORY CBC & Chemistry Diagram: 05/22/20 20:00 05/22/20 20:00 - RADIOLOGY Radiology Studies Ordered: Category Date Time Status HEAD CT (STROKE) [CT] Stat CT Scan 05/22/20 19:36 Ordered <Inder Colon - Last Filed: 05/22/20 22:02> - LABORATORY CBC & Chemistry Diagram: 05/22/20 20:00 05/22/20 20:00 - ADDITIONAL ORDERS Additional order review: Laboratory Results 05/22/20 05/22/20 05/22/20 20:00 20:00 20:00 PT with INR 13.50 H INR 1.14 H PTT (Actin FS) 26.7 Sodium 140 Potassium 3.8 Chloride 105 Carbon Dioxide 27 Anion Gap 8 BUN 17.4 Creatinine 0.7 Est GFR (CKD-EPI)AfAm 106.87 Est GFR (CKD-EPI)NonAf 92.21 Random Glucose 121 H Calcium 9.8 Total Bilirubin 0.3 AST 17 ALT 19 Alkaline Phosphatase 106 Creatine Kinase 48 Troponin I 0.76 H* Total Protein 6.8 Albumin 3.1 L Triglycerides 106 Cholesterol 175 Total LDL Cholesterol 96 HDL Cholesterol 53 Blood Type A NEGATIVE Antibody Screen Negative 05/22/20 20:00 RBC 4.11 MCV 88.9 MCHC 33.7 RDW 13.6 D MPV 6.5 L Neutrophils % 82.8 D Lymphocytes % 8.2 D Monocytes % 7.6 Eosinophils % 1.0 Basophils % 0.4 - Medications Given in the ED: ED Medications Discontinued Medications Generic Name Dose Route Start Last Admin Trade Name Freq PRN Reason Stop Dose Admin Acetaminophen 1,000 mg 05/22/20 20:21 05/22/20 20:24 Ofirmev Injection - IVPB 05/22/20 20:22 1,000 mg ONCE ONE Administration Aspirin 324 mg 05/22/20 20:12 05/22/20 20:16 Asa - PO 05/22/20 20:13 324 mg ONCE ONE Administration Lidocaine 1 patch 05/22/20 21:08 05/22/20 21:34 Lidoderm Patch - TP 05/22/20 21:09 1 patch ONCE ONE Administration Morphine Sulfate 2 mg 05/22/20 21:08 05/22/20 21:35 Morphine Injection - IVPUSH 05/22/20 21:09 2 mg ONCE ONE Administration Morphine Sulfate 2 mg 05/22/20 21:54 05/22/20 22:00 Morphine Injection - IVPUSH 05/22/20 21:55 2 mg ONCE ONE Administration <Andres Izquierdo - Last Filed: 05/22/20 23:27> Medical Decision Making - Medical Decision Making 05/22/20 20:27 65 y/o F with hx of Panc CA diagnosed 10/2019 s/p Whipple surgery and remission, recently diagnosed with spine mets last week BIBEMS for stroke like symtpoms with dysarthria, right arm weakness, and right facial droop. VSS, AF. PE with mild dysarthria and mild decreased right hand floor finisher helper str. NIHSS 1. Patient not tPA candidate 2/2 mild symptoms and outside window. -stroke order set -pain control 05/22/20 20:28 CT head with concern of left parietal lytic lesion concerning for metastatic lesion Neuro consulted: Dr Meneses recommending ASA and admit for MRI with contrast will touch base with her oncologist at [facility] Dr Ford [phone] regarding additional recs 05/22/20 21:[address] Ivana Mauricio (covering for Dr Ford) and recommends admission at [facility] for TIA workup; will discussed with Dr Ford for possible transfer Sunday vs followup otpt following dispo here 05/22/20 22:[address] pendleton for tia, troponinemia, skull mets <Inder Colon - Last Filed: 05/22/20 22:02> Discharge - Discharge Information Problems reviewed: Yes - Admission Yes <Inder Colon - Last Filed: 05/22/20 22:02> - Discharge Information Problems reviewed: Yes <Andres Izquierdo - Last Filed: 05/22/20 23:27> - Discharge Information Clinical Impression/Diagnosis: TIA (transient ischemic attack), Brain metastases Condition: Guarded
[2020-05-22 19:52] VITALS: BMI 19.5
[2020-05-22] MEDS ORDERED: ASPIRIN 81 MG CHEWABLE TABLETS PO ONE (20:12)
[2020-05-22] MEDS ORDERED: ASPIRIN 81 MG CHEWABLE TABLETS ONE (20:15)
[2020-05-22 20:16] LABS: BASO % 0.4 % (0-2.0); HEMATOCRIT 36.5 % (32.4-45.2); HEMOGLOBIN 12.3 GM/dL (10.7-15.3); LYMPH % 8.2 % (8-40); MCH 29.9 pg (25.7-33.7); MCHC 33.7 g/dl (32.0-36.0); MEAN CELL VOLUME 88.9 fl (80-96); MEAN PLT VOLUME 6.5 fl (7.5-11.1); MONO % 7.6 % (3.8-10.2); NEUT % 82.8 % (42.8-82.8); PLATELET COUNT 183 K/MM3 (134-434); RBC 4.11 M/mm3 (3.60-5.2); RDW 13.6 % (11.6-15.6); WHITE BLOOD COUNT 10.4 K/mm3 (4.0-10.0)
[2020-05-22] MEDS ORDERED: ACETAMINOPHEN 1000 MG/100 ML VIAL (NON FORMULARY) IVPB ONE (20:21)
[2020-05-22 20:26] LABS: INR 1.14 (0.83-1.09); PROTHROMBIN TIME (PATIENT) 13.5 SEC (9.7-13.0)
--- NOTE | 2020-05-22 20:27 | PDOC ---
Documentation entered by Magdaleno Pérez SCRIBE, acting as scribe for Andres Izquierdo MD. Andres Izquierdo MD: This documentation has been prepared by the Elisa bryant Xhesika, SCRIBE, under my direction and personally reviewed by me in its entirety. I confirm that the documentation accurately reflects all work, treatment, procedures, and medical decision making performed by me. Attending Attestation - Resident Resident Name: [email or web address] - ED Attending Attestation I have performed the following: I have examined & evaluated the patient, The case was reviewed & discussed with the resident, I agree w/resident's findings & plan, Exceptions are as noted - HPI HPI: 05/22/20 19:41 The patient is a 65 year old female with a PMH of HLD, Pancreatic CA s/p whipple who presents to the ED BIBA for R sided facial weakness. 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 Allergies: NKDA. - Physicial Exam PE: 05/22/20 20:25 EXAMINATION CONSTITUTIONAL: Well-appearing; well-nourished; in no apparent distress HEAD: Normocephalic; atraumatic EYES: PERRL; EOM intact ENMT: External appears normal; normal oropharynx NECK: Supple; non-tender; no cervical lymphadenopathy CARD: Normal S1, S2; no murmurs, rubs, or gallops RESP: Normal chest excursion with respiration; breath sounds clear and equal bilaterally; no wheezes, rhonchi, or rales ABD: Soft, non-distended; non-tender; no palpable organomegaly, no palpable hernias EXT: Normal ROM in all four extremities; non-tender to palpation; distal pulses intact SKIN: Warm, dry, no rash NEURO: Cranial nerves II through XII are grossly intact; motor is five 5 x 4; no pronation drift, no cerebellar signs, gait-deferred. Right hand weakness and isometric testing when compared to the left. - Medical Decision Making 05/22/20 20:26 Cranial nerves II through XII are grossly intact; motor is five 5 x 4 (weakness of the right hand is noted on isometric testing); no pronation drift; gait deferred patient is 65-year-old female with history of pancreatic CA with mets to the spine presents with symptoms of TIA with right-sided facial droop, dysarthria and right upper extremity weakness that had resolved prior to arrival. In the ER, NIH stroke scale was noted to be 1. Patient is not a TPA candidate given the onset of symptoms more than 4.5 hours prior to arrival. CT of head shows no evidence of acute intracranial hemorrhage, left parietal steven based lesion consistent with a metastatic lesion is present. Neurology consulted. Will administer aspirin. Will admit patient for MRI with contrast. Will contact oncology at [facility] about possible transfer. 05/22/20 22:04 Oncology at [facility] consulted. Advises admission at [facility] for further evaluation and treatment. Discharge - Discharge Information Problems reviewed: Yes Clinical Impression/Diagnosis: TIA (transient ischemic attack), Brain metastases Condition: Guarded - Follow up/Referral - Patient Discharge Instructions - Post Discharge Activity
[2020-05-22 20:28] LABS: ACTIVATED PTT 26.7 SECONDS (25.2-36.5)
[2020-05-22 20:44] LABS: ALBUMIN 3.1 g/dl (3.4-5.0); BILIRUBIN,TOTAL 0.3 mg/dL (0.2-1); BLOOD UREA NITROGEN 17.4 mg/dL (7-18); CALCIUM 9.8 mg/dL (8.5-10.1); CREATININE 0.7 mg/dL (0.55-1.3); POTASSIUM 3.8 mmol/L (3.5-5.1); TOT PROT 6.8 g/dl (6.4-8.2)
[2020-05-22] MEDS ORDERED: morphine CARPU-JECT 2 MG/1 ML DISP.SYRIN IVPUSH ONE ×2 (21:08→21:54)
[2020-05-22] MEDS ORDERED: LIDOCAINE 5% TOPICAL PATCH TP ONE (21:08)
[2020-05-22] MEDS ORDERED: MORPHINE SULFATE 2 MG/ML VIAL ONE ×2 (21:18→21:56)
[2020-05-22] MEDS ORDERED: LIDOCAINE 5% TOPICAL PATCH ONE (21:18)
[2020-05-22] MEDS ORDERED: LIDOCAINE PATCH REMOVAL MC SCH (22:00)
[2020-05-22] MEDS ORDERED: morphine CARPU-JECT 4 MG/1 ML DISP.SYRIN IVPUSH SCH (22:00)
[2020-05-22 22:04] LABS: EPI CELLS 12 /uL (0-25.1); HYALINE CASTS 0 /uL (0-3.1); PH,URINE 5.5 (5.0-8.0); URINE APPEARANCE CLEAR; URINE BACTERIA 32 /uL (0-1359); URINE BILIRUBIN NEGATIVE (NEGATIVE); URINE COLOR YELLOW; URINE GLUCOSE (UA) NEGATIVE (NEGATIVE); URINE KETONE NEGATIVE (NEGATIVE); URINE LEUK ESTERASE NEGATIVE (NEGATIVE); URINE NITRITE NEGATIVE (NEGATIVE); URINE PROTEIN NEGATIVE (NEGATIVE); URINE RBC 246 /uL (0-23.9); URINE WBC 5 /uL (0-25.8)
--- NOTE | 2020-05-23 00:22 | HP ---
<Karyna Barr - Last Filed: 05/23/20 03:54> CHIEF COMPLAINT: R facial droop, R hand weakness PCP: HISTORY OF PRESENT ILLNESS: 65 yo F with PMHx of Pancreatic Ca( s/p Whipple 10/2019 at [facility]), HLD, GERD, Diverticulosis, Hyperthyroid who presents to ED for R facial droop and R hand weakness. Pt states that today she woke up from her nap and her friend noted her facial asymmetry called ambulance. pt states that she had no symptoms or didnt notice anything except for R hand weakness. she states the weakness just started today. pt states that [facility] for her hip metastasis on sunday ER course was notable for: (1)CT head findings below (2)Neuro consult PAST MEDICAL HISTORY:see above PAST SURGICAL HISTORY: Whipple, appendectomy Social History: Smoking:smokes 5 cigarettes/day Alcohol:denie Drugs: denies Allergies No Known Drug Allergies Allergy (Verified 05/22/20 19:52) DUST Allergy (Uncoded 05/22/20 19:52) HOME MEDICATIONS: REVIEW OF SYSTEMS CONSTITUTIONAL: Absent: fever, chills, diaphoresis, generalized weakness, malaise, loss of appetite, weight change HEENT: Absent: rhinorrhea, nasal congestion, throat pain, throat swelling, difficulty swallowing, mouth swelling, ear pain, eye pain, visual changes CARDIOVASCULAR: Absent: chest pain, syncope, palpitations, irregular heart rate, lightheadedness, peripheral edema RESPIRATORY: Absent: cough, shortness of breath, dyspnea with exertion, orthopnea, wheezing, stridor, hemoptysis GASTROINTESTINAL: Absent: abdominal pain, abdominal distension, nausea, vomiting, diarrhea, constipation, melena, hematochezia GENITOURINARY: Absent: dysuria, frequency, urgency, hesitancy, hematuria, flank pain, genital pain MUSCULOSKELETAL: Absent: myalgia, arthralgia, joint swelling, back pain, neck pain SKIN: Absent: rash, itching, pallor HEMATOLOGIC/IMMUNOLOGIC: Absent: easy bleeding, easy bruising, lymphadenopathy, frequent infections ENDOCRINE: Present: weight loss Absent: unexplained weight gain, heat intolerance, cold intolerance NEUROLOGIC: Present: weakness of R UE Absent: headache, fdizziness, unsteady gait, seizure, mental status changes, bladder or bowel incontinence PHYSICAL EXAMINATION Vital Signs - 24 hr 05/22/20 05/22/20 05/22/20 19:49 20:06 20:14 Temperature 97.9 F Pulse Rate 81 Respiratory 18 Rate Blood Pressure 132/71 O2 Sat by Pulse 96 96 Oximetry (%) 05/22/20 23:30 Temperature 97.8 F Pulse Rate 78 Respiratory 20 Rate Blood Pressure 127/61 O2 Sat by Pulse Oximetry (%) GENERAL: Awake, alert, and fully oriented, in no acute distress. thin. HEAD: Normal with no signs of trauma. EYES: Pupils equal, round and reactive to light, extraocular movements intact LUNGS: Breath sounds equal, clear to auscultation bilaterally. No accessory muscle use. HEART: Regular rate and rhythm, normal S1 and S2 without murmur ABDOMEN: Soft, nontender, not distended, normoactive bowel sounds, no guarding MUSCULOSKELETAL:No CVA tenderness. UPPER EXTREMITIES: 2+ pulses, warm, well-perfused. No cyanosis. No clubbing. No peripheral edema. LOWER EXTREMITIES: 2+ pulses, warm, well-perfused. No calf tenderness. No peripheral edema. NEUROLOGICAL: Cranial nerves II-XII intact. Normal speech. 3/5 RUE strength . 5/5 LUE strength. 5/5 B/L LE strenth. no sensory deficit. PSYCHIATRIC: Cooperative. Good eye contact. Appropriate mood and affect. Laboratory Last Values WBC 10.4 K/mm3 (4.0-10.0) H 05/22/20 20:00 RBC 4.11 M/mm3 (3.60-5.2) 05/22/20 20:00 Hgb 12.3 GM/dL (10.7-15.3) 05/22/20 20:00 Hct 36.5 % (32.4-45.2) D 05/22/20 20:00 MCV 88.9 fl (80-96) 05/22/20 20:00 MCH 29.9 pg (25.7-33.7) 05/22/20 20:00 MCHC 33.7 g/dl (32.0-36.0) 05/22/20 20:00 RDW 13.6 % (11.6-15.6) D 05/22/20 20:00 Plt Count 183 K/MM3 (134-434) 05/22/20 20:00 MPV 6.5 fl (7.5-11.1) L 05/22/20 20:00 Absolute Neuts (auto) 8.6 K/mm3 (1.5-8.0) H 05/22/20 20:00 Neutrophils % 82.8 % (42.8-82.8) D 05/22/20 20:00 Lymphocytes % 8.2 % (8-40) D 05/22/20 20:00 Monocytes % 7.6 % (3.8-10.2) 05/22/20 20:00 Eosinophils % 1.0 % (0-4.5) 05/22/20 20:00 Basophils % 0.4 % (0-2.0) 05/22/20 20:00 Nucleated RBC % 0 % (0-0) 05/22/20 20:00 PT with INR 13.50 SEC (9.7-13.0) H 05/22/20 20:00 INR 1.14 (0.83-1.09) H 05/22/20 20:00 PTT (Actin FS) 26.7 SECONDS (25.2-36.5) 05/22/20 20:00 Sodium 140 mmol/L (136-145) 05/22/20 20:00 Potassium 3.8 mmol/L (3.5-5.1) 05/22/20 20:00 Chloride 105 mmol/L (98-107) 05/22/20 20:00 Carbon Dioxide 27 mmol/L (21-32) 05/22/20 20:00 Anion Gap 8 MMOL/L (8-16) 05/22/20 20:00 BUN 17.4 mg/dL (7-18) 05/22/20 20:00 Creatinine 0.7 mg/dL (0.55-1.3) 05/22/20 20:00 Est GFR (CKD-EPI)AfAm 106.87 05/22/20 20:00 Est GFR (CKD-EPI)NonAf 92.21 05/22/20 20:00 Random Glucose 121 mg/dL (74-106) H 05/22/20 20:00 Calcium 9.8 mg/dL (8.5-10.1) 05/22/20 20:00 Total Bilirubin 0.3 mg/dL (0.2-1) 05/22/20 20:00 AST 17 U/L (15-37) 05/22/20 20:00 ALT 19 U/L (13-61) 05/22/20 20:00 Alkaline Phosphatase 106 U/L (45-117) 05/22/20 20:00 Creatine Kinase 48 U/L (26-192) 05/22/20 20:00 Troponin I 0.76 ng/ml (0.00-0.05) H* 05/22/20 20:00 Total Protein 6.8 g/dl (6.4-8.2) 05/22/20 20:00 Albumin 3.1 g/dl (3.4-5.0) L 05/22/20 20:00 Triglycerides 106 mg/dL (0-150) 05/22/20 20:00 Cholesterol 175 mg/dL (50-200) 05/22/20 20:00 Total LDL Cholesterol 96 mg/dL (5-100) 05/22/20 20:00 HDL Cholesterol 53 mg/dL (40-60) 05/22/20 20:00 Urine Color Yellow 05/22/20 21:45 Urine Appearance Clear 05/22/20 21:45 Urine pH 5.5 (5.0-8.0) 05/22/20 21:45 Ur Specific [place] 1.020 (1.010-1.035) 05/22/20 21:45 Urine Protein Negative (NEGATIVE) 05/22/20 21:45 Urine Glucose (UA) Negative (NEGATIVE) 05/22/20 21:45 Urine Ketones Negative (NEGATIVE) 05/22/20 21:45 Urine Blood 3+ (NEGATIVE) H 05/22/20 21:45 Urine Nitrite Negative (NEGATIVE) 05/22/20 21:45 Urine Bilirubin Negative (NEGATIVE) 05/22/20 21:45 Urine Urobilinogen 1.0 mg/dL (0.2-1.0) 05/22/20 21:45 Ur Leukocyte Esterase Negative (NEGATIVE) 05/22/20 21:45 Urine WBC (Auto) 5 /uL (0-25.8) 05/22/20 21:45 Urine RBC (Auto) 246 /uL (0-23.9) 05/22/20 21:45 Urine Casts (Auto) 0 /uL (0-3.1) 05/22/20 21:45 U Epithel Cells (Auto) 12 /uL (0-25.1) 05/22/20 21:45 Urine Bacteria (Auto) 32 /uL (0-1359) 05/22/20 21:45 Blood Type A NEGATIVE 05/22/20 20:00 Antibody Screen Negative 05/22/20 20:[address]: 1. No definite acute intracranial abnormality. 2. Destructive expansile lytic bone lesion within the left parietal calvarium concerning for primary bone neoplasm such as plasmacytoma versus metastatic disease. Consider whole body bone scan for further initial evaluation to assess for multiple lesions. ASSESSMENT/PLAN: 65 yo F with PMHx of Pancreatic Ca( s/p Whipple 10/2019 at [facility]), HLD, GERD, Diverticulosis, Hyperthyroid who presents to ED for R facial droop and R hand weakness. Pt is admitted for TIA, possible brain metastasis Facial asymmetry - TIA/ CVA vs neoplasm - CT head reviewed. pending MRI in am - Neuro aware. started Asa as per recs - Oncologist at [facility] was contacted by ED . possible transfer on sunday after stroke workup. Dr. Ford [phone] -carotid u/s - echo - lipid panel, A1C Tropinemia - EKG NSR, no ST changes - pending 2nd trop - cont GERD - cont protonix Hyperthyroid - cont home med Pancreatic Ca w/ mets - cont morphine for pain Admit to tele ATTENDING PHYSICIAN STATEMENT I saw and evaluated the patient. I reviewed the resident's note and discussed the case with the resident. I agree with the resident's findings and plan as documented. SUBJECTIVE: OBJECTIVE: ASSESSMENT AND PLAN: <Kanchan Maguire - Last Filed: 05/23/20 06:58> CHIEF COMPLAINT: PCP: HISTORY OF PRESENT ILLNESS: ER course was notable for: (1) (2) (3) Recent Travel: PAST MEDICAL HISTORY: PAST SURGICAL HISTORY: Social History: Smoking: Alcohol: Drugs: Allergies No Known Drug Allergies Allergy (Verified 05/22/20 19:52) DUST Allergy (Uncoded 05/22/20 19:52) HOME MEDICATIONS: REVIEW OF SYSTEMS CONSTITUTIONAL: Absent: fever, chills, diaphoresis, generalized weakness, malaise, loss of appe tite, weight change HEENT: Absent: rhinorrhea, nasal congestion, throat pain, throat swelling, difficulty swallowing, mouth swelling, ear pain, eye pain, visual changes CARDIOVASCULAR: Absent: chest pain, syncope, palpitations, irregular heart rate, lightheadedness, peripheral edema RESPIRATORY: Absent: cough, shortness of breath, dyspnea with exertion, orthopnea, wheezing, stridor, hemoptysis GASTROINTESTINAL: Absent: abdominal pain, abdominal distension, nausea, vomiting, diarrhea, constipation, melena, hematochezia GENITOURINARY: Absent: dysuria, frequency, urgency, hesitancy, hematuria, flank pain, genital pain MUSCULOSKELETAL: Absent: myalgia, arthralgia, joint swelling, back pain, neck pain SKIN: Absent: rash, itching, pallor HEMATOLOGIC/IMMUNOLOGIC: Absent: easy bleeding, easy bruising, lymphadenopathy, frequent infections ENDOCRINE: Absent: unexplained weight gain, unexplained weight loss, heat intolerance, cold intolerance NEUROLOGIC: Absent: headache, focal weakness or paresthesias, dizziness, unsteady gait, seizure, mental status changes, bladder or bowel incontinence PSYCHIATRIC: Absent: anxiety, depression, suicidal or homicidal ideation, hallucinations. PHYSICAL EXAMINATION Vital Signs - 24 hr 05/22/20 05/22/20 05/22/20 19:49 20:06 20:14 Temperature 97.9 F Pulse Rate 81 Respiratory 18 Rate Blood Pressure 132/71 O2 Sat by Pulse 96 96 Oximetry (%) 05/22/20 05/23/20 23:30 02:00 Temperature 97.8 F 97.4 F L Pulse Rate 78 82 Respiratory 20 18 Rate Blood Pressure 127/61 106/73 O2 Sat by Pulse Oximetry (%) GENERAL: Awake, alert, and fully oriented, in no acute distress. HEAD: Normal with no signs of trauma. EYES: Pupils equal, round and reactive to light, extraocular movements intact, sclera anicteric, conjunctiva clear. No lid lag. EARS, NOSE, THROAT: Ears normal, nares patent, oropharynx clear without exudates. Moist mucous membranes. NECK: Normal range of motion, supple without lymphadenopathy, JVD, or masses. LUNGS: Breath sounds equal, clear to auscultation bilaterally. No wheezes, and no crackles. No accessory muscle use. HEART: Regular rate and rhythm, normal S1 and S2 without murmur, rub or gallop. ABDOMEN: Soft, nontender, not distended, normoactive bowel sounds, no guarding, no rebound, no masses. No hepatomegaly or splenomegaly. MUSCULOSKELETAL: Normal range of motion at all joints. No bony deformities or tenderness. No CVA tenderness. UPPER EXTREMITIES: 2+ pulses, warm, well-perfused. No cyanosis. No clubbing. No peripheral edema. LOWER EXTREMITIES: 2+ pulses, warm, well-perfused. No calf tenderness. No peripheral edema. NEUROLOGICAL: Cranial nerves II-XII intact. Normal speech. Normal gait. PSYCHIATRIC: Cooperative. Good eye contact. Appropriate mood and affect. SKIN: Warm, dry, normal turgor, no rashes or lesions noted, normal capillary refill. Laboratory Results - last 24 hr 05/22/20 05/22/20 05/22/20 20:00 20:00 20:00 WBC 10.4 H RBC 4.11 Hgb 12.3 Hct 36.5 D MCV 88.9 MCH 29.9 MCHC 33.7 RDW 13.6 D Plt Count 183 MPV 6.5 L Absolute Neuts (auto) 8.6 H Neutrophils % 82.8 D Lymphocytes % 8.2 D Monocytes % 7.6 Eosinophils % 1.0 Basophils % 0.4 Nucleated RBC % 0 PT with INR 13.50 H INR 1.14 H PTT (Actin FS) 26.7 Sodium 140 Potassium 3.8 Chloride 105 Carbon Dioxide 27 Anion Gap 8 BUN 17.4 Creatinine 0.7 Est GFR (CKD-EPI)AfAm 106.87 Est GFR (CKD-EPI)NonAf 92.21 Random Glucose 121 H Calcium 9.8 Total Bilirubin 0.3 AST 17 ALT 19 Alkaline Phosphatase 106 Creatine Kinase 48 Troponin I 0.76 H* Total Protein 6.8 Albumin 3.1 L Triglycerides 106 Cholesterol 175 Total LDL Cholesterol 96 HDL Cholesterol 53 Urine Color Urine Appearance Urine pH Ur Specific [place] Urine Protein Urine Glucose (UA) Urine Ketones Urine Blood Urine Nitrite Urine Bilirubin Urine Urobilinogen Ur Leukocyte Esterase Urine WBC (Auto) Urine RBC (Auto) Urine Casts (Auto) U Epithel Cells (Auto) Urine Bacteria (Auto) Blood Type Antibody Screen 05/22/20 05/22/20 20:00 21:45 WBC RBC Hgb Hct MCV MCH MCHC RDW Plt Count MPV Absolute Neuts (auto) Neutrophils % Lymphocytes % Monocytes % Eosinophils % Basophils % Nucleated RBC % PT with INR INR PTT (Actin FS) Sodium Potassium Chloride Carbon Dioxide Anion Gap BUN Creatinine Est GFR (CKD-EPI)AfAm Est GFR (CKD-EPI)NonAf Random Glucose Calcium Total Bilirubin AST ALT Alkaline Phosphatase Creatine Kinase Troponin I Total Protein Albumin Triglycerides Cholesterol Total LDL Cholesterol HDL Cholesterol Urine Color Yellow Urine Appearance Clear Urine pH 5.5 Ur Specific [place] 1.020 Urine Protein Negative Urine Glucose (UA) Negative Urine Ketones Negative Urine Blood 3+ H Urine Nitrite Negative Urine Bilirubin Negative Urine Urobilinogen 1.0 Ur Leukocyte Esterase Negative Urine WBC (Auto) 5 Urine RBC (Auto) 246 Urine Casts (Auto) 0 U Epithel Cells (Auto) 12 Urine Bacteria (Auto) 32 Blood Type A NEGATIVE Antibody Screen Negative ASSESSMENT/PLAN: Visit type - Emergency Visit Emergency Visit: Yes ED Registration Date: 05/22/20 Care time: The patient presented to the Emergency Department on the above date and was hospitalized for further evaluation of their emergent condition. - New Patient This patient is new to me today: Yes Date on this admission: 05/23/20 - Critical Care Critical Care patient: No ATTENDING PHYSICIAN STATEMENT I saw and evaluated the patient. I reviewed the resident's note and discussed the case with the resident. I agree with the resident's findings and plan as documented. SUBJECTIVE: OBJECTIVE: ASSESSMENT AND PLAN: ASSESSMENT/PLAN: Patient was seen and evaluated: 65 year old Female with a PMHx of Pancreatic Cancer( s/p Whipple 10/2019 at [facility]), HLD, GERD, Diverticulosis, Hyperthyroid who presents to ED for R facial droop and R hand weakness. Rule out TIA, possible brain metastasis Facial droop - TIA vs CVA - CT head reviewed. pending MRI in am - Neuro consulted Tropinemia - EKG NSR, no ST changes - trend troponin to peak
[2020-05-23] MEDS ORDERED: MORPHINE SULFATE 2 MG/ML VIAL IVPUSH SCH (03:36)
[2020-05-23 06:56] LABS: BASO % 0.4 % (0-2.0); HEMATOCRIT 35.9 % (32.4-45.2); HEMOGLOBIN 12.1 GM/dL (10.7-15.3); LYMPH % 7.8 % (8-40); MCH 29.3 pg (25.7-33.7); MCHC 33.5 g/dl (32.0-36.0); MEAN CELL VOLUME 87.5 fl (80-96); MEAN PLT VOLUME 6.6 fl (7.5-11.1); MONO % 7.3 % (3.8-10.2); NEUT % 82.5 % (42.8-82.8); PLATELET COUNT 181 K/MM3 (134-434); RBC 4.11 M/mm3 (3.60-5.2); RDW 13.4 % (11.6-15.6); WHITE BLOOD COUNT 11.5 K/mm3 (4.0-10.0)
[2020-05-23 07:30] LABS: ALBUMIN 2.8 g/dl (3.4-5.0); BILIRUBIN,TOTAL 0.4 mg/dL (0.2-1); BLOOD UREA NITROGEN 17.3 mg/dL (7-18); CALCIUM 10.2 mg/dL (8.5-10.1); CREATININE 0.5 mg/dL (0.55-1.3); MAGNESIUM 2.2 mg/dL (1.8-2.4); PHOSPHOROUS 3.5 mg/dL (2.5-4.9); POTASSIUM 3.4 mmol/L (3.5-5.1); TOT PROT 6.3 g/dl (6.4-8.2)
[2020-05-23] MEDS ORDERED: LORazepam 1 MG TABLET PO ONE (10:00)
[2020-05-23] MEDS: ASPIRIN COATED 81 MG TABLET.EC PO SCH (10:27)
--- NOTE | 2020-05-23 11:26 | EKG ---
Test Reason : Blood Pressure : / mmHG Vent. Rate : 082 BPM Atrial Rate : 082 BPM P-R Int : 176 ms QRS Dur : 084 ms QT Int : 352 ms P-R-T Axes : 052 014 034 degrees QTc Int : 411 ms NORMAL SINUS RHYTHM POSSIBLE LEFT ATRIAL ENLARGEMENT BORDERLINE ECG WHEN COMPARED WITH ECG OF 17-JAN-2020 15:07, NO SIGNIFICANT CHANGE WAS FOUND Confirmed by BLANCA PARKINSON MD ([id number]) on 05/23/2020 11:26:10 AM Referred By: Confirmed By:BLANCA PARKINSON MD
--- NOTE | 2020-05-23 12:16 | CON.CARD ---
Cardiology Consult (text) - Consultation Consultation Note: Chief Complaint: slurred speech, right arm weak, facial droop History of Present Illness: 65F h/o cholecystectomy 01/2019, HLD, GERD, thoracic aorta aneurysm, hiatal hernia, pancreatic cancer s/p whipple and chemotherapy with recent spine mets p/w slurred speech, right arm weak, facial droop. Working up for cva, ?brain mets on ct. No cp sob palps dizzy loc pnd orthopnea le edema. Sees Dr. Cruz for cardio. - Past Medical History Cardio/Vascular: Yes: Aneurysm (thoracic aaneurysm), HTN, Hyperlipdemia, Other (Thoracic Aortic Aneurysm) Gastrointestinal: Yes: Diverticulosis, Hiatal Hernia, Other (ascending and descending colon adenomas removed by Dr Horner) Hepatobiliary: Yes: Cholelithiasis, Choledocholithiasis (s/p ERCP with sphincterotomy, stenting , stone and stent removal at [facility]), Other (s/p Placement of common bile duct, biliary stent.) Renal/: Yes: Hematuria, Renal Calculi, Other Psych: Yes: Anxiety Musculoskeletal: Yes: Chronic low back pain - Past Surgical History Past Surgical History: Yes: Appendectomy, Breast Biopsy, Cholecystectomy, Colonoscopy, Upper Endoscopy - Alcohol/Substance Use Hx Alcohol Use: No History of Substance Use: reports: None - Smoking History Smoking history: Current every day smoker Have you smoked in the past 12 months: No Aproximately how many cigarettes per day: 5 - Social History Usual Living Arrangement: Alone ADL: Independent 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 History of Recent Travel: No Home Medications - Allergies Allergies/Adverse Reactions: Allergies Allergy/AdvReac Type Severity Reaction Status Date / Time No Known Drug Allergies Allergy Verified 05/22/20 19:52 DUST Allergy Uncoded 05/22/20 19:52 Family Disease History - Family Disease History Family Disease History: Diabetes: Mother, Other: Father, Mother, Brother Review of Systems - Review of Systems per hpi; all others nl Vital Signs Temp 98.1 F 05/23/20 10:00 Pulse 87 05/23/20 10:00 Resp 20 05/23/20 10:00 BP 122/73 05/23/20 10:00 Pulse Ox 96 05/23/20 09:00 Intake & Output 05/22/20 05/23/20 05/23/20 23:59 11:59 23:59 Intake Total 120 10 Balance 120 10 Weight 110 lb Intake: IV 10 saline lock 10 Oral 120 Other: Voiding Method Toilet Toilet # Unmeasured Voids Void 2 Height 5 ft 3 in Body Mass Index (BMI) 19.5 Weight Measurement Method Stated by Patient Weight Measurement Method Est/Stated by Patient nad no jvd rrr s1s2 no mrg cta bl nl eff aao3 no le e/c/c abd nt nd pos bs no jaundice diaphoresis pos dp pt no carotid bruits Laboratory Last Values WBC 11.5 K/mm3 (4.0-10.0) H 05/23/20 05:20 RBC 4.11 M/mm3 (3.60-5.2) 05/23/20 05:20 Hgb 12.1 GM/dL (10.7-15.3) 05/23/20 05:20 Hct 35.9 % (32.4-45.2) 05/23/20 05:20 MCV 87.5 fl (80-96) 05/23/20 05:20 MCH 29.3 pg (25.7-33.7) 05/23/20 05:20 MCHC 33.5 g/dl (32.0-36.0) 05/23/20 05:20 RDW 13.4 % (11.6-15.6) 05/23/20 05:20 Plt Count 181 K/MM3 (134-434) 05/23/20 05:20 MPV 6.6 fl (7.5-11.1) L 05/23/20 05:20 Absolute Neuts (auto) 9.5 K/mm3 (1.5-8.0) H 05/23/20 05:20 Neutrophils % 82.5 % (42.8-82.8) 05/23/20 05:20 Lymphocytes % 7.8 % (8-40) L 05/23/20 05:20 Monocytes % 7.3 % (3.8-10.2) 05/23/20 05:20 Eosinophils % 2.0 % (0-4.5) D 05/23/20 05:20 Basophils % 0.4 % (0-2.0) 05/23/20 05:20 Nucleated RBC % 0 % (0-0) 07/12/20 05:20 PT with INR 13.50 SEC (9.7-13.0) H 05/22/20 20:00 INR 1.14 (0.83-1.09) H 05/22/20 20:00 PTT (Actin FS) 26.7 SECONDS (25.2-36.5) 05/22/20 20:00 Sodium 140 mmol/L (136-145) 05/23/20 05:20 Potassium 3.4 mmol/L (3.5-5.1) L 05/23/20 05:20 Chloride 106 mmol/L (98-107) 05/23/20 05:20 Carbon Dioxide 25 mmol/L (21-32) 05/23/20 05:20 Anion Gap 9 MMOL/L (8-16) 05/23/20 05:20 BUN 17.3 mg/dL (7-18) 05/23/20 05:20 Creatinine 0.5 mg/dL (0.55-1.3) L 05/23/20 05:20 Est GFR (CKD-EPI)AfAm 119.38 05/23/20 05:20 Est GFR (CKD-EPI)NonAf 103.00 05/23/20 05:20 Random Glucose 95 mg/dL (74-106) 05/23/20 05:20 Hemoglobin A1c % 7.0 % (4.2-6.3) H 05/23/20 05:20 Calcium 10.2 mg/dL (8.5-10.1) H 05/23/20 05:20 Phosphorus 3.5 mg/dL (2.5-4.9) 05/23/20 05:20 Magnesium 2.2 mg/dL (1.8-2.4) 05/23/20 05:20 Total Bilirubin 0.4 mg/dL (0.2-1) 05/23/20 05:20 AST 20 U/L (15-37) 05/23/20 05:20 ALT 17 U/L (13-61) 05/23/20 05:20 Alkaline Phosphatase 99 U/L (45-117) 05/23/20 05:20 Creatine Kinase 48 U/L (26-192) 05/22/20 20:00 Troponin I 0.98 ng/ml (0.00-0.05) H* 05/23/20 05:20 Total Protein 6.3 g/dl (6.4-8.2) L 05/23/20 05:20 Albumin 2.8 g/dl (3.4-5.0) L 05/23/20 05:20 Triglycerides 125 mg/dL (0-150) 05/23/20 05:20 Cholesterol 169 mg/dL (50-200) 05/23/20 05:20 Total LDL Cholesterol 97 mg/dL (5-100) 05/23/20 05:20 HDL Cholesterol 50 mg/dL (40-60) 05/23/20 05:20 Urine Color Yellow 05/22/20 21:45 Urine Appearance Clear 05/22/20 21:45 Urine pH 5.5 (5.0-8.0) 05/22/20 21:45 Ur Specific [place] 1.020 (1.010-1.035) 05/22/20 21:45 Urine Protein Negative (NEGATIVE) 05/22/20 21:45 Urine Glucose (UA) Negative (NEGATIVE) 05/22/20 21:45 Urine Ketones Negative (NEGATIVE) 05/22/20 21:45 Urine Blood 3+ (NEGATIVE) H 05/22/20 21:45 Urine Nitrite Negative (NEGATIVE) 05/22/20 21:45 Urine Bilirubin Negative (NEGATIVE) 05/22/20 21:45 Urine Urobilinogen 1.0 mg/dL (0.2-1.0) 05/22/20 21:45 Ur Leukocyte Esterase Negative (NEGATIVE) 05/22/20 21:45 Urine WBC (Auto) 5 /uL (0-25.8) 05/22/20 21:45 Urine RBC (Auto) 246 /uL (0-23.9) 05/22/20 21:45 Urine Casts (Auto) 0 /uL (0-3.1) 05/22/20 21:45 U Epithel Cells (Auto) 12 /uL (0-25.1) 05/22/20 21:45 Urine Bacteria (Auto) 32 /uL (0-1359) 05/22/20 21:45 Blood Type A NEGATIVE 05/22/20 20:00 Antibody Screen Negative 05/22/20 20:00 ecg: sr nl intervals no ischemic changes tele: sr echo 01/2020: unremarkable carotids: no sig stenosis Assessment/Plan 65F h/o cholecystectomy 01/2019, HLD, GERD, thoracic aorta aneurysm, hiatal hernia, pancreatic cancer s/p whipple and chemotherapy with recent spine mets p/w slurred speech, right arm weak, facial droop. possible cva: -ct head with ?brain mets, mri pending -neuro consulted elevated trops: -trops mildly elevated with nl ck. cont to trend to peak, cont tele. check echo. Possibly related to cva, does not appear to be acs. on asa. -per charts pt had negative stress test and cardiac cath in the last 2 years. further ischemic w/u to be determined based on clinical course here, ?brain mets on ct. pancreatic cancer: - chemo recently, s/p whipple, now with spine mets and ?brain mets on ct (mri pending) - manage per onc HTN: -stable
[2020-05-23] MEDS: MORPHINE SULFATE 2 MG/ML VIAL IVPUSH PRN (12:43)
[2020-05-23] MEDS ORDERED: HYDROmorphone HCl 2 MG/ML VIAL IVPUSH ONE (16:30)
[2020-05-24] MEDS: MORPHINE SULFATE 2 MG/ML VIAL IVPUSH PRN (00:01)
[2020-05-24] MEDS ORDERED: HYDROmorphone HCl 2 MG/ML VIAL IVPB ONE (03:44)
--- NOTE | 2020-05-24 08:51 | PN ---
Progress Note (short form) - Note Progress Note: 65 yo lady diagnosed with pancreas ca in 2019-underwent neoadjuvant chemo rt and ultimately whipple in repeat ct chest abd pelvis was ok in february as per pt repeat one recently showed lung and bone-spinal? mets-she received news of it may 17--she was supposed to start radiation therapy this week came to er 2 days ago with right hemiparesis and slurred speech mri showed bilateral cerebral and cerebellar lacunar infarcts and adrian occipitoparietal mass on left CBC, BMP 05/23/20 05:20 05/23/20 05:20 Vital Signs Period Temp Pulse Resp BP Sys/Lowe Pulse Ox Last 24 Hr 97.8 F-98.5 F 82-97 18-20 100-129/54-73 94 cachectic, chronically ill looking s1s2 rrr lungs cta abd soft non tender left lumbar tenderness right facial droop, right pronator drip with 4/5 right upper ext weakness states unable to walk due to back pain trop 0.7-0.9 plan is to transfer pt to [facility] oncology once cleared by cardiology-they have no telemetry beds over there to accommodate her left message to oncology-will follow up asa 81 qd dvt prophylaxis pain mgmnt also of noted spoke to patient regarding advanced directives her son is the health care proxy and she would like to be resuscitated for now
[2020-05-24] MEDS ORDERED: POTASSIUM CHLORIDE TABS 20 MEQ TABLET.ER (FP) PO ONE (09:00)
[2020-05-24] MEDS: HYDROmorphone HCl 2 MG/ML VIAL IVPUSH PRN ×3 (09:11→21:04)
[2020-05-24] MEDS: ASPIRIN COATED 81 MG TABLET.EC PO SCH (09:12)
--- NOTE | 2020-05-24 09:55 | CON.NEURO ---
Consult - Past Medical History Cardio/Vascular: Yes: Aneurysm (thoracic aneurysm), HTN, Hyperlipdemia, Other (Thoracic Aortic Aneurysm) Gastrointestinal: Yes: Diverticulosis, Hiatal Hernia, Pancreatitis, Other Hepatobiliary: Yes: Cholelithiasis (s/p lap choly), Choledocholithiasis (s/p ERCP with sphincterotomy, stenting, stone and stent removal at [facility], restenting by ak 02/28 for cholangitis), Other (s/p Placement of common bile duct, biliary stent. 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 History of Recent Travel: No Home Medications - Allergies Allergies/Adverse Reactions: Allergies Allergy/AdvReac Type Severity Reaction Status Date / Time No Known Drug Allergies Allergy Verified 05/22/20 19:52 DUST Allergy Uncoded 05/22/20 19:52 Physical Exam-Neuro Vital Signs: Vital Signs Temperature 97.8 F 05/24/20 05:00 Pulse Rate 82 05/24/20 05:00 Respiratory Rate 18 05/24/20 05:00 Blood Pressure 115/64 05/24/20 05:00 O2 Sat by Pulse Oximetry (%) 94 L 05/23/20 21:00 Labs: CBC, BMP 05/23/20 05:20 05/23/20 05:20 INR, PTT INR 1.14 (0.83-1.09) H 05/22/20 20:00 Assessment/Plan CC Right upper exgtremity weakness HPI 65 yo F with PMHx of Pancreatic Ca( s/p Whipple 10/2019 at [facility]), HLD, GERD, Diverticulosis, Hyperthyroid who came to hospital for right facial droopiness and righ tarm weakness. SHe was outside of window. and she was foudn to have left parieto frontal mass lesion in skull and suspected to have mets. She was admitted to floor for mri and further management. Her face and speech is better and she still continue to have right weakness. She was suppose tot start hip radiation for left side. R f PAST MEDICAL HISTORY:see above PAST SURGICAL HISTORY: Whipple, appendectomy Social History: Smoking:smokes 5 cigarettes/day Alcohol:denie Drugs: denies Allergies No Known Drug Allergies Allergy (Verified 05/22/20 19:52) DUST Allergy (Uncoded 05/22/20 19:52) ROS,FH,SH reviewed in chart NEUROLOGICAL EXMINATION Alert oriented x 3, speech is normal, neck i supple, VSS eomi, pupils reactive no face asymmetry right pronator drift ct head and mri showed left parietoparietal function there is bony mass mri ofb rain was done without contrast Assessment 65 yo F with PMHx of Pancreatic Ca( s/p Whipple 10/2019 at [facility]), HLD, GERD, Diverticulosis, Hyperthyroid. She came with right hemiparesis , most likley secondary to mets to skull, she also have known left hip mets and scheduled to xrt on may 24 Plan: no need for steroid , as discussed with patient - she may need mri with contrst, and onclogist consult and xrt consult - this was discussed with patient and primary she wishes to be transferred to [facility], primary team would work with alondra Thanking you so much Vishal Chacon MD
[2020-05-24] MEDS ORDERED: ENOXAPARIN NA (PORCINE) 40 MG/0.4 ML DISP.SYRIN SQ SCH (10:00)
[2020-05-24] MEDS ORDERED: METHIMAZOLE 10 MG TABLET (FP) PO SCH (10:00)
[2020-05-24 11:04] LABS: BLOOD UREA NITROGEN 16.1 mg/dL (7-18); CALCIUM 9.9 mg/dL (8.5-10.1); CREATININE 0.5 mg/dL (0.55-1.3); POTASSIUM 3.7 mmol/L (3.5-5.1)
--- NOTE | 2020-05-24 11:48 | PN ---
Progress Note (short form) - Note Progress Note: s: no cp sob palps dizzy Current Medications Generic Name Dose Route Start Last Admin Trade Name Freq PRN Reason Stop Dose Admin Aspirin 81 mg 05/23/20 10:00 05/24/20 09:12 Ecotrin - PO 81 mg DAILY MANI Administration Enoxaparin Sodium 40 mg 05/24/20 10:00 Lovenox - SQ DAILY MANI Hydromorphone HCl 2 mg 05/24/20 08:48 05/24/20 09:11 Dilaudid Vial - IVPUSH 2 mg Q4H PRN Administration PAIN LEVEL 7 - 10 Methimazole 10 mg 05/24/20 10:00 Tapazole - PO DAILY MANI Pancrelipase 1 cap 05/24/20 12:[address] 36,000 Units Capsule PO TIDCM MANI Vital Signs Period Temp Pulse Resp BP Sys/Lowe Pulse Ox Last 24 Hr 97.8 F-98.5 F 82-97 18-20 100-129/54-71 94-100 nad no jvd rrr s1s2 no mrg cta bl nl eff aao3 no le e/c/c abd nt nd pos bs no jaundice diaphoresis Laboratory Last Values WBC 11.5 K/mm3 (4.0-10.0) H 05/23/20 05:20 RBC 4.11 M/mm3 (3.60-5.2) 05/23/20 05:20 Hgb 12.1 GM/dL (10.7-15.3) 05/23/20 05:20 Hct 35.9 % (32.4-45.2) 05/23/20 05:20 MCV 87.5 fl (80-96) 05/23/20 05:20 MCH 29.3 pg (25.7-33.7) 05/23/20 05:20 MCHC 33.5 g/dl (32.0-36.0) 05/23/20 05:20 RDW 13.4 % (11.6-15.6) 05/23/20 05:20 Plt Count 181 K/MM3 (134-434) 05/23/20 05:20 MPV 6.6 fl (7.5-11.1) L 05/23/20 05:20 Absolute Neuts (auto) 9.5 K/mm3 (1.5-8.0) H 05/23/20 05:20 Neutrophils % 82.5 % (42.8-82.8) 05/23/20 05:20 Lymphocytes % 7.8 % (8-40) L 05/23/20 05:20 Monocytes % 7.3 % (3.8-10.2) 05/23/20 05:20 Eosinophils % 2.0 % (0-4.5) D 05/23/20 05:20 Basophils % 0.4 % (0-2.0) 05/23/20 05:20 Nucleated RBC % 0 % (0-0) 05/23/20 05:20 PT with INR 13.50 SEC (9.7-13.0) H 05/22/20 20:00 INR 1.14 (0.83-1.09) H 05/22/20 20:00 PTT (Actin FS) 26.7 SECONDS (25.2-36.5) 05/22/20 20:00 Sodium 137 mmol/L (136-145) 05/24/20 09:55 Potassium 3.7 mmol/L (3.5-5.1) 05/24/20 09:55 Chloride 101 mmol/L (98-107) 05/24/20 09:55 Carbon Dioxide 30 mmol/L (21-32) 05/24/20 09:55 Anion Gap 7 MMOL/L (8-16) L 05/24/20 09:55 BUN 16.1 mg/dL (7-18) 05/24/20 09:55 Creatinine 0.5 mg/dL (0.55-1.3) L 05/24/20 09:55 Est GFR (CKD-EPI)AfAm 119.38 05/24/20 09:55 Est GFR (CKD-EPI)NonAf 103.00 05/24/20 09:55 Random Glucose 127 mg/dL (74-106) H 05/24/20 09:55 Hemoglobin A1c % 7.0 % (4.2-6.3) H 05/23/20 05:20 Calcium 9.9 mg/dL (8.5-10.1) 05/24/20 09:55 Phosphorus 3.5 mg/dL (2.5-4.9) 05/23/20 05:20 Magnesium 2.2 mg/dL (1.8-2.4) 05/23/20 05:20 Total Bilirubin 0.4 mg/dL (0.2-1) 05/23/20 05:20 AST 20 U/L (15-37) 05/23/20 05:20 ALT 17 U/L (13-61) 05/23/20 05:20 Alkaline Phosphatase 99 U/L (45-117) 05/23/20 05:20 Creatine Kinase 37 U/L (26-192) 05/24/20 09:55 Creatine Kinase Cancelled 05/24/20 09:55 Troponin I 0.36 ng/ml (0.00-0.05) H 05/24/20 09:55 Troponin I Cancelled 05/24/20 09:55 Total Protein 6.3 g/dl (6.4-8.2) L 05/23/20 05:20 Albumin 2.8 g/dl (3.4-5.0) L 05/23/20 05:20 Triglycerides 125 mg/dL (0-150) 05/23/20 05:20 Cholesterol 169 mg/dL (50-200) 05/23/20 05:20 Total LDL Cholesterol 97 mg/dL (5-100) 05/23/20 05:20 HDL Cholesterol 50 mg/dL (40-60) 05/23/20 05:20 Urine Color Yellow 05/22/20 21:45 Urine Appearance Clear 05/22/20 21:45 Urine pH 5.5 (5.0-8.0) 05/22/20 21:45 Ur Specific [place] 1.020 (1.010-1.035) 05/22/20 21:45 Urine Protein Negative (NEGATIVE) 05/22/20 21:45 Urine Glucose (UA) Negative (NEGATIVE) 05/22/20 21:45 Urine Ketones Negative (NEGATIVE) 05/22/20 21:45 Urine Blood 3+ (NEGATIVE) H 05/22/20 21:45 Urine Nitrite Negative (NEGATIVE) 05/22/20 21:45 Urine Bilirubin Negative (NEGATIVE) 05/22/20 21:45 Urine Urobilinogen 1.0 mg/dL (0.2-1.0) 05/22/20 21:45 Ur Leukocyte Esterase Negative (NEGATIVE) 05/22/20 21:45 Urine WBC (Auto) 5 /uL (0-25.8) 05/22/20 21:45 Urine RBC (Auto) 246 /uL (0-23.9) 05/22/20 21:45 Urine Casts (Auto) 0 /uL (0-3.1) 05/22/20 21:45 U Epithel Cells (Auto) 12 /uL (0-25.1) 05/22/20 21:45 Urine Bacteria (Auto) 32 /uL (0-1359) 05/22/20 21:45 Blood Type A NEGATIVE 05/22/20 20:00 Antibody Screen Negative 05/22/20 20:00 ecg: sr nl intervals no ischemic changes tele: sr echo 01/2020: unremarkable carotids: no sig stenosis Assessment/Plan 65F h/o cholecystectomy 01/2019, HLD, GERD, thoracic aorta aneurysm, hiatal hernia, pancreatic cancer s/p whipple and chemotherapy with recent spine mets p/w slurred speech, right arm weak, facial droop. cva symptoms, brain mets: -sxs thought to be due to brain met -neuro consulting -plan for transfer to [facility] elevated trops: -trops mildly elevated with flat trend and nl ck. no cardiac sxs. tele benign. check echo. Does not appear to be acs, likely demand ischemia. on asa. -per charts pt had negative stress test and cardiac cath in the last 2 years. further ischemic w/u to be determined based on clinical course, likely will be conservative tx given her advanced cancer with brain mets now. pancreatic cancer: - chemo recently, s/p whipple, now with spine mets and brain met - manage per onc HTN: -stable can dc tele, cardiac malin stable for transfer
[2020-05-24] MEDS ORDERED: PT OWN MED DRAWER 7, Y5N ONE ×2 (12:51→17:51)
[2020-05-24] MEDS: LIPASE/PROTEASE/AMYLASE 36,000 UNIT CAPSULE PO SCH ×3 (12:53→18:12)
--- NOTE | 2020-05-24 15:00 | ECHO ---
Name: SAMMYEMILY Valdivia Exam:Adult Echocardiogram Study Date: 05/24/2020 02:19 PM Age: 65 yrs Reason For Study: eval for tropinemia MMode/2D Measurements & Calculations IVSd: 1.1 cm Ao root diam: 2.9 cm LVIDd: 3.4 cm LA dimension: 2.8 cm LVIDs: 2.5 cm LVPWd: 1.2 cm LVPWs: 1.5 cm EDV(Teich): 45.8 ml ESV(Teich): 21.5 ml LVOT diam: 1.9 cm RV S Deep: 15.2 cm/sec Doppler Measurements & Calculations MV E max deep: 59.7 cm/sec Ao V2 max: 197.9 cm/sec MV A max deep: 85.4 cm/sec Ao max P.7 mmHg MV E/A: 0.70 Ao V2 mean: 141.7 cm/sec MV dec time: 0.15 sec Ao mean P.2 mmHg Ao V2 VTI: 38.9 cm AI P1/2t: 358.7 msec REYMUNDO(V,D): 2.0 cm2 AI max deep: 436.6 cm/sec LV V1 max P.4 mmHg AI max P.3 mmHg LV V1 max: 135.7 cm/sec AI dec slope: 356.5 cm/sec2 TR max deep: 264.7 cm/sec Med Peak E' Deep: 5.3 cm/sec TR max P.0 mmHg Med E/e': 11.3 Lat Peak E' Deep: 8.3 cm/sec Lat E/e': 7.2 Procedure Study Quality: Technically suboptimal. Left Ventricle The left ventricle is normal in size. There is mild concentric left ventricular hypertrophy. The left ventricular ejection fraction is normal. Ejection Fraction = 60-65%. The transmitral spectral Doppler flow pattern is suggestive of impaired LV relaxation. Right Ventricle The right ventricle is normal in size and function. Atria Normal left and right atrial size and function. Mitral Valve The mitral valve is grossly normal. There is no mitral regurgitation noted. Tricuspid Valve The tricuspid valve is not well visualized, but is grossly normal. No tricuspid regurgitation. Aortic Valve The aortic valve is not well visualized. Mild aortic regurgitation. Pericardium/Pleura There is no pericardial effusion. Interpretation Summary Technically limited Normal LV size,mild LVH, normal systolic function EF 60-65%,impaired relaxation Normal RV Mild AR. Robert Fuchs 05/24/2020 03:00 PM
[2020-05-24 17:57] VITALS: PULSE 97
[2020-05-24 20:45] VITALS: BP 128/80; TEMP 98.2
--- NOTE | 2020-05-25 11:03 | DS ---
Physical Examination Vital Signs: Vital Signs Temperature 98.2 F 05/24/20 20:30 Pulse Rate 97 H 05/24/20 20:30 Respiratory Rate 17 05/24/20 20:30 Blood Pressure 128/80 05/24/20 20:30 O2 Sat by Pulse Oximetry (%) 94 L 05/24/20 20:30 Constitutional: Yes: Calm, Cachectic Eyes: Yes: EOM Intact HENT: Yes: Normocephalic Neck: Yes: Trachea Midline Cardiovascular: Yes: Regular Rate and Rhythm Respiratory: Yes: CTA Bilaterally Gastrointestinal: Yes: Normal Bowel Sounds, Soft Edema: No Peripheral Pulses WNL: Yes Neurological: Yes: Facial Droop (right), Weakness (right upper extremity pronator drift) Labs: CBC, BMP 05/23/20 05:20 05/24/20 09:55 Discharge Summary Problems reviewed: Yes Reason For Visit: TRANSIENT ISCHEMIC ATTACK, ELEVATED TROPONIN LEVEL Hospital Course: 65 yo lady diagnosed with pancreas ca in 2018-underwent neoadjuvant chemo rt and ultimately whipple in repeat ct chest abd pelvis was ok in february as per pt repeat one recently showed lung and bone-spinal? mets-she received news of it may 17--she was supposed to start radiation therapy this week came to er 2 days ago with right hemiparesis and slurred speech mri showed bilateral cerebral and cerebellar lacunar infarcts and adrian occipitoparietal mass on left pt has right facial droop, right pronator drip with 4/5 right upper ext weakness states unable to walk due to back pain pt was accepted for transfer to [facility] oncology after she was cleared by cardiology for rt and oncology folow up also of noted spoke to patient regarding advanced directives her son is the health care proxy and she would like to be resuscitated for now Condition: Guarded - Instructions Referrals: John Fortune [Primary Care Provider] - Disposition: TRANSFER ACUTE CARE/OTHER HOSP
== END 2020-05-24 21:43 | disposition short-term general hospital (02) | DRG 41 ==
LOC: JER 19:29 → JERBED 21:31 → J4W 23:24
PROVIDERS: ADMIT Internal Medicine; ATTEND Internal Medicine
DX: C79.31 Secondary malignant neoplasm of brain (principal); C25.9 Malignant neoplasm of pancreas, unspecified; C79.51 Secondary malignant neoplasm of bone; R47.81 Slurred speech; G45.8 Other transient cerebral ischemic attacks and related syndromes; I63.89 Other cerebral infarction; G81.91 Hemiplegia, unspecified affecting right dominant side; I24.8 Other forms of acute ischemic heart disease; R64 Cachexia; Z68.1 Body mass index [BMI] 19.9 or less, adult; K21.9 Gastro-esophageal reflux disease without esophagitis; K57.90 Diverticulosis of intestine, part unspecified, without perforation or abscess without bleeding; E05.90 Thyrotoxicosis, unspecified without thyrotoxic crisis or storm; E78.5 Hyperlipidemia, unspecified; N28.1 Cyst of kidney, acquired; N83.209 Unspecified ovarian cyst, unspecified side; K44.9 Diaphragmatic hernia without obstruction or gangrene; M54.5 Low back pain; F41.9 Anxiety disorder, unspecified; I71.2 Thoracic aortic aneurysm, without rupture
CPT/HCPCS: 36415; 70450-TC; 70551-TC; 80048; 80053; 80061; 81003; 82550; 83036; 83721; 83735; 84100; 84484; 85025; 85610; 85730; 86850; 86900; 86901; 93005; 93010; 93306-TC; 93880-TC; 99285-25; J0131; U0003